=== PATIENT | female | born 1940 | race African-American/Black ===

== ENCOUNTER 2016-05-27 10:02 | Emergency (ER) | payer MEDICARE, MEDICAID ==
--- NOTE | 2016-05-27 10:19 | ER Document Report ---
ED Medical Screen (RME) - General Stated Complaint: NECK PAIN Notes: 76 yo female c/o right sided neck and shoulder pain. woke up with pain, some radiation and numbness into right arm/hand. no fever. + headache. hx/o HTN, DM TRAVEL OUTSIDE OF THE [place] IN LAST 30 DAYS: No - Related Data Allergies/Adverse Reactions: No Known Allergies Allergy (Verified 12/27/15 20:01) Past Medical History - Past Medical History Cardiac Medical History: Reports: Hx Coronary Artery Disease, Hx Hypertension - PULOMONARY HTN Denies: Hx Heart Attack Pulmonary Medical History: Reports: Hx Asthma, Hx Bronchitis, Hx COPD - CHF, Hx Pneumonia Neurological Medical History: Denies: Hx Cerebrovascular Accident, Hx Seizures Endocrine Medical History: Reports: Hx Diabetes Mellitus Type 2 GI Medical History: Denies: Hx Hepatitis, Hx Hiatal Hernia, Hx Ulcer Musculoskeltal Medical History: 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 Denies: Hx Mastectomy, Hx Open Heart Surgery, Hx Pacemaker - Immunizations Hx Diphtheria, Pertussis, Tetanus Vaccination: Yes Physical Exam - Vital signs Vitals: Temp Pulse Resp BP Pulse Ox 97.4 F 56 L 16 161/63 H 97 05/27/16 10:13 05/27/16 10:13 05/27/16 10:13 05/27/16 10:13 05/27/16 10:13 Course - Vital Signs Vital signs: Temp Pulse Resp BP Pulse Ox 97.4 F 56 L 16 161/63 H 97 05/27/16 10:13 05/27/16 10:13 05/27/16 10:13 05/27/16 10:13 05/27/16 10:13
[2016-05-27] MEDS ORDERED: NAPROXEN 250 MG TABLET PO ONE (11:36)
[2016-05-27] MEDS ORDERED: DIAZEPAM 5 MG TABLET PO ONE (11:36)
--- NOTE | 2016-05-27 11:40 | ER Document Report ---
ED General - General Chief Complaint: Neck Problem Stated Complaint: NECK PAIN Mode of Arrival: Ambulatory Information source: Patient Notes: 76-year-old female presents with complaints of neck tightness that started 2 days after she was awoken from sleep. Patient denies any neurological deficits , denies any fevers or chills nausea vomiting or diarrhea. Patient does note that it hurts to move the neck to the right but is able to move her neck to left Patient denies any previous similar episodes. Patient denies any trauma TRAVEL OUTSIDE OF THE [place] IN LAST 30 DAYS: No - HPI Onset: Other - 2 three-day duration Onset/Duration: Persistent Quality of pain: Achy Severity: Mild Pain Level: 1 Associated symptoms: Other Exacerbated by: Movement Relieved by: Denies Similar symptoms previously: No Recently seen / treated by doctor: No - Related Data Allergies/Adverse Reactions: No Known Allergies Allergy (Verified 05/27/16 10:18) Past Medical History - Social History Smoking Status: Never Smoker Cigarette use (# per day): No Chew tobacco use (# tins/day): No Smoking Education Provided: No Family History: Reviewed & Not Pertinent Patient has suicidal ideation: No Patient has homicidal ideation: No - Past Medical History Cardiac Medical History: Reports: Hx Coronary Artery Disease, Hx Hypertension - PULOMONARY HTN Denies: Hx Heart Attack Pulmonary Medical History: Reports: Hx Asthma, Hx Bronchitis, Hx COPD - CHF, Hx Pneumonia Neurological Medical History: Denies: Hx Cerebrovascular Accident, Hx Seizures Endocrine Medical History: Reports: Hx Diabetes Mellitus Type 2 GI Medical History: Denies: Hx Hepatitis, Hx Hiatal Hernia, Hx Ulcer Musculoskeltal Medical History: 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 Denies: Hx Mastectomy, Hx Open Heart Surgery, Hx Pacemaker - Immunizations Hx Diphtheria, Pertussis, Tetanus Vaccination: Yes Review of Systems - Review of Systems Notes: REVIEW OF SYSTEMS: CONSTITUTIONAL : Denies fever, chills, or sweats. Denies recent illness. EENT: Admits to neck stiffness CARDIOVASCULAR: Denies chest pain. Denies palpitations or racing or irregular heart beat. Denies ankle edema. RESPIRATORY: Denies cough, cold, or chest congestion. Denies shortness of breath, difficulty breathing, or wheezing. GASTROINTESTINAL: Denies abdominal pain or distention. Denies nausea, vomiting , or diarrhea. Denies blood in vomitus, stools, or per rectum. Denies black, tarry stools. Denies constipation. GENITOURINARY: Denies difficulty urinating, painful urination, burning, frequency, blood in urine, or discharge. FEMALE GENITOURINARY: Denies vaginal bleeding, heavy or abnormal periods, irregular periods. Denies vaginal discharge or odor. MUSCULOSKELETAL: Denies back or neck pain or stiffness. Denies joint pain or swelling. SKIN: Denies rash, lesions or sores. HEMATOLOGIC : Denies easy bruising or bleeding. LYMPHATIC: Denies swollen, enlarged glands. NEUROLOGICAL: Denies confusion or altered mental status. Denies passing out or loss of consciousness. Denies dizziness or lightheadedness. Denies headache. Denies weakness or paralysis or loss of use of either side. Denies problems with gait or speech. Denies sensory loss, numbness, or tingling. Denies seizures. PSYCHIATRIC: Denies anxiety or stress. Denies depression, suicidal ideation, or homicidal ideation. ALL OTHER SYSTEMS REVIEWED AND NEGATIVE. Dictation was performed using [employer] voice recognition software PHYSICAL EXAMINATION: GENERAL: Well-appearing, well-nourished and in no acute distress. HEAD: Atraumatic, normocephalic. EYES: Pupils equal round and reactive to light, extraocular movements intact, conjunctiva are normal. NECK: Full range of motion to the left with limited range of motion to the right no midline tenderness LUNGS: Breath sounds clear to auscultation bilaterally and equal. No wheezes rales or rhonchi. HEART: Regular rate and rhythm without murmurs ABDOMEN: Soft, nontender, nondistended abdomen. No guarding, no rebound. No masses appreciated. Female : deferred Musculoskeletal: Normal range of motion, no pitting or edema. No cyanosis. NEUROLOGICAL: Cranial nerves grossly intact. Normal speech, normal gait. Normal sensory, motor exams PSYCH: Normal mood, normal affect. SKIN: Warm, Dry, normal turgor, no rashes or lesions noted. Physical Exam - Vital signs Vitals: Temp Pulse Resp BP Pulse Ox 97.4 F 56 L 16 161/63 H 97 05/27/16 10:13 05/27/16 10:13 05/27/16 10:13 05/27/16 10:13 05/27/16 10:13 Course - Re-evaluation Re-evalutation: 05/27/16 16:51 Patient will be given Valium and anti-inflammatories and otherwise stable for discharge. I believe she has torticollis has no neurological deficits no signs of meningitis or any traumatic injury After performing a Medical Screening Examination, I estimate there is LOW risk for CENTRAL CORD SYNDROME, EPIDURAL MASS LESION, SEVERE SPINAL STENOSIS, ARTERIAL DISSECTION, MENINGITIS, or ACUTE CORONARY SYNDROME, thus I consider the discharge disposition reasonable. The patient and I have discussed the diagnosis and risks, and we agree with discharging home to follow-up on an outpatient basis with the understanding that symptoms and presentations can change. We also discussed returning to the Emergency Department immediately if new or worsening symptoms occur. We have discussed the symptoms which are most concerning (e.g., saddle anesthesia, urinary or bowel incontinence or retention , changing or worsening pain) that necessitate immediate return. - Vital Signs Vital signs: Temp Pulse Resp BP Pulse Ox 97.5 F 62 15 148/71 H 98 05/27/16 11:48 05/27/16 11:48 05/27/16 11:48 05/27/16 11:48 05/27/16 11:48 Discharge - Discharge Clinical Impression: Torticollis, Neck pain Condition: Stable Disposition: HOME, SELF-CARE Instructions: Torticollis ([facility]) Prescriptions: Diazepam [Valium 5 mg Tablet] 5 mg PO QIDP PRN #15 tablet PRN Reason: Naproxen 500 mg PO Q8 #30 tablet Referrals: TIKA STORM MD [Primary Care Provider] - Follow up in 3-5 days
[2016-05-27 11:52] VITALS: BP 148/71
== END 2016-05-27 11:50 | disposition home or self-care (01) ==
LOC: ER 10:02
DX: M54.2 Cervicalgia (principal); M43.6 Torticollis; I25.10 Atherosclerotic heart disease of native coronary artery without angina pectoris; E11.9 Type 2 diabetes mellitus without complications; M19.90 Unspecified osteoarthritis, unspecified site; Z90.710 Acquired absence of both cervix and uterus
CPT/HCPCS: 99283; A9270 ×2

== ENCOUNTER → 2017-06-23 | Outpatient (CLI) | payer MEDICARE, MEDICAID ==
[2017-06-23 14:20] LABS: BACTERIA (WET MOUNT) 3+ BACTERIA SEEN; EPITHELIALS (WET MOUNT) 3+ EPITHELIALS SEEN; RBCS (WET MOUNT) RARE RBCS SEEN; T.VAGINALIS (WET MOUNT) NO TRICHOMONAS SEEN; WBCS (WET MOUNT) 3+ WBCS SEEN; YEAST (WET MOUNT) NO YEAST SEEN
== END ==
LOC: LAB 13:54
PROVIDERS: ATTEND Nurse Practitioner Family
DX: L29.8 Other pruritus (principal); N10 Acute pyelonephritis; R30.0 Dysuria
CPT/HCPCS: 87086; 87088; 87186; 87210

== ENCOUNTER 2017-12-29 20:03 | Inpatient (IN) | payer MEDICARE, MEDICAID ==
--- NOTE | 2017-12-29 21:24 | ER Document Report ---
ED General - General Chief Complaint: Abdominal Pain Stated Complaint: SHORTNESS OF BREATH Time Seen by Provider: 12/29/17 21:04 TRAVEL OUTSIDE OF THE [place] IN LAST 30 DAYS: No - HPI Notes: 77-year-old female presented with multiple complaints. She reports a history of multiple hernia repairs in her abdomen several years ago. She states the right lower quadrant pain returned with multiple episodes of diarrhea "a long time ago." She says this worsened about 2 months ago. She also reports worsening shortness of breath for the past 2 months. She states she lost 2 children within the past 3 months and has been flying back and forth to [place]. She denies any blood in her diarrhea. Unable to quantify how many episodes daily. She denies nausea or vomiting. She has occasional dry cough. She has chills but no documented fevers. Denies any pain with urination. She does report generalized weakness and just feeling "very sick." Patient denies any history of coronary artery disease, stents, congestive heart failure, pulmonary disease. She has had bilateral leg swelling for the past week. Denies recent stress test or echo. - Related Data Allergies/Adverse Reactions: No Known Allergies Allergy (Verified 05/27/16 10:18) Past Medical History - Social History Smoking Status: Unknown if Ever Smoked Family History: Reviewed & Not Pertinent - Past Medical History Cardiac Medical History: Reports: Hx Coronary Artery Disease, Hx Hypertension - PULOMONARY HTN Denies: Hx Heart Attack Pulmonary Medical History: Reports: Hx Asthma, Hx Bronchitis, Hx COPD - CHF, Hx Pneumonia Neurological Medical History: Denies: Hx Cerebrovascular Accident, Hx Seizures Endocrine Medical History: Reports: Hx Diabetes Mellitus Type 2 GI Medical History: Denies: Hx Hepatitis, Hx Hiatal Hernia, Hx Ulcer Musculoskeletal Medical History: 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 Denies: Hx Mastectomy, Hx Open Heart Surgery, Hx Pacemaker - Immunizations Hx Diphtheria, Pertussis, Tetanus Vaccination: Yes Review of Systems - Review of Systems Notes: Constitutional: Negative for fever. Positive for fatigue and chills HENT: Negative for sore throat. Eyes: Negative for visual changes. Cardiovascular: Negative for chest pain. Positive for leg swelling. Respiratory: Positive for shortness of breath and dry cough. Gastrointestinal: Positive for abdominal pain and diarrhea. Negative for nausea or vomiting. Genitourinary: Negative for dysuria. Musculoskeletal: Negative for back pain. Skin: Negative for rash. Neurological: Negative for headaches, weakness or numbness. Psychiatric: Positive for anxiety and stress. 10 point ROS negative except as marked above and in HPI. Physical Exam - Vital signs Vitals: Temp Pulse BP Pulse Ox 97.8 F 80 186/87 H 96 12/29/17 20:31 12/29/17 20:31 12/29/17 20:31 12/29/17 20:31 - Notes Notes: PHYSICAL EXAMINATION: GENERAL: Well-appearing, well-nourished and in no acute distress. HEAD: Atraumatic, normocephalic. EYES: Pupils equal round and reactive to light, extraocular movements intact, conjunctiva are normal. ENT: nares patent, oropharynx clear without exudates. Moist mucous membranes. NECK: Normal range of motion, supple without lymphadenopathy LUNGS: Breath sounds clear to auscultation bilaterally and equal. No wheezes rales or rhonchi. HEART: Regular rate and rhythm, no chest wall tenderness ABDOMEN: Soft, mild tenderness right lower quadrant, normoactive bowel sounds. No guarding, no rebound. No masses appreciated. EXTREMITIES: Normal range of motion, 2+ pitting edema bilateral legs. No cyanosis. NEUROLOGICAL: Cranial nerves grossly intact. Normal speech, normal gait. Normal sensory and motor exams. PSYCH: Normal mood, normal affect. SKIN: Warm, Dry, normal turgor, no rashes or lesions noted. Course - Re-evaluation Re-evalutation: 12/29/17 22:22 Reviewed old chart. Patient had a stress test March 2015 showed a reversible inferior wall defect with a normal ejection fraction. I do not see where she ever followed up for cardiac cath. Chest x-ray today is consistent with congestive heart failure. Labs pending. 12/29/17 23:31 Lasix ordered. BNP elevated at 1800. New-onset congestive heart failure. Will discuss with hospitalist for admission. - Vital Signs Vital signs: Temp Pulse Resp BP Pulse Ox 97.8 F 80 186/87 H 96 12/29/17 20:31 12/29/17 20:31 12/29/17 20:31 12/29/17 20:31 - Laboratory Result Diagrams: 12/29/17 22:20 12/29/17 22:20 Laboratory results interpreted by me: 12/29/17 12/29/17 12/29/17 22:20 22:20 22:20 MCHC 31.9 L Plt Count 138 L Sodium 147.5 H Chloride 108 H Glucose 120 H NT-Pro-B Natriuret Pep 1800 H Discharge - Discharge Clinical Impression: New onset of congestive heart failure Abdominal pain Qualifiers: Abdominal location: right lower quadrant Qualified Code(s): R10.31 - Right lower quadrant pain Condition: Fair Disposition: ADMITTED INPATIENT Admitting Provider: Hospitalist Unit Admitted: Telemetry Referrals: CATHERINE SALTER FNP-C [NURSE PRACTITIONER] - Follow up as needed
--- NOTE | 2017-12-29 21:55 | RADIOLOGY REPORT (SQ) ---
EXAM DESCRIPTION: CHEST 2 VIEWS COMPLETED DATE/TIME: 12/29/2017 9:47 pm REASON FOR STUDY: shortness of breath COMPARISON: 05/02/2014 EXAM PARAMETERS: NUMBER OF VIEWS: two views TECHNIQUE: Digital Frontal and Lateral radiographic views of the chest acquired. RADIATION DOSE: NA LIMITATIONS: none FINDINGS: LUNGS AND PLEURA: Fluid in the fissures. Regis B-lines. MEDIASTINUM AND HILAR STRUCTURES: No masses or contour abnormalities. HEART AND VASCULAR STRUCTURES: Heart enlarged. Perihilar haziness. BONES: No acute findings. HARDWARE: None in the chest. OTHER: No other significant finding. IMPRESSION: Congestive heart failure interstitial pulmonary edema. TECHNICAL DOCUMENTATION: JOB ID: [id number] [employer] All Rights Reserved Reading location - IP/workstation name: [email or web address]
[2017-12-29] MEDS ORDERED: FUROSEMIDE INJ/PF 40 MG/4 ML SDV IV ONE (22:23)
[2017-12-29 22:40] LABS: ABSOLUTE BASOPHILS # (AUTO) 0.1 10^3/uL (0.0-0.2); ABSOLUTE EOSINOPHILS # (AUTO) 0.3 10^3/uL (0.0-0.6); ABSOLUTE LYMPHOCYTES (AUTO) 1.5 10^3/uL (0.5-4.7); ABSOLUTE MONOCYTES (AUTO) 0.5 10^3/uL (0.1-1.4); ABSOLUTE NEUT (AUTO) 3.7 10^3/uL (1.7-8.2); BASOPHILS % (AUTO) 1.3 % (0-2); EOSINOPHILS % (AUTO) 4.3 % (0-6); HEMATOCRIT 38.4 % (36.0-47.0); HEMOGLOBIN 12.2 g/dL (12.0-15.5); LYMPHOCYTES % (AUTO) 24.9 % (13-45); MEAN CORPUSCULAR HEMOGLOBIN 27.8 pg (27.0-33.4); MEAN CORPUSCULAR HGB CONC 31.9 g/dL (32.0-36.0); MEAN CORPUSCULAR VOLUME 87 fl (80-97); MONOCYTES % (AUTO) 8.1 % (3-13); PLATELET COUNT 138 10^3/uL (150-450); RED CELL DISTRIBUTION WIDTH 13.5 % (11.5-14.0); SEGMENTED NEUTROPHILS % (AUTO) 61.4 % (42-78); TOTAL CELLS COUNTED % (AUTO) 100 %
[2017-12-29 22:59] LABS: ALANINE AMINOTRANSFERASE 40 U/L (9-52); ALBUMIN 4.2 g/dL (3.5-5.0); ALKALINE PHOSPHATASE 76 U/L (38-126); ANION GAP 10 (5-19); ASPARTATE AMINO TRANSFERASE 24 U/L (14-36); BILIRUBIN,DIRECT 0.3 mg/dL (0.0-0.4); BILIRUBIN,TOTAL 0.8 mg/dL (0.2-1.3); BLOOD UREA NITROGEN 18 mg/dL (7-20); CALCIUM 9.2 mg/dL (8.4-10.2); CARBON DIOXIDE 30 mmol/L (22-30); CHLORIDE 108 mmol/L (98-107); GLUCOSE 120 mg/dL (75-110); POTASSIUM 3.9 mmol/L (3.6-5.0); SODIUM 147.5 mmol/L (137-145); TOTAL PROTEIN 7.6 g/dL (6.3-8.2)
[2017-12-29 23:10] LABS: TROPONIN I 0.017 ng/mL
[2017-12-30] MEDS ORDERED: HYDRALAZINE HCL INJ/PF 20 MG/1 ML SDV IV PRN (00:06)
[2017-12-30] MEDS ORDERED: ACETAMINOPHEN 325 MG TABLET PO PRN (00:06)
[2017-12-30] MEDS ORDERED: CLONIDINE HCL 0.1 MG TABLET PO ONE (00:30)
[2017-12-30 04:43] LABS: ABSOLUTE BASOPHILS # (AUTO) 0.1 10^3/uL (0.0-0.2); ABSOLUTE EOSINOPHILS # (AUTO) 0.3 10^3/uL (0.0-0.6); ABSOLUTE LYMPHOCYTES (AUTO) 1.8 10^3/uL (0.5-4.7); ABSOLUTE MONOCYTES (AUTO) 0.6 10^3/uL (0.1-1.4); ABSOLUTE NEUT (AUTO) 3.8 10^3/uL (1.7-8.2); BASOPHILS % (AUTO) 1.6 % (0-2); EOSINOPHILS % (AUTO) 4.4 % (0-6); HEMATOCRIT 40.5 % (36.0-47.0); HEMOGLOBIN 13.1 g/dL (12.0-15.5); MEAN CORPUSCULAR HEMOGLOBIN 27.9 pg (27.0-33.4); MEAN CORPUSCULAR HGB CONC 32.3 g/dL (32.0-36.0); MEAN CORPUSCULAR VOLUME 86 fl (80-97); MONOCYTES % (AUTO) 8.7 % (3-13); PLATELET COUNT 130 10^3/uL (150-450); RED BLOOD COUNT 4.69 10^6/uL (3.72-5.28); RED CELL DISTRIBUTION WIDTH 13.8 % (11.5-14.0); SEGMENTED NEUTROPHILS % (AUTO) 58.3 % (42-78); TOTAL CELLS COUNTED % (AUTO) 100 %; WHITE BLOOD COUNT 6.5 10^3/uL (4.0-10.5)
[2017-12-30 05:07] LABS: APPEARANCE,URINE TURBID; BILIRUBIN,URINE NEGATIVE (NEGATIVE); COLOR,URINE AMBER; GLUCOSE, URINE NEGATIVE (NEGATIVE); KETONES,URINE NEGATIVE (NEGATIVE); LEUKOCYTE ESTERASE,URINE LARGE (NEGATIVE); NITRITE,URINE NEGATIVE (NEGATIVE); PROTEIN,URINE NEGATIVE (NEGATIVE); URINE SPECIFIC GRAVITY 1.021
[2017-12-30 05:13] LABS: ANION GAP 11 (5-19); BLOOD UREA NITROGEN 17 mg/dL (7-20); CALCIUM 9.3 mg/dL (8.4-10.2); CARBON DIOXIDE 30 mmol/L (22-30); CHLORIDE 105 mmol/L (98-107); CREATINE KINASE 78 U/L (30-135); GLUCOSE 146 mg/dL (75-110); POTASSIUM 3.8 mmol/L (3.6-5.0); SODIUM 146.2 mmol/L (137-145)
[2017-12-30 05:22] LABS: CREATINE KINASE MB 1.57 ng/mL (<4.55); TROPONIN I 0.019 ng/mL
[2017-12-30] MEDS ORDERED: CLONIDINE HCL 0.1 MG TABLET PO SCH (06:00)
--- NOTE | 2017-12-30 06:07 | PDOC H&P ---
History of Present Illness Admission Date/PCP: 12/29/17 23:46 TIKA STORM MD Patient complains of: Shortness of breath History of Present Illness: LORI GROSS is a 77 year old female with a past medical history of congestive heart failure with ejection fraction of 45%, morbid obesity, suspected sleep apnea, diabetes and hypertension. She presents with 2 weeks of worsening shortness of breath with exertion, nonproductive cough, orthopnea and lower extremity edema. In the emergency room she is found to have a systolic blood pressure of 217, tachycardia of 110, a long QT and a BNP of 1800. She started on IV Lasix and referred to the hospitalist for admission. She denies chest pain palpitations nausea vomiting or recent change in medications. Past Medical History Cardiac Medical History: Reports: Coronary Artery Disease, Hypertension - PULOMONARY HTN Denies: Myocardial Infarction Pulmonary Medical History: Reports: Asthma, Bronchitis, Chronic Obstructive Pulmonary Disease (COPD) - CHF, Pneumonia Neurological Medical History: Denies: Seizures Endocrine Medical History: Reports: Diabetes Mellitus Type 2, Obesity GI Medical History: Denies: Hepatitis, Hiatal Hernia Musculoskeltal Medical History: Reports: Arthritis - OSTEO Psychiatric Medical History: Reports: None Hematology: Reports: Anemia Denies: Sickle Cell Disease Past Surgical History Past Surgical History: Reports: Hysterectomy Denies: Amputation, Mastectomy, Pacemaker Social History Information Source: Patient, [facility] Records Lives with: Alone Smoking Status: Never Smoker Frequency of Alcohol Use: Rare Hx Recreational Drug Use: No - Advance Directive Resuscitation Status: Full Code Family History Family History: DM, Hypertension Parental Family History Reviewed: Yes Children Family History Reviewed: Yes Sibling(s) Family History Reviewed.: Yes Medication/Allergy Home Medications: Sitagliptin Phos/Metformin HCl [Janumet 50-1,000 mg Tablet] 500 mg PO BID Metoprolol Succinate [Toprol XL 25 mg Tablet] 25 mg PO DAILY 03/01/12 Tramadol HCl [Ultram 50 mg Tablet] 50 mg PO ASDIR PRN 11/21/13 Olmesartan/Hydrochlorothiazide [Benicar Hct 40-25 Mg Tablet] 25 mg PO DAILY Clonidine HCl [Catapres 0.1 mg Tablet] 0.1 mg PO BID 02/20/15 Sitagliptin Phosphate [Januvia] 1 tab PO DAILY 02/20/15 Sulfamethoxazole/Trimethoprim [Sulfamethoxazole-Tmp Ds Tablet] 1 tab PO BID 11/28 Diazepam [Valium 5 mg Tablet] 5 mg PO QIDP PRN #15 tablet 05/27/16 Naproxen 500 mg PO Q8 #30 tablet 05/27/16 Allergies/Adverse Reactions: No Known Allergies Allergy (Verified 05/27/16 10:18) Review of Systems Constitutional: PRESENT: as per HPI, fatigue, weakness. ABSENT: fever(s), headache(s), night sweats Eyes: ABSENT: visual disturbances Ears: ABSENT: hearing changes Cardiovascular: PRESENT: as per HPI, dyspnea on exertion, edema, orthropnea. ABSENT: chest pain, palpitations Respiratory: PRESENT: as per HPI, cough, dyspnea. ABSENT: hemoptysis, sputum Gastrointestinal: ABSENT: abdominal pain, constipation, diarrhea, hematemesis, hematochezia, nausea, vomiting Genitourinary: ABSENT: dysuria, hematuria Musculoskeletal: ABSENT: joint swelling Integumentary: ABSENT: rash, wounds Neurological: ABSENT: abnormal gait, abnormal speech, confusion, dizziness, focal weakness, syncope Psychiatric: ABSENT: anxiety, depression, homidical ideation, suicidal ideation Endocrine: ABSENT: cold intolerance, heat intolerance, polydipsia, polyuria Hematologic/Lymphatic: ABSENT: easy bleeding, easy bruising Physical Exam Vital Signs: Temp Pulse Resp BP Pulse Ox 97.8 F 80 26 H 181/103 H 94 12/29/17 20:31 12/29/17 20:31 12/30/17 05:00 12/30/17 04:01 12/30/17 05:00 General appearance: PRESENT: cooperative, mild distress, morbidly obese. ABSENT : disheveled, hard of hearing Head exam: PRESENT: atraumatic, normocephalic Eye exam: PRESENT: conjunctiva pink, EOMI, PERRLA. ABSENT: scleral icterus Ear exam: PRESENT: normal external ear exam Mouth exam: PRESENT: moist, tongue midline Neck exam: PRESENT: JVD. ABSENT: carotid bruit, lymphadenopathy, thyromegaly Respiratory exam: PRESENT: accessory muscle use, crackles, symmetrical, tachypnea. ABSENT: prolonged expiratory phas, rales, rhonchi, wheezes Cardiovascular exam: PRESENT: gallop, +S1, +S2, tachycardia Pulses: PRESENT: normal dorsalis pedis pul Vascular exam: PRESENT: normal capillary refill GI/Abdominal exam: PRESENT: normal bowel sounds, soft. ABSENT: distended, guarding, mass, organolmegaly, rebound, tenderness Rectal exam: PRESENT: deferred Extremities exam: PRESENT: full ROM, pedal edema, +2 edema. ABSENT: calf tenderness, clubbing Neurological exam: PRESENT: alert, awake, oriented to person, oriented to place , oriented to time, oriented to situation, CN II-XII grossly intact. ABSENT: motor sensory deficit Psychiatric exam: PRESENT: appropriate affect, normal mood. ABSENT: homicidal ideation, suicidal ideation Skin exam: PRESENT: dry, intact, warm. ABSENT: cyanosis, rash Results Laboratory Results: 12/30/17 04:25 12/30/17 04:25 12/30/17 12/30/17 04:25 04:25 WBC 6.5 RBC 4.69 Hgb 13.1 Hct 40.5 MCV 86 MCH 27.9 MCHC 32.3 RDW 13.8 Plt Count 130 L Seg Neutrophils % 58.3 Lymphocytes % 27.0 Monocytes % 8.7 Eosinophils % 4.4 Basophils % 1.6 Absolute Neutrophils 3.8 Absolute Lymphocytes 1.8 Absolute Monocytes 0.6 Absolute Eosinophils 0.3 Absolute Basophils 0.1 Sodium 146.2 H Potassium 3.8 Chloride 105 Carbon Dioxide 30 Anion Gap 11 BUN 17 Creatinine 0.83 Est GFR ( Amer) > 60 Est GFR (Non-Af Amer) > 60 Glucose 146 H Calcium 9.3 12/30/17 12/30/17 04:25 04:25 Creatine Kinase 78 CK-MB (CK-2) 1.57 Troponin I 0.019 Impressions: Chest X-Ray 12/29/17 21:18 IMPRESSION: Congestive heart failure interstitial pulmonary edema. Assessment & Plan - Diagnosis (1) Hypertensive urgency Is this a current diagnosis for this admission?: Yes Plan: Optimize KVNG inhibitor, loop diuretic and hydralazine as needed (2) Acute exacerbation of congestive heart failure Is this a current diagnosis for this admission?: Yes Plan: Loop diuretic and nitroglycerin patch, follow-up 2D echo (3) Sleep apnea Is this a current diagnosis for this admission?: Yes Plan: Trial BiPAP, consider outpatient sleep study (4) Morbid obesity Is this a current diagnosis for this admission?: Yes Plan: Morbid obesity will evaluate for metabolic cause with evaluation of thyroid function and dietitian consultation - Time Time Spent: 50 to 70 Minutes - Inpatient Certification Medical Necessity: Need Close Monitoring Due to Risk of Patient Decompensation
[2017-12-30] MEDS: HEPARIN SOD (PORCINE) 5,000 UNIT/ML 1 ML SYRINGE SUBCUT SCH ×3 (06:12→21:03)
--- NOTE | 2017-12-30 07:41 | EKG REPORT ---
SEVERITY:- ABNORMAL ECG - SINUS RHYTHM LEFT ATRIAL ABNORMALITY BORDERLINE T WAVE ABNORMALITIES PROLONGED QT INTERVAL : Confirmed by: Leander Green MD 30-Dec-2017 07:41:06
[2017-12-30] MEDS ORDERED: ENALAPRIL MALEATE 10 MG TABLET PO SCH (10:00)
[2017-12-30] MEDS ORDERED: ASPIRIN 81 MG TABLET, ENT COATED PO SCH (10:00)
[2017-12-30] MEDS ORDERED: NITROGLYCERIN 5 MG (0.2 MG/HR) PATCH.TD24 TD SCH (10:00)
[2017-12-30] MEDS: DOCUSATE SODIUM 100 MG CAPSULE PO SCH (10:55)
[2017-12-30] MEDS: POTASSIUM CHLORIDE 10 MEQ CAPSULE.ER PO SCH ×2 (10:56→21:06)
[2017-12-30] MEDS: METOPROLOL SUCCINATE 25 MG TAB.SR.24H PO SCH (10:56)
[2017-12-30] MEDS: FUROSEMIDE INJ/PF 40 MG/4 ML SDV IV SCH (10:57)
[2017-12-30 15:43] LABS: CREATINE KINASE MB 1.65 ng/mL (<4.55); TROPONIN I 0.016 ng/mL
[2017-12-30] MEDS ORDERED: INSULIN LISPRO 100 UNIT/ML 3 ML VIAL SUBCUT PRN (17:10)
[2017-12-30] MEDS ORDERED: GLUCAGON,HUMAN RECOMB 1 MG INJ IM PRN (17:10)
[2017-12-30] MEDS ORDERED: DEXTROSE 40% GEL 15 GM TUBE PO PRN ×2 (17:10)
[2017-12-30] MEDS ORDERED: DEXTROSE 50%-WATER 25 GM/50 ML DISP.SYRIN IV PRN ×2 (17:10)
[2017-12-30] MEDS ORDERED: IPRATROPIUM/ALBUTEROL 0.5-2.5 MG/3 ML AMPUL NEB PRN (17:11)
--- NOTE | 2017-12-30 17:16 | Progress Note ---
Provider Note Provider Note: The patient is a 77-year-old female with a past medical history of CHF with reduced ejection fraction, COPD, asthma CAD, hypertension, DM 2, morbid obesity , and suspected sleep apnea who was admitted overnight 12/30/17 by the Housing Property Manager for hypertensive urgency with an acute on chronic CHF exacerbation. The patient's chart, laboratory results, imaging, vital signs, overnight events , and orders were reviewed. Agree with the plan of care as initiated by the previous provider. 1) Hypertensive urgency; improved: The patient was noted to have blood pressure elevated to 217/119. She was placed on Vasotec 20 mg twice daily and daily nitroglycerin patch with IV hydralazine as needed for blood pressure control. She was placed on IV furosemide for diuresis. Her home medications are now reconciled. Her home dose clonidine and metoprolol are continued. The Vasotec was discontinued and her home dose losartan/hctz is resumed. Blood pressures are improved to 128/89 this afternoon. Serial troponins x3 are normal 2) Acute on chronic CHF exacerbation: ProBNP is elevated to 1800; there are no previous results for comparison. Per the previous providers report, the patient has a known ejection fraction of 45%, again, there is no previous report for comparison. An echocardiogram was obtained today; formal report is pending. We will continue daily aspirin, statin, beta-melissa, and ARB. Currently diuresing with IV furosemide. The patient is on a cardiac diet with daily weights and strict I&O's. 3) Sleep apnea: BiPAP nightly and as needed. 4) Morbid obesity: The patient's TSH is normal. She is placed on a consistent carb diet. The registered dietitian is consulted. Dietary discretion is advised. 5) Diabetes mellitus: Holding metformin while inpatient. Patient is placed on a consistent carb diet. Accu-Cheks before meals and at bedtime with Humalog for sliding scale coverage. Hypoglycemia protocols in place. 6) COPD: The patient's Flovent is continued. Nebulizer treatments are available as needed. Supplemental oxygen as needed to maintain oxygen saturations greater than 88%. BiPAP nightly and as needed.
[2017-12-30] MEDS: CLONIDINE HCL 0.2 MG TABLET PO SCH (18:27)
--- NOTE | 2017-12-30 20:07 | XCELERA REPORT ---
[address] [address] Transthoracic Echocardiogram Report Name: LORI GROSS Age: 77 yrs Gender: Female : 1940 Patient Status: Inpatient Patient Location: [address] [place] [address] Study Date: 12/30/2017 03:07 PM Reason For Study: systolic murmur Ordering Physician: LUZMARIA WILLIAM Performed By: Dee Swan Interpretation Summary Technically poor study, distal half of LV not imaged, apical 4 view substandard, biplane LVEF not calculated, HANH not calculated. R heart poorly visualised. MInimal information derived from this very substandard echo. 1. minimal post pericardial effusion 2 .pleural effusion likely 3. mod. AV sclerosis, doubt significant , mild AR, no LV enlargement 4.Mod enlarged LA at least on PLAX, pulmonary function technician didnot perform needed calculations 5. poor MV opening not due to MS, due to poor LA outflow, MR not well evaluated, may be mild/mod. 6. mod concentric LV hypertrophy, Incomplete LV segmental evaluation, LVEF visually mild/mod impaired, no LV enlargement due to hypertrophy. Mostly hypokinetic segments, 7. Right heart appears enlarged but poorly visualized , and TR not imaged and RVSP not calculable. IVC collapse is normal. 8. pt appears to be in atrial fibrillation. . MMode/2D Measurements & Calculations RVDd: 3.4 cm LVIDd: 4.8 cm FS: 36.4 % Ao root diam: 2.5 cm IVSd: 1.1 cm LVIDs: 3.1 cm EDV(Teich): 107.7 ml Ao root area: 5.0 cm2 LVPWd: 1.2 cm ESV(Teich): 36.5 ml EF(Teich): 66.1 % LVOT diam: 1.6 cm LVOT area: 2.0 cm2 Doppler Measurements & Calculations Ao V2 max: AI max rayne: LV V1 max PG: PA V2 max: 167.6 cm/sec 135.0 cm/sec 3.8 mmHg 111.6 cm/sec Ao max PG: AI max P.3 mmHg LV V1 max: PA max P.0 mmHg 11.2 mmHg AI dec slope: 97.7 cm/sec DENNIS(V,D): 1.2 cm2 136.2 cm/sec2 AI P1/2t: 290.3 msec Left Ventricle There is mild to moderate concentric left ventricular hypertrophy. Left ventricular systolic function is moderately reduced. LV diastolic function not assessed. E/E' not calculated by fiber technician. Not all wall segments were well visualized. The left ventricular apex is not well visualized. Right Ventricle The right ventricle is moderately dilated. The right ventricle is not well visualized secondary to technical limitations. Right ventricular function cannot be assessed due to poor image quality. Atria Right atrium not well visualized secondary to technical limitations. The left atrium is moderately dilated. There is no Doppler evidence for an interatrial shunt. Mitral Valve The mitral valve is normal in structure and function. There is moderate mitral annular calcification. There is no evidence of mitral valve prolapse. There is no mitral valve stenosis. There is a mild to moderate amount of mitral regurgitation. Aortic Valve The aortic valve is sclerotic and shows some degree of functional abnormality. The aortic valve is trileaflet. There is a small vegetation or mass on the aortic valve. There is no aortic valve stenosis. cusps separation 17mm. There is a mild amount of aortic regurgitation. Tricuspid Valve The tricuspid valve is not well visualized secondary to technical limitations. Tricuspid regurgitation jet envelope not well defined to measure RV systolic pressure accurately. Pulmonic Valve There is a mild amount of pulmonic regurgitation. Effusions Minimal pericardial effusion. I WMSI = 1.83 % Normal = 17 Segments Size X - Cannot 1 - Normal 2 - 3 - Akinetic4 - 1-2 small Interpret Hypokinetic Dyskinetic 3-5 moderate 5 - 6-14 large Aneurysmal 15-16 diffuse : LUZMARIA WILLIAM > Leander Green
[2017-12-30] MEDS: FLUTICASONE PROPIONATE HFA 110 MCG/PUFF 12 GM MDI IH SCH (21:05)
[2017-12-30] MEDS: SIMVASTATIN 10 MG TABLET PO SCH (21:06)
[2017-12-30 22:55] LABS: CREATINE KINASE MB 1.61 ng/mL (<4.55); TROPONIN I 0.019 ng/mL
[2017-12-31] MEDS: HEPARIN SOD (PORCINE) 5,000 UNIT/ML 1 ML SYRINGE SUBCUT SCH ×3 (05:11→21:12)
[2017-12-31 07:29] LABS: ANION GAP 8 (5-19); BLOOD UREA NITROGEN 25 mg/dL (7-20); CARBON DIOXIDE 32 mmol/L (22-30); CHLORIDE 101 mmol/L (98-107); GLUCOSE 137 mg/dL (75-110); POTASSIUM 3.9 mmol/L (3.6-5.0); SODIUM 141.1 mmol/L (137-145)
[2017-12-31 08:01] LABS: ABSOLUTE EOSINOPHILS # (AUTO) 0.3 10^3/uL (0.0-0.6); ABSOLUTE LYMPHOCYTES (AUTO) 1.6 10^3/uL (0.5-4.7); ABSOLUTE MONOCYTES (AUTO) 0.7 10^3/uL (0.1-1.4); ABSOLUTE NEUT (AUTO) 3.9 10^3/uL (1.7-8.2); BASOPHILS % (AUTO) 0.7 % (0-2); EOSINOPHILS % (AUTO) 4.7 % (0-6); HEMATOCRIT 40.3 % (36.0-47.0); HEMOGLOBIN 12.7 g/dL (12.0-15.5); LYMPHOCYTES % (AUTO) 24.7 % (13-45); MEAN CORPUSCULAR HEMOGLOBIN 27.3 pg (27.0-33.4); MEAN CORPUSCULAR HGB CONC 31.6 g/dL (32.0-36.0); MEAN CORPUSCULAR VOLUME 86 fl (80-97); MONOCYTES % (AUTO) 10.3 % (3-13); PLATELET COUNT 114 10^3/uL (150-450); RED BLOOD COUNT 4.67 10^6/uL (3.72-5.28); RED CELL DISTRIBUTION WIDTH 13.7 % (11.5-14.0); SEGMENTED NEUTROPHILS % (AUTO) 59.6 % (42-78); TOTAL CELLS COUNTED % (AUTO) 100 %; WHITE BLOOD COUNT 6.6 10^3/uL (4.0-10.5)
[2017-12-31] MEDS ORDERED: LOSARTAN POTASSIUM 50 MG TABLET PO SCH (10:00)
[2017-12-31] MEDS ORDERED: HYDROCHLOROTHIAZIDE PO SCH (10:00)
[2017-12-31] MEDS ORDERED: OLMESARTAN PO SCH (10:00)
[2017-12-31] MEDS ORDERED: HYDROCHLOROTHIAZIDE 25 MG TABLET PO SCH (10:00)
[2017-12-31] MEDS ORDERED: [UNRECOGNIZED DRUG - OTHER] PO SCH (10:00)
[2017-12-31] MEDS: FUROSEMIDE INJ/PF 40 MG/4 ML SDV IV SCH (10:25)
[2017-12-31] MEDS: FLUTICASONE PROPIONATE HFA 110 MCG/PUFF 12 GM MDI IH SCH ×2 (10:26→21:15)
[2017-12-31] MEDS: POTASSIUM CHLORIDE 10 MEQ CAPSULE.ER PO SCH ×2 (10:26→21:15)
[2017-12-31] MEDS: ASPIRIN 81 MG TABLET, ENT COATED PO SCH (10:26)
[2017-12-31] MEDS: DOCUSATE SODIUM 100 MG CAPSULE PO SCH (10:26)
[2017-12-31] MEDS: METOPROLOL SUCCINATE 25 MG TAB.SR.24H PO SCH (10:27)
[2017-12-31] MEDS: CLONIDINE HCL 0.2 MG TABLET PO SCH ×2 (10:28→17:14)
--- NOTE | 2017-12-31 17:09 | PDOC PROGRESS REPORT ---
Subjective Progress Note for:: 12/31/17 Subjective:: The patient is a 77-year-old female with a past medical history of CHF with reduced ejection fraction, COPD, asthma CAD, hypertension, DM 2, morbid obesity , and suspected sleep apnea who was admitted overnight 12/30/17 by the [facility] for hypertensive urgency with an acute on chronic CHF exacerbation. The patient was seen on morning rounds. She was found sitting up in the chair on room air. She reports that she is feeling much better today with resolution of her dyspnea on exertion. She denies chest pain, palpitations, orthopnea, cough. She also reports that her bilateral lower leg edema has improved significantly. She has no new questions or concerns. Per nursing, the patient has been borderline hypotensive; did hold her clonidine and hydrochlorothiazide today. Reason For Visit: HEART FAILURE, HTN, LETI Physical Exam Vital Signs: Temp Pulse Resp BP Pulse Ox 98 F 70 20 113/90 H 94 12/31/17 16:00 12/31/17 16:00 12/31/17 16:00 12/31/17 16:00 12/31/17 16:00 Intake & Output 12/30/17 12/31/17 01/01/18 06:59 06:59 06:59 Intake Total 1368 Balance 1368 Weight 108.5 kg General appearance: PRESENT: no acute distress, cooperative, morbidly obese, well-developed, well-nourished Head exam: PRESENT: atraumatic, normocephalic Eye exam: PRESENT: conjunctiva pink, EOMI, PERRLA. ABSENT: scleral icterus Ear exam: PRESENT: normal external ear exam Mouth exam: PRESENT: moist, tongue midline Neck exam: ABSENT: carotid bruit, JVD, lymphadenopathy, thyromegaly Respiratory exam: PRESENT: clear to auscultation dmitri, decreased breath sounds - Bibasilar; poor inspiratory effort, body habitus, symmetrical, unlabored. ABSENT: rales, rhonchi, wheezes Cardiovascular exam: PRESENT: RRR, +S1, +S2. ABSENT: diastolic murmur, rubs, systolic murmur Pulses: PRESENT: normal dorsalis pedis pul Vascular exam: PRESENT: normal capillary refill GI/Abdominal exam: PRESENT: normal bowel sounds, soft. ABSENT: distended, guarding, mass, organolmegaly, rebound, tenderness Rectal exam: PRESENT: deferred Extremities exam: PRESENT: full ROM, +1 edema. ABSENT: calf tenderness, clubbing, pedal edema Neurological exam: PRESENT: alert, awake, oriented to person, oriented to place , oriented to time, oriented to situation, CN II-XII grossly intact. ABSENT: motor sensory deficit Psychiatric exam: PRESENT: appropriate affect, normal mood. ABSENT: homicidal ideation, suicidal ideation Skin exam: PRESENT: dry, intact, warm. ABSENT: cyanosis, rash Results Laboratory Results: 12/31/17 06:57 12/31/17 06:57 12/31/17 12/31/17 06:57 06:57 WBC 6.6 RBC 4.67 Hgb 12.7 Hct 40.3 MCV 86 MCH 27.3 MCHC 31.6 L RDW 13.7 Plt Count 114 L Seg Neutrophils % 59.6 Lymphocytes % 24.7 Monocytes % 10.3 Eosinophils % 4.7 Basophils % 0.7 Absolute Neutrophils 3.9 Absolute Lymphocytes 1.6 Absolute Monocytes 0.7 Absolute Eosinophils 0.3 Absolute Basophils 0.0 Sodium 141.1 Potassium 3.9 Chloride 101 Carbon Dioxide 32 H Anion Gap 8 BUN 25 H Creatinine 0.92 Est GFR ( Amer) > 60 Est GFR (Non-Af Amer) 59 L Glucose 137 H Calcium 9.0 12/30/17 12/30/17 12/30/17 04:25 04:25 12:10 Creatine Kinase 78 104 CK-MB (CK-2) 1.57 Troponin I 0.019 NT-Pro-B Natriuret Pep 12/30/17 12/30/17 12/30/17 12:10 15:00 22:04 Creatine Kinase 132 CK-MB (CK-2) Cancelled 1.65 Troponin I Cancelled 0.016 NT-Pro-B Natriuret Pep 12/30/17 12/31/17 22:04 06:57 Creatine Kinase CK-MB (CK-2) 1.61 Troponin I 0.019 NT-Pro-B Natriuret Pep 1410 H Impressions: Chest X-Ray 12/29/17 21:18 IMPRESSION: Congestive heart failure interstitial pulmonary edema. Assessment & Plan - Diagnosis (1) Hypertensive urgency Is this a current diagnosis for this admission?: Yes Plan: Resolved. The patient was noted to have blood pressure elevated to 217/119. Serial troponins x3 are normal Chest x-ray is benign Echocardiogram reveals normal sinus rhythm She is currently on her home dose clonidine and metoprolol, losartan 25 mg twice daily, and has been transitioned to p.o. furosemide. Blood pressures are improved; 113/90. (2) Acute exacerbation of congestive heart failure Qualifiers: Heart failure type: unspecified Qualified Code(s): I50.9 - Heart failure, unspecified Is this a current diagnosis for this admission?: Yes Plan: Improved. ProBNP 1800--> 1410 Echocardiogram was completed, although suboptimal testing. LVEF was unable to be determined and diastolic dysfunction was not assessed. Medications as above. The patient is on a cardiac diet with daily weights and strict I&O's. Recommend outpatient follow-up with her established relay tester and likely repeat echocardiogram. (3) Diabetes mellitus Qualifiers: Diabetes mellitus type: type 2 Diabetes mellitus termite treater insulin use: without termite treater use Is this a current diagnosis for this admission?: Yes Plan: Holding metformin while inpatient. Patient is placed on a consistent carb diet. Accu-Cheks before meals and at bedtime with Humalog for sliding scale coverage. Hypoglycemia protocols in place. (4) COPD (chronic obstructive pulmonary disease) Is this a current diagnosis for this admission?: Yes Plan: The patient's Flovent is continued. Nebulizer treatments are available as needed. Supplemental oxygen as needed to maintain oxygen saturations greater than 88%. We will obtain oxygen qualification testing prior to discharge. (5) Morbid obesity Is this a current diagnosis for this admission?: Yes (6) Sleep apnea Is this a current diagnosis for this admission?: Yes Plan: Overnight pulse oximetry. Recommend outpatient overnight sleep study. - Time Time Spent with patient: 25-34 minutes Medications reviewed and adjusted accordingly: Yes Anticipated discharge: Home Within: within 24 hours
--- NOTE | 2017-12-31 18:40 | EKG REPORT ---
SEVERITY:- ABNORMAL ECG - SINUS RHYTHM LEFT ATRIAL ABNORMALITY NONSPECIFIC T ABNORMALITIES, LATERAL LEADS : Confirmed by: Leander Green MD 31-Dec-2017 18:40:17
[2017-12-31] MEDS: LOSARTAN POTASSIUM 25 MG TABLET PO SCH (21:15)
[2017-12-31] MEDS: SIMVASTATIN 10 MG TABLET PO SCH (21:15)
[2018-01-01] MEDS: HEPARIN SOD (PORCINE) 5,000 UNIT/ML 1 ML SYRINGE SUBCUT SCH ×2 (05:05→13:16)
[2018-01-01 06:06] LABS: ANION GAP 9 (5-19); BLOOD UREA NITROGEN 23 mg/dL (7-20); CALCIUM 8.9 mg/dL (8.4-10.2); CARBON DIOXIDE 29 mmol/L (22-30); CHLORIDE 104 mmol/L (98-107); GLUCOSE 134 mg/dL (75-110); POTASSIUM 4.3 mmol/L (3.6-5.0); SODIUM 142.4 mmol/L (137-145)
[2018-01-01] MEDS: FLUTICASONE PROPIONATE HFA 110 MCG/PUFF 12 GM MDI IH SCH (10:25)
[2018-01-01] MEDS: POTASSIUM CHLORIDE 10 MEQ CAPSULE.ER PO SCH (10:26)
[2018-01-01] MEDS: DOCUSATE SODIUM 100 MG CAPSULE PO SCH (10:26)
[2018-01-01] MEDS: CLONIDINE HCL 0.2 MG TABLET PO SCH (10:26)
[2018-01-01] MEDS: METOPROLOL SUCCINATE 25 MG TAB.SR.24H PO SCH (10:27)
[2018-01-01] MEDS: ASPIRIN 81 MG TABLET, ENT COATED PO SCH (10:27)
[2018-01-01] MEDS: LOSARTAN POTASSIUM 25 MG TABLET PO SCH (10:27)
[2018-01-01 12:33] VITALS: BP 121/72
[2018-01-02] MEDS ORDERED: FUROSEMIDE 40 MG TABLET PO SCH (10:00)
--- NOTE | 2018-01-04 15:46 | PDOC DISCHARGE SUMMARY ---
General - Admit/Disc Date/PCP Admission Date/Primary Care Provider: 12/29/17 23:46 TIKA STORM MD Discharge Date: 01/01/18 - Discharge Diagnosis (1) Hypertensive urgency Is this a current diagnosis for this admission?: Yes Summary: Resolved. The patient was noted to have blood pressure elevated to 217/119. Serial troponins x3 are normal Chest x-ray is benign EKG: normal sinus rhythm Echocardiogram was a suboptimal study; LVEF could not be determined. She was continued on her home dose clonidine and metoprolol and losartan 25 mg twice daily. HCTZ was held and she was initially placed on IV furosemide with excellent urinary output and resolution of fluid volume overload. Lung sounds cleared and BLE edema improved from +3 pitting to +1 pitting. She was transitioned to p.o. furosemide and observed overnight. Blood pressures remained normotensive and the patient was asymptomatic. At time of discharge, the patient was in no acute distress, asymptomatic, and maintaining oxygen saturations while ambulatory on room air. (2) Acute exacerbation of congestive heart failure Is this a current diagnosis for this admission?: Yes Summary: ProBNP 1800--> 1410 Echocardiogram was completed, although suboptimal testing. LVEF was unable to be determined and diastolic dysfunction was not assessed. The patient's hypertension was managed as above. She was diuressed with IV furosemide and then transitioned to Lasix at discharge. Recommend she follow up with her established remediation bioanalytics consultant. Patient is established with Home Health nursing for CHF management. We discussed the importance of a cardiac diet and daily weights. (3) Diabetes mellitus Is this a current diagnosis for this admission?: Yes (4) COPD (chronic obstructive pulmonary disease) Is this a current diagnosis for this admission?: Yes Summary: Without exacerbation. The patient's Flovent was continued. She passed the ambulatory oxygen qualification test; does not qualify for home oxygen while at rest or ambulating, she does qualify for while sleeping. (5) Morbid obesity Is this a current diagnosis for this admission?: Yes Summary: Dietary discretion was advised. (6) Sleep apnea Is this a current diagnosis for this admission?: Yes Summary: The patient utilized CPAP while admitted with self report of improved sleep quality and resolution of orthopnea. Overnight pulse oximetry study was obtained; pt does qualify for home O2 while sleeping which was arranged by discharge planning prior to discharge. Recommend patient have an overnight sleep study performed to evaluate for home CPAP device. - Additional Information Resuscitation Status: Full Code Discharge Diet: Cardiac, Diabetic Discharge Activity: Activity As Tolerated, Balance Activity w/Rest, Weigh Daily Home Medications: Albuterol Sulfate [Ventolin Hfa] 2 puff IH Q4HP PRN 12/30/17 Aspirin [Adult Low Dose Aspirin EC] 81 mg PO DAILY 12/30/17 Clonidine HCl [Catapres 0.2 mg Tablet] 0.2 mg PO BID 12/30/17 Fluticasone Propionate [Flovent Hfa 110 Mcg Inhalation Aerosol 12 gm] 2 puff IH BID 12/30/17 Metformin HCl [Glucophage 500 mg Tablet] 1,000 mg PO BIDBS 12/30/17 Olmesartan/Hydrochlorothiazide [Olmesartan-Hctz 40-25 mg Tab] 1 tab PO DAILY Simvastatin [Zocor 20 mg Tablet] 20 mg PO QPM 12/30/17 History of Present Illness History of Present Illness: Perr H&P by Dr. Tyson: LORI GROSS is a 77 year old female with a past medical history of congestive heart failure with ejection fraction of 45%, morbid obesity, suspected sleep apnea, diabetes and hypertension. She presents with 2 weeks of worsening shortness of breath with exertion, nonproductive cough , orthopnea and lower extremity edema. In the emergency room she is found to have a systolic blood pressure of 217, tachycardia of 110, a long QT and a BNP of 1800. She started on IV Lasix and referred to the hospitalist for admission. She denies chest pain palpitations nausea vomiting or recent change in medications. Physical Exam Vital Signs: Temp Pulse Resp BP Pulse Ox 98.1 F 66 18 121/72 100 01/01/18 14:20 01/01/18 14:20 01/01/18 14:20 01/01/18 14:20 01/01/18 14:20 Pulse Oximeter Nocturnal Start: 12/31/17 15: 43 Freq: RTQ4 Status: Complete Document 01/01/18 04:00 LRO (Rec: 01/01/18 05:12 LRO [email or web address]) Nocturnal Pulse Oximetry Equipment Usage Equipment in Use Oxygen Delivery Method (includes room Room Air air) O2 Sat by Pulse Oximetry (92-100) 95 Continuous SpO2 Machine # 13 General appearance: PRESENT: no acute distress, cooperative, morbidly obese, well-developed, well-nourished Head exam: PRESENT: atraumatic, normocephalic Eye exam: PRESENT: conjunctiva pink, EOMI, PERRLA. ABSENT: scleral icterus Ear exam: PRESENT: normal external ear exam Mouth exam: PRESENT: moist, tongue midline Neck exam: ABSENT: carotid bruit, JVD, lymphadenopathy, thyromegaly Respiratory exam: PRESENT: clear to auscultation dmitri, symmetrical, unlabored. ABSENT: rales, rhonchi, wheezes Cardiovascular exam: PRESENT: RRR, +S1, +S2. ABSENT: diastolic murmur, rubs, systolic murmur Pulses: PRESENT: normal dorsalis pedis pul Vascular exam: PRESENT: normal capillary refill GI/Abdominal exam: PRESENT: normal bowel sounds, soft. ABSENT: distended, guarding, mass, organolmegaly, rebound, tenderness Rectal exam: PRESENT: deferred Extremities exam: PRESENT: full ROM, +1 edema. ABSENT: calf tenderness, clubbing, pedal edema Neurological exam: PRESENT: alert, awake, oriented to person, oriented to place , oriented to time, oriented to situation, CN II-XII grossly intact. ABSENT: motor sensory deficit Psychiatric exam: PRESENT: appropriate affect, normal mood. ABSENT: homicidal ideation, suicidal ideation Skin exam: PRESENT: dry, intact, warm. ABSENT: cyanosis, rash Results Laboratory Results: 12/31/17 06:57 01/01/18 04:34 12/30/17 12/30/17 12/30/17 04:25 04:25 12:10 Creatine Kinase 78 104 CK-MB (CK-2) 1.57 Troponin I 0.019 NT-Pro-B Natriuret Pep 12/30/17 12/30/17 12/30/17 12:10 15:00 22:04 Creatine Kinase 132 CK-MB (CK-2) Cancelled 1.65 Troponin I Cancelled 0.016 NT-Pro-B Natriuret Pep 12/30/17 12/31/17 01/01/18 22:04 06:57 04:34 Creatine Kinase CK-MB (CK-2) 1.61 Troponin I 0.019 NT-Pro-B Natriuret Pep 1410 H 559 H Impressions: Chest X-Ray 12/29/17 21:18 IMPRESSION: Congestive heart failure interstitial pulmonary edema. Qualifiers - * PATIENT BEING DISCHARGED WITH ANY OF THE FOLLOWING DIAGNOSIS: Heart Failure HF Pt being discharged on ACEI for LVEF less than 40%?: No Reason(s) for not prescribing ACEI:: Not indicated HF Pt being discharged on ARBS for LVEF less than 40%?: Yes HF Pt with Afib discharged with Warfarin?: No Reason(s) for not prescribing Warfarin:: Not indicated HF Pt discharged on evidence-based Beta Mich:: No Reason(s) for not prescribing evidence-based Beta Mich:: Not indicated Plan Discharge Plan: Follow up with PCP within 1 week. Follow up with established remediation bioanalytics consultant as scheduled. Time Spent: Less than 30 Minutes
== END 2018-01-01 15:12 | disposition home health service (06) | DRG 305 ==
LOC: ER 20:03 → EH 23:46 → 4W 12-30 09:31 → 5 12-30 16:13
PROVIDERS: ADMIT Internal Medicine; ATTEND Internal Medicine
PROC: 5A09457 Assistance with Respiratory Ventilation, 24-96 Consecutive Hours, Continuous Positive Airway Pressure (ICD-10-PCS; principal; 2017-12-30)
PROC: 3E0F73Z Introduction of Anti-inflammatory into Respiratory Tract, Via Natural or Artificial Opening (ICD-10-PCS; 2017-12-31)
DX: I16.0 Hypertensive urgency (principal); Z68.41 Body mass index [BMI] 40.0-44.9, adult; I11.0 Hypertensive heart disease with heart failure; I50.9 Heart failure, unspecified; G47.33 Obstructive sleep apnea (adult) (pediatric); E11.9 Type 2 diabetes mellitus without complications; J44.9 Chronic obstructive pulmonary disease, unspecified; E66.01 Morbid (severe) obesity due to excess calories; I25.10 Atherosclerotic heart disease of native coronary artery without angina pectoris; I27.20 Pulmonary hypertension, unspecified; M19.90 Unspecified osteoarthritis, unspecified site; D64.9 Anemia, unspecified; Z79.899 Other long term (current) drug therapy; Z90.710 Acquired absence of both cervix and uterus; Z60.2 Problems related to living alone; Z83.3 Family history of diabetes mellitus; Z82.49 Family history of ischemic heart disease and other diseases of the circulatory system
CPT/HCPCS: 36415; 71046; 80048; 80053; 81001; 82550; 82553; 82962; 83690; 83880; 84443; 84484; 85025; 93005; 93010; 93306; 94660; 94762; 96374; 99285; J0360; J1644; J1940; J3490

== ENCOUNTER → 2018-04-18 | Outpatient (CLI) | payer MEDICARE, MEDICAID ==
--- NOTE | 2018-04-18 13:16 | RADIOLOGY REPORT (SQ) ---
EXAM DESCRIPTION: CHEST PA/LATERAL COMPLETED DATE/TIME: 04/18/2018 1:04 pm REASON FOR STUDY: COUGH COMPARISON: 12/29/2017 EXAM PARAMETERS: NUMBER OF VIEWS: two views TECHNIQUE: Digital Frontal and Lateral radiographic views of the chest acquired. RADIATION DOSE: NA LIMITATIONS: none FINDINGS: LUNGS AND PLEURA: No opacities, masses or pneumothorax. No pleural effusion. MEDIASTINUM AND HILAR STRUCTURES: No masses or contour abnormalities. HEART AND VASCULAR STRUCTURES: Heart slightly enlarged. Mild vascular congestion. BONES: No acute findings. HARDWARE: None in the chest. OTHER: No other significant finding. IMPRESSION: Mild failure. Improved over previous. TECHNICAL DOCUMENTATION: JOB ID: [id number] [employer]- All Rights Reserved Reading location - IP/workstation name: [email or web address]
== END ==
LOC: OD 12:26
PROVIDERS: ATTEND Nurse Practitioner Acute Care
DX: M79.675 Pain in left toe(s) (principal); R05 Cough
CPT/HCPCS: 36415; 71046; 84550

== ENCOUNTER 2018-05-11 13:40 | Emergency (ER) | payer MEDICARE, MEDICAID ==
[2018-05-11] MEDS ORDERED: ASPIRIN 81 MG TABLET, CHEWABLE PO ONE (15:00)
--- NOTE | 2018-05-11 15:01 | ER Document Report ---
ED Medical Screen (RME) - General Chief Complaint: Cough Stated Complaint: COUGH Time Seen by Provider: 05/11/18 14:53 Notes: 78-year-old female presents emergency department complaining of a month-long productive cough for which she saw her primary care physician about a week and a half ago. States she had a chest x-ray and it was negative but she feels like it is worsened. States she is waking up with sweats and chills. Cough is productive of mucus. States she feels like she is wheezing at night. Patient is also concerned because she has a history of heart failure and is worried that she may have fluid building up on her lungs. Also states that anytime that she coughs it makes her abdomen hurt. TRAVEL OUTSIDE OF THE [place] IN LAST 30 DAYS: No - Related Data Allergies/Adverse Reactions: No Known Allergies Allergy (Verified 05/11/18 13:44) Past Medical History - General Information source: Patient - Social History Chew tobacco use (# tins/day): No Frequency of alcohol use: Occasional Drug Abuse: None - Past Medical History Cardiac Medical History: Reports: Hx Coronary Artery Disease, Hx Hypertension - PULOMONARY HTN Denies: Hx Heart Attack Pulmonary Medical History: Reports: Hx Asthma, Hx Bronchitis, Hx COPD - CHF, Hx Pneumonia Neurological Medical History: Denies: Hx Cerebrovascular Accident, Hx Seizures Endocrine Medical History: Reports: Hx Diabetes Mellitus Type 2 Renal/ Medical History: Denies: Hx Peritoneal Dialysis GI Medical History: Denies: Hx Hepatitis, Hx Hiatal Hernia, Hx Ulcer Musculoskeltal Medical History: 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 Denies: Hx Mastectomy, Hx Open Heart Surgery, Hx Pacemaker - Immunizations Hx Diphtheria, Pertussis, Tetanus Vaccination: Yes History of Influenza Vaccine for 02/2017 - 07/2017 Season: Refused Review of Systems - Review of Systems Constitutional: See HPI, Chills, Fever, Weakness EENT: No symptoms reported Cardiovascular: See HPI, Dizziness - When sitting up Respiratory: See HPI, Cough, Sputum Gastrointestinal: See HPI Physical Exam - Vital signs Vitals: Temp Pulse Resp BP Pulse Ox 98.9 F 56 L 16 155/98 H 96 05/11/18 13:54 05/11/18 13:54 05/11/18 13:54 05/11/18 13:54 05/11/18 13:54 Interpretation: Hypertensive - Notes Notes: Sitting up, awake and alert, no acute distress Lungs have trace crackles in the bases otherwise clear to auscultation and no respiratory distress Heart reveals regular rate and rhythm with no murmurs gallops or rubs Abdomen is soft, nontender, nondistended, normal bowel sounds. Course - Vital Signs Vital signs: Temp Pulse Resp BP Pulse Ox 98.9 F 56 L 16 155/98 H 96 05/11/18 13:54 05/11/18 13:54 05/11/18 13:54 05/11/18 13:54 05/11/18 13:54 Doctor's Discharge - Discharge Referrals: PATRICIA ARIAS NP [Primary Care Provider] - Follow up as needed
--- NOTE | 2018-05-11 15:27 | RADIOLOGY REPORT (SQ) ---
EXAM DESCRIPTION: CHEST 2 VIEWS COMPLETED DATE/TIME: 05/11/2018 3:11 pm REASON FOR STUDY: cough, fever, SOB, orthopnea COMPARISON: 04/18/2018 EXAM PARAMETERS: NUMBER OF VIEWS: two views TECHNIQUE: Digital Frontal and Lateral radiographic views of the chest acquired. RADIATION DOSE: NA LIMITATIONS: none FINDINGS: LUNGS AND PLEURA: Previously seen diffuse interstitial pulmonary opacity is improved aneudy red to prior examination. MEDIASTINUM AND HILAR STRUCTURES: No masses or contour abnormalities. HEART AND VASCULAR STRUCTURES: Unchanged cardiomegaly. BONES: No acute findings. HARDWARE: None in the chest. OTHER: No other significant finding. IMPRESSION: Previously seen diffuse interstitial pulmonary opacity is improved compared to prior exa mination. There is no new airspace opacity. Unchanged cardiomegaly. TECHNICAL DOCUMENTATION: JOB ID: [id number] [employer]- All Rights Reserved Reading location - IP/workstation name: [email or web address]
[2018-05-11 17:37] LABS: ABSOLUTE BASOPHILS # (AUTO) 0.1 10^3/uL (0.0-0.2); ABSOLUTE EOSINOPHILS # (AUTO) 0.5 10^3/uL (0.0-0.6); ABSOLUTE LYMPHOCYTES (AUTO) 2.5 10^3/uL (0.5-4.7); ABSOLUTE MONOCYTES (AUTO) 0.5 10^3/uL (0.1-1.4); ABSOLUTE NEUT (AUTO) 3.2 10^3/uL (1.7-8.2); BASOPHILS % (AUTO) 1.3 % (0-2); EOSINOPHILS % (AUTO) 7.1 % (0-6); HEMATOCRIT 38.1 % (36.0-47.0); HEMOGLOBIN 12.2 g/dL (12.0-15.5); LYMPHOCYTES % (AUTO) 36.8 % (13-45); MEAN CORPUSCULAR HEMOGLOBIN 27.6 pg (27.0-33.4); MEAN CORPUSCULAR VOLUME 86 fl (80-97); MONOCYTES % (AUTO) 7.1 % (3-13); PLATELET COUNT 142 10^3/uL (150-450); RED BLOOD COUNT 4.43 10^6/uL (3.72-5.28); RED CELL DISTRIBUTION WIDTH 14.5 % (11.5-14.0); SEGMENTED NEUTROPHILS % (AUTO) 47.7 % (42-78); TOTAL CELLS COUNTED % (AUTO) 100 %; WHITE BLOOD COUNT 6.7 10^3/uL (4.0-10.5)
[2018-05-11 17:52] LABS: ALANINE AMINOTRANSFERASE 12 U/L (9-52); ALBUMIN 4.2 g/dL (3.5-5.0); ALKALINE PHOSPHATASE 68 U/L (38-126); ANION GAP 8 (5-19); ASPARTATE AMINO TRANSFERASE 24 U/L (14-36); BILIRUBIN,DIRECT 0.4 mg/dL (0.0-0.4); BLOOD UREA NITROGEN 18 mg/dL (7-20); CALCIUM 9.2 mg/dL (8.4-10.2); CARBON DIOXIDE 26 mmol/L (22-30); CHLORIDE 105 mmol/L (98-107); CREATINE KINASE 86 U/L (30-135); GLUCOSE 131 mg/dL (75-110); LIPASE 32.6 U/L (23-300); POTASSIUM 4.2 mmol/L (3.6-5.0); SODIUM 138.8 mmol/L (137-145); TOTAL PROTEIN 7.3 g/dL (6.3-8.2)
[2018-05-11 18:03] LABS: CREATINE KINASE MB 1.87 ng/mL (<4.55); NT PRO BNP 2130 pg/mL (<450)
[2018-05-11 18:05] LABS: TROPONIN I < 0.012 ng/mL
--- NOTE | 2018-05-11 18:40 | ER Document Report ---
ED General - General Chief Complaint: Cough Stated Complaint: COUGH Time Seen by Provider: 05/11/18 14:53 TRAVEL OUTSIDE OF THE [place] IN LAST 30 DAYS: No - HPI Notes: Patient is a 78-year-old female that presents to the emergency department for chief complaint of cough. Patient reports productive cough for the last month. She states a week ago she was seen at an urgent care facility and had a chest x-ray that was normal. She states her cough has increased. She reports being on Augmentin for the last few days. She denies any fevers this week but believes she had a fever last week. She denies any chest pain, nausea, vomiting, abdominal pain, and dysuria. She does sleep with a CPAP for LETI. She has a history of asthma and has been using albuterol at home with some relief. Past Medical History: LETI, asthma Past Surgical History: Reviewed in chart Social History: Denies drugs alcohol and tobacco Family History: Reviewed and noncontributory for presenting illness Allergies: Reviewed, see documented allergy list. REVIEW OF SYSTEMS: CONSTITUTIONAL : fever No chills No diaphoresis No recent illness EENT: No vision changes congestion No sore throat CARDIOVASCULAR: No chest pain No palpitations RESPIRATORY: No shortness of breath cough No difficulty breathing GASTROINTESTINAL: No abdominal pain No nausea No vomiting No diarrhea GENITOURINARY: No dysuria No hematuria No difficulty urinating MUSCULOSKELETAL: No back pain No leg pain No arm pain SKIN: No rashes No lesions LYMPHATIC: No swollen, enlarged glands. NEUROLOGICAL: No lightheadedness No headache No weakness No paresthesias PSYCHIATRIC: No anxiety No depression PHYSICAL EXAMINATION: Vital signs reviewed, nursing noted reviewed. GENERAL: Well-appearing, well-nourished and in no acute distress. HEAD: Atraumatic, normocephalic. EYES: Eyes appear normal, extraocular movements intact, sclera anicteric, conjunctiva are normal. ENT: nares patent, oropharynx clear without exudates. Moist mucous membranes. NECK: Normal range of motion, supple without lymphadenopathy LUNGS: Diminished bilaterally with mild wheezing. HEART: Regular rate and rhythm without murmurs ABDOMEN: Soft, nontender, normoactive bowel sounds. No rebound, guarding, or rigidity. No masses appreciated. EXTREMITIES: Nontender, good range of motion, no pitting or edema. NEUROLOGICAL: No focal neurological deficits. Moves all extremities spontaneously Motor and sensory grossly intact on exam. PSYCH: Normal mood, normal affect. SKIN: Warm, Dry, normal turgor, no rashes or lesions noted on exposed skin - Related Data Allergies/Adverse Reactions: No Known Allergies Allergy (Verified 05/11/18 13:44) Past Medical History - General Information source: Patient - Social History Smoking Status: Never Smoker Chew tobacco use (# tins/day): No Frequency of alcohol use: Occasional Drug Abuse: None Family History: DM, Hypertension Patient has suicidal ideation: No Patient has homicidal ideation: No - Past Medical History Cardiac Medical History: Reports: Hx Coronary Artery Disease, Hx Hypertension - PULOMONARY HTN Denies: Hx Heart Attack Pulmonary Medical History: Reports: Hx Asthma, Hx Bronchitis, Hx COPD - CHF, Hx Pneumonia Neurological Medical History: Denies: Hx Cerebrovascular Accident, Hx Seizures Endocrine Medical History: Reports: Hx Diabetes Mellitus Type 2 Renal/ Medical History: Denies: Hx Peritoneal Dialysis GI Medical History: Denies: Hx Hepatitis, Hx Hiatal Hernia, Hx Ulcer Musculoskeletal Medical History: 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 Denies: Hx Mastectomy, Hx Open Heart Surgery, Hx Pacemaker - Immunizations Hx Diphtheria, Pertussis, Tetanus Vaccination: Yes Physical Exam - Vital signs Vitals: Temp Pulse Resp BP Pulse Ox 98.9 F 56 L 16 155/98 H 96 05/11/18 13:54 05/11/18 13:54 05/11/18 13:54 05/11/18 13:54 05/11/18 13:54 Course - Re-evaluation Re-evalutation: 05/11/18 18:36 Vitals reviewed. Nursing notes reviewed. Patient is afebrile and nontoxic in appearance. She does have some wheezing bilaterally and will be given DuoNeb in the ED. X-ray today shows pulmonary opacities which are improved from her previous visit. Patient and family are not aware of her having any opacifi cation in her lungs in the past. CT scan will be ordered to further delineate the etiology of opacifications. They state her only history of lung issues is asthma. Patient did inform me that she is on Augmentin however that antibiotic was filled on 03/23/18 and still has about 4 days of medication in the bottle. I am unsure how many days she has actually been taking the medication. Laboratory 05/11/18 05/11/18 05/11/18 17:19 17:19 17:19 WBC 6.7 RBC 4.43 Hgb 12.2 Hct 38.1 MCV 86 MCH 27.6 MCHC 32.0 RDW 14.5 H Plt Count 142 L Seg Neutrophils % 47.7 Lymphocytes % 36.8 Monocytes % 7.1 Eosinophils % 7.1 H Basophils % 1.3 Absolute Neutrophils 3.2 Absolute Lymphocytes 2.5 Absolute Monocytes 0.5 Absolute Eosinophils 0.5 Absolute Basophils 0.1 Sodium 138.8 Potassium 4.2 Chloride 105 Carbon Dioxide 26 Anion Gap 8 BUN 18 Creatinine 0.81 Est GFR ( Amer) > 60 Est GFR (Non-Af Amer) > 60 Glucose 131 H Calcium 9.2 Total Bilirubin 1.0 Direct Bilirubin 0.4 Neonat Total Bilirubin Not Reportable Neonat Direct Bilirubin Not Reportable Neonat Indirect Bili Not Reportable AST 24 ALT 12 Alkaline Phosphatase 68 Creatine Kinase 86 CK-MB (CK-2) 1.87 Troponin I < 0.012 NT-Pro-B Natriuret Pep 2130 H Total Protein 7.3 Albumin 4.2 Lipase 32.6 Chest X-Ray 05/11/18 15:00 IMPRESSION: Previously seen diffuse interstitial pulmonary opacity is improved compared to prior examination. There is no new airspace opacity. Unchanged cardiomegaly. 05/11/18 20:22 Patient reevaluated after breathing treatment and states she is feeling better, she feels like her cough has settled down. She was encouraged to use her home albuterol 2 puffs every 4 hours instead of once every few days. CT scan shows no acute mass lesion, PE, or other acute pulmonary finding. Patient is remained stable. She will follow closely with her primary care doctor as an outpatient. In agreement with this plan. - Vital Signs Vital signs: Temp Pulse Resp BP Pulse Ox 98.9 F 56 L 16 155/98 H 96 05/11/18 13:54 05/11/18 13:54 05/11/18 13:54 05/11/18 13:54 05/11/18 13:54 - Laboratory Result Diagrams: 05/11/18 17:19 05/11/18 17:19 Laboratory results interpreted by me: 05/11/18 05/11/18 05/11/18 17:19 17:19 17:19 RDW 14.5 H Plt Count 142 L Eosinophils % 7.1 H Glucose 131 H NT-Pro-B Natriuret Pep 2130 H - EKG Interpretation by Me Additional EKG results interpreted by me: 05/11/18 18:38 Turbid by myself 1613: Sinus tachycardia, rate 120, normal axis, no ST elevation Discharge - Discharge Clinical Impression: Cough Condition: Stable Disposition: HOME, SELF-CARE Instructions: Upper Respiratory Illness ([facility]) Additional Instructions: Please return to the emergency department if you have any worsening, or concern of your symptoms. Please return to the emergency department if you develop chest pain, difficulty breathing, severe abdominal pain, or ongoing vomiting. Please follow-up with your primary care physician in 2-3 days and any other re commended physicians. If prescribed, take all medications as directed. If you have any questions or concerns do not hesitate to return the emergency department for evaluation. Use your albuterol inhaler 2 puffs every 4 hours for your cough Follow-up with your primary care doctor for close reevaluation as an outpatient Referrals: PATRICIA ARIAS, SILVESTRE [NURSE PRACTITIONER] - Follow up in 3-5 days
[2018-05-11] MEDS ORDERED: IPRATROPIUM/ALBUTEROL 0.5-2.5 MG/3 ML AMPUL NEB ONE (18:41)
--- NOTE | 2018-05-11 19:09 | EKG REPORT ---
SEVERITY:- ABNORMAL ECG - SINUS TACHYCARDIA NONSPECIFIC INTRAVENTRICULAR CONDUCTION DELAY ST DEPRESSION, CONSIDER ISCHEMIA, INF LEADS : Confirmed by: Weston Patel 11-May-2018 19:08:32
--- NOTE | 2018-05-11 20:03 | RADIOLOGY REPORT (SQ) ---
EXAM DESCRIPTION: CTA CHEST COMPLETED DATE/TIME: 05/11/2018 7:48 pm REASON FOR STUDY: cough COMPARISON: 09/18/2008 TECHNIQUE: CT scan of the chest performed using helical scanning technique with dynamic intravenous contrast injection. Images reviewed with lung, soft tissue and bone windows. Reconstructed coronal and sagittal MPR images reviewed. Additional 3 dimensional post-processing performed to develop Maximal Intensity Projection images (IL P). All images stored on PACS. All CT scanners at this facility use dose modulation, iterative reconstruction, and/or weight based d osing when appropriate to reduce radiation dose to as low as reasonably achievable (ALARA). [facility]: Dose Right [facility]: CareDose [facility]: Dose Right [facility]: Teradose 4D [facility]: Palm CONTRAST TYPE AND DOSE: contrast/concentration: Isovue 350.00 mg/ml; Total Contrast Delivered: 85.0 ml; Total Saline Delivered: 103.0 ml Contrast bolus optimized for the pulmonary arteries. Not diagnostic for the aorta. RENAL FUNCTION: BUN 18 creatinine 0.8 RADIATION DOSE: CT Rad equipment meets quality standard of care and radiation dose reduction techniq ues were employed. CTDIvol: 33.8 - 46.3 mGy. DLP: 1272 mGy-cm. . LIMITATIONS: None. FINDINGS: LUNGS AND PLEURA: No masses, infiltrates, or pneumothorax. No pleural effusions or pleura l calcifications. AORTA AND GREAT VESSELS: No aneurysm. Contrast bolus not optimized for the aorta. HEART: No pericardial effusion. Moderate to marked coronary artery calcifications. PULMONARY ARTERIES: No emboli visualized in the main pulmonary arteries or the segmental branches. HILAR AND MEDIASTINAL STRUCTURES: No identified masses or abnormal nodes. HARDWARE: None in the chest. UPPER ABDOMEN: No significant findings. Limited exam. THYROID AND OTHER SOFT TISSUES: No masses. No adenopathy. BONES: No acute or significant finding. 3D MIPS: Confirm above findings. OTHER: No other significant finding. IMPRESSION: NORMAL CTA OF THE CHEST. NO PULMONARY EMBOLI. COMMENT: Quality ID # [id number]: Final reports with documentation of one or more dose reduction techniques (e.g., Automated exposure control, adjustment of the mA and/or kV according to patient size, use of iterative reconstruction technique) TECHNICAL DOCUMENTATION: JOB ID: [id number] [employer]- All Rights Reserved Reading location - IP/workstation name: [email or web address]
[2018-05-11 20:35] VITALS: BP 178/103
== END 2018-05-11 20:46 | disposition home or self-care (01) ==
LOC: ER 13:40
DX: R05 Cough (principal); G47.33 Obstructive sleep apnea (adult) (pediatric); I11.0 Hypertensive heart disease with heart failure; I50.9 Heart failure, unspecified; I25.10 Atherosclerotic heart disease of native coronary artery without angina pectoris; E11.9 Type 2 diabetes mellitus without complications; J44.9 Chronic obstructive pulmonary disease, unspecified
CPT/HCPCS: 93005; 94640; 99284; 36415; 82553; 82550; 83690; 85025; 80053; 84484; 83880; 71046; 71275; 93010; A9270 ×2; J7620

== ENCOUNTER 2018-07-08 12:17 | Inpatient (IN) | payer MEDICARE, MEDICAID ==
--- NOTE | 2018-07-08 13:38 | ER Document Report ---
ED Medical Screen (RME) - General Chief Complaint: Swelling of Lower Extremity Stated Complaint: SWELLING IN BOTH LEGS Time Seen by Provider: 07/08/18 13:33 Primary Care Provider: TIKA STORM MD [Primary Care Provider] - Follow up as needed Notes: Patient is a 78-year-old female with CHF that presents to the emergency department for chief complaint of leg swelling, shortness of breath, and noticed a wound on the back of her right calf, that had some pus drainage, was tender and painful. She states the progressive swelling and shortness of breath has been going on for the past 2 weeks, she states she is only taking hydrochlorothiazide, does not take Lasix at home. ROS: Other than noted above, the 12 point review of systems was reviewed with the patient and were negative, all pertinent findings are included in the HPI. PHYSICAL EXAMINATION: Vital signs reviewed. GENERAL: Obese female, no immediate distress HEAD: Atraumatic, normocephalic. EYES: Pupils equal round extraocular movements intact, conjunctiva are normal. ENT: Nares patent NECK: Normal range of motion CV: Heart regular rate and rhythm LUNGS: No respiratory distress Musculoskeletal: Bilateral lower extremity edema, there is a small open wound on the posterior aspect of the right leg, with surrounding erythema and tenderness NEUROLOGICAL: Normal speech PSYCH: Normal mood, normal affect. MDM: Patient seen and examined for rapid initial assessment. Vital signs reviewed. A comprehensive ED assessment and evaluation of the patient, analysis of test results and completion of the medical decision making process will be conducted by additional ED providers. *Note is created using voice recognition software and may contain spelling, syntax or grammatical errors. TRAVEL OUTSIDE OF THE [place] IN LAST 30 DAYS: No - Related Data Allergies/Adverse Reactions: No Known Allergies Allergy (Verified 07/08/18 12:21) Past Medical History - Past Medical History Cardiac Medical History: Reports: Hx Coronary Artery Disease, Hx Hypertension - PULOMONARY HTN Denies: Hx Heart Attack Pulmonary Medical History: Reports: Hx Asthma, Hx Bronchitis, Hx COPD - CHF, Hx Pneumonia Neurological Medical History: Denies: Hx Cerebrovascular Accident, Hx Seizures Endocrine Medical History: Reports: Hx Diabetes Mellitus Type 2 Renal/ Medical History: Denies: Hx Peritoneal Dialysis GI Medical History: Denies: Hx Hepatitis, Hx Hiatal Hernia, Hx Ulcer Musculoskeltal Medical History: 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 Denies: Hx Mastectomy, Hx Open Heart Surgery, Hx Pacemaker - Immunizations Hx Diphtheria, Pertussis, Tetanus Vaccination: Yes History of Influenza Vaccine for 02/2017 - 07/2017 Season: Refused Physical Exam - Vital signs Vitals: Temp Pulse Resp BP Pulse Ox 98.4 F 116 H 20 153/100 H 97 07/08/18 12:32 07/08/18 12:32 07/08/18 12:32 07/08/18 12:32 07/08/18 12:32 Course - Vital Signs Vital signs: Temp Pulse Resp BP Pulse Ox 98.4 F 116 H 20 153/100 H 97 07/08/18 12:32 07/08/18 12:32 07/08/18 12:32 07/08/18 12:32 07/08/18 12:32 Doctor's Discharge - Discharge Referrals: TIKA STORM MD [Primary Care Provider] - Follow up as needed
[2018-07-08] MEDS ORDERED: VANCOMYCIN HCL INJ 1000 MG VIAL IV ONE (13:39)
[2018-07-08] MEDS ORDERED: PIPERACILLIN/TAZOBACTAM 3.375 GM VIAL IV ONE ×2 (13:39→19:30)
[2018-07-08 14:46] LABS: ABSOLUTE EOSINOPHILS # (AUTO) 0.2 10^3/uL (0.0-0.6); ABSOLUTE LYMPHOCYTES (AUTO) 1.3 10^3/uL (0.5-4.7); ABSOLUTE MONOCYTES (AUTO) 0.5 10^3/uL (0.1-1.4); ABSOLUTE NEUT (AUTO) 4.4 10^3/uL (1.7-8.2); BASOPHILS % (AUTO) 0.4 % (0-2); EOSINOPHILS % (AUTO) 2.7 % (0-6); HEMATOCRIT 40.8 % (36.0-47.0); LYMPHOCYTES % (AUTO) 20.1 % (13-45); MEAN CORPUSCULAR HEMOGLOBIN 28.2 pg (27.0-33.4); MEAN CORPUSCULAR HGB CONC 31.9 g/dL (32.0-36.0); MEAN CORPUSCULAR VOLUME 89 fl (80-97); MONOCYTES % (AUTO) 8.2 % (3-13); PLATELET COUNT 106 10^3/uL (150-450); RED BLOOD COUNT 4.61 10^6/uL (3.72-5.28); RED CELL DISTRIBUTION WIDTH 15.9 % (11.5-14.0); SEGMENTED NEUTROPHILS % (AUTO) 68.6 % (42-78); TOTAL CELLS COUNTED % (AUTO) 100 %; WHITE BLOOD COUNT 6.4 10^3/uL (4.0-10.5)
[2018-07-08 14:54] LABS: INTERNATIONAL RATION (INR) 1.05; PROTHROMBIN TIME 14.2 SEC (11.4-15.4)
--- NOTE | 2018-07-08 15:08 | RADIOLOGY REPORT (SQ) ---
EXAM DESCRIPTION: CHEST SINGLE VIEW COMPLETED DATE/TIME: 07/08/2018 2:39 pm REASON FOR STUDY: shortness of breath COMPARISON: Two-view chest 05/11/2018 CT angio chest 05/11/2018 EXAM PARAMETERS: NUMBER OF VIEWS: One view. TECHNIQUE: Single frontal radiographic view of the chest acquired. RADIATION DOSE: NA LIMITATIONS: None. FINDINGS: LUNGS AND PLEURA: Pulmonary vascular congestion is present with mild patchy airspace disea se in the perihilar regions worrisome for pulmonary edema. Trace right pleural effusion. No pneumot horax MEDIASTINUM AND HILAR STRUCTURES: No masses. Contour normal. HEART AND VASCULAR STRUCTURES: Moderate cardiomegaly BONES: No acute findings. HARDWARE: None in the chest. OTHER: No other significant finding. IMPRESSION: Pulmonary vascular congestion with mild perihilar pulmonary edema. Trace right pleural effusion. Cardiomegaly TECHNICAL DOCUMENTATION: JOB ID: [id number] [employer]- All Rights Reserved Reading location - IP/workstation name: [email or web address]
--- NOTE | 2018-07-08 16:12 | RADIOLOGY REPORT (SQ) ---
EXAM DESCRIPTION: VENOUS UNILATERAL LOWER COMPLETED DATE/TIME: 07/08/2018 4:03 pm REASON FOR STUDY: pain left leg, swelling COMPARISON: None. TECHNIQUE: Dynamic and static pierre scale and color images acquired of the right leg venous system. S elected spectral images acquired with additional compression and augmentation maneuvers. The contrala teral common femoral vein and saphenofemoral junction were also imaged. Images stored on PACS. LIMITATIONS: None. FINDINGS: RIGHT COMMON FEMORAL: Normal phasicity, compression and augmentation. No visualized echogenic material on g ray scale. No defects on color images. FEMORAL: Normal compression and augmentation. No visualized echogenic material on pierre scale. No defe cts on color images. POPLITEAL: Normal compression, augmentation. No visualized echogenic material on pierre scale. No defec ts on color images. POSTERIOR TIBIAL VEINS: Normal compression, augmentation. No visualized echogenic material on pierre sc kali. No defects on color images. PERONEAL VEINS: Not visualized GSV and SSV: Normal compression, augmentation. No visualized echogenic material on pierre scale. No def ects on color images. ANY DEEP VENOUS INSUFFICIENCY: No reflux on Valsalva ANY EVIDENCE OF POPLITEAL CYST: No. OTHER: No other significant finding. LEFT COMMON FEMORAL VEIN AND SAPHENOFEMORAL JUNCTION: Normal phasicity, compression and augmentation. No visualized echogenic material on pierre scale. No de fects on color images. IMPRESSION: NO EVIDENCE OF DVT OR SVT IN THE RIGHT LEG. TECHNICAL DOCUMENTATION: JOB ID: [id number] [employer]- All Rights Reserved Reading location - IP/workstation name: [email or web address]
--- NOTE | 2018-07-08 16:17 | ER Document Report ---
ED General - General Chief Complaint: Swelling of Lower Extremity Stated Complaint: SWELLING IN BOTH LEGS Time Seen by Provider: 07/08/18 13:33 Primary Care Provider: TIKA STORM MD [Primary Care Provider] - Follow up as needed Mode of Arrival: Ambulatory Information source: Patient Notes: 78-year-old female with a history of congestive heart failure, COPD, diabetes, hyperlipidemia presents emergency department with complaints of fever, chills, leg swelling, worsening shortness of breath, and a wound to the back of her right calf with purulent drainage. Symptoms started 2 weeks ago and have been progressively worsening. She states that she is on hydrochlorothiazide but does not take Lasix. She does use 2 L nasal cannula at night. She states that she uses it during the day as needed. She does not use any nebulizer treatments. 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 She denies a history of CAD or stent placement. TRAVEL OUTSIDE OF THE [place] IN LAST 30 DAYS: No - HPI Onset: Other - 2 weeks Onset/Duration: Persistent Quality of pain: Achy, Throbbing Associated symptoms: Shortness of breath Exacerbated by: Denies Relieved by: Denies Similar symptoms previously: No Recently seen / treated by doctor: No - Related Data Allergies/Adverse Reactions: No Known Allergies Allergy (Verified 07/08/18 12:21) Past Medical History - General Information source: Patient - Social History Smoking Status: Unknown if Ever Smoked Family History: DM, Hypertension Patient has suicidal ideation: No Patient has homicidal ideation: No - Past Medical History Cardiac Medical History: Reports: Hx Coronary Artery Disease, Hx Hypertension - PULOMONARY HTN Denies: Hx Heart Attack Pulmonary Medical History: Reports: Hx Asthma, Hx Bronchitis, Hx COPD - CHF, Hx Pneumonia Neurological Medical History: Denies: Hx Cerebrovascular Accident, Hx Seizures Endocrine Medical History: Reports: Hx Diabetes Mellitus Type 2 Renal/ Medical History: Denies: Hx Peritoneal Dialysis GI Medical History: Denies: Hx Hepatitis, Hx Hiatal Hernia, Hx Ulcer Musculoskeletal Medical History: 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 Denies: Hx Mastectomy, Hx Open Heart Surgery, Hx Pacemaker - Immunizations Hx Diphtheria, Pertussis, Tetanus Vaccination: Yes Review of Systems - Review of Systems Constitutional: No symptoms reported EENT: No symptoms reported Cardiovascular: No symptoms reported Respiratory: Short of breath Gastrointestinal: No symptoms reported Genitourinary: No symptoms reported Female Genitourinary: No symptoms reported Musculoskeletal: Muscle pain, Leg swelling Skin: Change in color, Lesions Hematologic/Lymphatic: No symptoms reported Neurological/Psychological: No symptoms reported -: Yes All other systems reviewed and negative Physical Exam - Vital signs Vitals: Temp Pulse Resp BP Pulse Ox 98.4 F 116 H 20 153/100 H 97 07/08/18 12:32 07/08/18 12:32 07/08/18 12:32 07/08/18 12:32 07/08/18 12:32 - Notes Notes: PHYSICAL EXAMINATION: GENERAL: Well-appearing, well-nourished and in no acute distress. HEAD: Atraumatic, normocephalic. EYES: Pupils equal round and reactive to light, extraocular movements intact, co njunctiva are normal. ENT: Nares patent, oropharynx clear without exudates. Moist mucous membranes. NECK: Normal range of motion, supple without lymphadenopathy LUNGS: Breath sounds clear to auscultation bilaterally and equal. No wheezes rales or rhonchi. HEART: Regular rate and rhythm without murmurs ABDOMEN: Soft, nontender, nondistended abdomen. No guarding, no rebound. No masses appreciated. Female : deferred Musculoskeletal: Normal range of motion, no pitting edema. Erythema, warmth, tenderness to palpation to the bilateral calves. Small wound to the posterior right calf. NEUROLOGICAL: Cranial nerves grossly intact. Normal speech, normal gait. Normal sensory, motor exams PSYCH: Normal mood, normal affect. SKIN: Warm, Dry, bilateral erythema, warmth to the calves. Wound to the Right calf. Course - Re-evaluation Re-evalutation: 07/08/18 20:02 Labs and imaging obtained. Patient's x-ray shows pulmonary vascular congestion with perihilar edema and a right pleural effusion. Her BNP is elevated from previous. She was given 40 mg of Lasix while in the emergency department. She is currently satting at 100% on 2 L nasal cannula. Patient had a lactic acid drawn that came back normal. Her white blood cell count is normal. She does have a right lower extremity wound that she says has been draining purulent material. The area is erythematous, warm, and tender to touch. Vancomycin and Zosyn given for infection. Venous doppler did not show DVT. I discussed the results with the patient. She continues to feel short of breath and does not feel like she can go home. She is tachycardic on the monitor. I contacted Dr. Ochoa who is agreeable with admitting the patient. - Vital Signs Vital signs: Temp Pulse Resp BP Pulse Ox 98.4 F 116 H 20 153/100 H 97 07/08/18 12:32 07/08/18 12:32 07/08/18 12:32 07/08/18 12:32 07/08/18 12:32 - Laboratory Result Diagrams: 07/08/18 14:23 07/08/18 17:44 Laboratory results interpreted by me: 07/08/18 07/08/18 07/08/18 14:23 17:44 17:44 MCHC 31.9 L RDW 15.9 H Plt Count 106 L VBG pH BUN 22 H Est GFR (Non-Af Amer) 53 L Glucose 159 H NT-Pro-B Natriuret Pep 2600 H 07/08/18 19:10 MCHC RDW Plt Count VBG pH 7.29 L BUN Est GFR (Non-Af Amer) Glucose NT-Pro-B Natriuret Pep Discharge - Discharge Clinical Impression: Cellulitis of right lower extremity, Cellulitis of left leg CHF exacerbation Qualifiers: Heart failure type: unspecified Qualified Code(s): I50.9 - Heart failure, unspecified Condition: Stable Disposition: ADMITTED OBSERVATION Admitting Provider: Hospitalist Unit Admitted: Telemetry Referrals: TIKA STORM MD [Primary Care Provider] - Follow up as needed
[2018-07-08 18:17] LABS: ALANINE AMINOTRANSFERASE 42 U/L (9-52); ALBUMIN 4.1 g/dL (3.5-5.0); ALKALINE PHOSPHATASE 80 U/L (38-126); ANION GAP 9 (5-19); ASPARTATE AMINO TRANSFERASE 32 U/L (14-36); BILIRUBIN,DIRECT 0.4 mg/dL (0.0-0.4); BILIRUBIN,TOTAL 1.1 mg/dL (0.2-1.3); BLOOD UREA NITROGEN 22 mg/dL (7-20); CALCIUM 9.2 mg/dL (8.4-10.2); CARBON DIOXIDE 28 mmol/L (22-30); CHLORIDE 107 mmol/L (98-107); GLUCOSE 159 mg/dL (75-110); POTASSIUM 4.1 mmol/L (3.6-5.0); SODIUM 143.9 mmol/L (137-145); TOTAL PROTEIN 6.7 g/dL (6.3-8.2)
[2018-07-08 18:26] LABS: TROPONIN I 0.012 ng/mL
[2018-07-08] MEDS ORDERED: FUROSEMIDE INJ/PF 40 MG/4 ML SDV IV ONE (18:30)
[2018-07-08 19:21] LABS: VENOUS BLOOD BASE EXCESS 0.7 mmol/L; VENOUS BLOOD HCO3 28.5 mmol/L (20-32); VENOUS BLOOD PCO2 60.7 mmHg (35-63); VENOUS BLOOD PH 7.29 (7.30-7.42)
--- NOTE | 2018-07-08 19:32 | EKG REPORT ---
SEVERITY:- ABNORMAL ECG - ATRIAL FLUTTER REPOL ABNRM SUGGESTS ISCHEMIA, DIFFUSE LEADS : Confirmed by: Leander Green MD 08-Jul-2018 19:32:06
[2018-07-08] MEDS ORDERED: FENTANYL CITRATE INJ/PF 100 MCG/2 ML AMPUL IV ONE (19:51)
[2018-07-08 20:14] LABS: APPEARANCE,URINE SLIGHTLY-CLOUDY; BILIRUBIN,URINE NEGATIVE (NEGATIVE); COLOR,URINE YELLOW; GLUCOSE, URINE NEGATIVE (NEGATIVE); KETONES,URINE NEGATIVE (NEGATIVE); LEUKOCYTE ESTERASE,URINE LARGE (NEGATIVE); NITRITE,URINE NEGATIVE (NEGATIVE); PROTEIN,URINE NEGATIVE (NEGATIVE); URINE SPECIFIC GRAVITY 1.013; UROBILINOGEN,URINE NEGATIVE mg/dL (<2.0)
[2018-07-08] MEDS ORDERED: ONDANSETRON HCL INJ/PF 4 MG/2 ML SDV IV PRN (21:48)
[2018-07-08] MEDS ORDERED: ACETAMINOPHEN 325 MG TABLET PO PRN (21:48)
[2018-07-08] MEDS ORDERED: MAGNESIUM HYDROXIDE SUSP 30 ML UDCUP PO PRN (21:48)
[2018-07-08] MEDS ORDERED: MAG HYDROX/AL HYDROX/SIMETH SUSP 30 ML UDCUP PO PRN (21:48)
[2018-07-08] MEDS ORDERED: ONDANSETRON 4 MG TAB.RAPDIS PO PRN (21:48)
[2018-07-08] MEDS ORDERED: MORPHINE SULFATE 10 MG/ML INJ IV PRN (22:08)
[2018-07-08] MEDS ORDERED: DEXTROSE 40% GEL 15 GM TUBE PO PRN ×2 (22:09)
[2018-07-08] MEDS ORDERED: DEXTROSE 50%-WATER 25 GM/50 ML DISP.SYRIN IV PRN ×2 (22:09)
[2018-07-08] MEDS ORDERED: GLUCAGON,HUMAN RECOMB 1 MG INJ IM PRN (22:09)
[2018-07-08] MEDS ORDERED: FAMOTIDINE 20 MG TABLET PO ONE (22:45)
[2018-07-08] MEDS ORDERED: HEPARIN SOD (PORCINE) 5,000 UNIT/ML 1 ML SYRINGE SUBCUT ONE (22:45)
[2018-07-08] MEDS ORDERED: ATORVASTATIN CALCIUM 20 MG TABLET PO ONE (23:00)
[2018-07-08] MEDS ORDERED: POTASSIUM CHLORIDE 10 MEQ CAPSULE.ER PO ONE (23:00)
[2018-07-08 23:04] LABS: CREATINE KINASE MB 1.87 ng/mL (<4.55); TROPONIN I 0.014 ng/mL
--- NOTE | 2018-07-09 00:05 | PDOC H&P ---
History of Present Illness Admission Date/PCP: TIKA STORM MD Patient complains of: Dyspnea History of Present Illness: LORI GROSS is a 78 year old female who presented to the emergency room with a 2-week history of progressively worsening dyspnea. She admits that her dyspnea has been gradually worsening over the last 2 weeks and she is noted acco mpanying symptoms of gradually increased swelling of her bilateral lower extremities. She states that her dyspnea has gotten to the point where it is now severe, worsens on exertion, is present at rest and prevents her from lying flat in bed. The moderate to severe swelling in her legs has resulted in moderate pain with the right leg being more painful and swollen than the left. She describes the bilateral lower leg pain as a constant mild to moderate aching in her calves, without radiation, made worse by palpation and weightbearing. She has noted a bolus lesion developing on the posterior aspect of her right calf which has drained serous yellow fluid that crusted on her leg. She admits prior similar episodes due to exacerbations of her congestive heart failure. In the emergency room she was found to have an elevated BNP and a chest x-ray consistent with acute on congestive heart failure. Due to her multiple comorbid conditions it was felt the patient should be admitted to the hospital for further evaluation and treatment. Past Medical History Cardiac Medical History: Reports: Congestive Heart Failure, Coronary Artery Disease, Hypertension - PULOMONARY HTN Denies: Myocardial Infarction Pulmonary Medical History: Reports: Asthma, Bronchitis, Chronic Obstructive Pulmonary Disease (COPD) - CHF, Pneumonia EENT Medical History: Reports: None Neurological Medical History: Denies: Hemorrhagic CVA, Ischemic CVA, Seizures Endocrine Medical History: Reports: Diabetes Mellitus Type 2, Obesity Renal/ Medical History: Reports: Chronic Kidney Disease Denies: Nephrolithiasis Malignancy Medical History: Reports: None GI Medical History: Denies: Cirrhosis, Hepatitis, Hiatal Hernia Musculoskeltal Medical History: Reports: Arthritis - OSTEO Denies: Gout Skin Medical History: Denies: Eczema, Psoriasis Psychiatric Medical History: Reports: Depression Denies: Alcohol Dependency, Substance Abuse, Tobacco Dependency Traumatic Medical History: Reports: None Hematology: Reports: Anemia Denies: Sickle Cell Disease, Bleeding Tendencies Infectious Medical History: Reports: None Past Surgical History Past Surgical History: Reports: Hysterectomy, Orthopedic Surgery - Left Knee, Other - Colonoscopy Social History Information Source: Patient Lives with: Family Smoking Status: Never Smoker Frequency of Alcohol Use: Rare Hx Recreational Drug Use: No Drugs: None Hx Prescription Drug Abuse: No - Advance Directive Resuscitation Status: Full Code Surrogate healthcare decision maker:: Her daughter Family History Family History: CAD, DM, Hypertension, Malignancy Parental Family History Reviewed: Yes Children Family History Reviewed: No Sibling(s) Family History Reviewed.: Yes Medication/Allergy Home Medications: Aspirin [Ecotrin 81 mg EC Tablet] 81 mg PO DAILY 07/08/18 Citalopram Hydrobromide [Celexa 10 mg Tablet] 10 mg PO DAILY 07/08/18 Metformin HCl [Glucophage 500 mg Tablet] 1,000 mg PO BID 07/08/18 Olmesartan/Hydrochlorothiazide [Olmesartan-Hctz 40-25 mg Tab] 1 each PO DAILY 07/08/18 Simvastatin [Zocor 20 mg Tablet] 20 mg PO QPM 07/08/18 Allergies/Adverse Reactions: No Known Allergies Allergy (Verified 07/08/18 12:21) Review of Systems Constitutional: ABSENT: chills, fever(s) Eyes: ABSENT: visual disturbances, other - eye pain Ears: ABSENT: hearing changes, other - ear pain Nose, Mouth, and Throat: ABSENT: mouth pain, sore throat Cardiovascular: PRESENT: as per HPI, dyspnea on exertion, edema, orthropnea. ABSENT: chest pain, palpitations Respiratory: PRESENT: as per HPI, dyspnea. ABSENT: cough Gastrointestinal: ABSENT: abdominal pain, constipation, diarrhea, nausea, vomiting Genitourinary: ABSENT: dysuria, hematuria Musculoskeletal: ABSENT: back pain, joint swelling, muscle weakness Integumentary: ABSENT: pruritus, rash Neurological: ABSENT: confusion, convulsions, focal weakness, memory loss, t remor(s) Psychiatric: ABSENT: anxiety, depression Endocrine: ABSENT: cold intolerance, heat intolerance Hematologic/Lymphatic: ABSENT: easy bleeding, easy bruising Physical Exam Vital Signs: Temp Pulse Resp BP Pulse Ox 98.4 F 116 H 20 153/100 H 97 07/08/18 12:32 07/08/18 12:32 07/08/18 12:32 07/08/18 12:32 07/08/18 12:32 Intake & Output 07/06/18 07/07/18 07/08/18 23:59 23:59 23:59 Weight 114 kg General appearance: PRESENT: no acute distress, cooperative, morbidly obese Head exam: PRESENT: atraumatic, normocephalic Eye exam: PRESENT: conjunctiva pink, EOMI. ABSENT: scleral icterus Ear exam: PRESENT: normal external ear exam. ABSENT: bleeding, drainage Mouth exam: PRESENT: dry mucosa, neck supple Neck exam: ABSENT: thyromegaly, tracheal deviation Respiratory exam: PRESENT: clear to auscultation dmitri, symmetrical, unlabored Cardiovascular exam: PRESENT: RRR, systolic murmur - Grade 3/6 holosystolic murmur heard best at the base with radiation to the left axilla. ABSENT: clicks, diastolic murmur, gallop, rubs Pulses: PRESENT: normal radial pulses, normal dorsalis pedis pul Vascular exam: PRESENT: normal capillary refill. ABSENT: pallor GI/Abdominal exam: PRESENT: normal bowel sounds, soft Rectal exam: PRESENT: deferred Extremities exam: PRESENT: tenderness - bilateral calves Right > Left, +2 edema - Bilateral Lower extremities. ABSENT: joint swelling Musculoskeletal exam: ABSENT: deformity, dislocation Neurological exam: PRESENT: alert, awake, oriented to person, oriented to place, oriented to time, oriented to situation, motor sensory deficit. ABSENT: CN II- XII grossly intact Psychiatric exam: PRESENT: appropriate affect, normal mood Skin exam: PRESENT: dry, intact, warm. ABSENT: jaundice, rash, urticaria Results Laboratory Results: 07/08/18 14:23 07/08/18 17:44 07/08/18 07/08/18 07/08/18 14:23 14:23 14:23 WBC 6.4 RBC 4.61 Hgb 13.0 Hct 40.8 MCV 89 MCH 28.2 MCHC 31.9 L RDW 15.9 H Plt Count 106 L Seg Neutrophils % 68.6 Lymphocytes % 20.1 Monocytes % 8.2 Eosinophils % 2.7 Basophils % 0.4 Absolute Neutrophils 4.4 Absolute Lymphocytes 1.3 Absolute Monocytes 0.5 Absolute Eosinophils 0.2 Absolute Basophils 0.0 VBG pH VBG pCO2 VBG HCO3 VBG Base Excess Sodium Cancelled Potassium Cancelled Chloride Cancelled Carbon Dioxide Cancelled Anion Gap Cancelled BUN Cancelled Creatinine Cancelled Est GFR ( Amer) Cancelled Est GFR (Non-Af Amer) Cancelled Glucose Cancelled Lactic Acid Cancelled Calcium Cancelled Total Bilirubin Cancelled AST Cancelled ALT Cancelled Alkaline Phosphatase Cancelled Total Protein Cancelled Albumin Cancelled 07/08/18 07/08/18 07/08/18 17:44 17:44 19:10 WBC RBC Hgb Hct MCV MCH MCHC RDW Plt Count Seg Neutrophils % Lymphocytes % Monocytes % Eosinophils % Basophils % Absolute Neutrophils Absolute Lymphocytes Absolute Monocytes Absolute Eosinophils Absolute Basophils VBG pH 7.29 L VBG pCO2 60.7 VBG HCO3 28.5 VBG Base Excess 0.7 Sodium 143.9 Potassium 4.1 Chloride 107 Carbon Dioxide 28 Anion Gap 9 BUN 22 H Creatinine 1.01 Est GFR ( Amer) > 60 Est GFR (Non-Af Amer) 53 L Glucose 159 H Lactic Acid 1.9 Calcium 9.2 Total Bilirubin 1.1 AST 32 ALT 42 Alkaline Phosphatase 80 Total Protein 6.7 Albumin 4.1 07/08/18 07/08/18 14:23 17:44 Troponin I Cancelled 0.012 NT-Pro-B Natriuret Pep Cancelled 2600 H Impressions: Venous Doppler Study 07/08/18 13:38 IMPRESSION: NO EVIDENCE OF DVT OR SVT IN THE RIGHT LEG. Chest X-Ray 07/08/18 13:39 IMPRESSION: Pulmonary vascular congestion with mild perihilar pulmonary edema. Trace right pleural effusion. Cardiomegaly Assessment & Plan - Diagnosis (1) Acute on chronic diastolic congestive heart failure Is this a current diagnosis for this admission?: Yes Plan: Patient be treated with Lasix 40 mg IV every 12 hours. Additionally for the discomfort in her lower extremities due to the edema caused by her congestive heart failure she will use morphine sulfate 2-4 mg IV every 2 hours as needed for pain. She will be continued on her usual cardiac and antihypertensive medications as appropriate. (2) Diabetes mellitus type 2 in obese Is this a current diagnosis for this admission?: Yes Plan: Patient will be continued on her usual diabetic regimen as well as a diabetic diet. Before meals and at bedtime blood sugars will be obtained and sliding scale coverage will be employed for hyperglycemia. Hemoglobin A1c will be obtained to assess efficacy of prior therapy. (3) Morbid obesity Is this a current diagnosis for this admission?: Yes Plan: Patient will be seen by dietitian and recommendations for lifestyle and dietary changes will be made to enhance the patient's overall medical health. (4) Coronary artery disease Qualifiers: Coronary Disease-Associated Artery/Lesion type: [place] artery [place] vs. transplanted heart: [place] heart Associated angina: angina presence unspecified Qualified Code(s): I25.10 - Atherosclerotic heart disease of [place] coronary artery without angina pectoris Is this a current diagnosis for this admission?: Yes Plan: Patient will be continued on her usual cardiac medications as appropriate. - Time Time Spent: 30 to 50 Minutes Critical Time spent with patient: Less than 15 minutes Medications reviewed and adjusted accordingly: Yes Anticipated discharge: Home with Homehealth - Inpatient Certification Based on my medical assessment, after consideration of the patient's comorbidities, presenting symptoms, or acuity I expect that the services needed warrant INPATIENT care.: Yes I certify that my determination is in accordance with my understanding of Medicare's requirements for reasonable and necessary INPATIENT services [42 CFR 412.3e].: Yes Medical Necessity: Significant Comorbidiites Make Outpatient Treatment Too Risky, Need Close Monitoring Due to Risk of Patient Decompensation, Need For Continuous Telemetry Monitoring, Risk of Complication if Not Cared For in Hospital
[2018-07-09] MEDS ORDERED: METOPROLOL TARTRATE 100 MG TABLET PO ONE (01:30)
[2018-07-09] MEDS ORDERED: METOPROLOL TARTRATE 100 MG TABLET ONE (03:52)
[2018-07-09] MEDS: HEPARIN SOD (PORCINE) 5,000 UNIT/ML 1 ML SYRINGE SUBCUT SCH ×3 (05:00→21:58)
[2018-07-09 05:10] LABS: ABSOLUTE BASOPHILS # (AUTO) 0.1 10^3/uL (0.0-0.2); ABSOLUTE EOSINOPHILS # (AUTO) 0.3 10^3/uL (0.0-0.6); ABSOLUTE LYMPHOCYTES (AUTO) 1.4 10^3/uL (0.5-4.7); ABSOLUTE MONOCYTES (AUTO) 0.6 10^3/uL (0.1-1.4); ABSOLUTE NEUT (AUTO) 4.3 10^3/uL (1.7-8.2); BASOPHILS % (AUTO) 0.9 % (0-2); EOSINOPHILS % (AUTO) 3.8 % (0-6); HEMATOCRIT 37.5 % (36.0-47.0); HEMOGLOBIN 12.2 g/dL (12.0-15.5); LYMPHOCYTES % (AUTO) 21.3 % (13-45); MEAN CORPUSCULAR HEMOGLOBIN 28.3 pg (27.0-33.4); MEAN CORPUSCULAR HGB CONC 32.5 g/dL (32.0-36.0); MEAN CORPUSCULAR VOLUME 87 fl (80-97); MONOCYTES % (AUTO) 9.2 % (3-13); PLATELET COUNT 129 10^3/uL (150-450); SEGMENTED NEUTROPHILS % (AUTO) 64.8 % (42-78); TOTAL CELLS COUNTED % (AUTO) 100 %; WHITE BLOOD COUNT 6.7 10^3/uL (4.0-10.5)
[2018-07-09 05:28] LABS: ANION GAP 11 (5-19); BLOOD UREA NITROGEN 20 mg/dL (7-20); CARBON DIOXIDE 29 mmol/L (22-30); CHLORIDE 105 mmol/L (98-107); CHOLESTEROL 110.06 mg/dL (0-200); CREATINE KINASE 41 U/L (30-135); GLUCOSE 118 mg/dL (75-110); SODIUM 145.2 mmol/L (137-145); TRIGLYCERIDES 85 mg/dL (<150)
[2018-07-09 05:39] LABS: DIRECT LDL 45 mg/dL (<100)
[2018-07-09 05:41] LABS: CREATINE KINASE MB 1.76 ng/mL (<4.55); TROPONIN I 0.019 ng/mL
[2018-07-09 05:45] LABS: FREE T3 3.46 pg/mL (2.77-5.27); FREE T4 (FREE THYROXINE) 1.62 ng/dL (0.78-2.19)
[2018-07-09 05:58] LABS: THYROID STIMULATING HORMONE 2.15 uIU/mL (0.47-4.68)
[2018-07-09] MEDS: FUROSEMIDE INJ/PF 40 MG/4 ML SDV IV SCH ×2 (09:27→22:08)
[2018-07-09] MEDS: ASPIRIN 81 MG TABLET, ENT COATED PO SCH (09:28)
[2018-07-09] MEDS: FAMOTIDINE 20 MG TABLET PO SCH ×2 (09:28→22:09)
[2018-07-09] MEDS: METFORMIN HCL 500 MG TABLET PO SCH ×2 (09:28→17:34)
[2018-07-09] MEDS: ESCITALOPRAM OXALATE 10 MG TABLET PO SCH (09:29)
[2018-07-09] MEDS: DOCUSATE SODIUM 100 MG CAPSULE PO SCH (09:29)
[2018-07-09] MEDS: POTASSIUM CHLORIDE 10 MEQ CAPSULE.ER PO SCH ×2 (09:30→22:09)
[2018-07-09] MEDS: LOSARTAN POTASSIUM 50 MG TABLET PO SCH (09:30)
[2018-07-09] MEDS ORDERED: METOPROLOL SUCCINATE 50 MG TAB.SR.24H PO SCH (10:00)
[2018-07-09 11:41] LABS: CREATINE KINASE MB 1.55 ng/mL (<4.55); TROPONIN I 0.015 ng/mL
[2018-07-09] MEDS ORDERED: FUROSEMIDE INJ/PF 40 MG/4 ML SDV IV ONE (14:47)
--- NOTE | 2018-07-09 14:56 | PDOC PROGRESS REPORT ---
Subjective Progress Note for:: 07/09/18 Subjective:: This is a very pleasant 78 years old black female patient with past medical history of CHF, coronary artery disease, pulmonary hypertension, hypertension, COPD, diabetes mellitus, CKD and morbid obesity presented with 2 weeks history of progressive dyspnea and bilateral leg swelling. Morning I seen patient sitting on chair. She reports this her shortness of breath is relatively better. Still patient has [place] bilateral pitting edema +3. Reason For Visit: HEART FAILURE Physical Exam Vital Signs: Temp Pulse Resp BP Pulse Ox 98.4 F 85 16 102/62 98 07/09/18 11:10 07/09/18 14:00 07/09/18 11:10 07/09/18 11:10 07/09/18 11:10 Intake & Output 07/08/18 07/09/18 07/10/18 06:59 06:59 06:59 Intake Total 300 Output Total 1650 Balance -1350 Weight 114.9 kg General appearance: PRESENT: mild distress Eye exam: PRESENT: conjunctiva pink Mouth exam: PRESENT: moist Neck exam: ABSENT: carotid bruit, JVD, lymphadenopathy, thyromegaly Respiratory exam: PRESENT: clear to auscultation dmitri. ABSENT: rales, rhonchi, wheezes Cardiovascular exam: PRESENT: RRR. ABSENT: diastolic murmur, rubs, systolic murmur GI/Abdominal exam: PRESENT: normal bowel sounds, soft. ABSENT: distended, guarding, mass, organolmegaly, rebound, tenderness Extremities exam: PRESENT: other - +3 pitting edema bilaterally Neurological exam: PRESENT: alert, awake, oriented to time, oriented to situation Psychiatric exam: PRESENT: normal mood Results Laboratory Results: 07/09/18 04:44 07/09/18 04:44 07/08/18 07/08/18 07/08/18 14:23 14:23 14:23 WBC 6.4 RBC 4.61 Hgb 13.0 Hct 40.8 MCV 89 MCH 28.2 MCHC 31.9 L RDW 15.9 H Plt Count 106 L Seg Neutrophils % 68.6 Lymphocytes % 20.1 Monocytes % 8.2 Eosinophils % 2.7 Basophils % 0.4 Absolute Neutrophils 4.4 Absolute Lymphocytes 1.3 Absolute Monocytes 0.5 Absolute Eosinophils 0.2 Absolute Basophils 0.0 VBG pH VBG pCO2 VBG HCO3 VBG Base Excess Sodium Cancelled Potassium Cancelled Chloride Cancelled Carbon Dioxide Cancelled Anion Gap Cancelled BUN Cancelled Creatinine Cancelled Est GFR ( Amer) Cancelled Est GFR (Non-Af Amer) Cancelled Glucose Cancelled Lactic Acid Cancelled Calcium Cancelled Magnesium Total Bilirubin Cancelled AST Cancelled ALT Cancelled Alkaline Phosphatase Cancelled Total Protein Cancelled Albumin Cancelled Triglycerides Cholesterol LDL Cholesterol Direct VLDL Cholesterol HDL Cholesterol TSH Free T4 Free T3 pg/mL Urine Color Urine Appearance Urine pH Ur Specific [place] Urine Protein Urine Glucose (UA) Urine Ketones Urine Blood Urine Nitrite Ur Leukocyte Esterase Urine WBC (Auto) Urine RBC (Auto) 07/08/18 07/08/18 07/08/18 17:44 17:44 19:10 WBC RBC Hgb Hct MCV MCH MCHC RDW Plt Count Seg Neutrophils % Lymphocytes % Monocytes % Eosinophils % Basophils % Absolute Neutrophils Absolute Lymphocytes Absolute Monocytes Absolute Eosinophils Absolute Basophils VBG pH 7.29 L VBG pCO2 60.7 VBG HCO3 28.5 VBG Base Excess 0.7 Sodium 143.9 Potassium 4.1 Chloride 107 Carbon Dioxide 28 Anion Gap 9 BUN 22 H Creatinine 1.01 Est GFR ( Amer) > 60 Est GFR (Non-Af Amer) 53 L Glucose 159 H Lactic Acid 1.9 Calcium 9.2 Magnesium Total Bilirubin 1.1 AST 32 ALT 42 Alkaline Phosphatase 80 Total Protein 6.7 Albumin 4.1 Triglycerides Cholesterol LDL Cholesterol Direct VLDL Cholesterol HDL Cholesterol TSH Free T4 Free T3 pg/mL Urine Color Urine Appearance Urine pH Ur Specific [place] Urine Protein Urine Glucose (UA) Urine Ketones Urine Blood Urine Nitrite Ur Leukocyte Esterase Urine WBC (Auto) Urine RBC (Auto) 07/08/18 07/09/18 07/09/18 19:41 04:44 04:44 WBC 6.7 RBC 4.30 Hgb 12.2 Hct 37.5 MCV 87 MCH 28.3 MCHC 32.5 RDW 15.0 H Plt Count 129 L Seg Neutrophils % 64.8 Lymphocytes % 21.3 Monocytes % 9.2 Eosinophils % 3.8 Basophils % 0.9 Absolute Neutrophils 4.3 Absolute Lymphocytes 1.4 Absolute Monocytes 0.6 Absolute Eosinophils 0.3 Absolute Basophils 0.1 VBG pH VBG pCO2 VBG HCO3 VBG Base Excess Sodium 145.2 H Potassium 4.0 Chloride 105 Carbon Dioxide 29 Anion Gap 11 BUN 20 Creatinine 0.99 Est GFR ( Amer) > 60 Est GFR (Non-Af Amer) 54 L Glucose 118 H Lactic Acid Calcium 9.0 Magnesium 1.7 Total Bilirubin AST ALT Alkaline Phosphatase Total Protein Albumin Triglycerides 85 Cholesterol 110.06 LDL Cholesterol Direct 45 VLDL Cholesterol 17.0 HDL Cholesterol 62 TSH Free T4 Free T3 pg/mL Urine Color YELLOW Urine Appearance SLIGHTLY-CLOUDY Urine pH 5.0 Ur Specific [place] 1.013 Urine Protein NEGATIVE Urine Glucose (UA) NEGATIVE Urine Ketones NEGATIVE Urine Blood SMALL H Urine Nitrite NEGATIVE Ur Leukocyte Esterase LARGE H Urine WBC (Auto) 74 Urine RBC (Auto) 5 07/09/18 04:44 WBC RBC Hgb Hct MCV MCH MCHC RDW Plt Count Seg Neutrophils % Lymphocytes % Monocytes % Eosinophils % Basophils % Absolute Neutrophils Absolute Lymphocytes Absolute Monocytes Absolute Eosinophils Absolute Basophils VBG pH VBG pCO2 VBG HCO3 VBG Base Excess Sodium Potassium Chloride Carbon Dioxide Anion Gap BUN Creatinine Est GFR ( Amer) Est GFR (Non-Af Amer) Glucose Lactic Acid Calcium Magnesium Total Bilirubin AST ALT Alkaline Phosphatase Total Protein Albumin Triglycerides Cholesterol LDL Cholesterol Direct VLDL Cholesterol HDL Cholesterol TSH 2.15 Free T4 1.62 Free T3 pg/mL 3.46 Urine Color Urine Appearance Urine pH Ur Specific [place] Urine Protein Urine Glucose (UA) Urine Ketones Urine Blood Urine Nitrite Ur Leukocyte Esterase Urine WBC (Auto) Urine RBC (Auto) 07/08/18 07/08/18 07/08/18 14:23 17:44 22:20 Creatine Kinase 56 CK-MB (CK-2) Troponin I Cancelled 0.012 NT-Pro-B Natriuret Pep Cancelled 2600 H 07/08/18 07/09/18 07/09/18 22:20 04:44 04:44 Creatine Kinase 41 CK-MB (CK-2) 1.87 1.76 Troponin I 0.014 0.019 NT-Pro-B Natriuret Pep 07/09/18 07/09/18 10:38 10:38 Creatine Kinase 41 CK-MB (CK-2) 1.55 Troponin I 0.015 NT-Pro-B Natriuret Pep Impressions: Venous Doppler Study 07/08/18 13:38 IMPRESSION: NO EVIDENCE OF DVT OR SVT IN THE RIGHT LEG. Chest X-Ray 07/08/18 13:39 IMPRESSION: Pulmonary vascular congestion with mild perihilar pulmonary edema. Trace right pleural effusion. Cardiomegaly Assessment & Plan - Diagnosis (1) A/C Diastolic heart failure exacerbation Is this a current diagnosis for this admission?: Yes Plan: Continue IV Lasix. (2) COPD (chronic obstructive pulmonary disease) Qualifiers: Emphysema type: unspecified Is this a current diagnosis for this admission?: Yes Plan: Continue as needed bronchodilators (3) Type 2 diabetes mellitus Is this a current diagnosis for this admission?: Yes Plan: Continue current regimen (4) Coronary artery disease Is this a current diagnosis for this admission?: Yes Plan: No anginal symptoms. Continue cardioprotective medications (5) Hypertension Qualifiers: Hypertension type: essential hypertension Qualified Code(s): I10 - Essential (primary) hypertension Is this a current diagnosis for this admission?: Yes Plan: Uncontrolled. I will adjust her medication.
[2018-07-09] MEDS: ATORVASTATIN CALCIUM 20 MG TABLET PO SCH (22:09)
[2018-07-10 05:26] LABS: ABSOLUTE BASOPHILS # (AUTO) 0.1 10^3/uL (0.0-0.2); ABSOLUTE EOSINOPHILS # (AUTO) 0.2 10^3/uL (0.0-0.6); ABSOLUTE LYMPHOCYTES (AUTO) 2.1 10^3/uL (0.5-4.7); ABSOLUTE MONOCYTES (AUTO) 0.7 10^3/uL (0.1-1.4); BASOPHILS % (AUTO) 0.9 % (0-2); EOSINOPHILS % (AUTO) 1.7 % (0-6); HEMATOCRIT 38.4 % (36.0-47.0); HEMOGLOBIN 12.6 g/dL (12.0-15.5); LYMPHOCYTES % (AUTO) 23.6 % (13-45); MEAN CORPUSCULAR HEMOGLOBIN 28.2 pg (27.0-33.4); MEAN CORPUSCULAR HGB CONC 32.7 g/dL (32.0-36.0); MEAN CORPUSCULAR VOLUME 86 fl (80-97); MONOCYTES % (AUTO) 7.8 % (3-13); PLATELET COUNT 148 10^3/uL (150-450); RED BLOOD COUNT 4.45 10^6/uL (3.72-5.28); RED CELL DISTRIBUTION WIDTH 15.2 % (11.5-14.0); TOTAL CELLS COUNTED % (AUTO) 100 %
[2018-07-10] MEDS: HEPARIN SOD (PORCINE) 5,000 UNIT/ML 1 ML SYRINGE SUBCUT SCH ×3 (05:55→21:47)
[2018-07-10 06:02] LABS: ANION GAP 10 (5-19); BLOOD UREA NITROGEN 29 mg/dL (7-20); CALCIUM 8.8 mg/dL (8.4-10.2); CARBON DIOXIDE 28 mmol/L (22-30); CHLORIDE 103 mmol/L (98-107); GLUCOSE 164 mg/dL (75-110); POTASSIUM 4.4 mmol/L (3.6-5.0); SODIUM 140.6 mmol/L (137-145)
[2018-07-10] MEDS: DOCUSATE SODIUM 100 MG CAPSULE PO SCH (09:33)
[2018-07-10] MEDS: METFORMIN HCL 500 MG TABLET PO SCH ×2 (09:33→17:49)
[2018-07-10] MEDS: ESCITALOPRAM OXALATE 10 MG TABLET PO SCH (09:34)
[2018-07-10] MEDS: LOSARTAN POTASSIUM 50 MG TABLET PO SCH (09:34)
[2018-07-10] MEDS: METOPROLOL SUCCINATE 50 MG TAB.SR.24H PO SCH (09:34)
[2018-07-10] MEDS: POTASSIUM CHLORIDE 10 MEQ CAPSULE.ER PO SCH ×2 (09:34→22:27)
[2018-07-10] MEDS: FUROSEMIDE INJ/PF 40 MG/4 ML SDV IV SCH (09:35)
[2018-07-10] MEDS: ASPIRIN 81 MG TABLET, ENT COATED PO SCH (09:35)
[2018-07-10] MEDS: INSULIN REG, HUMAN 100 UNIT/ML 3 ML VIAL (PYX) SUBCUT PRN ×2 (09:35→17:49)
[2018-07-10] MEDS: FAMOTIDINE 20 MG TABLET PO SCH ×2 (09:35→22:28)
--- NOTE | 2018-07-10 13:16 | PDOC PROGRESS REPORT ---
Subjective Progress Note for:: 07/10/18 Subjective:: Patient is seen and examined at bedside. She is awake alert oriented. She reports this some improvement in her shortness of breath. I reviewed her lab and she has mildly elevated creatinine may be due to volume contraction from diuresis. I will cut down her Lasix by half. Reason For Visit: HEART FAILURE Physical Exam Vital Signs: Temp Pulse Resp BP Pulse Ox 98.1 F 75 17 124/70 100 07/10/18 11:32 07/10/18 11:32 07/10/18 11:32 07/10/18 11:32 07/10/18 11:32 Intake & Output 07/09/18 07/10/18 07/11/18 06:59 06:59 06:59 Intake Total 625 766 Output Total 2825 725 Balance -2200 41 Weight 114.9 kg 109.4 kg Results Laboratory Results: 07/10/18 04:44 07/10/18 04:44 07/10/18 07/10/18 04:44 04:44 WBC 9.0 RBC 4.45 Hgb 12.6 Hct 38.4 MCV 86 MCH 28.2 MCHC 32.7 RDW 15.2 H Plt Count 148 L Seg Neutrophils % 66.0 Lymphocytes % 23.6 Monocytes % 7.8 Eosinophils % 1.7 Basophils % 0.9 Absolute Neutrophils 6.0 Absolute Lymphocytes 2.1 Absolute Monocytes 0.7 Absolute Eosinophils 0.2 Absolute Basophils 0.1 Sodium 140.6 Potassium 4.4 Chloride 103 Carbon Dioxide 28 Anion Gap 10 BUN 29 H Creatinine 1.18 Est GFR ( Amer) 53 L Est GFR (Non-Af Amer) 44 L Glucose 164 H Calcium 8.8 07/08/18 07/08/18 07/08/18 14:23 17:44 22:20 Creatine Kinase 56 CK-MB (CK-2) Troponin I Cancelled 0.012 NT-Pro-B Natriuret Pep Cancelled 2600 H 07/08/18 07/09/18 07/09/18 22:20 04:44 04:44 Creatine Kinase 41 CK-MB (CK-2) 1.87 1.76 Troponin I 0.014 0.019 NT-Pro-B Natriuret Pep 07/09/18 07/09/18 10:38 10:38 Creatine Kinase 41 CK-MB (CK-2) 1.55 Troponin I 0.015 NT-Pro-B Natriuret Pep Impressions: Venous Doppler Study 07/08/18 13:38 IMPRESSION: NO EVIDENCE OF DVT OR SVT IN THE RIGHT LEG. Chest X-Ray 07/08/18 13:39 IMPRESSION: Pulmonary vascular congestion with mild perihilar pulmonary edema. Trace right pleural effusion. Cardiomegaly Assessment & Plan - Diagnosis (1) Acute kidney injury Is this a current diagnosis for this admission?: Yes Plan: Due to volume contraction secondary to diuresis. Decrease the dose of her Lasix by half. (2) A/C Diastolic heart failure exacerbation Is this a current diagnosis for this admission?: Yes Plan: Continue IV Lasix. (3) COPD (chronic obstructive pulmonary disease) Qualifiers: Emphysema type: unspecified Is this a current diagnosis for this admission?: Yes Plan: Continue as needed bronchodilators (4) Type 2 diabetes mellitus Is this a current diagnosis for this admission?: Yes Plan: Continue current regimen (5) Coronary artery disease Is this a current diagnosis for this admission?: Yes Plan: No anginal symptoms. Continue cardioprotective medications (6) Hypertension Qualifiers: Hypertension type: essential hypertension Qualified Code(s): I10 - Essential (primary) hypertension Is this a current diagnosis for this admission?: Yes Plan: Uncontrolled. I will adjust her medication.
[2018-07-10] MEDS: ATORVASTATIN CALCIUM 20 MG TABLET PO SCH (22:27)
[2018-07-11] MEDS: HEPARIN SOD (PORCINE) 5,000 UNIT/ML 1 ML SYRINGE SUBCUT SCH ×3 (05:10→22:04)
[2018-07-11 07:05] LABS: ANION GAP 7 (5-19); BLOOD UREA NITROGEN 33 mg/dL (7-20); CALCIUM 8.5 mg/dL (8.4-10.2); CARBON DIOXIDE 30 mmol/L (22-30); CHLORIDE 102 mmol/L (98-107); GLUCOSE 126 mg/dL (75-110); POTASSIUM 4.3 mmol/L (3.6-5.0); SODIUM 138.9 mmol/L (137-145)
[2018-07-11] MEDS: METOPROLOL SUCCINATE 50 MG TAB.SR.24H PO SCH (10:31)
[2018-07-11] MEDS: METFORMIN HCL 500 MG TABLET PO SCH ×2 (10:37→18:17)
[2018-07-11] MEDS: POTASSIUM CHLORIDE 10 MEQ CAPSULE.ER PO SCH ×2 (10:37→22:13)
[2018-07-11] MEDS: FUROSEMIDE INJ/PF 40 MG/4 ML SDV IV SCH (10:37)
[2018-07-11] MEDS: DOCUSATE SODIUM 100 MG CAPSULE PO SCH (10:38)
[2018-07-11] MEDS: ESCITALOPRAM OXALATE 10 MG TABLET PO SCH (10:38)
[2018-07-11] MEDS: FAMOTIDINE 20 MG TABLET PO SCH ×2 (10:40→22:13)
[2018-07-11] MEDS: ASPIRIN 81 MG TABLET, ENT COATED PO SCH (10:40)
[2018-07-11] MEDS: LOSARTAN POTASSIUM 50 MG TABLET PO SCH (10:40)
--- NOTE | 2018-07-11 18:54 | PDOC PROGRESS REPORT ---
Subjective Progress Note for:: 07/11/18 Subjective:: I seen this morning patient resting in bed. She complains of nausea and vomiting. Her creatinine also slightly increased to 1.35. Reason For Visit: HEART FAILURE Physical Exam Vital Signs: Temp Pulse Resp BP Pulse Ox 98.3 F 89 17 89/68 L 91 L 07/11/18 16:04 07/11/18 16:04 07/11/18 16:04 07/11/18 16:04 07/11/18 16:04 Intake & Output 07/10/18 07/11/18 07/12/18 06:59 06:59 06:59 Intake Total 766 1040 1301 Output Total 725 Balance 41 1040 1301 Weight 109.4 kg 109.4 kg General appearance: PRESENT: mild distress Eye exam: PRESENT: conjunctiva pink Cardiovascular exam: PRESENT: RRR. ABSENT: diastolic murmur, rubs, systolic murmur GI/Abdominal exam: PRESENT: normal bowel sounds, soft. ABSENT: distended, guarding, mass, organolmegaly, rebound, tenderness Extremities exam: PRESENT: +2 edema Results Laboratory Results: 07/10/18 04:44 07/11/18 05:50 07/11/18 05:50 Sodium 138.9 Potassium 4.3 Chloride 102 Carbon Dioxide 30 Anion Gap 7 BUN 33 H Creatinine 1.35 H Est GFR ( Amer) 46 L Est GFR (Non-Af Amer) 38 L Glucose 126 H Calcium 8.5 07/08/18 19:41 Clean Catch Midstream Urine Culture - Final Escherichia Coli 07/08/18 07/08/18 07/08/18 14:23 17:44 22:20 Creatine Kinase 56 CK-MB (CK-2) Troponin I Cancelled 0.012 NT-Pro-B Natriuret Pep Cancelled 2600 H 07/08/18 07/09/18 07/09/18 22:20 04:44 04:44 Creatine Kinase 41 CK-MB (CK-2) 1.87 1.76 Troponin I 0.014 0.019 NT-Pro-B Natriuret Pep 07/09/18 07/09/18 10:38 10:38 Creatine Kinase 41 CK-MB (CK-2) 1.55 Troponin I 0.015 NT-Pro-B Natriuret Pep Impressions: Venous Doppler Study 07/08/18 13:38 IMPRESSION: NO EVIDENCE OF DVT OR SVT IN THE RIGHT LEG. Chest X-Ray 07/08/18 13:39 IMPRESSION: Pulmonary vascular congestion with mild perihilar pulmonary edema. Trace right pleural effusion. Cardiomegaly Assessment & Plan - Diagnosis (1) Nausea and vomiting Is this a current diagnosis for this admission?: Yes Plan: We will manage her with antiemetic (2) Acute kidney injury Is this a current diagnosis for this admission?: Yes Plan: Bit worsening (3) A/C Diastolic heart failure exacerbation Is this a current diagnosis for this admission?: Yes Plan: Continue IV Lasix. (4) COPD (chronic obstructive pulmonary disease) Qualifiers: Emphysema type: unspecified Is this a current diagnosis for this admission?: Yes Plan: Continue as needed bronchodilators (5) Type 2 diabetes mellitus Is this a current diagnosis for this admission?: Yes Plan: Continue current regimen (6) Coronary artery disease Is this a current diagnosis for this admission?: Yes Plan: No anginal symptoms. Continue cardioprotective medications (7) Hypertension Qualifiers: Hypertension type: essential hypertension Qualified Code(s): I10 - Essential (primary) hypertension Is this a current diagnosis for this admission?: Yes Plan: Uncontrolled. I will adjust her medication.
[2018-07-11] MEDS: ATORVASTATIN CALCIUM 20 MG TABLET PO SCH (22:13)
[2018-07-12] MEDS: HEPARIN SOD (PORCINE) 5,000 UNIT/ML 1 ML SYRINGE SUBCUT SCH (05:51)
[2018-07-12] MEDS: METFORMIN HCL 500 MG TABLET PO SCH (09:54)
[2018-07-12] MEDS: DOCUSATE SODIUM 100 MG CAPSULE PO SCH (09:54)
[2018-07-12] MEDS: ESCITALOPRAM OXALATE 10 MG TABLET PO SCH (09:54)
[2018-07-12] MEDS: ASPIRIN 81 MG TABLET, ENT COATED PO SCH (09:55)
[2018-07-12] MEDS: FAMOTIDINE 20 MG TABLET PO SCH (09:55)
[2018-07-12] MEDS: LOSARTAN POTASSIUM 50 MG TABLET PO SCH (10:18)
[2018-07-12] MEDS: METOPROLOL SUCCINATE 50 MG TAB.SR.24H PO SCH (10:18)
[2018-07-12] MEDS: FUROSEMIDE INJ/PF 40 MG/4 ML SDV IV SCH (10:18)
[2018-07-12] MEDS: POTASSIUM CHLORIDE 10 MEQ CAPSULE.ER PO SCH (10:18)
--- NOTE | 2018-07-12 11:55 | PDOC DISCHARGE SUMMARY ---
General - Admit/Disc Date/PCP Admission Date/Primary Care Provider: 07/08/18 20:15 TIKA STORM MD Discharge Date: 07/12/18 - Discharge Diagnosis (1) Nausea and vomiting Is this a current diagnosis for this admission?: Yes (2) Acute kidney injury Is this a current diagnosis for this admission?: Yes (3) A/C Diastolic heart failure exacerbation Is this a current diagnosis for this admission?: Yes (4) COPD (chronic obstructive pulmonary disease) Is this a current diagnosis for this admission?: Yes (5) Type 2 diabetes mellitus Is this a current diagnosis for this admission?: Yes (6) Coronary artery disease Is this a current diagnosis for this admission?: Yes (7) Hypertension Is this a current diagnosis for this admission?: Yes - Additional Information Resuscitation Status: Full Code Discharge Diet: Cardiac, Diabetic Discharge Activity: Activity As Tolerated, Balance Activity w/Rest, Weigh Daily Home Medications: Aspirin [Ecotrin 81 mg EC Tablet] 81 mg PO DAILY 07/08/18 Citalopram Hydrobromide [Celexa 10 mg Tablet] 10 mg PO DAILY 07/08/18 Metformin HCl [Glucophage 500 mg Tablet] 1,000 mg PO BID 07/08/18 Olmesartan/Hydrochlorothiazide [Olmesartan-Hctz 40-25 mg Tab] 1 each PO DAILY 07/08/18 Simvastatin [Zocor 20 mg Tablet] 20 mg PO QPM 07/08/18 History of Present Illness History of Present Illness: LORI GROSS is a 78 year old female who presented to the emergency room with a 2-week history of progressively worsening dyspnea. She admits that her dyspnea has been gradually worsening over the last 2 weeks and she is noted accompanying symptoms of gradually increased swelling of her bilateral lower extremities. She states that her dyspnea has gotten to the point where it is now severe, worsens on exertion, is present at rest and prevents her from lying flat in bed. The moderate to severe swelling in her legs has resulted in moderate pain with the right leg being more painful and swollen than the left. She describes the bilateral lower leg pain as a constant mild to moderate aching in her calves, without radiation, made worse by palpation and weightbearing. She has noted a bolus lesion developing on the posterior aspect of her right calf which has drained serous yellow fluid that crusted on her leg. She admits prior similar episodes due to exacerbations of her congestive heart failure. In the emergency room she was found to have an elevated BNP and a chest x-ray consistent with acute on congestive heart failure. Due to her multiple comorbid conditions it was felt the patient should be admitted to the hospital for further evaluation and treatment. Hospital Course Hospital Course: This is a very pleasant 78 years old black female patient with past medical history of CHF, coronary artery disease, pulmonary hypertension, hypertension, COPD, diabetes mellitus, CKD and morbid obesity presented with 2 weeks history of progressive dyspnea and bilateral leg swelling. This morning I seen patient sitting by the bedside and chatting with her kids. She reports this her shortness of breath has markedly improved. Her vital signs are within normal limits. 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 Green. I will continue all her home medications. Physical Exam Vital Signs: Temp Pulse Resp BP Pulse Ox 98.6 F 105 H 18 101/64 95 07/12/18 08:02 07/12/18 08:02 07/12/18 08:02 07/12/18 08:02 07/12/18 08:02 Intake & Output 07/11/18 07/12/18 07/13/18 06:59 06:59 06:59 Intake Total 1040 1781 Balance 1040 1781 Weight 109.4 kg 109.4 kg Results Laboratory Results: 07/10/18 04:44 07/11/18 05:50 07/08/18 19:41 Clean Catch Midstream Urine Culture - Final Escherichia Coli 07/08/18 07/08/18 07/08/18 14:23 17:44 22:20 Creatine Kinase 56 CK-MB (CK-2) Troponin I Cancelled 0.012 NT-Pro-B Natriuret Pep Cancelled 2600 H 07/08/18 07/09/18 07/09/18 22:20 04:44 04:44 Creatine Kinase 41 CK-MB (CK-2) 1.87 1.76 Troponin I 0.014 0.019 NT-Pro-B Natriuret Pep 07/09/18 07/09/18 10:38 10:38 Creatine Kinase 41 CK-MB (CK-2) 1.55 Troponin I 0.015 NT-Pro-B Natriuret Pep Impressions: Venous Doppler Study 07/08/18 13:38 IMPRESSION: NO EVIDENCE OF DVT OR SVT IN THE RIGHT LEG. Chest X-Ray 07/08/18 13:39 IMPRESSION: Pulmonary vascular congestion with mild perihilar pulmonary edema. Trace right pleural effusion. Cardiomegaly Qualifiers - * PATIENT BEING DISCHARGED WITH ANY OF THE FOLLOWING DIAGNOSIS: Heart Failure VTE patient discharged on overlapping Therapy?: No Reason(s) for not prescribing Overlap Therapy:: Contraindicated Stroke Pt being discharged on Anti-thrombolytic therapy?: No Reason(s) for not prescribing Anti-thrombolytic therapy:: Contraindicated Stroke Pt being discharged on Anti-coagulation therapy?: No Reason(s) for not prescribing Anti-coagulation therapy:: Not indicated Stroke Pt being discharged on Statins?: No Reason(s) for not prescribing Statins therapy:: Not indicated TX Pt being discharged on Aspirin therapy?: No Reason(s) for not prescribing Aspirin therapy:: Not indicated TX Pt being discharged on Statins?: No Reason(s) for not prescribing Statin therapy:: Not indicated TX Pt discharged ACEI/ARBS?: No Reason(s) for not prescribing ACEI/ARBS:: Not indicated HF Pt being discharged on ACEI for LVEF less than 40%?: No Reason(s) for not prescribing ACEI:: Not indicated HF Pt being discharged on ARBS for LVEF less than 40%?: No Reason(s) for not prescribing ARBS:: Not indicated HF Pt with Afib discharged with Warfarin?: No Reason(s) for not prescribing Warfarin:: Not indicated HF Pt discharged on evidence-based Beta Mich:: No Reason(s) for not prescribing evidence-based Beta Mich:: Not indicated
[2018-07-12 12:34] VITALS: BP 118/64
== END 2018-07-12 13:00 | disposition home health service (06) | DRG 291 ==
LOC: ER 12:17 → OBSVTOIN 20:15 → EH 20:15 → 4N 23:23
PROVIDERS: ADMIT Emergency Medicine; ATTEND Emergency Medicine
DX: I13.0 Hypertensive heart and chronic kidney disease with heart failure and stage 1 through stage 4 chronic kidney disease, or unspecified chronic kidney disease (principal); I50.33 Acute on chronic diastolic (congestive) heart failure; L03.116 Cellulitis of left lower limb; L03.115 Cellulitis of right lower limb; N17.9 Acute kidney failure, unspecified; Z68.41 Body mass index [BMI] 40.0-44.9, adult; M79.89 Other specified soft tissue disorders; J44.9 Chronic obstructive pulmonary disease, unspecified; E78.5 Hyperlipidemia, unspecified; E11.22 Type 2 diabetes mellitus with diabetic chronic kidney disease; N18.9 Chronic kidney disease, unspecified; I25.10 Atherosclerotic heart disease of native coronary artery without angina pectoris; E66.01 Morbid (severe) obesity due to excess calories; Z79.84 Long term (current) use of oral hypoglycemic drugs; Z79.82 Long term (current) use of aspirin; Z79.899 Other long term (current) drug therapy
CPT/HCPCS: 36415; 71045; 80048; 80053; 80061; 81001; 82550; 82553; 82803; 82962; 83036; 83605; 83735; 83880; 84439; 84443; 84481; 84484; 85025; 85610; 87040; 87086; 87088; 87186; 93005; 93010; 93971; J1644; J1815; J1940; J2543; J3370; J3490; S0119

== ENCOUNTER 2018-10-27 15:38 | Emergency (ER) | payer MEDICARE, MEDICAID ==
--- NOTE | 2018-10-27 16:52 | RADIOLOGY REPORT (SQ) ---
EXAM DESCRIPTION: FOOT RIGHT COMPLETE COMPLETED DATE/TIME: 10/27/2018 4:17 pm REASON FOR STUDY: stepped wrong getting out of car COMPARISON: 09/26/2015, 11/11/2010 NUMBER OF VIEWS: Three views. TECHNIQUE: AP, lateral and oblique radiographic images acquired of the right foot. LIMITATIONS: None. FINDINGS: MINERALIZATION: Normal. BONES: No acute fracture or dislocation. No worrisome bone lesions. JOINTS: Advanced osteoarthritis at the 1st metatarsophalangeal joint with mild hallux valgus deformit y. SOFT TISSUES: Mild forefoot soft tissue swelling. No foreign body. OTHER: Small plantar and dorsal calcaneal spurs IMPRESSION: NEGATIVE STUDY OF THE RIGHT FOOT. NO RADIOGRAPHIC EVIDENCE OF ACUTE INJURY. TECHNICAL DOCUMENTATION: JOB ID: [id number] [employer]- All Rights Reserved Reading location - IP/workstation name: [email or web address]
[2018-10-27] MEDS ORDERED: CEPHALEXIN 500 MG CAPSULE PO ONE (17:45)
[2018-10-27] MEDS ORDERED: COLCHICINE 0.6 MG TABLET PO ONE (17:46)
--- NOTE | 2018-10-27 17:55 | ER Document Report ---
HPI - HPI Time Seen by Provider: 10/27/18 16:37 Pain Level: 2 Notes: Patient is a 78-year-old female presents the emergency department with chief complaint of right foot pain. Patient reports pain started last week after her legs gave out while she was trying to get into the car. Since then she has had pain and increased swelling to the area. She states she has tried taking ibuprofen as well as Tylenol with minimal relief. She reports she is able to ambulate. - REPRODUCTIVE Reproductive: DENIES: : - MUSCULOSKELETAL Musculoskeletal: REPORTS: Extremity pain - right foot Past Medical History - General Information source: Patient - Social History Smoking Status: Former Smoker Frequency of alcohol use: Occasional Drug Abuse: None Family History: CAD, DM, Hypertension, Malignancy Patient has suicidal ideation: No Patient has homicidal ideation: No - Past Medical History Cardiac Medical History: Reports: Hx Congestive Heart Failure, Hx Coronary Artery Disease, Hx Hypercholesterolemia, Hx Hypertension - PULOMONARY HTN Denies: Hx Heart Attack Pulmonary Medical History: Reports: Hx Asthma, Hx Bronchitis, Hx COPD - CHF, Hx Pneumonia Neurological Medical History: Denies: Hx Cerebrovascular Accident, Hx Seizures Endocrine Medical History: Reports: Hx Diabetes Mellitus Type 2 Renal/ Medical History: Denies: Hx Peritoneal Dialysis GI Medical History: Denies: Hx Cirrhosis, Hx Hepatitis, Hx Hiatal Hernia, Hx Ulcer Musculoskeletal Medical History: Reports Hx Arthritis - OSTEO, Denies Hx Gout Skin Medical History: Denies Hx Eczema, Denies Hx Psoriasis Psychiatric Medical History: Reports: Hx Depression Infectious Medical History: Denies: Hx Hepatitis Past Surgical History: Reports: Hx Abdominal Surgery, Hx Hysterectomy, Hx Orthopedic Surgery - Left Knee, Other - Colonoscopy. Denies: Hx Mastectomy, Hx Open Heart Surgery, Hx Pacemaker - Immunizations Hx Diphtheria, Pertussis, Tetanus Vaccination: Yes Vertical Provider Document - CONSTITUTIONAL Notes: PHYSICAL EXAMINATION: GENERAL: Well-appearing, well-nourished and in no acute distress. HEAD: Atraumatic, normocephalic. EYES: Pupils equal round extraocular movements intact, conjunctiva are normal. ENT: Nares patent NECK: Normal range of motion LUNGS: No respiratory distress Musculoskeletal: Swelling and erythema noted to right foot at the great toe with extension up into the first metatarsal. Strong dorsalis pedis pulse. No ecchymosis noted. Normal motor and sensation, cap refill less than 3 seconds. NEUROLOGICAL: Normal speech, normal gait. PSYCH: Normal mood, normal affect. SKIN: Warm, Dry, normal turgor, no rashes or lesions noted. - INFECTION CONTROL TRAVEL OUTSIDE OF THE [place] IN LAST 30 DAYS: No Course - Re-evaluation Re-evalutation: Right foot x-ray is negative. Exam appears to be most consistent with acute gout attack. Patient reports she does have a history of cellulitis in this extremity. There is some redness but no warmth and only mild edema. Patient is requesting to be started on antibiotics as well. I think considering her history I do not think this is unreasonable. She will be started on a short course of Keflex. She will follow-up closely with her primary care provider. - Vital Signs Vital signs: Temp Pulse Resp BP Pulse Ox 98.8 F 92 14 149/94 H 96 10/27/18 15:45 10/27/18 15:45 10/27/18 15:45 10/27/18 15:45 10/27/18 15:45 Discharge - Discharge Clinical Impression: Gout Qualifiers: Gout site: foot Gout etiology: unspecified cause Chronicity: acute Laterality: right Qualified Code(s): M10.9 - Gout, unspecified Condition: Stable Disposition: HOME, SELF-CARE Instructions: Family Physicians / Practices Additional Instructions: You were seen today for gout. Please take the second dose of colchicine that you were sent home with 1 hour after receiving your first dose. Take ibuprofen 600 mg with Tylenol 1000 mg every 6 hours as needed for pain. Follow-up with your primary care doctor in the next several days. Return if you have fever greater than 100.4F, worsening pain, become unable to move the knee, or have any other symptoms that are worrisome to you. Prescriptions: Cephalexin [Cephalexin 500 MG Tablet] 1 tab PO QID #20 tablet Colchicine [Colchicine 0.6 mg Tablet] 0.6 mg PO NOW #1 tablet
[2018-10-27 18:11] VITALS: BP 127/94
== END 2018-10-27 18:11 | disposition home or self-care (01) ==
LOC: ER 15:38
DX: M10.9 Gout, unspecified (principal); M79.671 Pain in right foot; Z87.891 Personal history of nicotine dependence; I50.9 Heart failure, unspecified; I25.10 Atherosclerotic heart disease of native coronary artery without angina pectoris; I11.0 Hypertensive heart disease with heart failure; J44.9 Chronic obstructive pulmonary disease, unspecified; E11.9 Type 2 diabetes mellitus without complications
CPT/HCPCS: 99283; 73630; A9270 ×2

== ENCOUNTER 2018-12-05 14:14 | Emergency (ER) | payer MEDICARE, MEDICAID ==
--- NOTE | 2018-12-05 16:54 | ER Document Report ---
ED Medical Screen (RME) - General Chief Complaint: Leg Swelling Stated Complaint: LEG,FEET SWELLING Time Seen by Provider: 12/05/18 16:45 Mode of Arrival: Wheelchair Information source: Patient, Relative Notes: Patient is a 78-year-old male presenting to the emergency department with complaints of bilateral ankle and leg swelling with shortness of breath. She reports symptoms started approximately 1 week ago, states that the shortness of breath is getting significantly worse. She reports history of CHF. Exam: 3+ pitting edema to bilateral lower extremities. I have greeted and performed a rapid initial assessment of this patient. A comprehensive ED assessment and evaluation of the patient, analysis of test results and completion of the medical decision making process will be conducted by additional ED providers. I have specifically instructed the patient or family members with the patient to immediately return to any nursing staff should anything change in the patient's condition or with their chief complaint. This medical record was dictated with voice recognizing software. There may be grammatical, syntax errors that are unintended. TRAVEL OUTSIDE OF THE [place] IN LAST 30 DAYS: No - Related Data Allergies/Adverse Reactions: No Known Allergies Allergy (Verified 10/27/18 15:40) Past Medical History - Social History Frequency of alcohol use: None Drug Abuse: None - Past Medical History Cardiac Medical History: Reports: Hx Congestive Heart Failure, Hx Coronary Artery Disease, Hx Hypercholesterolemia, Hx Hypertension - PULOMONARY HTN Denies: Hx Heart Attack Pulmonary Medical History: Reports: Hx Asthma, Hx Bronchitis, Hx COPD - CHF, Hx Pneumonia Neurological Medical History: Denies: Hx Cerebrovascular Accident, Hx Seizures Endocrine Medical History: Reports: Hx Diabetes Mellitus Type 2 Renal/ Medical History: Denies: Hx Peritoneal Dialysis GI Medical History: Denies: Hx Cirrhosis, Hx Hepatitis, Hx Hiatal Hernia, Hx Ulcer Musculoskeltal Medical History: Reports Hx Arthritis - OSTEO, Denies Hx Gout Skin Medical History: Denies Hx Eczema, Denies Hx Psoriasis Psychiatric Medical History: Reports: Hx Depression Infectious Medical History: Denies: Hx Hepatitis Past Surgical History: Reports: Hx Abdominal Surgery, Hx Hysterectomy, Hx Orthopedic Surgery - Left Knee, Other - Colonoscopy. Denies: Hx Mastectomy, Hx Open Heart Surgery, Hx Pacemaker - Immunizations Hx Diphtheria, Pertussis, Tetanus Vaccination: Yes History of Influenza Vaccine for 02/2017 - 07/2017 Season: Refused Physical Exam - Vital signs Vitals: Temp Pulse Resp BP Pulse Ox 98.3 F 116 H 18 176/112 H 93 12/05/18 14:47 12/05/18 14:47 12/05/18 14:47 12/05/18 14:47 12/05/18 14:47 Course - Vital Signs Vital signs: Temp Pulse Resp BP Pulse Ox 98.3 F 116 H 18 176/112 H 93 12/05/18 14:47 12/05/18 14:47 12/05/18 14:47 12/05/18 14:47 12/05/18 14:47
--- NOTE | 2018-12-05 18:07 | RADIOLOGY REPORT (SQ) ---
EXAM DESCRIPTION: CHEST SINGLE VIEW COMPLETED DATE/TIME: 12/05/2018 5:53 pm REASON FOR STUDY: chest pain COMPARISON: 07/08/2018 EXAM PARAMETERS: NUMBER OF VIEWS: One view. TECHNIQUE: Single frontal radiographic view of the chest acquired. RADIATION DOSE: NA LIMITATIONS: None. FINDINGS: LUNGS AND PLEURA: No opacities, masses or pneumothorax. No pleural effusion. MEDIASTINUM AND HILAR STRUCTURES: No masses. Contour normal. HEART AND VASCULAR STRUCTURES: Cardiomegaly. Pulmonary vascular congestion. No ashley pulmonary kishan a. BONES: No acute findings. HARDWARE: None in the chest. OTHER: No other significant finding. IMPRESSION: Cardiomegaly without pulmonary edema. TECHNICAL DOCUMENTATION: JOB ID: [id number] [employer]- All Rights Reserved Reading location - IP/workstation name: [email or web address]
[2018-12-05 18:14] LABS: ABSOLUTE BASOPHILS # (AUTO) 0.1 10^3/uL (0.0-0.2); ABSOLUTE EOSINOPHILS # (AUTO) 0.3 10^3/uL (0.0-0.6); ABSOLUTE LYMPHOCYTES (AUTO) 1.7 10^3/uL (0.5-4.7); ABSOLUTE MONOCYTES (AUTO) 0.7 10^3/uL (0.1-1.4); ABSOLUTE NEUT (AUTO) 4.9 10^3/uL (1.7-8.2); EOSINOPHILS % (AUTO) 3.5 % (0-6); HEMATOCRIT 37.1 % (36.0-47.0); HEMOGLOBIN 11.9 g/dL (12.0-15.5); MEAN CORPUSCULAR HEMOGLOBIN 28.4 pg (27.0-33.4); MEAN CORPUSCULAR HGB CONC 31.9 g/dL (32.0-36.0); MEAN CORPUSCULAR VOLUME 89 fl (80-97); MONOCYTES % (AUTO) 9.3 % (3-13); PLATELET COUNT 164 10^3/uL (150-450); RED BLOOD COUNT 4.18 10^6/uL (3.72-5.28); RED CELL DISTRIBUTION WIDTH 14.4 % (11.5-14.0); SEGMENTED NEUTROPHILS % (AUTO) 64.2 % (42-78); TOTAL CELLS COUNTED % (AUTO) 100 %; WHITE BLOOD COUNT 7.6 10^3/uL (4.0-10.5)
[2018-12-05 18:25] LABS: ALANINE AMINOTRANSFERASE 45 U/L (9-52); ALBUMIN 3.9 g/dL (3.5-5.0); ALKALINE PHOSPHATASE 82 U/L (38-126); ANION GAP 9 (5-19); ASPARTATE AMINO TRANSFERASE 37 U/L (14-36); BILIRUBIN,DIRECT 0.3 mg/dL (0.0-0.4); BLOOD UREA NITROGEN 23 mg/dL (7-20); CALCIUM 8.9 mg/dL (8.4-10.2); CARBON DIOXIDE 28 mmol/L (22-30); CHLORIDE 103 mmol/L (98-107); GLUCOSE 105 mg/dL (75-110); POTASSIUM 3.7 mmol/L (3.6-5.0); TOTAL PROTEIN 6.9 g/dL (6.3-8.2)
[2018-12-05 18:38] LABS: NT PRO BNP 7390 pg/mL (<450); TROPONIN I < 0.012 ng/mL
[2018-12-05] MEDS ORDERED: FUROSEMIDE INJ/PF 40 MG/4 ML SDV IV ONE (22:56)
[2018-12-05] MEDS ORDERED: METOPROLOL TARTRATE PF/INJ 5 MG/5 ML SDV IV ONE (22:57)
--- NOTE | 2018-12-05 23:00 | ER Document Report ---
ED General - General Chief Complaint: Leg Swelling Stated Complaint: LEG,FEET SWELLING Time Seen by Provider: 12/05/18 16:45 Primary Care Provider: PHU VALENCIA MD [EMERITUS] - Follow up in 3-5 days Mode of Arrival: Wheelchair Notes: Patient is a 78-year-old female with CHF, hypertension, diabetes mellitus that presents to the emergency department for chief complaint of leg swelling and feet swelling. Patient states that the past 2 weeks her legs become more swollen, she does not have a primary care physician, they retired and she has not followed up with her instrumental musician. She is currently taking blood pressure medication including hydrochlorothiazide, but is not helping with the leg swelling. She recently had a constitution party with some friends and family, and ate differently than she usually does and that may have had more salt content in her usual diet. She denies any any recent fevers, chills, night sweats, chest pain, shortness of breath or difficulty breathing. She does wear oxygen at home which she states she is been able to wean down to 1 L at night. She also reports wound on the back of her right ankle that she is noticed for the past week as well, does cause her some discomfort and pain. She denies any other complaints at this time Past Medical History: CHF, hypertension, diabetes mellitus Past Surgical History: Hernia repair Social History: Denies tobacco, drug use, admits to rare alcohol use. Family History: Reviewed and noncontributory for presenting illness Allergies: Reviewed, see documented allergy list. REVIEW OF SYSTEMS: Other than noted above, the 12 point review of systems was reviewed with the patient and were negative, all pertinent findings are included in the HPI. PHYSICAL EXAMINATION: Vital signs reviewed, nursing noted reviewed. GENERAL: Elderly, obese female, no acute distress. HEAD: Atraumatic, normocephalic. EYES: Eyes appear normal, extraocular movements intact, sclera anicteric, conjunctiva are normal. ENT: nares patent, oropharynx clear without exudates. Moist mucous membranes. NECK: Normal range of motion, supple without lymphadenopathy LUNGS: Breath sounds clear to auscultation bilaterally and equal. No wheezes r ales or rhonchi. HEART: Heart rate tachycardic, regular rhythm, no audible murmur. ABDOMEN: Soft, nontender, normoactive bowel sounds. No rebound, guarding, or rigidity. No masses appreciated. EXTREMITIES: 4+ pitting edema bilaterally to the lower extremities, there is noted to be a superficial wound to the posterior aspect of the right distal leg, does not appear to be acutely infected, no erythema or drainage noted. Pulses intact distally, good range of motion otherwise, the rest of the extremity exam is grossly unremarkable. NEUROLOGICAL: No focal neurological deficits. Moves all extremities spontaneously Motor and sensory grossly intact on exam. PSYCH: Normal mood, normal affect. SKIN: Warm, Dry, normal turgor, no rashes or lesions noted on exposed skin TRAVEL OUTSIDE OF THE [place] IN LAST 30 DAYS: No - Related Data Allergies/Adverse Reactions: No Known Allergies Allergy (Verified 10/27/18 15:40) Past Medical History - General Information source: Patient, Relative - Social History Smoking Status: Never Smoker Frequency of alcohol use: None Drug Abuse: None Family History: CAD, DM, Hypertension, Malignancy Patient has suicidal ideation: No Patient has homicidal ideation: No - Past Medical History Cardiac Medical History: Reports: Hx Congestive Heart Failure, Hx Coronary Artery Disease, Hx Hypercholesterolemia, Hx Hypertension - PULOMONARY HTN Denies: Hx Heart Attack Pulmonary Medical History: Reports: Hx Asthma, Hx Bronchitis, Hx COPD - CHF, Hx Pneumonia Neurological Medical History: Denies: Hx Cerebrovascular Accident, Hx Seizures Endocrine Medical History: Reports: Hx Diabetes Mellitus Type 2 Renal/ Medical History: Denies: Hx Peritoneal Dialysis GI Medical History: Denies: Hx Cirrhosis, Hx Hepatitis, Hx Hiatal Hernia, Hx Ulcer Musculoskeletal Medical History: Reports Hx Arthritis - OSTEO, Denies Hx Gout Skin Medical History: Denies Hx Eczema, Denies Hx Psoriasis Psychiatric Medical History: Reports: Hx Depression Infectious Medical History: Denies: Hx Hepatitis Past Surgical History: Reports: Hx Abdominal Surgery, Hx Hysterectomy, Hx Orthopedic Surgery - Left Knee, Other - Colonoscopy. Denies: Hx Mastectomy, Hx Open Heart Surgery, Hx Pacemaker - Immunizations Hx Diphtheria, Pertussis, Tetanus Vaccination: Yes Physical Exam - Vital signs Vitals: Temp Pulse Resp BP Pulse Ox 98.3 F 116 H 18 176/112 H 93 12/05/18 14:47 12/05/18 14:47 12/05/18 14:47 12/05/18 14:47 12/05/18 14:47 Course - Re-evaluation Re-evalutation: Patient seen and examined vital signs reviewed. Laboratory data and/or imaging were ordered as appropriate for the patient's presenting symptoms and complaint, with consideration of any critical or life threatening conditions that may be associated with their obtained history and exam as noted above. Patient was treated with IV Lasix, and metoprolol Results were reviewed when available and demonstrated stable blood work, normal creatinine. Chest x-ray negative for pulmonary edema, demonstrate cardiomegaly that was unchanged. The patient was re-evaluated and was stable, blood pressure improved to a degree. Her rate was coming down as well. She had missed her evening blood pressure medications, therefore she was given the metoprolol she usually takes carvedilol in the evening. Evaluation was most consistent with peripheral edema, exacerbation of the CHF as a result, causing the edema, however she did not have pulmonary findings on exam, or chest x-ray, will start her on Lasix, once daily for 2 week and have her follow-up with her instrumental musician. Results were discussed with the patient at this point, after careful consideration I feel that that patient can be discharged from the emergency department, the patient was educated treatments and reasons to return to the emergency department based on their presumed diagnosis as noted above, they were advised to followup with a primary care physician in 2-3 days. Patient was agreeable to plan of care. *Note is created using voice recognition software and may contain spelling, syntax or grammatical errors. Laboratory 12/05/18 12/05/18 12/05/18 17:43 17:43 17:43 WBC 7.6 RBC 4.18 Hgb 11.9 L Hct 37.1 MCV 89 MCH 28.4 MCHC 31.9 L RDW 14.4 H Plt Count 164 Seg Neutrophils % 64.2 Lymphocytes % 22.0 Monocytes % 9.3 Eosinophils % 3.5 Basophils % 1.0 Absolute Neutrophils 4.9 Absolute Lymphocytes 1.7 Absolute Monocytes 0.7 Absolute Eosinophils 0.3 Absolute Basophils 0.1 Sodium 140.0 Potassium 3.7 Chloride 103 Carbon Dioxide 28 Anion Gap 9 BUN 23 H Creatinine 0.91 Est GFR ( Amer) > 60 Est GFR (Non-Af Amer) > 60 Glucose 105 Calcium 8.9 Total Bilirubin 1.0 Direct Bilirubin 0.3 Neonat Total Bilirubin Not Reportable Neonat Direct Bilirubin Not Reportable Neonat Indirect Bili Not Reportable AST 37 H ALT 45 Alkaline Phosphatase 82 Troponin I < 0.012 NT-Pro-B Natriuret Pep 7390 H Total Protein 6.9 Albumin 3.9 Chest X-Ray 12/05/18 17:25 IMPRESSION: Cardiomegaly without pulmonary edema. - Vital Signs Vital signs: Temp Pulse Resp BP Pulse Ox 98.3 F 116 H 19 194/115 H 99 12/05/18 14:47 12/05/18 14:47 12/05/18 22:26 12/05/18 22:26 12/05/18 22:26 - Laboratory Result Diagrams: 12/05/18 17:43 12/05/18 17:43 Laboratory results interpreted by me: 12/05/18 12/05/18 12/05/18 17:43 17:43 17:43 Hgb 11.9 L MCHC 31.9 L RDW 14.4 H BUN 23 H AST 37 H NT-Pro-B Natriuret Pep 7390 H Discharge - Discharge Clinical Impression: Peripheral edema Condition: Stable Disposition: HOME, SELF-CARE Instructions: Edema, Peripheral ([facility]) Additional Instructions: Please take the prescribed Lasix once daily in addition to your other home medications, and please follow-up with your instrumental musician Dr. Valencia, call for an appointment to see him within the next week. If you develop any worsening symptoms such as difficulty breathing, or significant chest pain, please return to the emergency department sooner. Prescriptions: Furosemide [Lasix 40 mg Tablet] 40 mg PO QAM #15 tablet Referrals: PHU VALENCIA MD [EMERITUS] - Follow up in 3-5 days
[2018-12-05 23:59] VITALS: BP 182/128
== END 2018-12-06 | disposition home or self-care (01) ==
LOC: ER 14:14
DX: R60.0 Localized edema (principal); I11.0 Hypertensive heart disease with heart failure; I50.9 Heart failure, unspecified; S91.001A Unspecified open wound, right ankle, initial encounter; X58.XXXA Exposure to other specified factors, initial encounter; E11.9 Type 2 diabetes mellitus without complications; I25.10 Atherosclerotic heart disease of native coronary artery without angina pectoris; J44.9 Chronic obstructive pulmonary disease, unspecified; Z99.81 Dependence on supplemental oxygen; Z79.899 Other long term (current) drug therapy
CPT/HCPCS: 99284; 96374; 96375; 36415; 85025; 80053; 84484; 83880; 71045; J1940; J3490

== ENCOUNTER → 2019-01-13 | Outpatient (CLI) | payer MEDICARE, MEDICAID ==
[2019-01-13 17:43] LABS: ABSOLUTE BASOPHILS # (AUTO) 0.1 10^3/uL (0.0-0.2); ABSOLUTE EOSINOPHILS # (AUTO) 0.2 10^3/uL (0.0-0.6); ABSOLUTE LYMPHOCYTES (AUTO) 1.5 10^3/uL (0.5-4.7); ABSOLUTE MONOCYTES (AUTO) 0.6 10^3/uL (0.1-1.4); ABSOLUTE NEUT (AUTO) 3.3 10^3/uL (1.7-8.2); BASOPHILS % (AUTO) 1.1 % (0-2); EOSINOPHILS % (AUTO) 3.7 % (0-6); HEMATOCRIT 33.9 % (36.0-47.0); HEMOGLOBIN 10.9 g/dL (12.0-15.5); LYMPHOCYTES % (AUTO) 26.1 % (13-45); MEAN CORPUSCULAR HEMOGLOBIN 27.7 pg (27.0-33.4); MEAN CORPUSCULAR HGB CONC 32.2 g/dL (32.0-36.0); MEAN CORPUSCULAR VOLUME 86 fl (80-97); MONOCYTES % (AUTO) 10.7 % (3-13); PLATELET COUNT 151 10^3/uL (150-450); RED BLOOD COUNT 3.95 10^6/uL (3.72-5.28); SEGMENTED NEUTROPHILS % (AUTO) 58.4 % (42-78); TOTAL CELLS COUNTED % (AUTO) 100 %; WHITE BLOOD COUNT 5.6 10^3/uL (4.0-10.5)
[2019-01-13 18:06] LABS: ALBUMIN 3.8 g/dL (3.5-5.0); ALKALINE PHOSPHATASE 61 U/L (38-126); ANION GAP 8 (5-19); ASPARTATE AMINO TRANSFERASE 21 U/L (14-36); BILIRUBIN,DIRECT 0.4 mg/dL (0.0-0.4); BILIRUBIN,TOTAL 0.7 mg/dL (0.2-1.3); BLOOD UREA NITROGEN 35 mg/dL (7-20); CALCIUM 9.3 mg/dL (8.4-10.2); CARBON DIOXIDE 26 mmol/L (22-30); CHLORIDE 105 mmol/L (98-107); GLUCOSE 96 mg/dL (75-110); POTASSIUM 4.3 mmol/L (3.6-5.0); TOTAL PROTEIN 6.9 g/dL (6.3-8.2)
[2019-01-16 10:10] LABS: ABSOLUTE BASOPHILS # (AUTO) 0.1 10^3/uL (0.0-0.2); ABSOLUTE EOSINOPHILS # (AUTO) 0.2 10^3/uL (0.0-0.6); ABSOLUTE LYMPHOCYTES (AUTO) 1.1 10^3/uL (0.5-4.7); ABSOLUTE MONOCYTES (AUTO) 0.4 10^3/uL (0.1-1.4); ABSOLUTE NEUT (AUTO) 3.2 10^3/uL (1.7-8.2); BASOPHILS % (AUTO) 1.1 % (0-2); EOSINOPHILS % (AUTO) 4.5 % (0-6); HEMATOCRIT 34.5 % (36.0-47.0); LYMPHOCYTES % (AUTO) 21.8 % (13-45); MEAN CORPUSCULAR HEMOGLOBIN 27.2 pg (27.0-33.4); MEAN CORPUSCULAR HGB CONC 31.9 g/dL (32.0-36.0); MEAN CORPUSCULAR VOLUME 85 fl (80-97); MONOCYTES % (AUTO) 8.8 % (3-13); PLATELET COUNT 135 10^3/uL (150-450); RED BLOOD COUNT 4.05 10^6/uL (3.72-5.28); RED CELL DISTRIBUTION WIDTH 13.9 % (11.5-14.0); SEGMENTED NEUTROPHILS % (AUTO) 63.8 % (42-78); TOTAL CELLS COUNTED % (AUTO) 100 %
[2019-01-16 11:11] LABS: ANION GAP 11 (5-19); BLOOD UREA NITROGEN 37 mg/dL (7-20); C-REACTIVE PROTEIN 20.1 mg/L (<10.0); CALCIUM 9.4 mg/dL (8.4-10.2); CARBON DIOXIDE 21 mmol/L (22-30); CHLORIDE 107 mmol/L (98-107); GLUCOSE 116 mg/dL (75-110); POTASSIUM 4.3 mmol/L (3.6-5.0)
== END ==
LOC: LAB 17:17
PROVIDERS: ATTEND Nurse Practitioner Family
DX: N12 Tubulo-interstitial nephritis, not specified as acute or chronic (principal); R30.0 Dysuria
CPT/HCPCS: 36415; 80048; 80053; 85025; 86140; 87086; 87088; 87186

== ENCOUNTER 2019-06-07 14:36 | Inpatient (IN) | payer MEDICARE, MEDICAID ==
--- NOTE | 2019-06-07 16:32 | RADIOLOGY REPORT (SQ) ---
EXAM DESCRIPTION: CHEST SINGLE VIEW COMPLETED DATE/TIME: 06/07/2019 4:21 pm REASON FOR STUDY: resp failure COMPARISON: None. NUMBER OF VIEWS: One view. TECHNIQUE: Single frontal radiographic image of the chest acquired. LIMITATIONS: None. FINDINGS: LUNGS AND PLEURA: Stable appearance. MEDIASTINUM AND HILAR STRUCTURES: Stable heart size and mediastinal structures. HEART AND VASCULAR STRUCTURES: Stable appearance. BONES: No acute findings. HARDWARE: None in the chest. OTHER: No other significant finding. IMPRESSION: The heart remains enlarged with central vascular congestion and probable interstitial ed brett. TECHNICAL DOCUMENTATION: JOB ID: [id number] [employer]- All Rights Reserved Reading location - IP/workstation name: [email or web address]
[2019-06-07 16:56] LABS: HEMATOCRIT 41.6 % (36.0-47.0); HEMOGLOBIN 13.3 g/dL (12.0-15.5); MEAN CORPUSCULAR HEMOGLOBIN 27.5 pg (27.0-33.4); MEAN CORPUSCULAR VOLUME 86 fl (80-97); RED BLOOD COUNT 4.83 10^6/uL (3.72-5.28); RED CELL DISTRIBUTION WIDTH 14.9 % (11.5-14.0); WHITE BLOOD COUNT 6.1 10^3/uL (4.0-10.5)
[2019-06-07 17:13] LABS: PLATELET COUNT 82 10^3/uL (150-450)
[2019-06-07 17:22] LABS: ARTERIAL BLOOD BASE EXCESS -3.5 mmol/L; ARTERIAL BLOOD H2CO3 1.26 mmol/L (1.05-1.35); ARTERIAL BLOOD O2 SATURATION 96.4 % (94-98); ARTERIAL BLOOD PCO2 41.7 mmHg (35-45); ARTERIAL BLOOD PH 7.34 (7.35-7.45); ARTERIAL BLOOD PO2 89.6 mmHg (80-100); ARTERIAL BLOOD TOTAL CO2 23.3 mmol/L (21-25)
[2019-06-07 17:24] LABS: ANION GAP 12 (5-19); BLOOD UREA NITROGEN 22 mg/dL (7-20); CALCIUM 9.3 mg/dL (8.4-10.2); CARBON DIOXIDE 25 mmol/L (22-30); CHLORIDE 103 mmol/L (98-107); GLUCOSE 116 mg/dL (75-110); POTASSIUM 4.1 mmol/L (3.6-5.0)
[2019-06-07 17:37] LABS: FREE T4 (FREE THYROXINE) 1.72 ng/dL (0.78-2.19)
[2019-06-07 17:51] LABS: THYROID STIMULATING HORMONE 1.39 uIU/mL (0.47-4.68)
[2019-06-07 17:58] LABS: ALBUMIN 4.3 g/dL (3.5-5.0); ALKALINE PHOSPHATASE 87 U/L (38-126); ASPARTATE AMINO TRANSFERASE 36 U/L (14-36); BILIRUBIN,DIRECT 0.9 mg/dL (0.0-0.4); BILIRUBIN,TOTAL 2.4 mg/dL (0.2-1.3); TOTAL PROTEIN 7.4 g/dL (6.3-8.2)
[2019-06-07] MEDS ORDERED: GLUCAGON,HUMAN RECOMB 1 MG INJ IM PRN (17:58)
[2019-06-07] MEDS ORDERED: DEXTROSE 40% GEL 15 GM TUBE PO PRN ×2 (17:58)
[2019-06-07] MEDS ORDERED: DEXTROSE 50%-WATER 25 GM/50 ML DISP.SYRIN IV PRN ×2 (17:58)
[2019-06-07] MEDS ORDERED: NORMAL SALINE 250 ML with FUROSEMIDE 250 MG IV PRN ×2 (17:59)
[2019-06-07] MEDS ORDERED: (PENDING PHARMACY ID) (Linagliptin [Tradjenta] 5 MG) PO SCH (18:00)
[2019-06-07] MEDS ORDERED: CITALOPRAM HYDROBROMIDE 15 MG PO SCH (18:00)
[2019-06-07] MEDS: INSULIN LISPRO 100 UNIT/ML 3 ML VIAL SUBCUT SCH ×2 (18:16→22:01)
[2019-06-07] MEDS: APIXABAN 5 MG TABLET PO SCH (18:25)
[2019-06-07] MEDS: DILTIAZEM HCL/D5W 125 MG/125 ML RTUINJ IV PRN (18:26)
--- NOTE | 2019-06-07 18:43 | PDOC H&P ---
History of Present Illness Admission Date/PCP: 06/07/19 14:36 ARTHUR HAYES MD History of Present Illness: LORI GROSS is a 79 year old female,She came to the office today for e valuation of palpitation, shortness of breath, in the office she was evaluated at presentation was consistent with CHF, she has a history of pulmonary embolism associated with secondary pulmonary hypertension, she is on anticoagulant chronically, she also at increased heart rate because of all these concerns she was admitted directly from the office to the hospital. In the hospital the chest x-ray, the BNP was consistent with CHF. Past Medical History Cardiac Medical History: Reports: Coronary Artery Disease, Hyperlipidema, Hypertension - PULOMONARY HTN , Other - chronic diastolic heart failure Pulmonary Medical History: Reports: Asthma, Bronchitis, Chronic Obstructive Pulmonary Disease (COPD) - CHF, Pneumonia Endocrine Medical History: Reports: Diabetes Mellitus Type 2 Musculoskeltal Medical History: Reports: Arthritis - OSTEO Denies: Gout Hematology: Reports: Anemia Past Surgical History Past Surgical History: Reports: Hysterectomy, Orthopedic Surgery - Left Knee, Other - Colonoscopy Social History Smoking Status: Unknown if Ever Smoked Frequency of Alcohol Use: Occasional Hx Recreational Drug Use: No Drugs: None Hx Prescription Drug Abuse: No Family History Family History: CAD, DM, Hypertension, Malignancy Parental Family History Reviewed: Yes Children Family History Reviewed: Yes Sibling(s) Family History Reviewed.: Yes Medication/Allergy Home Medications: Citalopram Hydrobromide [Celexa 10 mg Tablet] 15 mg PO DAILY 12/13/18 Apixaban [Eliquis 5 mg Tablet] 5 mg PO BID #60 tablet 12/16/18 Linagliptin [Tradjenta] 5 mg PO DAILY #90 tablet 12/16/18 Allergies/Adverse Reactions: No Known Allergies Allergy (Verified 10/27/18 15:40) Review of Systems Constitutional: ABSENT: chills, fever(s), headache(s), weight gain, weight loss Eyes: ABSENT: visual disturbances Ears: ABSENT: hearing changes Cardiovascular: PRESENT: dyspnea on exertion, edema, palpitations Respiratory: PRESENT: dyspnea Gastrointestinal: ABSENT: abdominal pain, constipation, diarrhea, hematemesis, hematochezia, nausea, vomiting Genitourinary: ABSENT: dysuria, hematuria Musculoskeletal: ABSENT: joint swelling Integumentary: ABSENT: rash, wounds Neurological: ABSENT: abnormal gait, abnormal speech, confusion, dizziness, focal weakness, syncope Psychiatric: ABSENT: anxiety, depression, homidical ideation, suicidal ideation Endocrine: ABSENT: cold intolerance, heat intolerance, menstrual abnormalities, polydipsia, polyuria Hematologic/Lymphatic: ABSENT: easy bleeding, easy bruising, lymphadenopathy Physical Exam Vital Signs: Temp Pulse Resp BP Pulse Ox 97.5 F 114 H 16 156/105 H 96 06/07/19 16:14 06/07/19 16:14 06/07/19 16:14 06/07/19 16:14 06/07/19 16:14 Intake & Output 06/06/19 06/07/19 06/08/19 06:59 06:59 06:59 Weight 104 kg General appearance: PRESENT: no acute distress, well-developed, well-nourished Head exam: PRESENT: atraumatic, normocephalic Eye exam: PRESENT: conjunctiva pink, EOMI, PERRLA. ABSENT: scleral icterus Ear exam: PRESENT: normal external ear exam Mouth exam: PRESENT: moist, tongue midline Neck exam: PRESENT: full ROM Cardiovascular exam: PRESENT: RRR Pulses: PRESENT: normal dorsalis pedis pul, +2 pedal pulses bilateral Vascular exam: PRESENT: normal capillary refill GI/Abdominal exam: PRESENT: normal bowel sounds, soft Rectal exam: PRESENT: deferred Neurological exam: PRESENT: alert, awake, oriented to person, oriented to place, oriented to time, oriented to situation, CN II-XII grossly intact Psychiatric exam: PRESENT: appropriate affect, normal mood Skin exam: PRESENT: dry, intact, warm Results Laboratory Results: 06/07/19 16:43 06/07/19 16:43 06/07/19 06/07/19 06/07/19 16:43 16:43 16:43 WBC 6.1 RBC 4.83 Hgb 13.3 Hct 41.6 MCV 86 MCH 27.5 MCHC 32.0 RDW 14.9 H Plt Count 82 L Carbonic Acid HCO3/H2CO3 Ratio ABG pH ABG pCO2 ABG pO2 ABG HCO3 ABG O2 Saturation ABG Base Excess FiO2 Sodium 140.4 Potassium 4.1 Chloride 103 Carbon Dioxide 25 Anion Gap 12 BUN 22 H Creatinine 1.03 Est GFR ( Amer) > 60 Glucose 116 H Calcium 9.3 Total Bilirubin AST Alkaline Phosphatase Total Protein Albumin TSH 1.39 Free T4 1.72 06/07/19 06/07/19 16:43 16:55 WBC RBC Hgb Hct MCV MCH MCHC RDW Plt Count Carbonic Acid 1.26 HCO3/H2CO3 Ratio 17:1 ABG pH 7.34 L ABG pCO2 41.7 ABG pO2 89.6 ABG HCO3 22.0 ABG O2 Saturation 96.4 ABG Base Excess -3.5 FiO2 2.00 Sodium Potassium Chloride Carbon Dioxide Anion Gap BUN Creatinine Est GFR ( Amer) Glucose Calcium Total Bilirubin 2.4 H AST 36 Alkaline Phosphatase 87 Total Protein 7.4 Albumin 4.3 TSH Free T4 06/07/19 16:43 NT-Pro-B Natriuret Pep 6200 H Impressions: Chest X-Ray 06/07/19 00:00 IMPRESSION: The heart remains enlarged with central vascular congestion and probable interstitial edema. Assessment & Plan - Diagnosis (1) Acute systolic heart failure Is this a current diagnosis for this admission?: Yes Plan: Start low dose lasix infusion (2) Atrial fibrillation with rapid ventricular response Is this a current diagnosis for this admission?: Yes Plan: Start Cardizem infusion (3) Personal history of pulmonary embolism Is this a current diagnosis for this admission?: Yes
[2019-06-07] MEDS: SITAGLIPTIN PHOSPHATE 50 MG TABLET PO SCH (20:18)
[2019-06-08] MEDS: DILTIAZEM HCL/D5W 125 MG/125 ML RTUINJ IV PRN (03:17)
--- NOTE | 2019-06-08 07:55 | EKG REPORT ---
SEVERITY:- ABNORMAL ECG - ATRIAL FLUTTER WITH 2:1 AVB REPOL ABNRM SUGGESTS ISCHEMIA, INFERIOR LEADS BORDERLINE PROLONGED QT INTERVAL : Confirmed by: Leander Green MD 08-Jun-2019 07:54:44
[2019-06-08] MEDS: INSULIN LISPRO 100 UNIT/ML 3 ML VIAL SUBCUT SCH ×4 (09:01→22:40)
[2019-06-08] MEDS: APIXABAN 5 MG TABLET PO SCH ×2 (09:07→17:46)
[2019-06-08] MEDS: SITAGLIPTIN PHOSPHATE 50 MG TABLET PO SCH (09:08)
[2019-06-08] MEDS ORDERED: SACUBITRIL/VALSARTAN 49 MG/51 MG TABLET PO SCH (10:00)
[2019-06-08] MEDS ORDERED: CARVEDILOL 12.5 MG TABLET PO SCH (10:00)
[2019-06-08 10:05] LABS: ABSOLUTE EOSINOPHILS # (AUTO) 0.1 10^3/uL (0.0-0.6); ABSOLUTE LYMPHOCYTES (AUTO) 0.8 10^3/uL (0.5-4.7); ABSOLUTE MONOCYTES (AUTO) 0.9 10^3/uL (0.1-1.4); ABSOLUTE NEUT (AUTO) 5.4 10^3/uL (1.7-8.2); BASOPHILS % (AUTO) 0.5 % (0-2); EOSINOPHILS % (AUTO) 1.1 % (0-6); HEMATOCRIT 40.5 % (36.0-47.0); LYMPHOCYTES % (AUTO) 10.6 % (13-45); MEAN CORPUSCULAR HEMOGLOBIN 27.4 pg (27.0-33.4); MEAN CORPUSCULAR HGB CONC 32.1 g/dL (32.0-36.0); MEAN CORPUSCULAR VOLUME 86 fl (80-97); MONOCYTES % (AUTO) 12.2 % (3-13); RED BLOOD COUNT 4.74 10^6/uL (3.72-5.28); RED CELL DISTRIBUTION WIDTH 14.8 % (11.5-14.0); SEGMENTED NEUTROPHILS % (AUTO) 75.6 % (42-78); TOTAL CELLS COUNTED % (AUTO) 100 %; WHITE BLOOD COUNT 7.1 10^3/uL (4.0-10.5)
[2019-06-08 10:28] LABS: ANION GAP 11 (5-19)
[2019-06-08] MEDS ORDERED: ONDANSETRON HCL INJ/PF 4 MG/2 ML SDV ONE (10:38)
[2019-06-08 10:46] LABS: PLATELET COUNT 83 10^3/uL (150-450)
[2019-06-08 11:17] LABS: ALBUMIN 4.2 g/dL (3.5-5.0); ALKALINE PHOSPHATASE 90 U/L (38-126); ASPARTATE AMINO TRANSFERASE 62 U/L (14-36); BILIRUBIN,DIRECT 0.8 mg/dL (0.0-0.4); BILIRUBIN,TOTAL 2.2 mg/dL (0.2-1.3); BLOOD UREA NITROGEN 18 mg/dL (7-20); CALCIUM 9.1 mg/dL (8.4-10.2); CARBON DIOXIDE 28 mmol/L (22-30); CHLORIDE 101 mmol/L (98-107); GLUCOSE 169 mg/dL (75-110); TOTAL PROTEIN 7.5 g/dL (6.3-8.2)
[2019-06-08] MEDS ORDERED: CALCIUM GLUCONATE 1000 MG/10 ML INJ IV ONE (11:29)
[2019-06-08] MEDS ORDERED: ATROPINE SULFATE INJ 1 MG/10 ML DISP.SYRIN IV ONE (11:35)
[2019-06-08] MEDS ORDERED: GLUCAGON,HUMAN RECOMB 1 MG INJ ONE (11:47)
--- NOTE | 2019-06-08 11:58 | RADIOLOGY REPORT (SQ) ---
EXAM DESCRIPTION: CHEST SINGLE VIEW COMPLETED DATE/TIME: 06/08/2019 11:50 am REASON FOR STUDY: chest pain COMPARISON: 06/07/2019. NUMBER OF VIEWS: One view. TECHNIQUE: Single frontal radiographic view of the chest acquired. LIMITATIONS: Artifact due to overlying chest pad. FINDINGS: LUNGS AND PLEURA: No opacities, masses or pneumothorax. No pleural effusion. MEDIASTINUM AND HILAR STRUCTURES: No masses or contour abnormality. HEART AND VASCULATURE: Cardiac enlargement. Vascular congestion. BONES: No acute findings. HARDWARE: None in the chest. OTHER: No other significant finding. IMPRESSION: CARDIAC ENLARGEMENT. VASCULAR CONGESTION. NO SIGNIFICANT CHANGE. TECHNICAL DOCUMENTATION: JOB ID: [id number] [employer]- All Rights Reserved Reading location - IP/workstation name: [email or web address]
--- NOTE | 2019-06-08 12:51 | EKG REPORT ---
SEVERITY:- ABNORMAL ECG - A FLUTTER WITH 4: 1 CONDUCTION BORDERLINE R WAVE PROGRESSION, ANTERIOR LEADS ,CONSIDER OLD ANTERIOR PA : Confirmed by: Leander Green MD 08-Jun-2019 12:50:55
[2019-06-08 13:28] LABS: ABSOLUTE LYMPHOCYTES (AUTO) 0.6 10^3/uL (0.5-4.7); ABSOLUTE MONOCYTES (AUTO) 1.1 10^3/uL (0.1-1.4); ABSOLUTE NEUT (AUTO) 5.4 10^3/uL (1.7-8.2); BASOPHILS % (AUTO) 0.3 % (0-2); EOSINOPHILS % (AUTO) 0.4 % (0-6); HEMATOCRIT 37.6 % (36.0-47.0); HEMOGLOBIN 12.2 g/dL (12.0-15.5); LYMPHOCYTES % (AUTO) 7.9 % (13-45); MEAN CORPUSCULAR HEMOGLOBIN 27.9 pg (27.0-33.4); MEAN CORPUSCULAR HGB CONC 32.4 g/dL (32.0-36.0); MEAN CORPUSCULAR VOLUME 86 fl (80-97); RED BLOOD COUNT 4.37 10^6/uL (3.72-5.28); RED CELL DISTRIBUTION WIDTH 14.7 % (11.5-14.0); SEGMENTED NEUTROPHILS % (AUTO) 76.4 % (42-78); TOTAL CELLS COUNTED % (AUTO) 100 %; WHITE BLOOD COUNT 7.1 10^3/uL (4.0-10.5)
[2019-06-08 13:55] LABS: ALBUMIN 3.6 g/dL (3.5-5.0); ALKALINE PHOSPHATASE 74 U/L (38-126); ANION GAP 11 (5-19); ASPARTATE AMINO TRANSFERASE 66 U/L (14-36); BILIRUBIN,DIRECT 0.8 mg/dL (0.0-0.4); BILIRUBIN,TOTAL 1.7 mg/dL (0.2-1.3); BLOOD UREA NITROGEN 21 mg/dL (7-20); CALCIUM 8.8 mg/dL (8.4-10.2); CARBON DIOXIDE 28 mmol/L (22-30); CHLORIDE 100 mmol/L (98-107); GLUCOSE 173 mg/dL (75-110); POTASSIUM 4.1 mmol/L (3.6-5.0); TOTAL PROTEIN 6.9 g/dL (6.3-8.2)
[2019-06-08 14:08] LABS: PLATELET COUNT 67 10^3/uL (150-450)
--- NOTE | 2019-06-08 16:55 | XCELERA REPORT ---
[address] [address] Transthoracic Echocardiogram Report Name: LORI GROSS Age: 79 yrs Gender: Female : 1940 Patient Status: Inpatient Patient Location: [address] [place], [place] [address] Study Date: 06/07/2019 06:57 PM Height: 64 in Weight: 220 lb BSA: 2.0 m2 Procedure: A two-dimensional transthoracic echocardiogram with color flow and Doppler was performed. The study was technically difficult with many images being suboptimal in quality. Reason For Study: heart failure History: heart failure. Ordering Physician: ARTHUR HAYES Performed By: Lety Chávez Interpretation Summary The left ventricle is normal in size. Difficult to assess reional wall motion and LVEF.Most likely no regiona wall motion abnormality and Normal LVEF of 55% at least. There is mild concentric left ventricular hypertrophy. There is no thrombus. Probably no ASD,VSD,or PFO seen. Paradoxical septal motion is consistent with right ventricular volume overload The right ventricle is mildly dilated. The right ventricular systolic function is normal. The right atrium is mild to moderately dilated. The left atrium is moderately dilated. There is no evidence of mitral valve prolapse. There is no vegetation seen on the mitral valve. There is no mitral valve stenosis. There is a mild amount of mitral regurgitation There is no aortic valvular vegetation. There is aortic sclerosis without aortic stenosis. There is no aortic valve stenosis There is no LVOT obstruction. There is a mild amount of aortic regurgitation There is no tricuspid stenosis. There is a moderate to severe amount of tricuspid regurgitation There is servere pulmonary hypertension by echo RVSP is 60 to 65 mm of Hg , with RA mean of 15 to 20. There is no pulmonic valvular stenosis. There is a mild to moderate amount of pulmonic regurgitation The aortic root is normal size. The inferior vena cava appeared dilated and decreased < 50% with respiration (RAP 15-20 mmHg) There is no pericardial effusion. MMode/2D Measurements & Calculations RVDd: 2.9 cm LVIDd: 4.1 cm FS: 21.6 % Ao root diam: 3.0 cm IVSd: 1.3 cm LVIDs: 3.2 cm EDV(Teich): Ao root area: LVPWd: 1.1 cm 74.7 ml 6.9 cm2 ESV(Teich): LA dimension: 3.9 cm 41.7 ml EF(Teich): 44.2 % LVLd ap4: 5.7 cm SV(MOD-sp4): EDV(MOD-sp4): 24.0 ml 53.0 ml LVLs ap4: 4.7 cm ESV(MOD-sp4): 29.0 ml EF(MOD-sp4): 45.3 % Doppler Measurements & Calculations MV E max rayne: MV P1/2t max rayne: Ao V2 max: LV V1 max P.4 cm/sec 166.8 cm/sec 148.3 cm/sec 2.7 mmHg MV P1/2t: 56.0 msec Ao max P.8 mmHgLV V1 max: MVA(P1/2t): 3.9 cm2 81.9 cm/sec MV dec slope: 872.0 cm/sec2 MV dec time: 0.18 sec MR max rayne: PA V2 max: PI end-d rayne: TR max rayne: 614.6 cm/sec 99.9 cm/sec 195.5 cm/sec 335.3 cm/sec MR max PG: PA max P.0 mmHg TR max P.1 mmHg 45.0 mmHg MV P1/2t-pr_phl: 56.0 msec Left Ventricle The left ventricle is normal in size. There is mild concentric left ventricular hypertrophy. Difficult to assess reional wall motion and LVEF.Most likely no regiona wall motion abnormality and Normal LVEF of 55% at least. LV diastolic function could not be adequately assessed due to atrial fibrilation. Paradoxical septal motion is consistent with right ventricular volume overload. There is no thrombus. Probably no ASD,VSD,or PFO seen. Right Ventricle The right ventricle is mildly dilated. The right ventricular systolic function is normal. Atria The right atrium is mild to moderately dilated. The left atrium is moderately dilated. The atrial septum is aneurysmal. Mitral Valve There is no evidence of mitral valve prolapse. There is no vegetation seen on the mitral valve. There is no mitral valve stenosis. There is a mild amount of mitral regurgitation. Aortic Valve There is no aortic valvular vegetation. There is aortic sclerosis without aortic stenosis. There is no aortic valve stenosis. There is no LVOT obstruction. There is a mild amount of aortic regurgitation. Tricuspid Valve There is no tricuspid stenosis. There is a moderate to severe amount of tricuspid regurgitation. There is servere pulmonary hypertension by echo. RVSP is 60 to 65 mm of Hg , with RA mean of 15 to 20. Pulmonic Valve There is no pulmonic valvular stenosis. There is a mild to moderate amount of pulmonic regurgitation. Great Vessels The aortic root is normal size. The inferior vena cava appeared dilated and decreased < 50% with respiration (RAP 15-20 mmHg). Effusions There is no pericardial effusion. : ARTHUR HAYES Lakshmi
[2019-06-08] MEDS ORDERED: PHARMACY COMMUNICATION ORDER MC SCH (18:00)
--- NOTE | 2019-06-08 18:21 | Progress Note ---
Provider Note Provider Note: I was called to the bedside for rapid response Patient was admitted for rapid A. fib and CHF She was on Cardizem drip She developed bradycardia and hypotension and was obtunded and lethargic and pretty much minimally responsive Lungs with scattered wheezing and there is +1 mild lower extremity edema Abdomen was not tender EKG shows type II Mobitz block Chest x-ray shows cardiomegaly and CHF Diagnosis: Bradycardia, shock, diltiazem poisoning Treatment course: Patient received IV calcium, IV glucagon and responded well to 1 dose of IV atropine. Cardizem drip was stopped. 500 cc bolus was already ordered by attending physician Discussed with ICU team and patient was accepted to the ICU for IV pressors if she did not improve. Likely, heart rate and blood pressure improved and did not transfer to the ICU. Patient is critically ill. Regular care time spent was 45 minutes.
--- NOTE | 2019-06-08 19:09 | PDOC PROGRESS REPORT ---
Subjective Progress Note for:: 06/08/19 Subjective:: Patient developed low blood pressure with bradycardia, she was seen by the hospitalist treated with atropine glucagon with adventist of blood pressure. Patient was admitted yesterday with CHF diagnosis and atrial fibrillation with rapid regular response, she was treated with Cardizem infusion and low-dose Lasix infusion. 2D echo that was done demonstrated four-chamber dilatation, severe pulmonary pretension, EF was 65%, diastolic function could not be assessed because of A. fib. Patient with history of PE on chronic anticoagulant with Eliquis. Reason For Visit: CHF TACHYCARDIA Physical Exam Vital Signs: Temp Pulse Resp BP Pulse Ox 98.2 F 86 16 95/68 L 92 06/08/19 17:19 06/08/19 17:19 06/08/19 17:19 06/08/19 17:19 06/08/19 17:19 Intake & Output 06/07/19 06/08/19 06/09/19 06:59 06:59 06:59 Intake Total 515 559 Output Total 600 700 Balance -85 -141 Weight 104.1 kg General appearance: PRESENT: no acute distress Eye exam: PRESENT: PERRLA Respiratory exam: PRESENT: crackles Cardiovascular exam: PRESENT: irregular rhythm, +S1, +S2 GI/Abdominal exam: PRESENT: soft Neurological exam: PRESENT: alert Results Laboratory Results: 06/08/19 13:12 06/08/19 13:12 06/08/19 06/08/19 06/08/19 09:33 09:33 13:12 WBC 7.1 RBC 4.74 Hgb 13.0 Hct 40.5 MCV 86 MCH 27.4 MCHC 32.1 RDW 14.8 H Plt Count 83 L Seg Neutrophils % 75.6 Sodium 140.2 139.2 Potassium 4.0 4.1 Chloride 101 100 Carbon Dioxide 28 28 Anion Gap 11 11 BUN 18 21 H Creatinine 0.93 1.10 Est GFR ( Amer) > 60 58 L Glucose 169 H 173 H Calcium 9.1 8.8 Total Bilirubin 2.2 H 1.7 H AST 62 H 66 H Alkaline Phosphatase 90 74 Total Protein 7.5 6.9 Albumin 4.2 3.6 06/08/19 13:12 WBC 7.1 RBC 4.37 Hgb 12.2 Hct 37.6 MCV 86 MCH 27.9 MCHC 32.4 RDW 14.7 H Plt Count 67 L Seg Neutrophils % 76.4 Sodium Potassium Chloride Carbon Dioxide Anion Gap BUN Creatinine Est GFR ( Amer) Glucose Calcium Total Bilirubin AST Alkaline Phosphatase Total Protein Albumin 06/07/19 16:43 NT-Pro-B Natriuret Pep 6200 H Impressions: Chest X-Ray 06/08/19 11:30 IMPRESSION: CARDIAC ENLARGEMENT. VASCULAR CONGESTION. NO SIGNIFICANT CHANGE. Assessment & Plan - Diagnosis (1) Acute diastolic heart failure Is this a current diagnosis for this admission?: Yes (2) Atrial fibrillation with rapid ventricular response Is this a current diagnosis for this admission?: Yes (3) Personal history of pulmonary embolism Is this a current diagnosis for this admission?: Yes (4) Severe pulmonary arterial systolic hypertension Is this a current diagnosis for this admission?: Yes Plan: She has severe pulmonary hypertension the blood pressure dropped most likely because of loss of volume due to furosemide infusion, 2D echo demonstrated preserved ejection fraction of left ventricle - Time Time Spent with patient: 35 or more minutes Level of Care: IMCU - Plan Summary Plan Summary: She apparently have diastolic dysfunction of the left ventricle though could not be assessed by Doppler because of atrial fibrillation but based on the dilatation of the chambers is more likely than not that this is diastolic dysfunction of the left ventricle.Consult Dr. Phillip
[2019-06-08 21:48] LABS: CREATINE KINASE MB 1.49 ng/mL (<4.55); TROPONIN I 0.015 ng/mL
[2019-06-09 05:50] LABS: ABSOLUTE EOSINOPHILS # (AUTO) 0.1 10^3/uL (0.0-0.6); ABSOLUTE LYMPHOCYTES (AUTO) 0.9 10^3/uL (0.5-4.7); ABSOLUTE MONOCYTES (AUTO) 0.8 10^3/uL (0.1-1.4); ABSOLUTE NEUT (AUTO) 3.3 10^3/uL (1.7-8.2); BASOPHILS % (AUTO) 0.5 % (0-2); EOSINOPHILS % (AUTO) 1.3 % (0-6); HEMOGLOBIN 12.2 g/dL (12.0-15.5); LYMPHOCYTES % (AUTO) 17.5 % (13-45); MEAN CORPUSCULAR HEMOGLOBIN 27.6 pg (27.0-33.4); MEAN CORPUSCULAR HGB CONC 32.1 g/dL (32.0-36.0); MEAN CORPUSCULAR VOLUME 86 fl (80-97); MONOCYTES % (AUTO) 15.2 % (3-13); RED BLOOD COUNT 4.42 10^6/uL (3.72-5.28); RED CELL DISTRIBUTION WIDTH 14.8 % (11.5-14.0); SEGMENTED NEUTROPHILS % (AUTO) 65.5 % (42-78); TOTAL CELLS COUNTED % (AUTO) 100 %
[2019-06-09 06:04] LABS: PLATELET COUNT 88 10^3/uL (150-450)
[2019-06-09 06:12] LABS: ALBUMIN 3.2 g/dL (3.5-5.0); ALKALINE PHOSPHATASE 75 U/L (38-126); ANION GAP 8 (5-19); ASPARTATE AMINO TRANSFERASE 55 U/L (14-36); BILIRUBIN,DIRECT 0.6 mg/dL (0.0-0.4); BILIRUBIN,TOTAL 1.6 mg/dL (0.2-1.3); BLOOD UREA NITROGEN 29 mg/dL (7-20); CALCIUM 8.5 mg/dL (8.4-10.2); CARBON DIOXIDE 27 mmol/L (22-30); CHLORIDE 100 mmol/L (98-107); GLUCOSE 101 mg/dL (75-110); POTASSIUM 4.1 mmol/L (3.6-5.0)
[2019-06-09 06:20] LABS: CREATINE KINASE MB 1.17 ng/mL (<4.55); TROPONIN I 0.012 ng/mL
[2019-06-09] MEDS: INSULIN LISPRO 100 UNIT/ML 3 ML VIAL SUBCUT SCH ×4 (09:57→22:29)
[2019-06-09] MEDS: APIXABAN 5 MG TABLET PO SCH ×2 (10:14→18:22)
[2019-06-09] MEDS: SITAGLIPTIN PHOSPHATE 50 MG TABLET PO SCH (10:14)
--- NOTE | 2019-06-09 14:12 | CDI QUERY ---
CDI Query CDI Review: Dear Provider, (name): To better reflect your patients severity of illness, morbidity, and resource utilization Please specify and document in the Progress Notes and Discharge Summary if you are monitoring / treating / evaluating any of the following conditions: The terms probable, suspected, likely, possible or still to be ruled out may be used if you are unable to determine the exact nature of a condition. Query Clinical indicators PLEASE CLARIFY if this is: Acute systolic CHF? Acute diastolic CHF? Acute systolic and diastolic CHF? Unable to determine Other *Acute systolic heart failure - 06/07 *EF 65% *Acute diastolic heart failure - 06/08 *diastolic dysfunction of the left ventricle Thank you, Clinical Documentation Physician Advisor Kaylynn Office [phone]
--- NOTE | 2019-06-09 14:18 | CDI QUERY ---
CDI Query CDI Review: Dear Provider, To better reflect your patients severity of illness, morbidity, and resource utilization Please specify and document in the Progress Notes and Discharge Summary if you are monitoring / treating / evaluating any of the following conditions: The terms probable, suspected, likely, possible or still to be ruled out may be used if you are unable to determine the exact nature of a condition. Query Clinical indicators A fib : Chronic? Persistent? New onset? Paroxysmal? A fib rvr Cardizem infusion Thank you, Clinical Documentation Physician Advisors CONSUELO Dominique Office [phone]
--- NOTE | 2019-06-09 14:29 | RADIOLOGY REPORT (SQ) ---
EXAM DESCRIPTION: CHEST SINGLE VIEW COMPLETED DATE/TIME: 06/09/2019 2:20 pm REASON FOR STUDY: heart failure COMPARISON: AP view of the chest from 06/08/2019. EXAM PARAMETERS: NUMBER OF VIEWS: One view. TECHNIQUE: An AP view of the chest was obtained. RADIATION DOSE: NA LIMITATIONS: None. FINDINGS: LUNGS AND PLEURA: The horizontal fissure is thickened. There is no consolidation, pleural effusion or pneumothorax. MEDIASTINUM AND HILAR STRUCTURES: No mediastinal or hilar contour abnormality. HEART AND VASCULAR STRUCTURES: Unchanged cardiomegaly. BONES: No acute findings. HARDWARE: None in the chest. OTHER: No other finding. IMPRESSION: Cardiomegaly without a superimposed acute cardiopulmonary process. TECHNICAL DOCUMENTATION: JOB ID: [id number] [employer]- All Rights Reserved Reading location - IP/workstation name: [email or web address]
[2019-06-09 14:50] LABS: CREATINE KINASE MB 1.05 ng/mL (<4.55); TROPONIN I 0.012 ng/mL
[2019-06-09] MEDS ORDERED: LEVOFLOXACIN 500 MG/D5W RTU 500 MG/100 ML RTUPB IV SCH (18:00)
[2019-06-09] MEDS ORDERED: ACETAMINOPHEN 325 MG TABLET ONE (18:17)
[2019-06-09] MEDS: METHYLPREDNISOLONE INJ 125 MG/2 ML SDV IV SCH (18:22)
[2019-06-09] MEDS ORDERED: NORMAL SALINE INJ/PF 0.9% 10 ML SDV IV PRN (18:28)
--- NOTE | 2019-06-09 18:37 | Operative Report ---
Operative Report DATE OF SURGERY: 06/09/19 PREOPERATIVE DIAGNOSIS: Congestive heart failure POSTOPERATIVE DIAGNOSIS: Same OPERATION: 1. Ultrasound directed insertion of right internal jugular vein central venous access catheter SURGEON: CLEMENTE EDMONDS ANESTHESIA: Local TISSUE REMOVED OR ALTERED: None COMPLICATIONS: None ESTIMATED BLOOD LOSS: scant INTRAOPERATIVE FINDINGS: See below PROCEDURE: Patient was placed in the semirecumbent position, right neck exposed, prepped and draped sterile fashion Surgical plan surgical timeout conducted. Using ultrasound as a real-time guide, the skin adjacent to the ultrasound transducer was anesthetized with 1% plain lidocaine. Using Seldinger technique, a triple-lumen central venous access catheter was noted to the right internal jugular vein without difficulty. There is excellent blood flow through all 3 lm. The catheter was flushed with heparinized saline and secured to the skin with a Biopatch and 2-0 silk suture at 2 sites. All dressing was applied. Patient tolerated procedure well. Portable x-ray pending at time dictation.
--- NOTE | 2019-06-09 19:03 | PDOC CONSULTATION ---
Consultation-Blank Consultation: CARDIOLOGY CONSULTATION by Dr. Paulina García on 06/09/2019. Patient seen at 3 PM. 60 minutes spent as patient more than 50% of time spent in direct patient care. REASON FOR CONSULTATION: Hypotension with Cardizem IV for atrial flutter, severe pulmonary hypertension, and right heart failure. CONSULT REQUESTING PHYSICIAN: Dr. Amaya. HISTORY OF PRESENT ILLNESS: Note patient is a very poor historian. Patient is a 79-year-old female with history of hypertension, history of pulmonary embolism, history of coronary artery disease, with no recent anginal symptoms, and history of asthma and COPD and sleep apnea who was seen in Dr. Amaya's office for complaints of palpitations and shortness of breath. She also complained of orthopnea, but no chest pains. She had PND. There was palpitations but no syncope. The patient also states since the past few days her leg edema has been increasing. The patient was found to be in atrial flutter and a heart failure as per Dr. Amaya's notes and the patient was admitted. In view of her atrial flutter with rapid ventricle response the patient was started on Cardizem drip and she was on 10 mg/h. The patient subsequently became bradycardic and hypotensive and responded to treatment with the calcium gluconate and cessation of the Cardizem drip. Subsequently her blood pressure did come up. Her heart rate is in the 90s to the 100s showing atrial flutter. At present the patient complains of shortness of breath. And she is noted to be audibly wheezing. She states since the past few days prior to her being admitted she has been having orthopnea, wheezing and cough productive of initially white sputum which later became greenish. No fever. No clear-cut anginal symptoms. She states she has a history of hypertension, but I do not see any antihypertensives on home medication. She has a history of severe anxiety. She has a history of sleep apnea and states she is on nasal O2 at home but not on CPAP. Her echocardiogram this admission shows that the left ventricular ejection fraction is at least 55% with no definite wall motion abnormality. She has moderate to severe tricuspid regurgitation with severe pulmonary hypertension. Past Medical History Cardiac Medical History: Reports: Coronary Artery Disease, but denies any history of MN or stents. No angina in a long time. Hyperlipidema, Hypertension - PULOMONARY HTN , Other - chronic diastolic heart failure she also has a history of atrial flutter and is on Eliquis. Pulmonary Medical History: Reports: Asthma, Bronchitis, Chronic Obstructive Pulmonary Disease (COPD) - CHF, Pneumonia. She has a history of pulmonary embolism. Records reveal that after pulmonary embolism she developed pulmonary hypertension. Endocrine Medical History: Reports: Diabetes Mellitus Type 2 Musculoskeltal Medical History: Reports: Arthritis - OSTEO Denies: Gout Hematology: Reports: Anemia. RENAL: Patient seems to have a history of chronic kidney disease stage III. RESUSCITATION STATUS: The patient is a full code. The patient's son and the patient's daughter are her surrogate healthcare decision makers. Past Surgical History Past Surgical History: Reports: Hysterectomy, Orthopedic Surgery - Left Knee, Other - Colonoscopy Social History Smoking Status: Unknown if Ever Smoked Frequency of Alcohol Use: Occasional Hx Recreational Drug Use: No Drugs: None Hx Prescription Drug Abuse: No Family History Family History: CAD, DM, Hypertension, Malignancy Parental Family History Reviewed: Yes Children Family History Reviewed: Yes Sibling(s) Family History Reviewed.: Yes Current Medications Generic Name Dose Route Start Last Admin Trade Name Freq PRN Reason Stop Dose Admin Apixaban 5 mg 06/07/19 18:00 06/09/19 18:22 Eliquis 5 Mg Tablet PO 07/07/19 17:59 5 mg BID TRISH Administration Dextrose 12.5 gm 06/07/19 17:58 Dextrose Inj 50% Syringe (25 Gm/50 Ml) IV 07/07/19 17:57 PRN PRN FOR BG 50-69 IN ALERT PATIENT Protocol Dextrose 25 gm 06/07/19 17:58 Dextrose Inj 50% Syringe (25 Gm/50 Ml) IV 07/07/19 17:57 PRN PRN PER PROTOCOL Protocol Glucagon 1 mg 06/07/19 17:58 Glucagen Inj 1 Mg Vial IM 07/07/19 17:57 PRN PRN Evaluate for BG < 70 Protocol Glucose 15 gm 06/07/19 17:58 Glutose 40% Gel 15 Gm Tube PO 07/07/19 17:57 PRN PRN FOR BG 50-69 IN ALERT PATIENT Protocol Glucose 30 gm 06/07/19 17:58 Glutose 40% Gel 15 Gm Tube PO 07/07/19 17:57 PRN PRN FOR BG < 50 IN ALERT PATIENT Protocol Heparin Sodium (Porcine) 30 unit 06/09/19 22:00 Heparin Flush 10 Unit/Ml 5 Ml Disp.Syrg IV 07/09/19 21:59 Q8 TRISH Heparin Sodium (Porcine) 30 unit 06/09/19 18:28 Heparin Flush 10 Unit/Ml 5 Ml Disp.Syrg IV 07/09/19 18:27 .AFTER EACH USE PRN AFTER EACH INTERMITTENT USE Dobutamine HCl/Dextrose 500 mg in 250 mls @ 0 mls/hr 06/09/19 14:35 06/09/19 20:23 Dobutrex Rtu 500 Mg-D5w 250 Ml Premixed Bag IV 07/09/19 14:34 7.8 mls/hr CONTINUOUS PRN 7.8 mls/hr THIS MED IS NOT "PRN" Administration Per Protocol Levofloxacin/Dextrose 500 mg in 100 mls @ 100 mls/hr 06/09/19 18:00 06/09/19 19:22 Levaquin Rtu 500mg/D5w 100 Ml Premix IV 06/16/19 17:59 Infused QPM [facility] Infusion Insulin Human Lispro 0 - 12 unit 06/07/19 18:00 06/09/19 18:15 Humalog Insulin 100 Unit/1 Ml 3 Ml Vial SUBCUT 07/07/19 17:59 Not Given ACHS [facility] Protocol Methylprednisolone Sodium Succinate 60 mg 06/09/19 18:00 06/09/19 18:22 Solu-Medrol Inj/Pf 125 Mg/2 Ml Sdv IV 07/09/19 17:59 60 mg Q8A TRISH Administration Ondansetron HCl 4 mg 06/08/19 12:35 Zofran Inj/Pf 4 Mg/2 Ml Sdv IV 07/08/19 12:34 Q4HP PRN NAUSEA Patient Own Medication 15 mg 06/07/19 18:00 Citalopram Hydrobromide [Celexa 10 Mg Tablet] PO 07/07/19 17:59 .DAILY TRISH Sitagliptin Phosphate 100 mg 06/07/19 19:30 06/09/19 10:14 Januvia 50 Mg Tablet PO 07/07/19 19:29 100 mg DAILY TRISH Administration Sodium Chloride 10 ml 06/09/19 18:28 Nacl 0.9% Inj/Pf 10 Ml Sdv IV 07/09/19 18:27 .AFTER EACH USE PRN AFTER EACH INTERMITTENT USE Discontinued Medications Generic Name Dose Route Start Last Admin Trade Name Jonny PRN Reason Stop Dose Admin Acetaminophen Confirm 06/09/19 18:17 06/09/19 18:38 Tylenol 325 Mg Tablet Administered 06/09/19 18:18 325 mg Dose Administration 325 mg .ROUTE .STK-MED ONE Atropine Sulfate Confirm 06/08/19 11:35 06/08/19 11:38 Atropine Sulfate Inj 1 Mg/10 Ml Disp.Syrin Administered 06/08/19 11:36 0.5 mg Dose Administration 1 mg IV .STK-MED ONE Calcium Gluconate Confirm 06/08/19 11:29 06/08/19 11:35 Calcium Gluconate Inj 1000 Mg/10 Ml Administered 06/08/19 11:30 1,000 mg Dose Administration 1,000 mg IV .STK-MED ONE Carvedilol 25 mg 06/08/19 10:00 06/08/19 09:07 Coreg 12.5 Mg Tablet PO 07/08/19 09:59 25 mg Q12 TRISH Administration Glucagon Confirm 06/08/19 11:47 06/08/19 11:47 Glucagen Inj 1 Mg Vial Administered 06/08/19 11:48 1 mg Dose Administration 1 mg .ROUTE .STK-MED ONE Furosemide 250 mg/ Sodium 250 mls @ 2 mls/hr 06/07/19 17:59 06/07/19 20:54 Chloride IV 07/07/19 17:58 2 mg/hr CONTINUOUS PRN 2 mls/hr THIS MED IS NOT "PRN" Administration 2 MG/HR Diltiazem HCl 125 mg in 125 mls @ 0 mls/hr 06/07/19 18:14 06/08/19 10:22 Cardizem Rtu Inj 125 Mg-D5w 125 Ml Premix IV 07/07/19 18:13 0 mls/hr CONTINUOUS PRN 0 mls/hr THIS MED IS NOT "PRN" Titration Protocol Titrate Ondansetron HCl Confirm 06/08/19 10:38 06/08/19 10:30 Zofran Inj/Pf 4 Mg/2 Ml Sdv Administered 06/08/19 10:39 4 mg Dose Administration 4 mg .ROUTE .STK-MED ONE Pharmacy Profile Note 1 each 06/08/19 18:00 06/08/19 17:52 Medication Communication Order 07/08/19 17:59 Not Given QPM [facility] Sacubitril/Valsartan 1 tab 06/08/19 10:00 06/08/19 09:07 Entresto 49 Mg/51 Mg Tablet PO 07/08/19 09:59 1 tab Q12 [facility] Administration Medication/Allergy Home Medications: Citalopram Hydrobromide [Celexa 10 mg Tablet] 15 mg PO DAILY 12/13/18 Apixaban [Eliquis 5 mg Tablet] 5 mg PO BID #60 tablet 12/16/18 Linagliptin [Tradjenta] 5 mg PO DAILY #90 tablet 12/16/18 Allergies/Adverse Reactions: No Known Allergies Allergy (Verified 10/27/18 15:40) Review of Systems Constitutional: ABSENT: chills, fever(s), headache(s), weight gain, weight loss Eyes: ABSENT: visual disturbances Ears: ABSENT: hearing changes Cardiovascular: PRESENT: dyspnea on exertion, edema, palpitations Respiratory: PRESENT: dyspnea Gastrointestinal: ABSENT: abdominal pain, constipation, diarrhea, hematemesis, hematochezia, nausea, vomiting Genitourinary: ABSENT: dysuria, hematuria Musculoskeletal: ABSENT: joint swelling Integumentary: ABSENT: rash, wounds Neurological: ABSENT: abnormal gait, abnormal speech, confusion, dizziness, focal weakness, syncope Psychiatric: ABSENT: anxiety, depression, homidical ideation, suicidal ideation Endocrine: ABSENT: cold intolerance, heat intolerance, menstrual abnormalities, polydipsia, polyuria Hematologic/Lymphatic: ABSENT: easy bleeding, easy bruising, lymphadenopathy Physical EXAMINATION: The patient is moderate to morbidly obese. Appears to be anxious. She does seem to be in mild respiratory difficulty. Selected Entries 06/09/19 06/09/19 11:43 17:14 Temperature 97.9 F 98.8 F Temperature Oral Oral Source Pulse Rate 91 101 H Respiratory 20 16 Rate Blood Pressure 103/66 Blood Pressure 78 90 Mean BP Location Left Arm Left Arm BP Position Sitting O2 Sat by Pulse 97 93 Oximetry Oxygen Flow 3.50 4.00 Rate Oxygen Delivery Nasal Cannula Nasal Cannula Method HEAD: Is atraumatic normocephalic. EYES: Pupils are equal round regular reactive to light accommodation. Extraocular movements are normal. There is no conjunctival pallor. There is no scleral icterus. Ears: Tympanic membranes are intact external auditory canals are clear. NOSE: There is no deviated nasal septum. There is no inflammation of the nasal mucous membrane. MOUTH: Mucous membranes of mouth are moist. Tongue is moist. There is no ulcers there is no bleeding from the gums. THROAT: There is no redness of the oropharynx. There i s no exudates. SKIN: There is no skin rashes. There is no skin lesions. There is no petechia or ecchymosis. NECK: Is supple there is mild to moderate JVD present. Carotids are equal there is no bruit. There is no lymphadenopathy. There is no goiter. There is no accessory muscles of respiration use. Trachea central. LUNGS: There is bilateral wheezing and rhonchi present. There is no wet rales of pulmonary edema. On palpation there is hyperresonance. On palpation there is no chest wall tenderness. HEART: S1-S2 is heard. S1 is of variable intensity. There is no S3 gallop. There is no S4 gallop. There is systolic murmur left sternal border and the apex there is no rub. ABDOMEN: Is soft. Nontender. There is no hepatosplenomegaly. Abdomen is obese. Bowel sounds are well heard. EXTREMITIES: Femorals are deep. Femorals are diminished. There is no femoral bruits. Leg pulses diminished. There is mild pedal edema bilaterally. There is no DVT or cellulitis. There is no cyanosis or clubbing there is no calf tenderness. [place]: The patient is conscious anxious awake alert oriented x3 with no focal deficits. PSYCHIATRIC: The patient appears to be slightly anxious. But his judgment and insight seem to be intact. Labs- Entire Visit 06/07/19 06/07/19 06/07/19 16:43 16:43 16:43 WBC 6.1 RBC 4.83 Hgb 13.3 Hct 41.6 MCV 86 MCH 27.5 MCHC 32.0 RDW 14.9 H Plt Count 82 L Lymph % (Auto) [place] % (Auto) Eos % (Auto) Baso % (Auto) Absolute Neuts (auto) Absolute Lymphs (auto) Absolute Monos (auto) Absolute Eos (auto) Absolute Basos (auto) Seg Neutrophils % Carbonic Acid HCO3/H2CO3 Ratio ABG pH ABG pCO2 ABG pO2 ABG HCO3 ABG Total CO2 ABG O2 Saturation ABG Base Excess FiO2 Sodium 140.4 Potassium 4.1 Chloride 103 Carbon Dioxide 25 Anion Gap 12 BUN 22 H Creatinine 1.03 Est GFR ( Amer) > 60 Est GFR (MDRD) Non-Af 52 L Glucose 116 H POC Glucose Hemoglobin A1c % Calcium 9.3 Total Bilirubin Direct Bilirubin Neonat Total Bilirubin Neonat Direct Bilirubin Neonat Indirect Bili AST ALT Alkaline Phosphatase Creatine Kinase CK-MB (CK-2) Troponin I NT-Pro-B Natriuret Pep Total Protein Albumin TSH 1.39 Free T4 1.72 06/07/19 06/07/19 06/07/19 16:43 16:43 16:55 WBC RBC Hgb Hct MCV MCH MCHC RDW Plt Count Lymph % (Auto) [place] % (Auto) Eos % (Auto) Baso % (Auto) Absolute Neuts (auto) Absolute Lymphs (auto) Absolute Monos (auto) Absolute Eos (auto) Absolute Basos (auto) Seg Neutrophils % Carbonic Acid 1.26 HCO3/H2CO3 Ratio 17:1 ABG pH 7.34 L ABG pCO2 41.7 ABG pO2 89.6 ABG HCO3 22.0 ABG Total CO2 23.3 ABG O2 Saturation 96.4 ABG Base Excess -3.5 FiO2 2.00 Sodium Potassium Chloride Carbon Dioxide Anion Gap BUN Creatinine Est GFR ( Amer) Est GFR (MDRD) Non-Af Glucose POC Glucose Hemoglobin A1c % Calcium Total Bilirubin 2.4 H Direct Bilirubin 0.9 H Neonat Total Bilirubin Not Reportable Neonat Direct Bilirubin Not Reportable Neonat Indirect Bili Not Reportable AST 36 ALT 25 Alkaline Phosphatase 87 Creatine Kinase CK-MB (CK-2) Troponin I NT-Pro-B Natriuret Pep 6200 H Total Protein 7.4 Albumin 4.3 TSH Free T4 06/07/19 06/07/19 06/08/19 18:13 21:57 07:14 WBC RBC Hgb Hct MCV MCH MCHC RDW Plt Count Lymph % (Auto) [place] % (Auto) Eos % (Auto) Baso % (Auto) Absolute Neuts (auto) Absolute Lymphs (auto) Absolute Monos (auto) Absolute Eos (auto) Absolute Basos (auto) Seg Neutrophils % Carbonic Acid HCO3/H2CO3 Ratio ABG pH ABG pCO2 ABG pO2 ABG HCO3 ABG Total CO2 ABG O2 Saturation ABG Base Excess FiO2 Sodium Potassium Chloride Carbon Dioxide Anion Gap BUN Creatinine Est GFR ( Amer) Est GFR (MDRD) Non-Af Glucose POC Glucose 134 H 170 H 113 H Hemoglobin A1c % Calcium Total Bilirubin Direct Bilirubin Neonat Total Bilirubin Neonat Direct Bilirubin Neonat Indirect Bili AST ALT Alkaline Phosphatase Creatine Kinase CK-MB (CK-2) Troponin I NT-Pro-B Natriuret Pep Total Protein Albumin TSH Free T4 06/08/19 06/08/19 06/08/19 09:33 09:33 09:33 WBC 7.1 RBC 4.74 Hgb 13.0 Hct 40.5 MCV 86 MCH 27.4 MCHC 32.1 RDW 14.8 H Plt Count 83 L Lymph % (Auto) 10.6 L [place] % (Auto) 12.2 Eos % (Auto) 1.1 Baso % (Auto) 0.5 Absolute Neuts (auto) 5.4 Absolute Lymphs (auto) 0.8 Absolute Monos (auto) 0.9 Absolute Eos (auto) 0.1 Absolute Basos (auto) 0.0 Seg Neutrophils % 75.6 Carbonic Acid HCO3/H2CO3 Ratio ABG pH ABG pCO2 ABG pO2 ABG HCO3 ABG Total CO2 ABG O2 Saturation ABG Base Excess FiO2 Sodium 140.2 Potassium 4.0 Chloride 101 Carbon Dioxide 28 Anion Gap 11 BUN 18 Creatinine 0.93 Est GFR ( Amer) > 60 Est GFR (MDRD) Non-Af 58 L Glucose 169 H POC Glucose Hemoglobin A1c % 6.7 H Calcium 9.1 Total Bilirubin 2.2 H Direct Bilirubin 0.8 H Neonat Total Bilirubin Not Reportable Neonat Direct Bilirubin Not Reportable Neonat Indirect Bili Not Reportable AST 62 H ALT 45 Alkaline Phosphatase 90 Creatine Kinase CK-MB (CK-2) Troponin I NT-Pro-B Natriuret Pep Total Protein 7.5 Albumin 4.2 TSH Free T4 06/08/19 06/08/19 06/08/19 10:42 13:12 13:12 WBC 7.1 RBC 4.37 Hgb 12.2 Hct 37.6 MCV 86 MCH 27.9 MCHC 32.4 RDW 14.7 H Plt Count 67 L Lymph % (Auto) 7.9 L [place] % (Auto) 15.0 H Eos % (Auto) 0.4 Baso % (Auto) 0.3 Absolute Neuts (auto) 5.4 Absolute Lymphs (auto) 0.6 Absolute Monos (auto) 1.1 Absolute Eos (auto) 0.0 Absolute Basos (auto) 0.0 Seg Neutrophils % 76.4 Carbonic Acid HCO3/H2CO3 Ratio ABG pH ABG pCO2 ABG pO2 ABG HCO3 ABG Total CO2 ABG O2 Saturation ABG Base Excess FiO2 Sodium 139.2 Potassium 4.1 Chloride 100 Carbon Dioxide 28 Anion Gap 11 BUN 21 H Creatinine 1.10 Est GFR ( Amer) 58 L Est GFR (MDRD) Non-Af 48 L Glucose 173 H POC Glucose 162 H Hemoglobin A1c % Calcium 8.8 Total Bilirubin 1.7 H Direct Bilirubin 0.8 H Neonat Total Bilirubin Not Reportable Neonat Direct Bilirubin Not Reportable Neonat Indirect Bili Not Reportable AST 66 H ALT 47 Alkaline Phosphatase 74 Creatine Kinase CK-MB (CK-2) Troponin I NT-Pro-B Natriuret Pep Total Protein 6.9 Albumin 3.6 TSH Free T4 06/08/19 06/08/19 06/08/19 17:14 20:59 20:59 WBC RBC Hgb Hct MCV MCH MCHC RDW Plt Count Lymph % (Auto) [place] % (Auto) Eos % (Auto) Baso % (Auto) Absolute Neuts (auto) Absolute Lymphs (auto) Absolute Monos (auto) Absolute Eos (auto) Absolute Basos (auto) Seg Neutrophils % Carbonic Acid HCO3/H2CO3 Ratio ABG pH ABG pCO2 ABG pO2 ABG HCO3 ABG Total CO2 ABG O2 Saturation ABG Base Excess FiO2 Sodium Potassium Chloride Carbon Dioxide Anion Gap BUN Creatinine Est GFR ( Amer) Est GFR (MDRD) Non-Af Glucose POC Glucose 167 H Hemoglobin A1c % Calcium Total Bilirubin Direct Bilirubin Neonat Total Bilirubin Neonat Direct Bilirubin Neonat Indirect Bili AST ALT Alkaline Phosphatase Creatine Kinase 51 CK-MB (CK-2) 1.49 Troponin I 0.015 NT-Pro-B Natriuret Pep Total Protein Albumin TSH Free T4 06/08/19 06/09/19 06/09/19 21:19 00:19 05:21 WBC 5.0 RBC 4.42 Hgb 12.2 Hct 38.0 MCV 86 MCH 27.6 MCHC 32.1 RDW 14.8 H Plt Count 88 L Lymph % (Auto) 17.5 [place] % (Auto) 15.2 H Eos % (Auto) 1.3 Baso % (Auto) 0.5 Absolute Neuts (auto) 3.3 Absolute Lymphs (auto) 0.9 Absolute Monos (auto) 0.8 Absolute Eos (auto) 0.1 Absolute Basos (auto) 0.0 Seg Neutrophils % 65.5 Carbonic Acid HCO3/H2CO3 Ratio ABG pH ABG pCO2 ABG pO2 ABG HCO3 ABG Total CO2 ABG O2 Saturation ABG Base Excess FiO2 Sodium Potassium Chloride Carbon Dioxide Anion Gap BUN Creatinine Est GFR ( Amer) Est GFR (MDRD) Non-Af Glucose POC Glucose 84 86 Hemoglobin A1c % Calcium Total Bilirubin Direct Bilirubin Neonat Total Bilirubin Neonat Direct Bilirubin Neonat Indirect Bili AST ALT Alkaline Phosphatase Creatine Kinase CK-MB (CK-2) Troponin I NT-Pro-B Natriuret Pep Total Protein Albumin TSH Free T4 06/09/19 06/09/19 06/09/19 05:21 05:21 05:21 WBC RBC Hgb Hct MCV MCH MCHC RDW Plt Count Lymph % (Auto) [place] % (Auto) Eos % (Auto) Baso % (Auto) Absolute Neuts (auto) Absolute Lymphs (auto) Absolute Monos (auto) Absolute Eos (auto) Absolute Basos (auto) Seg Neutrophils % Carbonic Acid HCO3/H2CO3 Ratio ABG pH ABG pCO2 ABG pO2 ABG HCO3 ABG Total CO2 ABG O2 Saturation ABG Base Excess FiO2 Sodium 135.0 L Potassium 4.1 Chloride 100 Carbon Dioxide 27 Anion Gap 8 BUN 29 H Creatinine 1.38 H Est GFR ( Amer) 45 L Est GFR (MDRD) Non-Af 37 L Glucose 101 POC Glucose Hemoglobin A1c % Calcium 8.5 Total Bilirubin 1.6 H Direct Bilirubin 0.6 H Neonat Total Bilirubin Not Reportable Neonat Direct Bilirubin Not Reportable Neonat Indirect Bili Not Reportable AST 55 H ALT 51 Alkaline Phosphatase 75 Creatine Kinase 37 CK-MB (CK-2) 1.17 Troponin I 0.012 NT-Pro-B Natriuret Pep Total Protein 6.0 L Albumin 3.2 L TSH Free T4 06/09/19 06/09/19 06/09/19 06:36 07:36 11:44 WBC RBC Hgb Hct MCV MCH MCHC RDW Plt Count Lymph % (Auto) [place] % (Auto) Eos % (Auto) Baso % (Auto) Absolute Neuts (auto) Absolute Lymphs (auto) Absolute Monos (auto) Absolute Eos (auto) Absolute Basos (auto) Seg Neutrophils % Carbonic Acid HCO3/H2CO3 Ratio ABG pH ABG pCO2 ABG pO2 ABG HCO3 ABG Total CO2 ABG O2 Saturation ABG Base Excess FiO2 Sodium Potassium Chloride Carbon Dioxide Anion Gap BUN Creatinine Est GFR ( Amer) Est GFR (MDRD) Non-Af Glucose POC Glucose 99 98 142 H Hemoglobin A1c % Calcium Total Bilirubin Direct Bilirubin Neonat Total Bilirubin Neonat Direct Bilirubin Neonat Indirect Bili AST ALT Alkaline Phosphatase Creatine Kinase CK-MB (CK-2) Troponin I NT-Pro-B Natriuret Pep Total Protein Albumin TSH Free T4 06/09/19 06/09/19 06/09/19 13:45 13:45 17:15 WBC RBC Hgb Hct MCV MCH MCHC RDW Plt Count Lymph % (Auto) [place] % (Auto) Eos % (Auto) Baso % (Auto) Absolute Neuts (auto) Absolute Lymphs (auto) Absolute Monos (auto) Absolute Eos (auto) Absolute Basos (auto) Seg Neutrophils % Carbonic Acid HCO3/H2CO3 Ratio ABG pH ABG pCO2 ABG pO2 ABG HCO3 ABG Total CO2 ABG O2 Saturation ABG Base Excess FiO2 Sodium Potassium Chloride Carbon Dioxide Anion Gap BUN Creatinine Est GFR ( Amer) Est GFR (MDRD) Non-Af Glucose POC Glucose 149 H Hemoglobin A1c % Calcium Total Bilirubin Direct Bilirubin Neonat Total Bilirubin Neonat Direct Bilirubin Neonat Indirect Bili AST ALT Alkaline Phosphatase Creatine Kinase 35 CK-MB (CK-2) 1.05 Troponin I 0.012 NT-Pro-B Natriuret Pep Total Protein Albumin TSH Free T4 Chest X-Ray 06/07/19 00:00 IMPRESSION: The heart remains enlarged with central vascular congestion and probable interstitial edema. Chest X-Ray 06/08/19 11:30 IMPRESSION: CARDIAC ENLARGEMENT. VASCULAR CONGESTION. NO SIGNIFICANT CHANGE. Chest X-Ray 06/09/19 00:00 IMPRESSION: Cardiomegaly without a superimposed acute cardiopulmonary process. EKG #1:ATRIAL FLUTTER WITH 2:1 AVB [REPII] . REPOL ABNRM SUGGESTS ISCHEMIA, INFERIOR LEADS [LQTB] . BORDERLINE PROLONGED QT INTERVAL STMT - * A FLUTTER WITH 4: 1 CONDUCTION - STMT - * BORDERLINE R WAVE PROGRESSION, ANTERIOR LEADS ,CONSIDER OLD ANTERIOR MN IMPRESSION/RECOMMENDATION: 1. Acute on chronic systolic right ventricular failure. Also there is some evidence of left ventricular failure most likely LV diastolic failure. 2. Severe pulmonary hypertension: Most likely secondary to the patient's asthma, COPD, sleep apnea not treated with CPAP, and history of pulmonary embolism. The patient's blood pressure is marginal. Hence would recommend starting the patient on a dobutamine drip to see if this will help the pulmonary hypertension. Also this will be done after the patient has a central line placed. I have discussed with the patient's son regarding their need for central line and the risks and complications. He is agreeable. Discussed with the Dr. Fofana will place it later on. Once the dobutamine is started we will also start the patient on a small dose of Cardizem as a 2.5 mg/h infusion. 3. Acute exacerbation of COPD.: Start the patient on steroids and antibiotics later would recommend starting the patient on bronchodilators. 4. Acute asthmatic attack. With infective bronchitis. Patient started on antibiotics. 5. Atrial flutter with early fast ventricular response and subsequently secondary to hypotension on Cardizem. We will start the patient on dobutamine and cautiously use a low dose of Cardizem infusion to keep the patient's heart rate under control. Continue Eliquis 6. Diabetes mellitus: [id number] type II. Continue her oral antidiabetic medication and Accu-Cheks as per protocol. 7. Coronary artery disease by history: No anginal symptoms and no evidence of acute coronary event. The patient's troponin I is negative. 8. History of hypertension: Patient not on antihypertensives at home. 9. History of pulmonary embolism: Continue the patient on Eliquis. 10. CKD stage III: Avoid nephrotoxic drugs. 11. History of sleep apnea: Patient encouraged to better CPAP at night 12. Anxiety: Continue her anti-anxiolytic medication. Discussed at length the need for a central line placement in view of the patient being started on inotropes for treatment of right heart failure. He is agreeable. We will start the inotropes once the central line is placed. Medications reviewed. Medications added and adjusted. Medical regimen and management plan discussed with Dr. Amaya. Medical decision making is of high complexity. Will follow
[2019-06-09] MEDS: DOBUTAMINE HCL/D5W 500 MG/250 ML RTUINJ IV PRN (20:23)
--- NOTE | 2019-06-09 20:50 | PDOC PROGRESS REPORT ---
Subjective Progress Note for:: 06/09/19 Subjective:: Patient seen at bedside,On chest auscultation there is crackles, rhonchi, there is no overt wheeze, CT chest without IV contrast was obtained, there is marked cardiac enlargement.Calcification in aorta and coronary vessels, no pericardial or pleural effusion. Prominent pulmonary arteries suggesting pulmonary hypertension. Small mediastinal lymph nodes which are nonspecific. Area of atelectasis are present in the posterior right upper and lower lobe.Areas of tran ear atelectasis is also present in the left upper and lower lobe. Patchy areas of groundglass density are present in the chest bilaterally which are nonspecific radiotherapy infiltrate is not excluded Reason For Visit: CHF TACHYCARDIA Physical Exam Vital Signs: Temp Pulse Resp BP Pulse Ox 98.8 F 101 H 16 108/70 93 06/09/19 17:14 06/09/19 17:14 06/09/19 17:14 06/09/19 20:30 06/09/19 17:14 Intake & Output 06/08/19 06/09/19 06/10/19 06:59 06:59 06:59 Intake Total 515 1039 700 Output Total 600 705 350 Balance -85 334 350 Weight 104.1 kg 105.9 kg General appearance: PRESENT: obese Eye exam: PRESENT: PERRLA Respiratory exam: PRESENT: rales, rhonchi Cardiovascular exam: PRESENT: irregular rhythm, +S1, +S2 GI/Abdominal exam: PRESENT: soft Extremities exam: PRESENT: pedal edema Neurological exam: PRESENT: alert, CN II-XII grossly intact Results Laboratory Results: 06/09/19 05:21 06/09/19 05:21 06/09/19 06/09/19 05:21 05:21 WBC 5.0 RBC 4.42 Hgb 12.2 Hct 38.0 MCV 86 MCH 27.6 MCHC 32.1 RDW 14.8 H Plt Count 88 L Seg Neutrophils % 65.5 Sodium 135.0 L Potassium 4.1 Chloride 100 Carbon Dioxide 27 Anion Gap 8 BUN 29 H Creatinine 1.38 H Est GFR ( Amer) 45 L Glucose 101 Calcium 8.5 Total Bilirubin 1.6 H AST 55 H Alkaline Phosphatase 75 Total Protein 6.0 L Albumin 3.2 L 06/07/19 06/08/19 06/08/19 16:43 20:59 20:59 Creatine Kinase 51 CK-MB (CK-2) 1.49 Troponin I 0.015 NT-Pro-B Natriuret Pep 6200 H 06/09/19 06/09/19 06/09/19 05:21 05:21 13:45 Creatine Kinase 37 35 CK-MB (CK-2) 1.17 Troponin I 0.012 NT-Pro-B Natriuret Pep 06/09/19 13:45 Creatine Kinase CK-MB (CK-2) 1.05 Troponin I 0.012 NT-Pro-B Natriuret Pep Impressions: Chest X-Ray 06/09/19 00:00 IMPRESSION: Cardiomegaly without a superimposed acute cardiopulmonary process. Assessment & Plan - Diagnosis (1) Acute diastolic heart failure Is this a current diagnosis for this admission?: Yes Plan: Patient was seen today by Dr. Phillip, cardiology, consultation appreciated (2) Pneumonia Qualifiers: Pneumonia type: due to unspecified organism Laterality: bilateral Lung location: unspecified part of lung Qualified Code(s): J18.9 - Pneumonia, unspecified organism Is this a current diagnosis for this admission?: Yes Plan: She has history of pulmonary embolism with secondary pulmonary hypertension on chronic anticoagulation with Eliquis, the CT chest that was done demonstrated patchy areas of groundglass density bilaterally which are nonspecific but could represent pneumonia, she has physical signs on chest auscultation of crackles no overt wheezing that would suggest bronchospasm, she will empirically be treated with antibiotic Levaquin and Rocephin to cover community-acquired pathogens (3) Personal history of pulmonary embolism Is this a current diagnosis for this admission?: Yes (4) Severe pulmonary arterial systolic hypertension Is this a current diagnosis for this admission?: Yes (5) Paroxysmal atrial fibrillation with rapid ventricular response Is this a current diagnosis for this admission?: Yes - Time Time Spent with patient: 35 or more minutes Level of Care: IMCU
--- NOTE | 2019-06-09 20:52 | RADIOLOGY REPORT (SQ) ---
EXAM DESCRIPTION: CT CHEST WITHOUT IV CONTRAST COMPLETED DATE/TME: 06/09/2019 00:00 CLINICAL HISTORY: 79 years Female copd COMPARISON: 12/14/2018. TECHNIQUE: Contiguous axial images obtained through the chest without IV contrast. Reformatted images obtained. This exam was performed according to our department optimization program which includes automated exposure control, adjustment of the mA and/or kv according to patient size and/or use of iterative reconstruction technique. FINDINGS: Marked cardiac enlargement. Calcification in aorta and in the coronary vessels. No pericardial or pleural effusion. Prominent pulmonary arteries suggesting hypertension. Small mediastinal lymph nodes which are nonspecific. Relatively poor depth of inspiration. Areas of atelectasis are present in the posterior right upper and lower lobe. Areas of linear atelectasis also present in the left upper and lower lobe. Patchy areas of groundglass density are present in the chest bilaterally which are nonspecific. Areas of developing infiltrate is not excluded. Study is significantly limited without contrast and by patient's body habitus. IMPRESSION: Marked cardiac enlargement Patchy areas of atelectasis bilaterally with some subtle areas of groundglass density which could reflect developing infiltrate in a predominantly central distribution. Prominent pulmonary arteries suggesting pulmonary hypertension
[2019-06-09 21:53] LABS: APPEARANCE,URINE SLIGHTLY-CLOUDY; BILIRUBIN,URINE NEGATIVE (NEGATIVE); COLOR,URINE YELLOW; GLUCOSE, URINE NEGATIVE (NEGATIVE); KETONES,URINE NEGATIVE (NEGATIVE); LEUKOCYTE ESTERASE,URINE SMALL (NEGATIVE); NITRITE,URINE NEGATIVE (NEGATIVE); PROTEIN,URINE 30 mg/dL (NEGATIVE); URINE SPECIFIC GRAVITY 1.012
[2019-06-09] MEDS: CEFTRIAXONE 1 GM/D5W RTU 1 GM/50 ML RTUPB IV SCH (22:27)
[2019-06-09] MEDS: LEVOFLOXACIN 750 MG/D5W RTU 750 MG/150 ML RTUPB IV SCH (23:38)
[2019-06-10] MEDS: METHYLPREDNISOLONE INJ 125 MG/2 ML SDV IV SCH ×3 (02:19→17:05)
[2019-06-10 05:37] LABS: ABSOLUTE LYMPHOCYTES (AUTO) 0.4 10^3/uL (0.5-4.7); ABSOLUTE MONOCYTES (AUTO) 0.1 10^3/uL (0.1-1.4); BASOPHILS % (AUTO) 0.1 % (0-2); EOSINOPHILS % (AUTO) 0.1 % (0-6); HEMATOCRIT 39.3 % (36.0-47.0); HEMOGLOBIN 12.7 g/dL (12.0-15.5); LYMPHOCYTES % (AUTO) 11.5 % (13-45); MEAN CORPUSCULAR HEMOGLOBIN 27.6 pg (27.0-33.4); MEAN CORPUSCULAR HGB CONC 32.2 g/dL (32.0-36.0); MEAN CORPUSCULAR VOLUME 86 fl (80-97); MONOCYTES % (AUTO) 2.9 % (3-13); PLATELET COUNT 118 10^3/uL (150-450); RED BLOOD COUNT 4.58 10^6/uL (3.72-5.28); RED CELL DISTRIBUTION WIDTH 14.7 % (11.5-14.0); SEGMENTED NEUTROPHILS % (AUTO) 85.4 % (42-78); TOTAL CELLS COUNTED % (AUTO) 100 %; WHITE BLOOD COUNT 3.6 10^3/uL (4.0-10.5)
[2019-06-10 05:59] LABS: ALBUMIN 3.2 g/dL (3.5-5.0); ALKALINE PHOSPHATASE 75 U/L (38-126); ANION GAP 9 (5-19); ASPARTATE AMINO TRANSFERASE 32 U/L (14-36); BILIRUBIN,DIRECT 0.5 mg/dL (0.0-0.4); BILIRUBIN,TOTAL 0.7 mg/dL (0.2-1.3); BLOOD UREA NITROGEN 26 mg/dL (7-20); CALCIUM 8.4 mg/dL (8.4-10.2); CARBON DIOXIDE 30 mmol/L (22-30); CHLORIDE 99 mmol/L (98-107); GLUCOSE 205 mg/dL (75-110); POTASSIUM 4.6 mmol/L (3.6-5.0); TOTAL PROTEIN 6.5 g/dL (6.3-8.2)
[2019-06-10] MEDS: INSULIN LISPRO 100 UNIT/ML 3 ML VIAL SUBCUT SCH ×4 (08:03→21:48)
[2019-06-10] MEDS: APIXABAN 5 MG TABLET PO SCH ×2 (09:09→17:05)
[2019-06-10] MEDS: SITAGLIPTIN PHOSPHATE 50 MG TABLET PO SCH (09:09)
--- NOTE | 2019-06-10 11:18 | Progress Note ---
Provider Note Provider Note: CARDIOLOGY PROGRESS NOTE by Dr. Paulina García on 06/10/2019. SUBJECTIVE: The patient states she is less short of breath. She has no PND or orthopnea and is able to lie down flat. She has no chest pain. She states she still has a cough and is producing very scanty yellowish sputum. There is no hemoptysis. The patient's atrial flutter/fibrillation is fairly well controlled on current doses of IV Cardizem and on IV dobutamine. The patient's urine output has been reasonably good. There is no TIA CVA symptoms. There is no bleeding on Eliquis. PHYSICAL EXAMINATION: The patient is moderately to moderate morbidly obese. In no acute distress. Selected Entries 06/10/19 06/10/19 11:51 12:00 Temperature 97.4 F Temperature Oral Source Pulse Rate 90 Blood Pressure 149/81 H O2 Sat by Pulse 91 L Oximetry Oxygen Flow 3.00 Rate Oxygen Delivery Nasal Cannula Method HEAD: Is atraumatic normocephalic. EYES: Pupils are equal round regular reactive to light accommodation. Extraocular movements are normal. There is no conjunctival pallor. There is no scleral icterus. Ears: Tympanic membranes are intact external auditory canals are clear. NOSE: There is no deviated nasal septum. There is no inflammation of the nasal mucous membrane. MOUTH: Mucous membranes of mouth are moist. Tongue is moist. There is no ulcers there is no bleeding from the gums. THROAT: There is no redness of the oropharynx. There is no exudates. SKIN: There is no skin rashes. There is no skin lesions. There is no petechia or ecchymosis. NECK: Is supple there is mild to moderate JVD present. Carotids are equal there is no bruit. There is no lymphadenopathy. There is no goiter. There is no accessory muscles of respiration use. Trachea central. LUNGS: There is bilateral wheezing and rhonchi present. There is no wet rales of pulmonary edema. On palpation there is hyperresonance. On palpation there is no chest wall tenderness. HEART: S1- S2 is heard. S1 is of variable intensity. There is no S3 gallop. There is no S4 gallop. There is systolic murmur left sternal border and the apex there is no rub. ABDOMEN: Is soft. Nontender. There is no hepatosplenomegaly. Abdomen is obese. Bowel sounds are well heard. EXTREMITIES: Femorals are deep. Femorals are diminished. There is no femoral bruits. Leg pulses diminished. There is mild pedal edema bilaterally. There is no DVT or cellulitis. There is no cyanosis or clubbing there is no calf tenderness. [employer] TECHNICIAN: The patient is conscious anxious awake alert oriented x3 with no focal deficits. PSYCHIATRIC: The patient appears to be slightly anxious. But his judgment and insight seem to be intact. The patient's 24-hour intake is 1500 mL. The patient 24-hour total output is 1750 mL. Labs- All tests 24 hr 06/09/19 06/09/19 06/10/19 21:35 21:48 05:11 WBC 3.6 L RBC 4.58 Hgb 12.7 Hct 39.3 MCV 86 MCH 27.6 MCHC 32.2 RDW 14.7 H Plt Count 118 L Lymph % (Auto) 11.5 L [place] % (Auto) 2.9 L Eos % (Auto) 0.1 Baso % (Auto) 0.1 Absolute Neuts (auto) 3.0 Absolute Lymphs (auto) 0.4 L Absolute Monos (auto) 0.1 Absolute Eos (auto) 0.0 Absolute Basos (auto) 0.0 Seg Neutrophils % 85.4 H Sodium Potassium Chloride Carbon Dioxide Anion Gap BUN Creatinine Est GFR ( Amer) Est GFR (MDRD) Non-Af Glucose POC Glucose 191 H Calcium Total Bilirubin Direct Bilirubin Neonat Total Bilirubin Neonat Direct Bilirubin Neonat Indirect Bili AST ALT Alkaline Phosphatase Total Protein Albumin Urine Color YELLOW Urine Appearance SLIGHTLY-CLOUDY Urine pH 6.0 Ur Specific Stone 1.012 Urine Protein 30 H Urine Glucose (UA) NEGATIVE Urine Ketones NEGATIVE Urine Blood SMALL H Urine Nitrite NEGATIVE Urine Bilirubin NEGATIVE Urine Urobilinogen 2.0 H Ur Leukocyte Esterase SMALL H Urine WBC (Auto) 15 Urine RBC (Auto) 4 U Hyaline Cast (Auto) 4 Urine Bacteria (Auto) TRACE Squamous Epi Cells Auto 2 Urine Mucus (Auto) RARE Urine Ascorbic Acid NEGATIVE 06/10/19 06/10/19 06/10/19 05:11 07:53 11:51 WBC RBC Hgb Hct MCV MCH MCHC RDW Plt Count Lymph % (Auto) [place] % (Auto) Eos % (Auto) Baso % (Auto) Absolute Neuts (auto) Absolute Lymphs (auto) Absolute Monos (auto) Absolute Eos (auto) Absolute Basos (auto) Seg Neutrophils % Sodium 138.2 Potassium 4.6 Chloride 99 Carbon Dioxide 30 Anion Gap 9 BUN 26 H Creatinine 1.18 Est GFR ( Amer) 53 L Est GFR (MDRD) Non-Af 44 L Glucose 205 H POC Glucose 168 H 188 H Calcium 8.4 Total Bilirubin 0.7 Direct Bilirubin 0.5 H Neonat Total Bilirubin Not Reportable Neonat Direct Bilirubin Not Reportable Neonat Indirect Bili Not Reportable AST 32 ALT 39 Alkaline Phosphatase 75 Total Protein 6.5 Albumin 3.2 L Urine Color Urine Appearance Urine pH Ur Specific Stone Urine Protein Urine Glucose (UA) Urine Ketones Urine Blood Urine Nitrite Urine Bilirubin Urine Urobilinogen Ur Leukocyte Esterase Urine WBC (Auto) Urine RBC (Auto) U Hyaline Cast (Auto) Urine Bacteria (Auto) Squamous Epi Cells Auto Urine Mucus (Auto) Urine Ascorbic Acid 06/10/19 15:46 WBC RBC Hgb Hct MCV MCH MCHC RDW Plt Count Lymph % (Auto) [place] % (Auto) Eos % (Auto) Baso % (Auto) Absolute Neuts (auto) Absolute Lymphs (auto) Absolute Monos (auto) Absolute Eos (auto) Absolute Basos (auto) Seg Neutrophils % Sodium Potassium Chloride Carbon Dioxide Anion Gap BUN Creatinine Est GFR ( Amer) Est GFR (MDRD) Non-Af Glucose POC Glucose 310 H Calcium Total Bilirubin Direct Bilirubin Neonat Total Bilirubin Neonat Direct Bilirubin Neonat Indirect Bili AST ALT Alkaline Phosphatase Total Protein Albumin Urine Color Urine Appearance Urine pH Ur Specific Stone Urine Protein Urine Glucose (UA) Urine Ketones Urine Blood Urine Nitrite Urine Bilirubin Urine Urobilinogen Ur Leukocyte Esterase Urine WBC (Auto) Urine RBC (Auto) U Hyaline Cast (Auto) Urine Bacteria (Auto) Squamous Epi Cells Auto Urine Mucus (Auto) Urine Ascorbic Acid Chest X-Ray 06/07/19 00:00 IMPRESSION: The heart remains enlarged with central vascular congestion and probable interstitial edema. Chest X-Ray 06/08/19 11:30 IMPRESSION: CARDIAC ENLARGEMENT. VASCULAR CONGESTION. NO SIGNIFICANT CHANGE. Chest CT 06/09/19 00:00 IMPRESSION: Marked cardiac enlargement Patchy areas of atelectasis bilaterally with some subtle areas of groundglass density which could reflect developing infiltrate in a predominantly central distribution. Prominent pulmonary arteries suggesting pulmonary hypertension Chest X-Ray 06/09/19 00:00 IMPRESSION: Cardiomegaly without a superimposed acute cardiopulmonary process. IMPRESSION/RECOMMENDATION: 1. Acute on chronic systolic right ventricular failure. Also there is some evidence of left ventricular failure most likely LV diastolic failure. This is improving on current therapy. Continue the patient on IV dobutamine and also on the patient's Cardizem infusion. 2. Severe pulmonary hypertension: Most likely secondary to the patient's asthma, COPD, sleep apnea not treated with CPAP, and history of pulmonary emboli sm. For some reason the patient was not started on a Cardizem drip. Hence we will start the patient on Cardizem 2.5 mg/h and increase the patient's dobutamine to 5 mcg/kg/min. Hence patient's blood pressure still high will add cozaar. 3. Acute exacerbation of COPD.: Continue the patient on steroids and antibiotics later would recommend starting the patient on bronchodilators. 4. Acute asthmatic attack. With infective bronchitis. Patient started on antibiotics. 5. Atrial flutter : Will start the Cardizem drip/infusion at 2. 5 mg/h. Continue Eliquis 6. Diabetes mellitus: [id number] type II. Continue her oral antidiabetic medication and Accu-Cheks as per protocol. 7. Coronary artery disease by history: No anginal symptoms and no evidence of acute coronary event. The patient's troponin I is negative. 8. History of hypertension: Patient not on antihypertensives at home. 9. History of pulmonary embolism: Continue the patient on Eliquis. 10. CKD stage III: Avoid nephrotoxic drugs. GFR slightly improved. 11. History of sleep apnea: Patient encouraged to better CPAP at night 12. Anxiety: Continue her anti-anxiolytic medication. Medications reviewed. Medical regimen and management plan discussed with the attending provider Dr. Amaya. Medical decision making is of high complexity due to changes made in the patient's medications in addition of new medication.. 40 minutes spent on this patient with more than 50% time spent in direct patient care will follow.
--- NOTE | 2019-06-10 17:08 | PDOC PROGRESS REPORT ---
Subjective Progress Note for:: 06/10/19 Subjective:: Patient seen by the bedside she feels better today, yesterday she was started on IV antibiotic because the CAT scan of the chest that was done demonstrated ground glass opacities, possible pneumonia, she was started on antibiotic for community-acquired pneumonia she looks much improved on 12 4 hours after administration of the antibiotic. Reason For Visit: CHF TACHYCARDIA Physical Exam Vital Signs: Temp Pulse Resp BP Pulse Ox 98.0 F 98 16 157/81 H 95 06/10/19 15:45 06/10/19 16:00 06/10/19 15:45 06/10/19 16:00 06/10/19 15:45 Intake & Output 06/09/19 06/10/19 06/11/19 06:59 06:59 06:59 Intake Total 1039 1500 Output Total 705 1750 Balance 334 -250 Weight 105.9 kg 104.8 kg General appearance: PRESENT: no acute distress Eye exam: PRESENT: PERRLA Respiratory exam: PRESENT: rhonchi Cardiovascular exam: PRESENT: +S1, +S2 GI/Abdominal exam: PRESENT: soft Neurological exam: PRESENT: alert Results Laboratory Results: 06/10/19 05:11 06/10/19 05:11 06/09/19 06/10/19 06/10/19 21:35 05:11 05:11 WBC 3.6 L RBC 4.58 Hgb 12.7 Hct 39.3 MCV 86 MCH 27.6 MCHC 32.2 RDW 14.7 H Plt Count 118 L Seg Neutrophils % 85.4 H Sodium 138.2 Potassium 4.6 Chloride 99 Carbon Dioxide 30 Anion Gap 9 BUN 26 H Creatinine 1.18 Est GFR ( Amer) 53 L Glucose 205 H Calcium 8.4 Total Bilirubin 0.7 AST 32 Alkaline Phosphatase 75 Total Protein 6.5 Albumin 3.2 L Urine Color YELLOW Urine Appearance SLIGHTLY-CLOUDY Urine pH 6.0 Ur Specific Bureau 1.012 Urine Protein 30 H Urine Glucose (UA) NEGATIVE Urine Ketones NEGATIVE Urine Blood SMALL H Urine Nitrite NEGATIVE Ur Leukocyte Esterase SMALL H Urine WBC (Auto) 15 Urine RBC (Auto) 4 06/07/19 06/08/19 06/08/19 16:43 20:59 20:59 Creatine Kinase 51 CK-MB (CK-2) 1.49 Troponin I 0.015 NT-Pro-B Natriuret Pep 6200 H 06/09/19 06/09/19 06/09/19 05:21 05:21 13:45 Creatine Kinase 37 35 CK-MB (CK-2) 1.17 Troponin I 0.012 NT-Pro-B Natriuret Pep 06/09/19 13:45 Creatine Kinase CK-MB (CK-2) 1.05 Troponin I 0.012 NT-Pro-B Natriuret Pep Impressions: Chest CT 06/09/19 00:00 IMPRESSION: Marked cardiac enlargement Patchy areas of atelectasis bilaterally with some subtle areas of groundglass density which could reflect developing infiltrate in a predominantly central distribution. Prominent pulmonary arteries suggesting pulmonary hypertension Chest X-Ray 06/09/19 00:00 IMPRESSION: Cardiomegaly without a superimposed acute cardiopulmonary process. Assessment & Plan - Diagnosis (1) Acute diastolic heart failure Is this a current diagnosis for this admission?: Yes (2) Pneumonia Qualifiers: Pneumonia type: due to unspecified organism Laterality: bilateral Lung location: unspecified part of lung Qualified Code(s): J18.9 - Pneumonia, unspe cified organism Is this a current diagnosis for this admission?: Yes Plan: Continue IV antibiotic (3) Personal history of pulmonary embolism Is this a current diagnosis for this admission?: Yes Plan: Continue Eliquis (4) Severe pulmonary arterial systolic hypertension Is this a current diagnosis for this admission?: Yes (5) Paroxysmal atrial fibrillation with rapid ventricular response Is this a current diagnosis for this admission?: Yes - Time Time Spent with patient: 25-34 minutes
[2019-06-10] MEDS ORDERED: DILTIAZEM HCL/D5W 125 MG/125 ML RTUINJ IV ONE (20:04)
[2019-06-10] MEDS: DILTIAZEM HCL/D5W 125 MG/125 ML RTUINJ IV PRN (20:15)
[2019-06-10] MEDS: LOSARTAN POTASSIUM 25 MG TABLET PO SCH (21:47)
[2019-06-10] MEDS: CEFTRIAXONE 1 GM/D5W RTU 1 GM/50 ML RTUPB IV SCH (21:48)
[2019-06-10] MEDS: DOBUTAMINE HCL/D5W 500 MG/250 ML RTUINJ IV PRN (23:45)
[2019-06-11] MEDS: METHYLPREDNISOLONE INJ 125 MG/2 ML SDV IV SCH ×3 (02:24→17:23)
[2019-06-11 07:00] LABS: ABSOLUTE LYMPHOCYTES (AUTO) 0.6 10^3/uL (0.5-4.7); ABSOLUTE MONOCYTES (AUTO) 0.3 10^3/uL (0.1-1.4); ABSOLUTE NEUT (AUTO) 7.1 10^3/uL (1.7-8.2); BASOPHILS % (AUTO) 0.2 % (0-2); HEMATOCRIT 39.6 % (36.0-47.0); HEMOGLOBIN 12.6 g/dL (12.0-15.5); LYMPHOCYTES % (AUTO) 6.9 % (13-45); MEAN CORPUSCULAR HEMOGLOBIN 27.3 pg (27.0-33.4); MEAN CORPUSCULAR HGB CONC 31.8 g/dL (32.0-36.0); MEAN CORPUSCULAR VOLUME 86 fl (80-97); MONOCYTES % (AUTO) 4.3 % (3-13); PLATELET COUNT 133 10^3/uL (150-450); RED CELL DISTRIBUTION WIDTH 14.5 % (11.5-14.0); SEGMENTED NEUTROPHILS % (AUTO) 88.6 % (42-78); TOTAL CELLS COUNTED % (AUTO) 100 %
[2019-06-11 07:13] LABS: ALBUMIN 3.2 g/dL (3.5-5.0); ALKALINE PHOSPHATASE 73 U/L (38-126); ANION GAP 5 (5-19); ASPARTATE AMINO TRANSFERASE 21 U/L (14-36); BILIRUBIN,DIRECT 0.2 mg/dL (0.0-0.4); BILIRUBIN,TOTAL 0.6 mg/dL (0.2-1.3); BLOOD UREA NITROGEN 19 mg/dL (7-20); CALCIUM 8.6 mg/dL (8.4-10.2); CARBON DIOXIDE 31 mmol/L (22-30); CHLORIDE 102 mmol/L (98-107); GLUCOSE 195 mg/dL (75-110); POTASSIUM 4.7 mmol/L (3.6-5.0); TOTAL PROTEIN 6.3 g/dL (6.3-8.2)
[2019-06-11] MEDS: INSULIN LISPRO 100 UNIT/ML 3 ML VIAL SUBCUT SCH ×4 (08:05→21:39)
[2019-06-11] MEDS: LOSARTAN POTASSIUM 25 MG TABLET PO SCH (10:05)
--- NOTE | 2019-06-11 10:05 | Progress Note ---
Provider Note Provider Note: CARDIOLOGY progress NOTE by Dr. Paulina García on 06/11/2019. SUBJECTIVE: The patient states she feels much better. She feels less short of breath. She is improving gradually. She still has some minimal wheezing which is less than yesterday. She states she is coughing up sputum which is yellowish in color. There is no chest pain or discomfort. The patient continues to be in atrial fibrillation with a ventricular response controlled. Blood pressure is not very well controlled. We will increase the patient's close is no ventricular arrhythmia seen on the monitor. There is no bleeding on Eliquis. There is no TIA CVA symptoms. The patient was empirically tried on CPAP last night. The patient did not tolerate it. PHYSICAL EXAMINATION: The patient moderately obese. In no acute distress. She is lying flat in bed without problems. Selected Entries 06/11/19 11:37 Temperature 98.3 F Temperature Oral Source Pulse Rate 77 Respiratory 16 Rate Blood Pressure 170/91 H Blood Pressure 117 Mean BP Location Right Arm BP Position Supine O2 Sat by Pulse 100 Oximetry Oxygen Flow 2.00 Rate Oxygen Delivery Nasal Cannula Method . HEAD: Is atraumatic normocephalic. EYES: Pupils are equal round regular reactive to light accommodation. Extraocular movements are normal. There is no conjunctival pallor. There is no scleral icterus. Ears: Tympanic membranes are intact external auditory canals are clear. NOSE: There is no deviated nasal sep erika. There is no inflammation of the nasal mucous membrane. MOUTH: Mucous membranes of mouth are moist. Tongue is moist. There is no ulcers there is no bleeding from the gums. THROAT: There is no redness of the oropharynx. There is no exudates. SKIN: There is no skin rashes. There is no skin lesions. There is no petechia or ecchymosis. NECK: Is supple there is mild to moderate JVD present. Carotids are equal there is no bruit. There is no lymphadenopathy. There is no goiter. There is no accessory muscles of respiration use. Trachea central. LUNGS: There is bilateral wheezing and rhonchi present. This is much less than yesterday's exam. There is no wet rales of pulmonary edema. On palpation there is hyperresonance. On palpation there is no chest wall tenderness. HEART: S1-S2 is heard. S1 is of variable intensity. There is no S3 gallop. There is no S4 gallop. There is systolic murmur left sternal border and the apex there is no rub. ABDOMEN: Is soft. Nontender. There is no hepatosplenomegaly. Abdomen is obese. Bowel sounds are well heard. EXTREMITIES: Femorals are deep. Femorals are diminished. There is no femoral bruits. Leg pulses diminished. There is trace pedal edema bilaterally. There is no DVT or cellulitis. There is no cyanosis or clubbing there is no calf tenderness. TOOTH INSPECTOR: The patient is conscious anxious awake alert oriented x3 with no focal deficits. PSYCHIATRIC: The patient appears to be slightly anxious. But his judgment and insight seem to be intact. The patient's 24-hour intake is 1261 mL. The patient 24-hour total output is 875 mL. 06/07/19 06/07/19 06/07/19 16:43 16:43 16:43 WBC MCHC RDW 14.9 H Plt Count 82 L Lymph % (Auto) Bleckley % (Auto) Absolute Lymphs (auto) Seg Neutrophils % ABG pH Sodium Carbon Dioxide BUN 22 H Creatinine Est GFR ( Amer) Est GFR (MDRD) Non-Af 52 L Glucose 116 H POC Glucose Hemoglobin A1c % Total Bilirubin 2.4 H Direct Bilirubin 0.9 H AST NT-Pro-B Natriuret Pep Total Protein Albumin Urine Protein Urine Blood Urine Urobilinogen Ur Leukocyte Esterase 06/07/19 06/07/19 06/07/19 16:43 16:55 18:13 WBC MCHC RDW Plt Count Lymph % (Auto) Bleckley % (Auto) Absolute Lymphs (auto) Seg Neutrophils % ABG pH 7.34 L Sodium Carbon Dioxide BUN Creatinine Est GFR ( Amer) Est GFR (MDRD) Non-Af Glucose POC Glucose 134 H Hemoglobin A1c % Total Bilirubin Direct Bilirubin AST NT-Pro-B Natriuret Pep 6200 H Total Protein Albumin Urine Protein Urine Blood Urine Urobilinogen Ur Leukocyte Esterase 06/07/19 06/08/19 06/08/19 21:57 07:14 09:33 WBC MCHC RDW Plt Count Lymph % (Auto) Bleck[place] % (Auto) Absolute Lymphs (auto) Seg Neutrophils % ABG pH Sodium Carbon Dioxide BUN Creatinine Est GFR ( Amer) Est GFR (MDRD) Non-Af 58 L Glucose 169 H POC Glucose 170 H 113 H Hemoglobin A1c % Total Bilirubin 2.2 H Direct Bilirubin 0.8 H AST 62 H NT-Pro-B Natriuret Pep Total Protein Albumin Urine Protein Urine Blood Urine Urobilinogen Ur Leukocyte Esterase 06/08/19 06/08/19 06/08/19 09:33 09:33 10:42 WBC MCHC RDW 14.8 H Plt Count 83 L Lymph % (Auto) 10.6 L [place]ck[place] % (Auto) Absolute Lymphs (auto) Seg Neutrophils % ABG pH Sodium Carbon Dioxide BUN Creatinine Est GFR ( Amer) Est GFR (MDRD) Non-Af Glucose POC Glucose 162 H Hemoglobin A1c % 6.7 H Total Bilirubin Direct Bilirubin AST NT-Pro-B Natriuret Pep Total Protein Albumin Urine Protein Urine Blood Urine Urobilinogen Ur Leukocyte Esterase 06/08/19 06/08/19 06/08/19 13:12 13:12 17:14 WBC MCHC RDW 14.7 H Plt Count 67 L Lymph % (Auto) 7.9 L [place]ck[place] % (Auto) 15.0 H Absolute Lymphs (auto) Seg Neutrophils % ABG pH Sodium Carbon Dioxide BUN 21 H Creatinine Est GFR ( Amer) 58 L Est GFR (MDRD) Non-Af 48 L Glucose 173 H POC Glucose 167 H Hemoglobin A1c % Total Bilirubin 1.7 H Direct Bilirubin 0.8 H AST 66 H NT-Pro-B Natriuret Pep Total Protein Albumin Urine Protein Urine Blood Urine Urobilinogen Ur Leukocyte Esterase 06/09/19 06/09/19 06/09/19 05:21 05:21 11:44 WBC MCHC RDW 14.8 H Plt Count 88 L Lymph % (Auto) Bleck[place] % (Auto) 15.2 H Absolute Lymphs (auto) Seg Neutrophils % ABG pH Sodium 135.0 L Carbon Dioxide BUN 29 H Creatinine 1.38 H Est GFR ( Amer) 45 L Est GFR (MDRD) Non-Af 37 L Glucose POC Glucose 142 H Hemoglobin A1c % Total Bilirubin 1.6 H Direct Bilirubin 0.6 H AST 55 H NT-Pro-B Natriuret Pep Total Protein 6.0 L Albumin 3.2 L Urine Protein Urine Blood Urine Urobilinogen Ur Leukocyte Esterase 06/09/19 06/09/19 06/09/19 17:15 21:35 21:48 WBC MCHC RDW Plt Count Lymph % (Auto) Bleck[place] % (Auto) Absolute Lymphs (auto) Seg Neutrophils % ABG pH Sodium Carbon Dioxide BUN Creatinine Est GFR ( Amer) Est GFR (MDRD) Non-Af Glucose POC Glucose 149 H 191 H Hemoglobin A1c % Total Bilirubin Direct Bilirubin AST NT-Pro-B Natriuret Pep Total Protein Albumin Urine Protein 30 H Urine Blood SMALL H Urine Urobilinogen 2.0 H Ur Leukocyte Esterase SMALL H 06/10/19 06/10/19 06/10/19 05:11 05:11 07:53 WBC 3.6 L MCHC RDW 14.7 H Plt Count 118 L Lymph % (Auto) 11.5 L Bleck[place] % (Auto) 2.9 L Absolute Lymphs (auto) 0.4 L Seg Neutrophils % 85.4 H ABG pH Sodium Carbon Dioxide BUN 26 H Creatinine Est GFR ( Amer) 53 L Est GFR (MDRD) Non-Af 44 L Glucose 205 H POC Glucose 168 H Hemoglobin A1c % Total Bilirubin Direct Bilirubin 0.5 H AST NT-Pro-B Natriuret Pep Total Protein Albumin 3.2 L Urine Protein Urine Blood Urine Urobilinogen Ur Leukocyte Esterase 06/10/19 06/10/19 06/10/19 11:51 15:46 21:16 WBC MCHC RDW Plt Count Lymph % (Auto) [place]ck[place] % (Auto) Absolute Lymphs (auto) Seg Neutrophils % ABG pH Sodium Carbon Dioxide BUN Creatinine Est GFR ( Amer) Est GFR (MDRD) Non-Af Glucose POC Glucose 188 H 310 H 181 H Hemoglobin A1c % Total Bilirubin Direct Bilirubin AST NT-Pro-B Natriuret Pep Total Protein Albumin Urine Protein Urine Blood Urine Urobilinogen Ur Leukocyte Esterase 06/11/19 06/11/19 06/11/19 06:45 06:45 07:51 WBC MCHC 31.8 L RDW 14.5 H Plt Count 133 L Lymph % (Auto) 6.9 L [place]ck[place] % (Auto) Absolute Lymphs (auto) Seg Neutrophils % 88.6 H ABG pH Sodium Carbon Dioxide 31 H BUN Creatinine Est GFR ( Amer) Est GFR (MDRD) Non-Af 55 L Glucose 195 H POC Glucose 185 H Hemoglobin A1c % Total Bilirubin Direct Bilirubin AST NT-Pro-B Natriuret Pep Total Protein Albumin 3.2 L Urine Protein Urine Blood Urine Urobilinogen Ur Leukocyte Esterase 06/11/19 11:38 WBC MCHC RDW Plt Count Lymph % (Auto) [place]ck[place] % (Auto) Absolute Lymphs (auto) Seg Neutrophils % ABG pH Sodium Carbon Dioxide BUN Creatinine Est GFR ( Amer) Est GFR (MDRD) Non-Af Glucose POC Glucose 230 H Hemoglobin A1c % Total Bilirubin Direct Bilirubin AST NT-Pro-B Natriuret Pep Total Protein Albumin Urine Protein Urine Blood Urine Urobilinogen Ur Leukocyte Esterase Chest X-Ray 06/07/19 00:00 IMPRESSION: The heart remains enlarged with central vascular congestion and probable interstitial edema. Chest X-Ray 06/08/19 11:30 IMPRESSION: CARDIAC ENLARGEMENT. VASCULAR CONGESTION. NO SIGNIFICANT CHANGE. Chest CT 06/09/19 00:00 IMPRESSION: Marked cardiac enlargement Patchy areas of atelectasis bilaterally with some subtle areas of groundglass density which could reflect developing infiltrate in a predominantly central distribution. Prominent pulmonary arteries suggesting pulmonary hypertension Chest X-Ray 06/09/19 00:00 IMPRESSION: Cardiomegaly without a superimposed acute cardiopulmonary process. IMPRESSION/RECOMMENDATION: 1. Acute on chronic systolic right ventricular failure. Also there is some evidence of left ventricular failure most likely LV diastolic failure. This is improving on current therapy. Continue the patient on IV dobutamine and also on the patient's Cardizem infusion. The patient Cardizem drip was increased to 5 mg/h. The patient's dobutamine is at 5 mcg/kg/min. 2. Severe pulmonary hypertension: Most likely secondary to the patient's asthma, COPD, sleep apnea not treated with CPAP, and history of pulmonary embolism. For some reason the patient was not started on a Cardizem drip. Hence we will start the patient on Cardizem 2.5 mg/h and increase the patient's dobutamine to 5 mcg/kg/min. Since patient's blood pressure still high will increase dose of Cozaar. 3. Acute exacerbation of COPD.: Continue the patient on steroids and antibiotics later would recommend starting the patient on bronchodilators. 4. Acute asthmatic attack. With infective bronchitis. Patient started on antibiotics. 5. Atrial flutter : Will HEAD: Is atraumatic normocephalic. EYES: Pupils are equal round regular reactive to light accommodation. Extraocular movements are normal. There is no conjunctival pallor. There is no scleral icterus. Ears: Tympanic membranes are intact external auditory canals are clear. NOSE: There is no deviated nasal septum. There is no inflammation of the nasal mucous membrane. MOUTH: Mucous membranes of mouth are moist. Tongue is moist. There is no ulcers there is no bleeding from the gums. THROAT: There is no redness of the oropharynx. There is no exudates. SKIN: There is no skin rashes. There is no skin lesions. There is no petechia or ecchymosis. NECK: Is supple there is mild to moderate JVD present. Carotids are equal there is no bruit. There is no lymphadenopathy. There is no goiter. There is no accessory muscles of respiration use. Trachea central. LUNGS: There is bilateral wheezing and rhonchi present. This is much less than yesterday's exam. There is no wet rales of pulmonary edema. On palpation there is hyperresonance. On palpation there is no chest wall tenderness. HEART: S1-S2 is heard. S1 is of variable intensity. There is no S3 gallop. There is no S4 gallop. There is systolic murmur left sternal border and the apex there is no rub. ABDOMEN: Is soft. Nontender. There is no hepatosplenomegaly. Abdomen is obese. Bowel sounds are well heard. EXTREMITIES: Femorals are deep. Femorals are diminished. There is no femoral bruits. Leg pulses diminished. There is trace pedal edema bilaterally. There is no DVT or cellulitis. There is no cyanosis or clubbing there is no calf tenderness. TOOTH INSPECTOR: The patient is conscious anxious awake alert oriented x3 with no focal deficits. PSYCHIATRIC: The patient appears to be slightly anxious. But his judgment and insight seem to be intact. The patient's 24-hour intake is 1261 mL. The patient 24-hour total output is 875 mL. IMPRESSION/RECOMMENDATION: 1. Acute on chronic systolic right ventricular failure. Also there is some evidence of left ventricular failure most likely LV diastolic failure. This is improving on current therapy. Continue the patient on IV dobutamine and also on the patient's Cardizem infusion. 2. Severe pulmonary hypertension: Most likely secondary to the patient's asthma, COPD, sleep apnea not treated with CPAP, and history of pulmonary embolism. For some reason the patient was not started on a Cardizem drip. Hence we will start the patient on Cardizem 2.5 mg/h and increase the patient's dobutamine to 5 mcg/kg/min. Hence patient's blood pressure still high will add cozaar. 3. Acute exacerbation of COPD.: Continue the patient on steroids and antibiotics later would recommend starting the patient on bronchodilators. 4. Acute asthmatic attack. With infective bronchitis. Patient started on antibiotics. 5. Atrial flutter : Will increase the Cardizem drip/infusion to 5 mg/h. Continue Eliquis 6. Diabetes mellitus: [id number] type II. Continue her oral antidiabetic medication and Accu-Cheks as per protocol. 7. Coronary artery disease by history: No anginal symptoms and no evidence of acute coronary event. The patient's troponin I is negative. 8. History of hypertension: Patient not on antihypertensives at home. 9. History of pulmonary embolism: Continue the patient on Eliquis. 10. CKD stage III: Avoid nephrotoxic drugs. GFR slightly improved. 11. History of sleep apnea: Patient encouraged to better CPAP at night 12. Anxiety: Continue her anti-anxiolytic medication. 6. Diabetes mellitus: [id number] type II. Continue her oral antidiabetic medication and Accu-Cheks as per protocol. 7. Coronary artery disease by history: No anginal symptoms and no evidence of acute coronary event. The patient's troponin I is negative. 8. History of hypertension: Patient not on antihypertensives at home. 9. History of pulmonary embolism: Continue the patient on Eliquis. 10. CKD stage III: Avoid nephrotoxic drugs. GFR slightly improved. 11. History of sleep apnea: Patient did not tolerate the CPAP. She may benefit from nasal CPAP 12. Anxiety: Continue her anti-anxiolytic medication. Medications reviewed. Medication adjusted. Medical decision making is high complexity Changes made in the medication. Patient making gradual and slow improvement. Discussed medical regimen and management plan Dr. Amaya. 40 minutes spent as patient more than 50% of time spent in direct patient care. Will follow.
[2019-06-11] MEDS: SITAGLIPTIN PHOSPHATE 50 MG TABLET PO SCH (10:06)
[2019-06-11] MEDS: APIXABAN 5 MG TABLET PO SCH ×2 (10:06→17:23)
--- NOTE | 2019-06-11 14:01 | PDOC PROGRESS REPORT ---
Subjective Progress Note for:: 06/11/19 Subjective:: Patient seen by the bedside, presently on intravenous Solu-Medrol, Cardizem, IV antibiotic Reason For Visit: CHF TACHYCARDIA Physical Exam Vital Signs: Temp Pulse Resp BP Pulse Ox 98.3 F 87 16 153/106 H 100 06/11/19 11:37 06/11/19 12:22 06/11/19 11:37 06/11/19 12:23 06/11/19 11:37 Intake & Output 06/10/19 06/11/19 06/12/19 06:59 06:59 06:59 Intake Total 1500 1261 30 Output Total 1750 875 Balance -250 386 30 Weight 104.8 kg 104.4 kg General appearance: PRESENT: no acute distress Eye exam: PRESENT: PERRLA Respiratory exam: PRESENT: rhonchi, wheezes Cardiovascular exam: PRESENT: +S1, +S2 GI/Abdominal exam: PRESENT: soft Neurological exam: PRESENT: alert Results Laboratory Results: 06/11/19 06:45 06/11/19 06:45 06/11/19 06/11/19 06:45 06:45 WBC 8.0 D RBC 4.60 Hgb 12.6 Hct 39.6 MCV 86 MCH 27.3 MCHC 31.8 L RDW 14.5 H Plt Count 133 L Seg Neutrophils % 88.6 H Sodium 138.2 Potassium 4.7 Chloride 102 Carbon Dioxide 31 H Anion Gap 5 BUN 19 Creatinine 0.97 Est GFR ( Amer) > 60 Glucose 195 H Calcium 8.6 Total Bilirubin 0.6 AST 21 Alkaline Phosphatase 73 Total Protein 6.3 Albumin 3.2 L 06/09/19 21:35 Clean Catch Midstream Urine Culture - Final Lactobacillus (Vaginal Evelyn) 06/07/19 06/08/19 06/08/19 16:43 20:59 20:59 Creatine Kinase 51 CK-MB (CK-2) 1.49 Troponin I 0.015 NT-Pro-B Natriuret Pep 6200 H 06/09/19 06/09/19 06/09/19 05:21 05:21 13:45 Creatine Kinase 37 35 CK-MB (CK-2) 1.17 Troponin I 0.012 NT-Pro-B Natriuret Pep 06/09/19 13:45 Creatine Kinase CK-MB (CK-2) 1.05 Troponin I 0.012 NT-Pro-B Natriuret Pep Impressions: Chest CT 06/09/19 00:00 IMPRESSION: Marked cardiac enlargement Patchy areas of atelectasis bilaterally with some subtle areas of groundglass density which could reflect developing infiltrate in a predominantly central distribution. Prominent pulmonary arteries suggesting pulmonary hypertension Chest X-Ray 06/09/19 00:00 IMPRESSION: Cardiomegaly without a superimposed acute cardiopulmonary process. Assessment & Plan - Diagnosis (1) Acute diastolic heart failure Is this a current diagnosis for this admission?: Yes (2) Pneumonia Qualifiers: Pneumonia type: due to unspecified organism Laterality: bilateral Lung location: unspecified part of lung Qualified Code(s): J18.9 - Pneumonia, unspecified organism Is this a current diagnosis for this admission?: Yes (3) Personal history of pulmonary embolism Is this a current diagnosis for this admission?: Yes (4) Severe pulmonary arterial systolic hypertension Is this a current diagnosis for this admission?: Yes (5) Paroxysmal atrial fibrillation with rapid ventricular response Is this a current diagnosis for this admission?: Yes Plan: Continue IV Cardizem (6) Acute exacerbation of chronic obstructive pulmonary disease Is this a current diagnosis for this admission?: Yes Plan: Patient presently on Solu-Medrol start bronchodilators, obtain PFT - Time Time Spent with patient: 35 or more minutes
[2019-06-11] MEDS ORDERED: IPRATROPIUM BROMIDE 0.02% NEB 0.5 MG/2.5 ML AMPUL NEB PRN (14:02)
[2019-06-11] MEDS ORDERED: LEVALBUTEROL HCL NEB 1.25 MG/3 ML AMPUL NEB PRN (14:06)
[2019-06-11] MEDS: DOBUTAMINE HCL/D5W 500 MG/250 ML RTUINJ IV PRN (15:34)
[2019-06-11] MEDS: LEVOFLOXACIN 750 MG/D5W RTU 750 MG/150 ML RTUPB IV SCH (17:23)
[2019-06-11] MEDS: CEFTRIAXONE 1 GM/D5W RTU 1 GM/50 ML RTUPB IV SCH (21:39)
[2019-06-11] MEDS ORDERED: LOSARTAN POTASSIUM 25 MG TABLET PO SCH (22:00)
[2019-06-12] MEDS: DILTIAZEM HCL/D5W 125 MG/125 ML RTUINJ IV PRN
[2019-06-12] MEDS: METHYLPREDNISOLONE INJ 125 MG/2 ML SDV IV SCH ×3 (01:52→17:18)
[2019-06-12] MEDS: DOBUTAMINE HCL/D5W 500 MG/250 ML RTUINJ IV PRN (06:19)
[2019-06-12 06:55] LABS: ABSOLUTE LYMPHOCYTES (AUTO) 0.5 10^3/uL (0.5-4.7); ABSOLUTE MONOCYTES (AUTO) 0.2 10^3/uL (0.1-1.4); ABSOLUTE NEUT (AUTO) 6.9 10^3/uL (1.7-8.2); BASOPHILS % (AUTO) 0.2 % (0-2); HEMATOCRIT 40.9 % (36.0-47.0); HEMOGLOBIN 13.1 g/dL (12.0-15.5); LYMPHOCYTES % (AUTO) 6.6 % (13-45); MEAN CORPUSCULAR HEMOGLOBIN 27.3 pg (27.0-33.4); MEAN CORPUSCULAR VOLUME 85 fl (80-97); MONOCYTES % (AUTO) 3.1 % (3-13); PLATELET COUNT 136 10^3/uL (150-450); RED CELL DISTRIBUTION WIDTH 14.5 % (11.5-14.0); SEGMENTED NEUTROPHILS % (AUTO) 90.1 % (42-78); TOTAL CELLS COUNTED % (AUTO) 100 %; WHITE BLOOD COUNT 7.6 10^3/uL (4.0-10.5)
[2019-06-12 07:20] LABS: ALBUMIN 3.5 g/dL (3.5-5.0); ALKALINE PHOSPHATASE 75 U/L (38-126); ANION GAP 7 (5-19); ASPARTATE AMINO TRANSFERASE 20 U/L (14-36); BILIRUBIN,DIRECT 0.2 mg/dL (0.0-0.4); BILIRUBIN,TOTAL 0.7 mg/dL (0.2-1.3); BLOOD UREA NITROGEN 19 mg/dL (7-20); CALCIUM 10.3 mg/dL (8.4-10.2); CARBON DIOXIDE 31 mmol/L (22-30); CHLORIDE 100 mmol/L (98-107); GLUCOSE 202 mg/dL (75-110); POTASSIUM 4.8 mmol/L (3.6-5.0); TOTAL PROTEIN 6.7 g/dL (6.3-8.2)
[2019-06-12] MEDS: INSULIN LISPRO 100 UNIT/ML 3 ML VIAL SUBCUT SCH ×4 (07:56→21:16)
[2019-06-12] MEDS: SITAGLIPTIN PHOSPHATE 50 MG TABLET PO SCH (09:59)
[2019-06-12] MEDS: LOSARTAN POTASSIUM 25 MG TABLET PO SCH ×2 (10:00→21:16)
[2019-06-12] MEDS: APIXABAN 5 MG TABLET PO SCH ×2 (10:00→17:19)
--- NOTE | 2019-06-12 20:05 | PDOC PROGRESS REPORT ---
Subjective Progress Note for:: 06/12/19 Subjective:: Patient seen by the bedside, she had full PFT done today, she continues to improve slowly, blood pressure is high Reason For Visit: CHF TACHYCARDIA Physical Exam Vital Signs: Temp Pulse Resp BP Pulse Ox 98.6 F 82 20 175/90 H 100 06/12/19 16:16 06/12/19 18:49 06/12/19 13:20 06/12/19 18:49 06/12/19 16:16 Intake & Output 06/11/19 06/12/19 06/13/19 06:59 06:59 06:59 Intake Total 1261 2497 1459 Output Total 875 1550 Balance 744 236 6331 Weight 104.4 kg 106.5 kg General appearance: PRESENT: no acute distress Eye exam: PRESENT: PERRLA Respiratory exam: PRESENT: crackles, rhonchi Cardiovascular exam: PRESENT: +S1, +S2 GI/Abdominal exam: PRESENT: soft Neurological exam: PRESENT: alert Results Laboratory Results: 06/12/19 06:27 06/12/19 06:27 06/12/19 06/12/19 06:27 06:27 WBC 7.6 RBC 4.80 Hgb 13.1 Hct 40.9 MCV 85 MCH 27.3 MCHC 32.0 RDW 14.5 H Plt Count 136 L Seg Neutrophils % 90.1 H Sodium 138.4 Potassium 4.8 Chloride 100 Carbon Dioxide 31 H Anion Gap 7 BUN 19 Creatinine 0.99 Est GFR ( Amer) > 60 Glucose 202 H Calcium 10.3 H Total Bilirubin 0.7 AST 20 Alkaline Phosphatase 75 Total Protein 6.7 Albumin 3.5 06/07/19 06/08/19 06/08/19 16:43 20:59 20:59 Creatine Kinase 51 CK-MB (CK-2) 1.49 Troponin I 0.015 NT-Pro-B Natriuret Pep 6200 H 06/09/19 06/09/19 06/09/19 05:21 05:21 13:45 Creatine Kinase 37 35 CK-MB (CK-2) 1.17 Troponin I 0.012 NT-Pro-B Natriuret Pep 06/09/19 13:45 Creatine Kinase CK-MB (CK-2) 1.05 Troponin I 0.012 NT-Pro-B Natriuret Pep Impressions: Chest CT 06/09/19 00:00 IMPRESSION: Marked cardiac enlargement Patchy areas of atelectasis bilaterally with some subtle areas of groundglass density which could reflect developing infiltrate in a predominantly central distribution. Prominent pulmonary arteries suggesting pulmonary hypertension Chest X-Ray 06/09/19 00:00 IMPRESSION: Cardiomegaly without a superimposed acute cardiopulmonary process. Assessment & Plan - Diagnosis (1) Acute diastolic heart failure Is this a current diagnosis for this admission?: Yes (2) Pneumonia Qualifiers: Pneumonia type: due to unspecified organism Laterality: bilateral Lung location: unspecified part of lung Qualified Code(s): J18.9 - Pneumonia, unspecified organism Is this a current diagnosis for this admission?: Yes (3) Personal history of pulmonary embolism Is this a current diagnosis for this admission?: Yes (4) Severe pulmonary arterial systolic hypertension Is this a current diagnosis for this admission?: Yes (5) Paroxysmal atrial fibrillation with rapid ventricular response Is this a current diagnosis for this admission?: Yes (6) Acute exacerbation of chronic obstructive pulmonary disease Is this a current diagnosis for this admission?: Yes - Time Time Spent with patient: 25-34 minutes - Plan Summary Plan Summary: Patient will continue present line of management
[2019-06-12] MEDS: CEFTRIAXONE 1 GM/D5W RTU 1 GM/50 ML RTUPB IV SCH (21:17)
--- NOTE | 2019-06-12 21:29 | Progress Note ---
Provider Note Provider Note: CARDIOLOGY PROGRESS NOTE by Dr. poe S1 on 06/12/2019. OBJECTIVE: The patient shortness of breath is much improved. She still has some degree of shortness of breath. She still coughing up some sputum. She still has a little bit of wheezing but very much less. She denies any chest pain discomfort. Earlier blood pressure had gone down to 95 systolic and hence her Cardizem was decreased to 2.5 mg/h. Also the patient's Cozaar was decreased to 25 mg. Every 12 hours. Also the dobutamine drip was decreased to 2.5 mcg/kg/h. With this the blood pressure went again back up to 190 systolic. Hence dobutamine has been discontinued. The patient's Cardizem was increased to 5 mg/h will observe and see if Cozaar needs to be increased. There is no bleeding on Eliquis. There is no TIA CVA symptoms. She remains in atrial fibrillation with fairly well-controlled ventricular response. There is no mental arrhythmia seen. PHYSICAL EXAMINATION: The patient is moderately obese. At present in no acute distress. Selected Entries 06/12/19 06/12/19 06/12/19 07:22 08:00 09:15 Temperature 98.5 F Temperature Oral Source Pulse Rate 79 97 79 Respiratory 16 Rate Blood Pressure 188/78 H 107/97 H 144/89 H Blood Pressure 114 107 Mean BP Location Left Arm BP Position Supine O2 Sat by Pulse 97 96 Oximetry Oxygen Delivery Nasal Cannula Method ( includes room air) Fraction of 28 Inspired Oxygen (FIO2) Oxygen Flow 2.00 2 Rate Oxygen Delivery Nasal Cannula Method HEAD: Is atraumatic normocephalic. EYES: Pupils are equal round regular reactive to light accommodation. Extraocular movements are normal. There is no conjunctival pallor. There is no scleral icterus. Ears: Tympanic membranes are intact external auditory canals are clear. NOSE: There is no deviated nasal septum. There is no inflammation of the nasal mucous membrane. MOUTH: Mucous membranes of mouth are moist. Tongue is moist. There is no ulcers there is no bleeding from the gums. THROAT: There is no redness of the oropharynx. There is no exudates. SKIN: There is no skin rashes. There is no skin lesions. There is no petechia or ecchymosis. NECK: Is supple there is mild JVD present. Carotids are equal there is no bruit. There is no lymphadenopathy. There is no goiter. There is no accessory muscles of respiration use. Trachea central. LUNGS: There is bilateral wheezing and rhonchi present the wheezing and the rhonchi are much much less.. This is much less than in yesterday's exam. There is no wet rales of pulmonary edema. On palpation there is hyperresonance. On palpation there is no chest wall tenderness. HEART: S1-S2 is heard. S1 is of variable intensity. There is no S3 gallop. There is no S4 gallop. There is systolic murmur left sternal border and the apex there is no rub. ABDOMEN: Is s oft. Nontender. There is no hepatosplenomegaly. Abdomen is obese. Bowel sounds are well heard. EXTREMITIES: Femorals are deep. Femorals are diminished. There is no femoral bruits. Leg pulses diminished. There is trace pedal edema bilaterally. There is no DVT or cellulitis. There is no cyanosis or clubbing there is no calf tenderness. 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 PSYCHIATRIC: The patient appears to be slightly anxious. But his judgment and insight seem to be intact. 24-hour total intake is 2497 mL. Output is 1550 mL. Labs- All tests 24 hr 06/12/19 06/12/19 06/12/19 06:27 06:27 07:22 WBC 7.6 RBC 4.80 Hgb 13.1 Hct 40.9 MCV 85 MCH 27.3 MCHC 32.0 RDW 14.5 H Plt Count 136 L Lymph % (Auto) 6.6 L [place] % (Auto) 3.1 Eos % (Auto) 0.0 Baso % (Auto) 0.2 Absolute Neuts (auto) 6.9 Absolute Lymphs (auto) 0.5 Absolute Monos (auto) 0.2 Absolute Eos (auto) 0.0 Absolute Basos (auto) 0.0 Seg Neutrophils % 90.1 H Sodium 138.4 Potassium 4.8 Chloride 100 Carbon Dioxide 31 H Anion Gap 7 BUN 19 Creatinine 0.99 Est GFR ( Amer) > 60 Est GFR (MDRD) Non-Af 54 L Glucose 202 H POC Glucose 174 H Calcium 10.3 H Total Bilirubin 0.7 Direct Bilirubin 0.2 Neonat Total Bilirubin Not Reportable Neonat Direct Bilirubin Not Reportable Neonat Indirect Bili Not Reportable AST 20 ALT 26 Alkaline Phosphatase 75 Total Protein 6.7 Albumin 3.5 06/12/19 06/12/19 06/12/19 11:08 16:17 21:09 WBC RBC Hgb Hct MCV MCH MCHC RDW Plt Count Lymph % (Auto) [place] % (Auto) Eos % (Auto) Baso % (Auto) Absolute Neuts (auto) Absolute Lymphs (auto) Absolute Monos (auto) Absolute Eos (auto) Absolute Basos (auto) Seg Neutrophils % Sodium Potassium Chloride Carbon Dioxide Anion Gap BUN Creatinine Est GFR ( Amer) Est GFR (MDRD) Non-Af Glucose POC Glucose 241 H 198 H 307 H Calcium Total Bilirubin Direct Bilirubin Neonat Total Bilirubin Neonat Direct Bilirubin Neonat Indirect Bili AST ALT Alkaline Phosphatase Total Protein Albumin Chest X-Ray 06/07/19 00:00 IMPRESSION: The heart remains enlarged with central vascular congestion and probable interstitial edema. Chest X-Ray 06/08/19 11:30 IMPRESSION: CARDIAC ENLARGEMENT. VASCULAR CONGESTION. NO SIGNIFICANT CHANGE. Chest CT 06/09/19 00:00 IMPRESSION: Marked cardiac enlargement Patchy areas of atelectasis bilaterally with some subtle areas of groundglass density which could reflect developing infiltrate in a predominantly central distribution. Prominent pulmonary arteries suggesting pulmonary hypertension Chest X-Ray 06/09/19 00:00 IMPRESSION: Cardiomegaly without a superimposed acute cardiopulmonary process. IMPRESSION/RECOMMENDATION: 1. Acute on chronic systolic right ventricular failure. Also there is some evidence of left ventricular failure most likely LV diastolic failure. This is improving on current therapy. Continue the patient on IV dobutamine and also on the patient's Cardizem infusion. 2. Severe pulmonary hypertension: Most likely secondary to the patient's asthma, COPD, sleep apnea not treated with C CPAP. The patient is intolerant to CPAP at night. Hence would recommend a nasal CPAP. The patient's dobutamine has been discontinued. The patient's Cardizem is at 5 mg/h. We will transition this to oral Cardizem. We will continue Eliquis. Continue Cozaar now at her lower dose of 25 mg p.o. every 12 hours and we will see if this needs to be increased. 3. Acute exacerbation of COPD.: Continue the patient on steroids and antibiotics later would recommend starting the patient on bronchodilators. 4. Acute asthmatic attack. With infective bronchitis. Patient started on antibiotics. 5. Atrial flutter : Will increase the Cardizem drip/infusion to 5 mg/h. Continue Eliquis 6. Diabetes mellitus: Usg-oxchveq-bfigghrsk type II. Continue her oral antidiabetic medication and Accu-Cheks as per protocol. 7. Coronary artery disease by history: No anginal symptoms and no evidence of acute coronary event. The patient's troponin I is negative. 8. History of hypertension: Patient not on antihypertensives at home. 9. History of pulmonary embolism: Continue the patient on Eliquis. 10. CKD stage III: Avoid nephrotoxic drugs. GFR slightly improved. 11. History of sleep apnea: Patient encouraged to better CPAP at night 12. Anxiety: Continue her anti-anxiolytic medication. 6. Diabetes mellitus: Zey-rejofai-eoylvzxcl type II. Continue her oral anti diabetic medication and Accu-Cheks as per protocol. 7. Coronary artery disease by history: No anginal symptoms and no evidence of acute coronary event. The patient's troponin I is negative. 8. History of hypertension: Patient not on antihypertensives at home. 9. History of pulmonary embolism: Continue the patient on Eliquis. 10. CKD stage III: Avoid nephrotoxic drugs. The GFR is improved. 11. History of sleep apnea: Patient did not tolerate the CPAP. She may benefit from nasal CPAP 12. Anxiety: Continue her anti-anxiolytic medication. Medications reviewed. Medication adjusted. Medical decision making is high complexity Changes made in the medication. Patient making gradual and slow improvement. Discussed medical regimen and management plan Dr. Amaya. 40 minutes spent as patient more than 50% of time spent in direct patient care. Will follow.
[2019-06-13] MEDS: METHYLPREDNISOLONE INJ 125 MG/2 ML SDV IV SCH ×5 (02:33→22:46)
[2019-06-13] MEDS: DILTIAZEM HCL/D5W 125 MG/125 ML RTUINJ IV PRN (04:54)
[2019-06-13 06:47] LABS: BASOPHILS % (AUTO) 0.2 % (0-2); RED CELL DISTRIBUTION WIDTH 14.5 % (11.5-14.0); TOTAL CELLS COUNTED % (AUTO) 100 %
[2019-06-13 06:51] LABS: ABSOLUTE LYMPHOCYTES (AUTO) 0.4 10^3/uL (0.5-4.7); ABSOLUTE MONOCYTES (AUTO) 0.2 10^3/uL (0.1-1.4); ABSOLUTE NEUT (AUTO) 6.1 10^3/uL (1.7-8.2); HEMATOCRIT 41.7 % (36.0-47.0); HEMOGLOBIN 13.6 g/dL (12.0-15.5); LYMPHOCYTES % (AUTO) 6.5 % (13-45); MEAN CORPUSCULAR HEMOGLOBIN 27.4 pg (27.0-33.4); MEAN CORPUSCULAR HGB CONC 32.5 g/dL (32.0-36.0); MEAN CORPUSCULAR VOLUME 84 fl (80-97); MONOCYTES % (AUTO) 3.5 % (3-13); PLATELET COUNT 135 10^3/uL (150-450); RED BLOOD COUNT 4.95 10^6/uL (3.72-5.28); SEGMENTED NEUTROPHILS % (AUTO) 89.8 % (42-78); WHITE BLOOD COUNT 6.7 10^3/uL (4.0-10.5)
[2019-06-13 07:12] LABS: ALBUMIN 3.5 g/dL (3.5-5.0); ALKALINE PHOSPHATASE 67 U/L (38-126); ANION GAP 7 (5-19); ASPARTATE AMINO TRANSFERASE 18 U/L (14-36); BILIRUBIN,DIRECT 0.2 mg/dL (0.0-0.4); BILIRUBIN,TOTAL 0.7 mg/dL (0.2-1.3); BLOOD UREA NITROGEN 25 mg/dL (7-20); CALCIUM 8.8 mg/dL (8.4-10.2); CARBON DIOXIDE 33 mmol/L (22-30); CHLORIDE 98 mmol/L (98-107); GLUCOSE 202 mg/dL (75-110); POTASSIUM 4.7 mmol/L (3.6-5.0); TOTAL PROTEIN 6.4 g/dL (6.3-8.2)
[2019-06-13] MEDS: INSULIN LISPRO 100 UNIT/ML 3 ML VIAL SUBCUT SCH ×4 (08:02→22:28)
[2019-06-13] MEDS: LOSARTAN POTASSIUM 25 MG TABLET PO SCH ×2 (09:31→21:27)
[2019-06-13] MEDS: SITAGLIPTIN PHOSPHATE 50 MG TABLET PO SCH (09:31)
[2019-06-13] MEDS: APIXABAN 5 MG TABLET PO SCH ×2 (09:31→17:38)
--- NOTE | 2019-06-13 15:58 | Progress Note ---
Provider Note Provider Note: CARDIOLOGY PROGRESS NOTE by Dr. Paulina Dexter on 06/13/2019. SUBJECTIVE: The patient states she is feels much better and is made some more improvement. She still has some mild shortness of breath especially with the ask activity. She has no PND orthopnea. She remains in atrial fibrillation with controlled ventricular response. There is no bleeding on Eliquis. There is no TIA CVA symptoms. Her blood pressure is slightly high. We will stop the patient's Cardizem infusion and start the patient on oral Cardizem. We will continue the patient is Cozaar for now at the current dose. Later depending on the patient's blood pressure will increase as tolerated. PHYSICAL EXAMINATION: The patient is moderately obese. In no acute distress. Selected Entries 06/13/19 06/13/19 06/13/19 07:29 07:31 08:00 Temperature 98.3 F Pulse Rate 75 Blood Pressure 169/99 H Blood Pressure 122 Mean O2 Sat by Pulse 99 Oximetry Oxygen Delivery Nasal Cannula Method ( includes room air) Oxygen Flow 3 Rate HEAD: Is atraumatic normocephalic. EYES: Pupils are equal round regular reactive to light accommodation. Extraocular movements are normal. There is no conjunctival pallor. There is no scleral icterus. Ears: Tympanic membranes are intact external auditory canals are clear. NOSE: There is no deviated nasal septum. There is no inflammation of the nasal mucous membrane. MOUTH: Mucous membranes of mouth are moist. Tongue is moist. There is no ulcers there is no bleeding from the gums. THROAT: There is no redness of the oropharynx. There is no exudates. SKIN: There is no skin rashes. There is no skin lesions. There is no petechia or ecchymosis. NECK: Is supple there is mild JVD present. Carotids are equal there is no bruit. There is no lymphadenopathy. There is no goiter. There is no accessory muscles of respiration use. Trachea central. LUNGS: There very few faint end expiratory wheezing. There is no rhonchi. There is no crackles. There is no wet rales of pulmonary edema. On palpation there is hyperresonance. On palpation there is no chest wall tenderness. HEART: S1-S2 is heard. S1 is of variable intensity. There is no S3 gallop. There is no S4 gallop. There is systolic murmur left sternal border and the apex there is no rub. ABDOMEN: Is soft. Nontender. There is no hepatosplenomegaly. Abdomen is obese. Bowel sounds are well heard. EXTREMITIES: Femorals are deep. Femorals are diminished. There is no femoral bruits. Leg pulses diminished. There is trace pedal edema bilaterally. There is no DVT or cellulitis. There is no cyanosis or clubbing there is no calf tenderness. 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 PSYCHIATRIC: The patient appears to be slightly anxious. But his judgment and insight seem to be intact. 24-hour total intake is 1831mL. Output is 1150 mL. Labs- All tests 24 hr 06/12/19 06/12/19 06/13/19 16:17 21:09 06:02 WBC 6.7 RBC 4.95 Hgb 13.6 Hct 41.7 MCV 84 MCH 27.4 MCHC 32.5 RDW 14.5 H Plt Count 135 L Lymph % (Auto) 6.5 L [place] % (Auto) 3.5 Eos % (Auto) 0.0 Baso % (Auto) 0.2 Absolute Neuts (auto) 6.1 Absolute Lymphs (auto) 0.4 L Absolute Monos (auto) 0.2 Absolute Eos (auto) 0.0 Absolute Basos (auto) 0.0 Seg Neutrophils % 89.8 H Sodium Potassium Chloride Carbon Dioxide Anion Gap BUN Creatinine Est GFR ( Amer) Est GFR (MDRD) Non-Af Glucose POC Glucose 198 H 307 H Calcium Total Bilirubin Direct Bilirubin Neonat Total Bilirubin Neonat Direct Bilirubin Neonat Indirect Bili AST ALT Alkaline Phosphatase Total Protein Albumin 06/13/19 06/13/19 06/13/19 06:02 07:32 11:10 WBC RBC Hgb Hct MCV MCH MCHC RDW Plt Count Lymph % (Auto) [place] % (Auto) Eos % (Auto) Baso % (Auto) Absolute Neuts (auto) Absolute Lymphs (auto) Absolute Monos (auto) Absolute Eos (auto) Absolute Basos (auto) Seg Neutrophils % Sodium 137.9 Potassium 4.7 Chloride 98 Carbon Dioxide 33 H Anion Gap 7 BUN 25 H Creatinine 0.96 Est GFR ( Amer) > 60 Est GFR (MDRD) Non-Af 56 L Glucose 202 H POC Glucose 166 H 235 H Calcium 8.8 Total Bilirubin 0.7 Direct Bilirubin 0.2 Neonat Total Bilirubin Not Reportable Neonat Direct Bilirubin Not Reportable Neonat Indirect Bili Not Reportable AST 18 ALT 23 Alkaline Phosphatase 67 Total Protein 6.4 Albumin 3.5 Chest X-Ray 06/07/19 00:00 IMPRESSION: The heart remains enlarged with central vascular congestion and probable interstitial edema. Chest X-Ray 06/08/19 11:30 IMPRESSION: CARDIAC ENLARGEMENT. VASCULAR CONGESTION. NO SIGNIFICANT CHANGE. Chest CT 06/09/19 00:00 IMPRESSION: Marked cardiac enlargement Patchy areas of atelectasis bilaterally with some subtle areas of groundglass density which could reflect developing infiltrate in a predominantly central distribution. Prominent pulmonary arteries suggesting pulmonary hypertension Chest X-Ray 06/09/19 00:00 IMPRESSION: Cardiomegaly without a superimposed acute cardiopulmonary process. IMPRESSION/RECOMMENDATION: 1. Acute on chronic systolic right ventricular failure. Also there is some evidence of left ventricular failure most likely LV diastolic failure. This is improving on current therapy. Continue the patient on IV dobutamine and also on the patient's Cardizem infusion. 2. Severe pulmonary hypertension: Most likely secondary to the patient's asthma, COPD, sleep apnea not treated with C CPAP. The patient is intolerant to CPAP at night. Hence would recommend a nasal CPAP. The patient's dobutamine has been discontinued. The patient's Cardizem infusion has been discontinued. We will start the patient on Cardizem CD 120 mg p.o. daily. Will continue Eliquis. Continue Cozaar now at her lower dose of 25 mg p.o. every 12 hours and we will see if this needs to be increased. 3. Acute exacerbation of COPD.: Continue the patient on steroids and antibiotics later would recommend starting the patient on bronchodilators. We will repeat a chest x-ray today. 4. Acute asthmatic attack. With infective bronchitis. Patient started on antibiotics. 5. Atrial flutter : Will increase the Cardizem drip/infusion to 5 mg/h. Continue Eliquis 6. Diabetes mellitus: Dud-fcofkat-orqfceoxq type II. Continue her oral antidiabetic medication and Accu-Cheks as per protocol. 7. Coronary artery disease by history: No anginal symptoms and no evidence of acute coronary event. The patient's troponin I is negative. 8. History of hypertension: Patient not on antihypertensives at home. 9. History of pulmonary embolism: Continue the patient on Eliquis. 10. CKD stage III: Avoid nephrotoxic drugs. GFR slightly improved. 11. History of sleep apnea: Patient encouraged to use CPAP at night 12. Anxiety: Continue her anti-anxiolytic medication. 6. Diabetes mellitus: Ahd-ynpjdaz-xjpntgsdj type II. Continue her oral antidiabetic medication and Accu-Cheks as per protocol. 7. History of hypertension: Patient not on antihypertensives at home. 9. History of pulmonary embolism: Continue the patient on Eliquis. 9. CKD stage III: Avoid nephrotoxic drugs. The GFR is improved. 10. History of sleep apnea: Patient did not tolerate the CPAP. She may benefit from nasal CPAP 12. Anxiety: Continue her anti-anxiolytic medication. Medications reviewed. Medication adjusted. Medical decision making is high complexity due to changes made in the medication. Patient making gradual and slow improvement. Discussed medical regimen and management plan Dr. Amaya. 40 minutes spent as patient more than 50% of time spent in direct patient care. Will follow.
[2019-06-13] MEDS: LEVOFLOXACIN 750 MG/D5W RTU 750 MG/150 ML RTUPB IV SCH (17:38)
[2019-06-13] MEDS ORDERED: DEXTROSE 50%-WATER 25 GM/50 ML DISP.SYRIN IV PRN ×2 (20:35)
[2019-06-13] MEDS ORDERED: DEXTROSE 40% GEL 15 GM TUBE PO PRN ×2 (20:35)
[2019-06-13] MEDS ORDERED: GLUCAGON,HUMAN RECOMB 1 MG INJ IM PRN (20:35)
--- NOTE | 2019-06-13 20:42 | PDOC PROGRESS REPORT ---
Subjective Progress Note for:: 06/13/19 Subjective:: Patient seen by the bedside, she is improving some, the PFT suggest obstructive lung disease Reason For Visit: CHF TACHYCARDIA Physical Exam Vital Signs: Temp Pulse Resp BP Pulse Ox 97.6 F 89 17 163/92 H 96 06/13/19 16:40 06/13/19 16:40 06/13/19 16:40 06/13/19 16:40 06/13/19 16:40 Intake & Output 06/12/19 06/13/19 06/14/19 06:59 06:59 06:59 Intake Total 2497 1831 1775 Output Total 1550 1150 200 Balance 192 444 2424 Weight 106.5 kg 105.8 kg General appearance: PRESENT: no acute distress Eye exam: PRESENT: PERRLA Respiratory exam: PRESENT: wheezes Cardiovascular exam: PRESENT: +S1, +S2 GI/Abdominal exam: PRESENT: soft Neurological exam: PRESENT: alert Results Laboratory Results: 06/13/19 06:02 06/13/19 06:02 06/13/19 06/13/19 06:02 06:02 WBC 6.7 RBC 4.95 Hgb 13.6 Hct 41.7 MCV 84 MCH 27.4 MCHC 32.5 RDW 14.5 H Plt Count 135 L Seg Neutrophils % 89.8 H Sodium 137.9 Potassium 4.7 Chloride 98 Carbon Dioxide 33 H Anion Gap 7 BUN 25 H Creatinine 0.96 Est GFR ( Amer) > 60 Glucose 202 H Calcium 8.8 Total Bilirubin 0.7 AST 18 Alkaline Phosphatase 67 Total Protein 6.4 Albumin 3.5 06/07/19 06/08/19 06/08/19 16:43 20:59 20:59 Creatine Kinase 51 CK-MB (CK-2) 1.49 Troponin I 0.015 NT-Pro-B Natriuret Pep 6200 H 06/09/19 06/09/19 06/09/19 05:21 05:21 13:45 Creatine Kinase 37 35 CK-MB (CK-2) 1.17 Troponin I 0.012 NT-Pro-B Natriuret Pep 06/09/19 13:45 Creatine Kinase CK-MB (CK-2) 1.05 Troponin I 0.012 NT-Pro-B Natriuret Pep Impressions: Chest CT 06/09/19 00:00 IMPRESSION: Marked cardiac enlargement Patchy areas of atelectasis bilaterally with some subtle areas of groundglass density which could reflect developing infiltrate in a predominantly central distribution. Prominent pulmonary arteries suggesting pulmonary hypertension Chest X-Ray 06/09/19 00:00 IMPRESSION: Cardiomegaly without a superimposed acute cardiopulmonary process. Assessment & Plan - Diagnosis (1) Acute diastolic heart failure Is this a current diagnosis for this admission?: Yes (2) Pneumonia Qualifiers: Pneumonia type: due to unspecified organism Laterality: bilateral Lung location: unspecified part of lung Qualified Code(s): J18.9 - Pneumonia, unspecified organism Is this a current diagnosis for this admission?: Yes (3) Personal history of pulmonary embolism Is this a current diagnosis for this admission?: Yes (4) Severe pulmonary arterial systolic hypertension Is this a current diagnosis for this admission?: Yes (5) Paroxysmal atrial fibrillation with rapid ventricular response Is this a current diagnosis for this admission?: Yes (6) Acute exacerbation of chronic obstructive pulmonary disease Is this a current diagnosis for this admission?: Yes Plan: Reduce Solu-Medrol dose continue other treatment - Time Time Spent with patient: 25-34 minutes Level of Care: IMCU
[2019-06-13] MEDS: CEFTRIAXONE 1 GM/D5W RTU 1 GM/50 ML RTUPB IV SCH (21:24)
[2019-06-13] MEDS ORDERED: LOSARTAN POTASSIUM 25 MG TABLET PO ONE (22:00)
[2019-06-14] MEDS: METHYLPREDNISOLONE INJ 125 MG/2 ML SDV IV SCH ×3 (01:49→17:12)
[2019-06-14 06:40] LABS: ABSOLUTE LYMPHOCYTES (AUTO) 0.5 10^3/uL (0.5-4.7); ABSOLUTE MONOCYTES (AUTO) 0.3 10^3/uL (0.1-1.4); ABSOLUTE NEUT (AUTO) 7.4 10^3/uL (1.7-8.2); BASOPHILS % (AUTO) 0.2 % (0-2); HEMATOCRIT 41.3 % (36.0-47.0); HEMOGLOBIN 13.4 g/dL (12.0-15.5); LYMPHOCYTES % (AUTO) 5.5 % (13-45); MEAN CORPUSCULAR HEMOGLOBIN 27.4 pg (27.0-33.4); MEAN CORPUSCULAR HGB CONC 32.5 g/dL (32.0-36.0); MEAN CORPUSCULAR VOLUME 84 fl (80-97); MONOCYTES % (AUTO) 3.9 % (3-13); PLATELET COUNT 132 10^3/uL (150-450); RED BLOOD COUNT 4.89 10^6/uL (3.72-5.28); RED CELL DISTRIBUTION WIDTH 14.8 % (11.5-14.0); SEGMENTED NEUTROPHILS % (AUTO) 90.4 % (42-78); TOTAL CELLS COUNTED % (AUTO) 100 %; WHITE BLOOD COUNT 8.2 10^3/uL (4.0-10.5)
[2019-06-14 06:45] LABS: ALBUMIN 3.2 g/dL (3.5-5.0); ALKALINE PHOSPHATASE 57 U/L (38-126); ANION GAP 8 (5-19); ASPARTATE AMINO TRANSFERASE 23 U/L (14-36); BILIRUBIN,DIRECT 0.4 mg/dL (0.0-0.4); BILIRUBIN,TOTAL 0.6 mg/dL (0.2-1.3); BLOOD UREA NITROGEN 35 mg/dL (7-20); CALCIUM 8.3 mg/dL (8.4-10.2); CARBON DIOXIDE 31 mmol/L (22-30); CHLORIDE 97 mmol/L (98-107); GLUCOSE 215 mg/dL (75-110); POTASSIUM 4.8 mmol/L (3.6-5.0); TOTAL PROTEIN 6.2 g/dL (6.3-8.2)
[2019-06-14] MEDS: INSULIN LISPRO 100 UNIT/ML 3 ML VIAL SUBCUT SCH ×4 (07:40→21:10)
[2019-06-14] MEDS ORDERED: CLONIDINE HCL 0.2 MG TABLET ONE (07:48)
--- NOTE | 2019-06-14 08:27 | RADIOLOGY REPORT (SQ) ---
EXAM DESCRIPTION: CHEST SINGLE VIEW COMPLETED DATE/TIME: 06/14/2019 8:13 am REASON FOR STUDY: SOB COMPARISON: 06/09/2019 EXAM PARAMETERS: NUMBER OF VIEWS: One view. TECHNIQUE: Single frontal radiographic view of the chest acquired. RADIATION DOSE: NA LIMITATIONS: None. FINDINGS: LUNGS AND PLEURA: No focal consolidation, pleural effusion or pneumothorax. Mild pleural thickening along the right minor fissure. MEDIASTINUM AND HILAR STRUCTURES: No masses. Contour normal. HEART AND VASCULAR STRUCTURES: Enlarged cardiac silhouette, stable. Aortic ectatic thoracic aorta. BONES: No acute findings. HARDWARE: Right internal jugular central venous catheter tip over SVC. OTHER: No other significant finding. IMPRESSION: Stable enlarged cardiac silhouette without other evidence of superimposed cardiopulmonar y process. Right internal jugular central venous catheter tip overlies SVC. No pneumothorax. TECHNICAL DOCUMENTATION: JOB ID: [id number] [employer]- All Rights Reserved Reading location - IP/workstation name: [email or web address]
[2019-06-14] MEDS ORDERED: CLONIDINE HCL 0.1 MG TABLET PO ONE (09:15)
[2019-06-14] MEDS: SITAGLIPTIN PHOSPHATE 50 MG TABLET PO SCH (09:44)
[2019-06-14] MEDS: APIXABAN 5 MG TABLET PO SCH ×2 (09:44→17:12)
[2019-06-14] MEDS: LOSARTAN POTASSIUM 25 MG TABLET PO SCH ×2 (09:44→21:09)
[2019-06-14] MEDS ORDERED: DILTIAZEM HCL 120 MG CAP.SR.24H PO SCH (10:00)
--- NOTE | 2019-06-14 11:17 | Progress Note ---
Provider Note Provider Note: CARDIOLOGY PROGRESS NOTE by Dr. Paulina García on 06/14/2019. SUBJECTIVE: The patient's shortness of breath is markedly improved. She still says she has a cough productive of yellowish sputum. The patient is on Levaquin. She denies any chest pain. Palpitations, near-syncope or syncope. There is no PND orthopnea. The leg edema is resolved. She continues to be in atrial flutter with controlled ventricular response. The patient's had a blood pressure spike this morning with a blood pressure being about 200. The patient was given clonidine. The patient's blood pressure is now coming down. There is no bleeding on Eliquis. There is no TIA CVA symptoms. PHYSICAL EXAMINATION: The patient is moderately obese in no acute distress. Selected Entries 06/14/19 06/14/19 07:16 07:29 Temperature 97.6 F Temperature Oral Source Pulse Rate 82 Respiratory 16 Rate Blood Pressure 185/102 H Blood Pressure 129 Mean BP Location Left Arm O2 Sat by Pulse 95 Oximetry Oxygen Flow 1.50 2 Rate Oxygen Delivery Nasal Cannula Method HEAD: Is atraumatic normocephalic. EYES: Pupils are equal round regular reactive to light accommodation. Extraocular movements are normal. There is no conjunctival pallor. There is no scleral icterus. Ears: Tympanic membranes are intact external auditory canals are clear. NOSE: There is no deviated nasal septum. There is no inflammation of the nasal mucous membrane. MOUTH: Mucous membranes of mouth are moist. Tongue is moist. There is no ulcers there is no bleeding from the gums. THROAT: There is no redness of the oropharynx. There is no exudates. SKIN: There is no skin rashes. There is no skin lesions. There is no petechia or ecchymosis. NECK: Is supple there is mild JVD present. Carotids are equal there is no bruit. There is no lymphadenopathy. There is no goiter. There is no accessory muscles of respiration use. Trachea central. LUNGS: There very few faint end expiratory wheezing. There is no rhonchi. There is no crackles. There is no wet rales of pulmonary edema. On palpation there is hyperresonance. On palpation there is no chest wall tenderness. HEART: S1-S2 is heard. S1 is of variable intensity. There is no S3 gallop. There is no S4 gallop. There is systolic murmur left sternal border and the apex there is no rub. ABDOMEN: Is soft. Nontender. There is no hepatosplenomegaly. Abdomen is obese. Bowel sounds are well heard. EXTREMITIES: Femorals are deep. Femorals are diminished. There is no femoral bruits. Leg pulses diminished. There is trace pedal edema bilaterally. There is no DVT or cellulitis. There is no cyanosis or clubbing there is no calf tenderness. PARTS PROFESSIONAL: The patient is conscious anxious awake alert oriented x3 with no focal deficits. PSYCHIATRIC: The patient appears to be slightly anxious. But his judgment and insight seem to be intact. 24-hour total intake is 2200mL. Output is 780 mL. Labs- All tests 24 hr 06/13/19 06/13/19 06/13/19 11:10 16:42 21:48 WBC RBC Hgb Hct MCV MCH MCHC RDW Plt Count Lymph % (Auto) [place] % (Auto) Eos % (Auto) Baso % (Auto) Absolute Neuts (auto) Absolute Lymphs (auto) Absolute Monos (auto) Absolute Eos (auto) Absolute Basos (auto) Seg Neutrophils % Sodium Potassium Chloride Carbon Dioxide Anion Gap BUN Creatinine Est GFR ( Amer) Est GFR (MDRD) Non-Af Glucose POC Glucose 235 H 321 H 268 H Calcium Total Bilirubin Direct Bilirubin Neonat Total Bilirubin Neonat Direct Bilirubin Neonat Indirect Bili AST ALT Alkaline Phosphatase Total Protein Albumin 06/14/19 06/14/19 06/14/19 05:00 05:00 07:16 WBC 8.2 RBC 4.89 Hgb 13.4 Hct 41.3 MCV 84 MCH 27.4 MCHC 32.5 RDW 14.8 H Plt Count 132 L Lymph % (Auto) 5.5 L [place] % (Auto) 3.9 Eos % (Auto) 0.0 Baso % (Auto) 0.2 Absolute Neuts (auto) 7.4 Absolute Lymphs (auto) 0.5 Absolute Monos (auto) 0.3 Absolute Eos (auto) 0.0 Absolute Basos (auto) 0.0 Seg Neutrophils % 90.4 H Sodium 136.2 L Potassium 4.8 Chloride 97 L Carbon Dioxide 31 H Anion Gap 8 BUN 35 H Creatinine 1.10 Est GFR ( Amer) 58 L Est GFR (MDRD) Non-Af 48 L Glucose 215 H POC Glucose 175 H Calcium 8.3 L Total Bilirubin 0.6 Direct Bilirubin 0.4 Neonat Total Bilirubin Not Reportable Neonat Direct Bilirubin Not Reportable Neonat Indirect Bili Not Reportable AST 23 ALT 24 Alkaline Phosphatase 57 Total Protein 6.2 L Albumin 3.2 L Chest X-Ray 06/07/19 00:00 IMPRESSION: The heart remains enlarged with central vascular congestion and probable interstitial edema. Chest X-Ray 06/08/19 11:30 IMPRESSION: CARDIAC ENLARGEMENT. VASCULAR CONGESTION. NO SIGNIFICANT CHANGE. Chest CT 06/09/19 00:00 IMPRESSION: Marked cardiac enlargement Patchy areas of atelectasis bilaterally with some subtle areas of groundglass density which could reflect developing infiltrate in a predominantly central distribution. Prominent pulmonary arteries suggesting pulmonary hypertension Chest X-Ray 06/09/19 00:00 IMPRESSION: Cardiomegaly without a superimposed acute cardiopulmonary process. Chest X-Ray 06/14/19 06:00 IMPRESSION: Stable enlarged cardiac silhouette without other evidence of superimposed cardiopulmonary process. Right internal jugular central venous catheter tip overlies SVC. No pneumothorax. MPRESSION/RECOMMENDATION: PHYSICAL EXAMINATION: The patient is moderately obese. In no acute distress. IMPRESSION/RECOMMENDATION: 1. Acute on chronic systolic right ventricular failure. Also there is some evidence of left ventricular failure most likely LV diastolic failure. This is improving on current therapy. Continue Cardizem CD. This is been increased to 130 mg p.o. twice daily every 12 hours. Continue Cozaar and Eliquis.. 2. Severe pulmonary hypertension: Most likely secondary to the patient's asthma, COPD, sleep apnea not treated with C CPAP. The patient is intolerant to CPAP at night. Hence would recommend a nasal CPAP. The patient's dobutamine has been discontinued. The patient's Cardizem infusion has been discontinued. We will start the patient on Cardizem CD 120 mg p.o. daily. Will continue Eliquis. Continue Cozaar now at her lower dose of 25 mg p.o. every 12 hours and we will see if this needs to be increased. 3. Acute exacerbation of COPD.: Continue the patient on steroids and antibiotics later would recommend starting the patient on bronchodilators. We will repeat a chest x-ray today. 4. Acute asthmatic attack. With infective bronchitis. Patient started on antibiotics. 5. Atrial flutter : Will increase the Cardizem CD to 120 mg p.o. every 12 hours.. Continue Eliquis 6. Diabetes mellitus: [id number]-fyionlrlq type II. Continue her oral antidiabetic medication and Accu-Cheks as per protocol. 7. Coronary artery disease by history: No anginal symptoms and no evidence of acute coronary event. The patient's troponin I is negative. 8. History of hypertension: Patient with blood pressure spikes with a systolic blood pressures sometimes above 200s. The patient was given 1 dose of clonidine 0.1 mg p.o. Will increase the patient's Cardizem to 120 mg p.o. twice daily. The patient's losartan dose is already been increased. 9. History of pulmonary embolism: Continue the patient on Eliquis. 10. CKD stage III: Avoid nephrotoxic drugs. GFR slightly improved. 11. History of sleep apnea: Patient encouraged to use CPAP at night 12. Anxiety: Continue her anti-anxiolytic medication. 6. Diabetes mellitus: [id number] type II. Continue her oral antidiabetic medication and Accu-Cheks as per protocol. 7. History of hypertension: Patient not on antihypertensives at home. 9. History of pulmonary embolism: Continue the patient on Eliquis. 9. CKD stage III: Avoid nephrotoxic drugs. The GFR is improved. 10. History of sleep apnea: Patient did not tolerate the CPAP. She may benefit from nasal CPAP 12. Anxiety: Continue her anti-anxiolytic medication. Medications reviewed. Medication doses adjusted. New medications added. Medical decision making is still of high complexity. Medical management and management plan were discussed with the attending provider on the case. 40 minutes spent on the patient with more than 50% of time spent in direct patient care. Will follow.
--- NOTE | 2019-06-14 16:57 | PDOC PROGRESS REPORT ---
Subjective Progress Note for:: 06/14/19 Subjective:: Patient seen by the bedside, slowly improving Reason For Visit: CHF TACHYCARDIA Physical Exam Vital Signs: Temp Pulse Resp BP Pulse Ox 98.1 F 74 16 161/92 H 100 06/14/19 16:43 06/14/19 16:43 06/14/19 16:43 06/14/19 16:43 06/14/19 16:43 Intake & Output 06/13/19 06/14/19 06/15/19 06:59 06:59 06:59 Intake Total 1831 2200 120 Output Total 1150 780 Balance 681 1420 120 Weight 105.8 kg 109.1 kg General appearance: PRESENT: no acute distress Eye exam: PRESENT: PERRLA Respiratory exam: PRESENT: rhonchi, wheezes Cardiovascular exam: PRESENT: +S1, +S2 GI/Abdominal exam: PRESENT: soft Neurological exam: PRESENT: alert Results Laboratory Results: 06/14/19 05:00 06/14/19 05:00 06/14/19 06/14/19 05:00 05:00 WBC 8.2 RBC 4.89 Hgb 13.4 Hct 41.3 MCV 84 MCH 27.4 MCHC 32.5 RDW 14.8 H Plt Count 132 L Seg Neutrophils % 90.4 H Sodium 136.2 L Potassium 4.8 Chloride 97 L Carbon Dioxide 31 H Anion Gap 8 BUN 35 H Creatinine 1.10 Est GFR ( Amer) 58 L Glucose 215 H Calcium 8.3 L Total Bilirubin 0.6 AST 23 Alkaline Phosphatase 57 Total Protein 6.2 L Albumin 3.2 L 06/07/19 06/08/19 06/08/19 16:43 20:59 20:59 Creatine Kinase 51 CK-MB (CK-2) 1.49 Troponin I 0.015 NT-Pro-B Natriuret Pep 6200 H 06/09/19 06/09/19 06/09/19 05:21 05:21 13:45 Creatine Kinase 37 35 CK-MB (CK-2) 1.17 Troponin I 0.012 NT-Pro-B Natriuret Pep 06/09/19 13:45 Creatine Kinase CK-MB (CK-2) 1.05 Troponin I 0.012 NT-Pro-B Natriuret Pep Impressions: Chest CT 06/09/19 00:00 IMPRESSION: Marked cardiac enlargement Patchy areas of atelectasis bilaterally with some subtle areas of groundglass density which could reflect developing infiltrate in a predominantly central distribution. Prominent pulmonary arteries suggesting pulmonary hypertension Chest X-Ray 06/14/19 06:00 IMPRESSION: Stable enlarged cardiac silhouette without other evidence of superimposed cardiopulmonary process. Right internal jugular central venous catheter tip overlies SVC. No pneumothorax. Assessment & Plan - Diagnosis (1) Acute diastolic heart failure Is this a current diagnosis for this admission?: Yes (2) Pneumonia Qualifiers: Pneumonia type: due to unspecified organism Laterality: bilateral Lung location: unspecified part of lung Qualified Code(s): J18.9 - Pneumonia, unspecified organism Is this a current diagnosis for this admission?: Yes (3) Personal history of pulmonary embolism Is this a current diagnosis for this admission?: Yes (4) Severe pulmonary arterial systolic hypertension Is this a current diagnosis for this admission?: Yes (5) Paroxysmal atrial fibrillation with rapid ventricular response Is this a current diagnosis for this admission?: Yes (6) Acute exacerbation of chronic obstructive pulmonary disease Is this a current diagnosis for this admission?: Yes (7) Diabetes mellitus type 2 in obese Is this a current diagnosis for this admission?: Yes Plan: The blood sugar is elevated most likely from intravenous Solu-Medrol (8) Hypertension Qualifiers: Hypertension type: essential hypertension Qualified Code(s): I10 - Essential (primary) hypertension Is this a current diagnosis for this admission?: Yes Plan: Blood pressure is elevated most likely related to steroid - Time Time Spent with patient: 25-34 minutes Level of Care: CU
[2019-06-14] MEDS: CEFTRIAXONE 1 GM/D5W RTU 1 GM/50 ML RTUPB IV SCH (21:08)
[2019-06-14] MEDS: DILTIAZEM HCL 120 MG CAP.SR.24H PO SCH (21:09)
[2019-06-15] MEDS: METHYLPREDNISOLONE INJ 125 MG/2 ML SDV IV SCH ×3 (02:41→18:26)
[2019-06-15] MEDS: INSULIN LISPRO 100 UNIT/ML 3 ML VIAL SUBCUT SCH ×4 (08:00→22:07)
[2019-06-15 10:04] LABS: HEMATOCRIT 43.4 % (36.0-47.0); HEMOGLOBIN 14.1 g/dL (12.0-15.5); MEAN CORPUSCULAR HEMOGLOBIN 27.7 pg (27.0-33.4); MEAN CORPUSCULAR HGB CONC 32.4 g/dL (32.0-36.0); MEAN CORPUSCULAR VOLUME 86 fl (80-97); PLATELET COUNT 137 10^3/uL (150-450); RED BLOOD COUNT 5.08 10^6/uL (3.72-5.28); RED CELL DISTRIBUTION WIDTH 14.5 % (11.5-14.0); WHITE BLOOD COUNT 9.2 10^3/uL (4.0-10.5)
[2019-06-15 10:25] LABS: ALBUMIN 3.4 g/dL (3.5-5.0); ALKALINE PHOSPHATASE 62 U/L (38-126); ANION GAP 9 (5-19); ASPARTATE AMINO TRANSFERASE 23 U/L (14-36); BILIRUBIN,DIRECT 0.2 mg/dL (0.0-0.4); BILIRUBIN,TOTAL 0.7 mg/dL (0.2-1.3); BLOOD UREA NITROGEN 37 mg/dL (7-20); CALCIUM 8.3 mg/dL (8.4-10.2); CARBON DIOXIDE 30 mmol/L (22-30); CHLORIDE 97 mmol/L (98-107); GLUCOSE 307 mg/dL (75-110); POTASSIUM 5.1 mmol/L (3.6-5.0); TOTAL PROTEIN 6.1 g/dL (6.3-8.2)
[2019-06-15 11:01] LABS: ABSOLUTE LYMPHOCYTES# (MANUAL) 0.7 10^3/uL (0.5-4.7); ABSOLUTE MONOCYTES # (MANUAL) 0.1 10^3/uL (0.1-1.4); BAND NEUTROPHILS % (MANUAL) 1 % (3-5); BASOPHILS % (MANUAL) 0 % (0-2); EOSINOPHILS % (MANUAL) 0 % (0-6); LYMPHOCYTES % (MANUAL) 6 % (13-45); MONOCYTES % (MANUAL) 1 % (3-13); SEGMENTED NEUTROPHILS % (MAN) 90 % (42-78); TOTAL CELLS COUNTED 100
[2019-06-15 11:02] LABS: ANISOCYTOSIS SLIGHT; PLATELET COMMENT DECREASED
[2019-06-15] MEDS: APIXABAN 5 MG TABLET PO SCH ×2 (11:19→18:26)
[2019-06-15] MEDS: LOSARTAN POTASSIUM 25 MG TABLET PO SCH ×2 (11:19→22:08)
[2019-06-15] MEDS: DILTIAZEM HCL 120 MG CAP.SR.24H PO SCH ×2 (11:20→22:08)
[2019-06-15] MEDS: SITAGLIPTIN PHOSPHATE 50 MG TABLET PO SCH (11:20)
[2019-06-15] MEDS: LEVALBUTEROL HCL NEB 0.63 MG/3 ML AMPUL NEB PRN (13:19)
[2019-06-15] MEDS: LEVOFLOXACIN 750 MG/D5W RTU 750 MG/150 ML RTUPB IV SCH (18:30)
--- NOTE | 2019-06-15 19:22 | Progress Note ---
Provider Note Provider Note: CARDIOLOGY PROGRESS NOTE by Dr. Paulina Dexter on 06/15/2019. OBJECTIVE: The patient states that shortness of breath is much improved but still she is still mildly short of breath especially with moving around in the bed. She remains in atrial flutter with a controlled ventricular response. There is no PND orthopnea. The patient does have very minimal wheezing. The patient still states she is coughing up but very scanty yellowish sputum. There is no hemoptysis. There is no anginal symptoms. Her leg edema is resolved. There is no bleeding on Eliquis. There is no TIA CVA symptoms. PHYSICAL EXAMINATION: The patient is moderately obese. In no acute distress. Selected Entries 06/15/19 15:44 Temperature 97.8 F Temperature Oral Source Pulse Rate 74 Respiratory 17 Rate Blood Pressure 139/79 H Blood Pressure 99 Mean BP Location Right Arm BP Position Supine O2 Sat by Pulse 97 Oximetry Oxygen Flow 2.00 Rate Oxygen Delivery Nasal Cannula Method HEAD: Is atraumatic normocephalic. EYES: Pupils are equal round regular re active to light accommodation. Extraocular movements are normal. There is no conjunctival pallor. There is no scleral icterus. Ears: Tympanic membranes are intact external auditory canals are clear. NOSE: There is no deviated nasal septum. There is no inflammation of the nasal mucous membrane. MOUTH: Mucous membranes of mouth are moist. Tongue is moist. There is no ulcers there is no bleeding from the gums. THROAT: There is no redness of the oropharynx. There is no exudates. SKIN: There is no skin rashes. There is no skin lesions. There is no petechia or ecchymosis. NECK: Is supple there is mild JVD present. Carotids are equal there is no bruit. There is no lymphadenopathy. There is no goiter. There is no accessory muscles of respiration use. Trachea central. LUNGS: There very few faint end expiratory wheezing. There is no rhonchi. There is no crackles. There is no wet rales of pulmonary edema. On palpation there is hyperresonance. On palpation there is no chest wall tenderness. HEART: S1-S2 is heard. S1 is of variable intensity. There is no S3 gallop. There is no S4 gallop. There is systolic murmur left sternal border and the apex there is no rub. ABDOMEN: Is soft. Nontender. There is no hepatosplenomegaly. Abdomen is obese. Bowel sounds are well heard. EXTREMITIES: Femorals are deep. Femorals are diminished. There is no femoral bruits. Leg pulses diminished. There is trace pedal edema bilaterally. There is no DVT or cellulitis. There is no cyanosis or clubbing there is no calf tenderness. PAIRER SUBSTANDARD: The patient is conscious anxious awake alert oriented x3 with no focal deficits. PSYCHIATRIC: The patient appears to be slightly anxious. But his judgment and insight seem to be intact. 24-hour total intake is 112- mL. Output is 500 mL. Labs- All tests 24 hr 06/14/19 06/15/19 06/15/19 21:04 07:39 09:30 WBC 9.2 RBC 5.08 Hgb 14.1 Hct 43.4 MCV 86 MCH 27.7 MCHC 32.4 RDW 14.5 H Plt Count 137 L Lymph % (Auto) Not Reportable [place] % (Auto) Not Reportable Eos % (Auto) Not Reportable Baso % (Auto) Not Reportable Absolute Neuts (auto) Not Reportable Absolute Lymphs (auto) Not Reportable Absolute Monos (auto) Not Reportable Absolute Eos (auto) Not Reportable Absolute Basos (auto) Not Reportable Total Counted 100 Seg Neutrophils % Not Reportable Seg Neuts % (Manual) 90 H Band Neutrophils % 1 L Lymphocytes % (Manual) 6 L Atypical Lymphs % 2 Monocytes % (Manual) 1 L Eosinophils % (Manual) 0 Basophils % (Manual) 0 Abs Neuts (Manual) 8.4 H Abs Lymphs (Manual) 0.7 Abs Monocytes (Manual) 0.1 Absolute Eos (Manual) 0.0 Abs Basophils (Manual) 0.0 Platelet Comment DECREASED Anisocytosis SLIGHT Sodium Potassium Chloride Carbon Dioxide Anion Gap BUN Creatinine Est GFR ( Amer) Est GFR (MDRD) Non-Af Glucose POC Glucose 217 H 200 H Calcium Total Bilirubin Direct Bilirubin Neonat Total Bilirubin Neonat Direct Bilirubin Neonat Indirect Bili AST ALT Alkaline Phosphatase Total Protein Albumin 06/15/19 06/15/19 06/15/19 09:30 11:34 15:46 WBC RBC Hgb Hct MCV MCH MCHC RDW Plt Count Lymph % (Auto) [place] % (Auto) Eos % (Auto) Baso % (Auto) Absolute Neuts (auto) Absolute Lymphs (auto) Absolute Monos (auto) Absolute Eos (auto) Absolute Basos (auto) Total Counted Seg Neutrophils % Seg Neuts % (Manual) Band Neutrophils % Lymphocytes % (Manual) Atypical Lymphs % Monocytes % (Manual) Eosinophils % (Manual) Basophils % (Manual) Abs Neuts (Manual) Abs Lymphs (Manual) Abs Monocytes (Manual) Absolute Eos (Manual) Abs Basophils (Manual) Platelet Comment Anisocytosis Sodium 136.2 L Potassium 5.1 H Chloride 97 L Carbon Dioxide 30 Anion Gap 9 BUN 37 H Creatinine 1.03 Est GFR ( Amer) > 60 Est GFR (MDRD) Non-Af 52 L Glucose 307 H POC Glucose 313 H 241 H Calcium 8.3 L Total Bilirubin 0.7 Direct Bilirubin 0.2 Neonat Total Bilirubin Not Reportable Neonat Direct Bilirubin Not Reportable Neonat Indirect Bili Not Reportable AST 23 ALT 24 Alkaline Phosphatase 62 Total Protein 6.1 L Albumin 3.4 L Chest X-Ray 06/07/19 00:00 IMPRESSION: The heart remains enlarged with central vascular congestion and probable interstitial edema. Chest X-Ray 06/08/19 11:30 IMPRESSION: CARDIAC ENLARGEMENT. VASCULAR CONGESTION. NO SIGNIFICANT CHANGE. Chest CT 06/09/19 00:00 IMPRESSION: Marked cardiac enlargement Patchy areas of atelectasis bilaterally with some subtle areas of groundglass density which could reflect developing infiltrate in a predominantly central distribution. Prominent pulmonary arteries suggesting pulmonary hypertension Chest X-Ray 06/09/19 00:00 IMPRESSION: Cardiomegaly without a superimposed acute cardiopulmonary process. Chest X-Ray 06/14/19 06:00 IMPRESSION: Stable enlarged cardiac silhouette without other evidence of superimposed cardiopulmonary process. Right internal jugular central venous catheter tip overlies SVC. No pneumothorax. MPRESSION/RECOMMENDATION: 1. Acute on chronic systolic right ventricular failure. Also there is some evidence of left ventricular failure most likely LV diastolic failure. This is improving on current therapy. Continue Cardizem CD. This is been increased to 120 mg p.o. twice daily every 12 hours. Continue Cozaar and Eliquis.. 2. Severe pulmonary hypertension: Most likely secondary to the patient's asthma, COPD, sleep apnea not treated with C CPAP. The patient is intolerant to CPAP at night. Hence would recommend a nasal CPAP. The patient's dobutamine has been discontinued. The patient's Cardizem infusion has been discontinued. We will start the patient on Cardizem CD 120 mg p.o. daily. Will continue Eliquis. Continue Cozaar now at her lower dose of 25 mg p.o. every 12 hours and we will see if this needs to be increased. 3. Acute exacerbation of COPD.: Continue the patient on steroids and antibiotics later would recommend starting the patient on bronchodilators. We will repeat a chest x-ray today. 4. Acute asthmatic attack. With infective bronchitis. Patient started on antibiotics. 5. Atrial flutter : Will increase the Cardizem CD to 120 mg p.o. every 12 hours .. Continue Eliquis 6. Diabetes mellitus: Qtk-zbpbkax-zmuhyzhir type II. Continue her oral antidiabetic medication and Accu-Cheks as per protocol. 7. Coronary artery disease by history: No anginal symptoms and no evidence of acute coronary event. The patient's troponin I is negative. 8. History of hypertension: Patient with blood pressure spikes with a systolic blood pressures sometimes above 200s. The patient was given 1 dose of clonidine 0.1 mg p.o. Will increase the patient's Cardizem to 120 mg p.o. twice daily. The patient's losartan dose is already been increased. 9. History of pulmonary embolism: Continue the patient on Eliquis. 10. CKD stage III: Avoid nephrotoxic drugs. GFR slightly improved. 11. History of sleep apnea: Patient encouraged to use CPAP at night 12. Anxiety: Continue her anti-anxiolytic medication. 6. Diabetes mellitus: Aws-vwheimq-jypubyqak type II. Continue her oral antidiabetic medication and Accu-Cheks as per protocol. 7. History of hypertension: Patient not on antihypertensives at home. 9. History of pulmonary embolism: Continue the patient on Eliquis. 9. CKD stage III: Avoid nephrotoxic drugs. The GFR is improved. 10. History of sleep apnea: Patient did not tolerate the CPAP. She may benefit from nasal CPAP 12. Anxiety: Continue her anti-anxiolytic medication. Medications reviewed. Medication doses adjusted. New medications added. Medical decision making is still of high complexity. Medical management and management plan were discussed with the attending provider on the case. 40 minutes spent on the patient with more than 50% of time spent in direct patient care. Will follow.
[2019-06-15] MEDS: ONDANSETRON HCL INJ/PF 4 MG/2 ML SDV IV PRN (20:22)
--- NOTE | 2019-06-15 22:01 | PDOC PROGRESS REPORT ---
Subjective Progress Note for:: 06/15/19 Subjective:: Patient seen by the bedside, she continues to improve Reason For Visit: CHF TACHYCARDIA Physical Exam Vital Signs: Temp Pulse Resp BP Pulse Ox 98.2 F 77 18 153/113 H 99 06/15/19 19:44 06/15/19 19:44 06/15/19 19:44 06/15/19 19:44 06/15/19 19:44 Intake & Output 06/14/19 06/15/19 06/16/19 06:59 06:59 06:59 Intake Total 2200 1120 1080 Output Total 780 500 300 Balance 1420 620 780 Weight 109.1 kg 108.9 kg General appearance: PRESENT: no acute distress Respiratory exam: PRESENT: rhonchi Cardiovascular exam: PRESENT: +S1, +S2 GI/Abdominal exam: PRESENT: soft Results Laboratory Results: 06/15/19 09:30 06/15/19 09:30 06/15/19 06/15/19 09:30 09:30 WBC 9.2 RBC 5.08 Hgb 14.1 Hct 43.4 MCV 86 MCH 27.7 MCHC 32.4 RDW 14.5 H Plt Count 137 L Seg Neutrophils % Not Reportable Sodium 136.2 L Potassium 5.1 H Chloride 97 L Carbon Dioxide 30 Anion Gap 9 BUN 37 H Creatinine 1.03 Est GFR ( Amer) > 60 Glucose 307 H Calcium 8.3 L Total Bilirubin 0.7 AST 23 Alkaline Phosphatase 62 Total Protein 6.1 L Albumin 3.4 L 06/09/19 22:12 Blood Blood Culture - Final NO GROWTH IN 5 DAYS 06/09/19 22:15 Blood Blood Culture - Final NO GROWTH IN 5 DAYS 06/07/19 06/08/19 06/08/19 16:43 20:59 20:59 Creatine Kinase 51 CK-MB (CK-2) 1.49 Troponin I 0.015 NT-Pro-B Natriuret Pep 6200 H 06/09/19 06/09/19 06/09/19 05:21 05:21 13:45 Creatine Kinase 37 35 CK-MB (CK-2) 1.17 Troponin I 0.012 NT-Pro-B Natriuret Pep 06/09/19 13:45 Creatine Kinase CK-MB (CK-2) 1.05 Troponin I 0.012 NT-Pro-B Natriuret Pep Impressions: Chest CT 06/09/19 00:00 IMPRESSION: Marked cardiac enlargement Patchy areas of atelectasis bilaterally with some subtle areas of groundglass density which could reflect developing infiltrate in a predominantly central distribution. Prominent pulmonary arteries suggesting pulmonary hypertension Chest X-Ray 06/14/19 06:00 IMPRESSION: Stable enlarged cardiac silhouette without other evidence of superimposed cardiopulmonary process. Right internal jugular central venous catheter tip overlies SVC. No pneumothorax. Assessment & Plan - Diagnosis (1) Acute diastolic heart failure Is this a current diagnosis for this admission?: Yes (2) Pneumonia Qualifiers: Pneumonia type: due to unspecified organism Laterality: bilateral Lung location: unspecified part of lung Qualified Code(s): J18.9 - Pneumonia, unspecified organism Is this a current diagnosis for this admission?: Yes (3) Personal history of pulmonary embolism Is this a current diagnosis for this admission?: Yes (4) Severe pulmonary arterial systolic hypertension Is this a current diagnosis for this admission?: Yes (5) Paroxysmal atrial fibrillation with rapid ventricular response Is this a current diagnosis for this admission?: Yes (6) Acute exacerbation of chronic obstructive pulmonary disease Is this a current diagnosis for this admission?: Yes (7) Diabetes mellitus type 2 in obese Is this a current diagnosis for this admission?: Yes (8) Hypertension Qualifiers: Hypertension type: essential hypertension Qualified Code(s): I10 - Essential (primary) hypertension Is this a current diagnosis for this admission?: Yes - Time Time Spent with patient: 35 or more minutes - Plan Summary Plan Summary: Continue IV antibiotic, IV Solu-Medrol
[2019-06-15] MEDS: CEFTRIAXONE 1 GM/D5W RTU 1 GM/50 ML RTUPB IV SCH (22:08)
[2019-06-16] MEDS: METHYLPREDNISOLONE INJ 40 MG/1 ML SDV IV SCH ×3 (02:28→17:22)
[2019-06-16] MEDS: INSULIN LISPRO 100 UNIT/ML 3 ML VIAL SUBCUT SCH ×4 (08:38→21:18)
[2019-06-16] MEDS: LOSARTAN POTASSIUM 25 MG TABLET PO SCH ×2 (10:10→21:16)
[2019-06-16] MEDS: SITAGLIPTIN PHOSPHATE 50 MG TABLET PO SCH (10:11)
[2019-06-16] MEDS: DILTIAZEM HCL 120 MG CAP.SR.24H PO SCH ×2 (10:11→21:17)
[2019-06-16] MEDS: APIXABAN 5 MG TABLET PO SCH ×2 (10:11→17:22)
[2019-06-16] MEDS: LEVALBUTEROL HCL NEB 0.63 MG/3 ML AMPUL NEB PRN (10:30)
[2019-06-16 15:31] LABS: HEMATOCRIT 40.2 % (36.0-47.0); HEMOGLOBIN 12.8 g/dL (12.0-15.5); MEAN CORPUSCULAR HEMOGLOBIN 27.2 pg (27.0-33.4); MEAN CORPUSCULAR HGB CONC 31.9 g/dL (32.0-36.0); MEAN CORPUSCULAR VOLUME 85 fl (80-97); PLATELET COUNT 140 10^3/uL (150-450); RED BLOOD COUNT 4.73 10^6/uL (3.72-5.28); RED CELL DISTRIBUTION WIDTH 14.5 % (11.5-14.0); WHITE BLOOD COUNT 11.9 10^3/uL (4.0-10.5)
[2019-06-16 15:56] LABS: ABSOLUTE LYMPHOCYTES# (MANUAL) 0.2 10^3/uL (0.5-4.7); ABSOLUTE MONOCYTES # (MANUAL) 0.2 10^3/uL (0.1-1.4); ALKALINE PHOSPHATASE 51 U/L (38-126); ANION GAP 9 (5-19); ANISOCYTOSIS SLIGHT; ASPARTATE AMINO TRANSFERASE 23 U/L (14-36); BASOPHILS % (MANUAL) 0 % (0-2); BILIRUBIN,DIRECT 0.4 mg/dL (0.0-0.4); BILIRUBIN,TOTAL 0.6 mg/dL (0.2-1.3); BLOOD UREA NITROGEN 40 mg/dL (7-20); CARBON DIOXIDE 29 mmol/L (22-30); CHLORIDE 95 mmol/L (98-107); EOSINOPHILS % (MANUAL) 0 % (0-6); GLUCOSE 338 mg/dL (75-110); LYMPHOCYTES % (MANUAL) 2 % (13-45); MONOCYTES % (MANUAL) 2 % (3-13); PLATELET COMMENT DECREASED; POTASSIUM 5.3 mmol/L (3.6-5.0); SEGMENTED NEUTROPHILS % (MAN) 96 % (42-78); TOTAL CELLS COUNTED 100; TOTAL PROTEIN 5.8 g/dL (6.3-8.2)
[2019-06-16 15:58] LABS: BURR CELLS 4+
[2019-06-16 16:00] LABS: PLATELET LARGE PRESENT; POIKILOCYTOSIS 4+; SCHISTOCYTES 1+
--- NOTE | 2019-06-16 16:08 | Progress Note ---
Provider Note Provider Note: CARDIOLOGY PROGRESS NOTE by Dr. Paulina García on 06/16/2019. SUBJECTIVE: The patient states that she has no further shortness of breath. The patient continues to be in atrial flutter with controlled ventricular response. Her blood pressure is better but still not optimally controlled. She denies any chest pain or discomfort. There is no PND orthopnea. There is no bleeding on Eliquis. There is no TIA CVA symptoms. She still states she has minimal cough with minimal sputum production. The sputum now is whitish. There is no hemoptysis. PHYSICAL EXAMINATION: The patient is moderately obese. In no acute distress. Selected Entries 06/16/19 11:22 Temperature 98.3 F Temperature Oral Source Pulse Rate 75 Respiratory 16 Rate Blood Pressure 157/78 H Blood Pressure 104 Mean BP Position Sitting O2 Sat by Pulse 95 Oximetry Oxygen Flow 2.00 Rate Oxygen Delivery Nasal Cannula Method HEAD: Is atraumatic normocephalic. EYES: Pupils are equal round regular reactive to light accommodation. Extraocular movements are normal. There is no conjunctival pallor. There is no scleral icterus. Ears: Tympanic membranes are intact external auditory canals are clear. NOSE: There is no deviated nasal septum. There is no inflammation of the nasal mucous membrane. MOUTH: Mucous membranes of mouth are moist. Tongue is moist. There is no ulcers there is no bleeding from the gums. THROAT: There is no redness of the oropharynx. There is no exudates. SKIN: There is no skin rashes. There is no skin lesions. There is no petechia or ecchymosis. NECK: Is supple there is mild JVD present. Carotids are equal there is no bruit. There is no lymphadenopathy. There is no goiter. There is no accessory muscles of respiration use. Trachea central. LUNGS: Today's exam shows that the lungs are clear without any rhonchi rales or wheezing. On palpation there is no chest wall tenderness. On percussion there is hyperresonance. On palpation there is no chest wall tenderness. There is diminished air entry and prolonged expiration. HEART: S1-S2 is heard. S1 is of variable intensity. There is no S3 gallop. There is no S4 gallop. There is systolic murmur left sternal border and the apex there is no rub. ABDOMEN: Is soft. Nontender. There is no hepatosplenomegaly. Abdomen is obese. Bowel sounds are well heard. EXTREMITIES: Femorals are deep. Femorals are diminished. There is no femoral bruits. Leg pulses diminished. There is trace pedal edema bilaterally. There is no DVT or cellulitis. There is no cyanosis or clubbing there is no calf tenderness. PROFESSOR OF RADIOLOGY: The patient is conscious anxious awake alert oriented x3 with no focal deficits. PSYCHIATRIC: The patient appears to be slightly anxious. But his judgment and insight seem to be intact. 24-hour total intake is 1280- mL. Output is 1100 mL. Labs- All tests 24 hr 06/15/19 06/16/19 06/16/19 21:37 07:28 11:21 WBC RBC Hgb Hct MCV MCH MCHC RDW Plt Count Lymph % (Auto) [place] % (Auto) Eos % (Auto) Baso % (Auto) Absolute Neuts (auto) Absolute Lymphs (auto) Absolute Monos (auto) Absolute Eos (auto) Absolute Basos (auto) Total Counted Seg Neutrophils % Seg Neuts % (Manual) Lymphocytes % (Manual) Monocytes % (Manual) Eosinophils % (Manual) Basophils % (Manual) Abs Neuts (Manual) Abs Lymphs (Manual) Abs Monocytes (Manual) Absolute Eos (Manual) Abs Basophils (Manual) Large Platelets Platelet Comment Poikilocytosis Anisocytosis [place] Cells Schistocytes Sodium Potassium Chloride Carbon Dioxide Anion Gap BUN Creatinine Est GFR ( Amer) Est GFR (MDRD) Non-Af Glucose POC Glucose 365 H 179 H 203 H Calcium Total Bilirubin Direct Bilirubin Neonat Total Bilirubin Neonat Direct Bilirubin Neonat Indirect Bili AST ALT Alkaline Phosphatase Total Protein Albumin 06/16/19 06/16/19 06/16/19 15:15 15:15 16:32 WBC 11.9 H RBC 4.73 Hgb 12.8 Hct 40.2 MCV 85 MCH 27.2 MCHC 31.9 L RDW 14.5 H Plt Count 140 L Lymph % (Auto) Not Reportable [place] % (Auto) Not Reportable Eos % (Auto) Not Reportable Baso % (Auto) Not Reportable Absolute Neuts (auto) Not Reportable Absolute Lymphs (auto) Not Reportable Absolute Monos (auto) Not Reportable Absolute Eos (auto) Not Reportable Absolute Basos (auto) Not Reportable Total Counted 100 Seg Neutrophils % Not Reportable Seg Neuts % (Manual) 96 H Lymphocytes % (Manual) 2 L Monocytes % (Manual) 2 L Eosinophils % (Manual) 0 Basophils % (Manual) 0 Abs Neuts (Manual) 11.4 H Abs Lymphs (Manual) 0.2 L Abs Monocytes (Manual) 0.2 Absolute Eos (Manual) 0.0 Abs Basophils (Manual) 0.0 Large Platelets PRESENT Platelet Comment DECREASED Poikilocytosis 4+ Anisocytosis SLIGHT [place] Cells 4+ Schistocytes 1+ Sodium 132.8 L Potassium 5.3 H Chloride 95 L Carbon Dioxide 29 Anion Gap 9 BUN 40 H Creatinine 0.98 Est GFR ( Amer) > 60 Est GFR (MDRD) Non-Af 55 L Glucose 338 H POC Glucose 278 H Calcium 8.0 L Total Bilirubin 0.6 Direct Bilirubin 0.4 Neonat Total Bilirubin Not Reportable Neonat Direct Bilirubin Not Reportable Neonat Indirect Bili Not Reportable AST 23 ALT 25 Alkaline Phosphatase 51 Total Protein 5.8 L Albumin 3.0 L Chest X-Ray 06/07/19 00:00 IMPRESSION: The heart remains enlarged with central vascular congestion and probable interstitial edema. Chest X-Ray 06/08/19 11:30 IMPRESSION: CARDIAC ENLARGEMENT. VASCULAR CONGESTION. NO SIGNIFICANT CHANGE. Chest CT 06/09/19 00:00 IMPRESSION: Marked cardiac enlargement Patchy areas of atelectasis bilaterally with some subtle areas of groundglass density which could reflect developing infiltrate in a predominantly central distribution. Prominent pulmonary arteries suggesting pulmonary hypertension Chest X-Ray 06/09/19 00:00 IMPRESSION: Cardiomegaly without a superimposed acute cardiopulmonary process. Chest X-Ray 06/14/19 06:00 IMPRESSION: Stable enlarged cardiac silhouette without other evidence of superimposed cardiopulmonary process. Right internal jugular central venous catheter tip overlies SVC. No pneumothorax. IMPRESSION/RECOMMENDATION: 1. Acute on chronic systolic right ventricular failure. Also there is some evidence of left ventricular failure most likely LV diastolic failure. This is improving on current therapy. Continue Cardizem CD. This is been increased to 120 mg p.o. twice daily every 12 hours. Continue Cozaar and Eliquis.. 2. Severe pulmonary hypertension: Most likely secondary to the patient's asthma, COPD, sleep apnea not treated with C CPAP. The patient is intolerant to CPAP at night. Hence would recommend a nasal CPAP. The patient's dobutamine has been discontinued. The patient's Cardizem infusion has been discontinued. We will start the patient on Cardizem CD 120 mg p.o. daily. Will continue Eliquis. Continue Cozaar now at her lower dose of 25 mg p.o. every 12 hours and we will see if this needs to be increased. 3. Acute exacerbation of COPD.: Continue the patient on steroids and antibiotics later would recommend starting the patient on bronchodilators. We will repeat a chest x-ray today. 4. Acute asthmatic attack. With infective bronchitis. Patient started on antibiotics. 5. Atrial flutter : Will increase the Cardizem CD to 120 mg p.o. every 12 hours.. Continue Eliquis 6. Diabetes mellitus: [id number] type II. Continue her oral antidiabetic medication and Accu-Cheks as per protocol. 7. Coronary artery disease by history: No anginal symptoms and no evidence of acute coronary event. The patient's troponin I is negative. 8. History of hypertension: Patient with blood pressure spikes with a systolic blood pressures sometimes above 200s. The patient was given 1 dose of clonidine 0.1 mg p.o. Will increase the patient's Cardizem to 120 mg p.o. twice daily. The patient's losartan dose is already been increased. 9. History of pulmonary embolism: Continue the patient on Eliquis. 10. CKD stage III: Avoid nephrotoxic drugs. GFR slightly improved. 11. History of sleep apnea: Patient encouraged to use CPAP at night 12. Anxiety: Continue her anti-anxiolytic medication. 6. Diabetes mellitus: [id number] type II. Continue her oral antidiabetic medication and Accu-Cheks as per protocol. 7. History of hypertension: Patient not on antihypertensives at home. 9. History of pulmonary embolism: Continue the patient on Eliquis. 9. CKD stage III: Avoid nephrotoxic drugs. The GFR is improved. 10. History of sleep apnea: Patient did not tolerate the CPAP. She may benefit from nasal CPAP 12. Anxiety: Continue her anti-anxiolytic medication. Medications reviewed. Medication doses adjusted. Medical decision making is of moderate complexity. Medical regimen and management plan discussed with Dr. Amaya. Cardiac status is stable. Will sign off. Will follow the patient in the office. Contact numbers given for for the patient for follow-up in the office. 35 minutes spent with patient with more than 50% of time spent in direct patient care. Will follow the patient in the office. Will sign off.
[2019-06-16] MEDS: ONDANSETRON HCL INJ/PF 4 MG/2 ML SDV IV PRN (19:40)
[2019-06-16] MEDS ORDERED: PROMETHAZINE HCL 25 MG TABLET PO PRN (21:09)
[2019-06-16] MEDS ORDERED: PROMETHAZINE HCL 25 MG TABLET ONE (21:15)
--- NOTE | 2019-06-16 21:35 | PDOC DISCHARGE SUMMARY ---
Impression - Admit/DC Date/PCP Admission Date/Primary Care Provider: 06/07/19 14:36 ARTHUR HAYES MD Discharge Date: 06/16/19 - Discharge Diagnosis (1) Acute diastolic heart failure Is this a current diagnosis for this admission?: Yes (2) Pneumonia Is this a current diagnosis for this admission?: Yes (3) Personal history of pulmonary embolism Is this a current diagnosis for this admission?: Yes (4) Severe pulmonary arterial systolic hypertension Is this a current diagnosis for this admission?: Yes (5) Paroxysmal atrial fibrillation with rapid ventricular response Is this a current diagnosis for this admission?: Yes (6) Acute exacerbation of chronic obstructive pulmonary disease Is this a current diagnosis for this admission?: Yes (7) Diabetes mellitus type 2 in obese Is this a current diagnosis for this admission?: Yes (8) Hypertension Is this a current diagnosis for this admission?: Yes (9) Atrial flutter Is this a current diagnosis for this admission?: Yes - Additional Information Discharge Diet: Cardiac, Diabetic Discharge Activity: Activity As Tolerated, Balance Activity w/Rest, Weigh Daily Referrals: ARTHUR HAYES MD [Primary Care Provider] - 06/22/19 10:00 am Prescriptions: Diltiazem HCl [Cardizem Cd 120 mg Capsule] 120 mg PO Q12 #60 cap.sr.24h Losartan Potassium 100 mg PO DAILY #90 tablet Albuterol Sulfate [Proair Hfa Inhalation Aerosol 8.5 gm Mdi] 1 puff IH Q4 PRN #1 mdi PRN Reason: Fluticasone/Umeclidin/Vilanter [Trelegy 100-62.5-25 Mcg Ellipta 14 Dose/Dpi] 1 each IH DAILY #2 inhaler Home Medications: Citalopram Hydrobromide [Celexa 10 mg Tablet] 15 mg PO DAILY 12/13/18 Apixaban [Eliquis 5 mg Tablet] 5 mg PO BID #60 tablet 12/16/18 Linagliptin [Tradjenta] 5 mg PO DAILY #90 tablet 12/16/18 Albuterol Sulfate [Proair Hfa Inhalation Aerosol 8.5 gm Mdi] 1 puff IH Q4 PRN #1 mdi 06/16/19 Diltiazem HCl [Cardizem Cd 120 mg Capsule] 120 mg PO Q12 #60 cap.sr.24h 06/16/19 Fluticasone/Umeclidin/Vilanter [Trelegy 100-62.5-25 Mcg Ellipta 14 Dose/Dpi] 1 each IH DAILY #2 inhaler 06/16/19 Losartan Potassium 100 mg PO DAILY #90 tablet 06/16/19 History of Present Illiness History of Present Illness: LORI GROSS is a 79 year old female,She came to the office today for evaluation of palpitation, shortness of breath, in the office she was evaluated at presentation was consistent with CHF, she has a history of pulmonary embolism associated with secondary pulmonary hypertension, she is on anticoagulant chronically, she also at increased heart rate because of all these concerns she was admitted directly from the office to the hospital. In the hospital the chest x-ray, the BNP was consistent with CHF. Hospital Course Hospital Course: She was admitted for the management of atrial fibrillation with RVR acute diastolic heart failure, COPD with acute exacerbation, pneumonia Hospital course was complicated with acute decompensation, she developed low blood pressure, low heart rate felt to be due initially to Cardizem infusion and Lasix drip, she was treated medically with glucagon atropine with anabaptism of hemodynamics and blood pressure.She was treated with IV Solu-Medrol, bronchodilators, IV antibiotic rate control was achieved with Cardizem infusion ultimately transitioned to p.o. Cardizem., 2D echocardiogram was done, it demonstrated severe pulmonary hypertension felt to be secondary to lung disease.Patient is chronically on anticoagulants, Eliquis, this was continued Physical Exam Vital Signs: Temp Pulse Resp BP Pulse Ox 98.3 F 84 16 157/78 H 95 06/16/19 11:22 06/16/19 19:00 06/16/19 11:22 06/16/19 11:22 06/16/19 11:22 Intake & Output 06/15/19 06/16/19 06/17/19 06:59 06:59 06:59 Intake Total 1120 1280 1140 Output Total 500 1100 1000 Balance 620 180 140 Weight 108.9 kg 110.9 kg General appearance: PRESENT: no acute distress Eye exam: PRESENT: PERRLA Respiratory exam: PRESENT: clear to auscultation dmitri Cardiovascular exam: PRESENT: +S1, +S2 GI/Abdominal exam: PRESENT: soft Neurological exam: PRESENT: alert, CN II-XII grossly intact Results Laboratory Results: WBC 11.9 10^3/uL (4.0-10.5) H 06/16/19 15:15 RBC 4.73 10^6/uL (3.72-5.28) 06/16/19 15:15 Hgb 12.8 g/dL (12.0-15.5) 06/16/19 15:15 Hct 40.2 % (36.0-47.0) 06/16/19 15:15 MCV 85 fl (80-97) 06/16/19 15:15 MCH 27.2 pg (27.0-33.4) 06/16/19 15:15 MCHC 31.9 g/dL (32.0-36.0) L 06/16/19 15:15 RDW 14.5 % (11.5-14.0) H 06/16/19 15:15 Plt Count 140 10^3/uL (150-450) L 06/16/19 15:15 Lymph % (Auto) Not Reportable 06/16/19 15:15 [place] % (Auto) Not Reportable 06/16/19 15:15 Eos % (Auto) Not Reportable 06/16/19 15:15 Baso % (Auto) Not Reportable 06/16/19 15:15 Absolute Neuts (auto) Not Reportable 06/16/19 15:15 Absolute Lymphs (auto) Not Reportable 06/16/19 15:15 Absolute Monos (auto) Not Reportable 06/16/19 15:15 Absolute Eos (auto) Not Reportable 06/16/19 15:15 Absolute Basos (auto) Not Reportable 06/16/19 15:15 Total Counted 100 06/16/19 15:15 Seg Neutrophils % Not Reportable 06/16/19 15:15 Seg Neuts % (Manual) 96 % (42-78) H 06/16/19 15:15 Band Neutrophils % 1 % (3-5) L 06/15/19 09:30 Lymphocytes % (Manual) 2 % (13-45) L 06/16/19 15:15 Atypical Lymphs % 2 % (0) 06/15/19 09:30 Monocytes % (Manual) 2 % (3-13) L 06/16/19 15:15 Eosinophils % (Manual) 0 % (0-6) 06/16/19 15:15 Basophils % (Manual) 0 % (0-2) 06/16/19 15:15 Abs Neuts (Manual) 11.4 10^3/uL (1.7-8.2) H 06/16/19 15:15 Abs Lymphs (Manual) 0.2 10^3/uL (0.5-4.7) L 06/16/19 15:15 Abs Monocytes (Manual) 0.2 10^3/uL (0.1-1.4) 06/16/19 15:15 Absolute Eos (Manual) 0.0 10^3/uL (0.0-0.6) 06/16/19 15:15 Abs Basophils (Manual) 0.0 10^3/uL (0.0-0.2) 06/16/19 15:15 Large Platelets PRESENT 06/16/19 15:15 Platelet Comment DECREASED 06/16/19 15:15 Poikilocytosis 4+ 06/16/19 15:15 Anisocytosis SLIGHT 06/16/19 15:15 [place] Cells 4+ 06/16/19 15:15 Schistocytes 1+ 06/16/19 15:15 Carbonic Acid 1.26 mmol/L (1.05-1.35) 06/07/19 16:55 HCO3/H2CO3 Ratio 17:1 06/07/19 16:55 ABG pH 7.34 (7.35-7.45) L 06/07/19 16:55 ABG pCO2 41.7 mmHg (35-45) 06/07/19 16:55 ABG pO2 89.6 mmHg (80-100) 06/07/19 16:55 ABG HCO3 22.0 mmol/L (20-24) 06/07/19 16:55 ABG Total CO2 23.3 mmol/L (21-25) 06/07/19 16:55 ABG O2 Saturation 96.4 % (94-98) 06/07/19 16:55 ABG Base Excess -3.5 mmol/L 06/07/19 16:55 FiO2 2.00 06/07/19 16:55 Sodium 132.8 mmol/L (137-145) L 06/16/19 15:15 Potassium 5.3 mmol/L (3.6-5.0) H 06/16/19 15:15 Chloride 95 mmol/L (98-107) L 06/16/19 15:15 Carbon Dioxide 29 mmol/L (22-30) 06/16/19 15:15 Anion Gap 9 (5-19) 06/16/19 15:15 BUN 40 mg/dL (7-20) H 06/16/19 15:15 Creatinine 0.98 mg/dL (0.52-1.25) 06/16/19 15:15 Est GFR ( Amer) > 60 (>60) 06/16/19 15:15 Est GFR (MDRD) Non-Af 55 (>60) L 06/16/19 15:15 Glucose 338 mg/dL (75-110) H 06/16/19 15:15 POC Glucose 321 mg/dL (70-110) H 06/16/19 20:52 Hemoglobin A1c % 6.7 % (4.7-6.0) H 06/08/19 09:33 Calcium 8.0 mg/dL (8.4-10.2) L 06/16/19 15:15 Total Bilirubin 0.6 mg/dL (0.2-1.3) 06/16/19 15:15 Direct Bilirubin 0.4 mg/dL (0.0-0.4) 06/16/19 15:15 Neonat Total Bilirubin Not Reportable 06/16/19 15:15 Neonat Direct Bilirubin Not Reportable 06/16/19 15:15 Neonat Indirect Bili Not Reportable 06/16/19 15:15 AST 23 U/L (14-36) 06/16/19 15:15 ALT 25 U/L (<35) 06/16/19 15:15 Alkaline Phosphatase 51 U/L (38-126) 06/16/19 15:15 Creatine Kinase 35 U/L (30-135) 06/09/19 13:45 CK-MB (CK-2) 1.05 ng/mL (<4.55) 06/09/19 13:45 Troponin I 0.012 ng/mL 06/09/19 13:45 NT-Pro-B Natriuret Pep 6200 pg/mL (<450) H 06/07/19 16:43 Total Protein 5.8 g/dL (6.3-8.2) L 06/16/19 15:15 Albumin 3.0 g/dL (3.5-5.0) L 06/16/19 15:15 TSH 1.39 uIU/mL (0.47-4.68) 06/07/19 16:43 Free T4 1.72 ng/dL (0.78-2.19) 06/07/19 16:43 Urine Color YELLOW 06/09/19 21:35 Urine Appearance SLIGHTLY-CLOUDY 06/09/19 21:35 Urine pH 6.0 (5.0-9.0) 06/09/19 21:35 Ur Specific [place] 1.012 06/09/19 21:35 Urine Protein 30 mg/dL (NEGATIVE) H 06/09/19 21:35 Urine Glucose (UA) NEGATIVE mg/dL (NEGATIVE) 06/09/19 21:35 Urine Ketones NEGATIVE mg/dL (NEGATIVE) 06/09/19 21:35 Urine Blood SMALL (NEGATIVE) H 06/09/19 21:35 Urine Nitrite NEGATIVE (NEGATIVE) 06/09/19 21:35 Urine Bilirubin NEGATIVE (NEGATIVE) 06/09/19 21:35 Urine Urobilinogen 2.0 mg/dL (<2.0) H 06/09/19 21:35 Ur Leukocyte Esterase SMALL (NEGATIVE) H 06/09/19 21:35 Urine WBC (Auto) 15 /HPF 06/09/19 21:35 Urine RBC (Auto) 4 /HPF 06/09/19 21:35 U Hyaline Cast (Auto) 4 /LPF 06/09/19 21:35 Urine Bacteria (Auto) TRACE /HPF 06/09/19 21:35 Squamous Epi Cells Auto 2 /HPF 06/09/19 21:35 Urine Mucus (Auto) RARE /LPF 06/09/19 21:35 Urine Ascorbic Acid NEGATIVE (NEGATIVE) 06/09/19 21:35 06/07/19 06/08/19 06/09/19 16:43 20:59 05:21 CK-MB (CK-2) 1.49 1.17 Troponin I 0.015 0.012 NT-Pro-B Natriuret Pep 6200 H 06/09/19 13:45 CK-MB (CK-2) 1.05 Troponin I 0.012 NT-Pro-B Natriuret Pep Impressions: Chest X-Ray 06/07/19 00:00 IMPRESSION: The heart remains enlarged with central vascular congestion and probable interstitial edema. Chest X-Ray 06/08/19 11:30 IMPRESSION: CARDIAC ENLARGEMENT. VASCULAR CONGESTION. NO SIGNIFICANT CHANGE. Chest CT 06/09/19 00:00 IMPRESSION: Marked cardiac enlargement Patchy areas of atelectasis bilaterally with some subtle areas of groundglass density which could reflect developing infiltrate in a predominantly central distribution. Prominent pulmonary arteries suggesting pulmonary hypertension Chest X-Ray 06/09/19 00:00 IMPRESSION: Cardiomegaly without a superimposed acute cardiopulmonary process. Chest X-Ray 06/14/19 06:00 IMPRESSION: Stable enlarged cardiac silhouette without other evidence of superimposed cardiopulmonary process. Right internal jugular central venous catheter tip overlies SVC. No pneumothorax. Plan Time Spent: Greater than 30 Minutes Stroke Is this a Stroke Patient?: No Acute Heart Failure - Is this a Heart Failure Patient?: No
[2019-06-17] MEDS: METHYLPREDNISOLONE INJ 40 MG/1 ML SDV IV SCH ×2 (02:48→10:17)
[2019-06-17 08:50] VITALS: BP 147/78
[2019-06-17] MEDS: INSULIN LISPRO 100 UNIT/ML 3 ML VIAL SUBCUT SCH ×2 (10:05→12:15)
[2019-06-17] MEDS: LOSARTAN POTASSIUM 25 MG TABLET PO SCH (10:16)
[2019-06-17] MEDS: DILTIAZEM HCL 120 MG CAP.SR.24H PO SCH (10:17)
[2019-06-17] MEDS: APIXABAN 5 MG TABLET PO SCH (10:17)
[2019-06-17] MEDS: SITAGLIPTIN PHOSPHATE 50 MG TABLET PO SCH (10:17)
--- NOTE | 2019-06-19 16:12 | Pulmonary Function Test ---
Pulmonary Function Test Date of Procedure:: 06/12/19 INDICATION:: Dyspnea Referring Provider: Dr. Manuel Amaya Bran Mixer: Marta Smith REFRIGERATION SERVICE INSPECTOR, INDUSTRIAL AUTOMATION ENGINEER - Report Spirometry: Spirometry: pre-FVC: 1.15 L 46% post-FVC: 1.33 L 51% pre-FEV:1 0.91 L 50% post-FEV1: 0.90 L 49% pre-FEV1/FVC %: 79 post-FEV1/FVC%: 67 predicted: 80 [id number]%: 0.66 L 46% [id number]%: 0.46 L 32% Lung Volume: Total lung capacity: 2.70 L 56% Vital capacity: 1.15 L 45% Inspiratory capacity: 0.73 L FRC N2: 1.96 L 89% ERV: 0.16 L RV: 1.55 L 75% RV/TLC %:: 57 predicted 43 Diffusion Capactity: DLCO: 12.8 55% DLCO/VA: 4.87 144% Impression: Obstructive ventilatory defect. Insignificant response to bronchodilator therapy. This does not preclude a clinical trial of bronchodilator therapy. Moderate restrictive ventilatory defect. (Restrictive defect may mass the degree of obstruction.) No hyperinflation. No air trapping. Moderate decrease in diffusion capacity.
== END 2019-06-17 12:45 | disposition home or self-care (01) | DRG 291 ==
LOC: 3N 14:36
PROVIDERS: ADMIT Internal Medicine; ATTEND Internal Medicine
PROC: 5A09457 Assistance with Respiratory Ventilation, 24-96 Consecutive Hours, Continuous Positive Airway Pressure (ICD-10-PCS; principal; 2019-06-09)
PROC: 02HV33Z Insertion of Infusion Device into Superior Vena Cava, Percutaneous Approach (ICD-10-PCS; 2019-06-09)
PROC: B548ZZA Ultrasonography of Superior Vena Cava, Guidance (ICD-10-PCS; 2019-06-09)
DX: I13.0 Hypertensive heart and chronic kidney disease with heart failure and stage 1 through stage 4 chronic kidney disease, or unspecified chronic kidney disease (principal); J18.9 Pneumonia, unspecified organism; I50.43 Acute on chronic combined systolic (congestive) and diastolic (congestive) heart failure; J44.1 Chronic obstructive pulmonary disease with (acute) exacerbation; J44.0 Chronic obstructive pulmonary disease with (acute) lower respiratory infection; I27.21 Secondary pulmonary arterial hypertension; I48.0 Paroxysmal atrial fibrillation; I25.10 Atherosclerotic heart disease of native coronary artery without angina pectoris; E78.5 Hyperlipidemia, unspecified; D63.1 Anemia in chronic kidney disease; N18.3 Chronic kidney disease, stage 3 (moderate); E11.22 Type 2 diabetes mellitus with diabetic chronic kidney disease; F41.9 Anxiety disorder, unspecified; Z86.711 Personal history of pulmonary embolism; Z79.01 Long term (current) use of anticoagulants; Z99.81 Dependence on supplemental oxygen; Z79.899 Other long term (current) drug therapy
CPT/HCPCS: 36415; 36600; 71045; 71250; 80048; 80053; 80076; 81001; 82550; 82553; 82803; 82962; 83036; 83880; 84439; 84443; 84484; 85025; 85027; 87040; 87070; 87086; 93005; 93010; 93306; 94060; 94660; 94727; 94729; J0461; J0610; J0696; J1250; J1610; J1642; J1815; J1940; J1956; J2405; J2920; J2930; J3490; J7050; J7614

== ENCOUNTER 2020-04-21 16:37 | Inpatient (IN) | payer MEDICARE, MEDICAID ==
--- NOTE | 2020-04-21 17:26 | ER Document Report ---
ED Respiratory Problem - General Chief Complaint: Breathing Difficulty Stated Complaint: DIFFICULTY BREATHING Time Seen by Provider: 04/21/20 17:19 Mode of Arrival: Medic Information source: Patient Notes: This 80-year-old woman presents to the emergency department with a complaint of shortness of breath for approximately 1 week and a progressively worsening of symptoms. Today her symptoms were severe enough that she called EMS. Patient was found to be in respiratory distress with a room air O2 sat of 84%. And placed on BiPAP transported to the emergency department and placed on CPAP. She is noted to have atrial fibrillation with a rate of 1 30-1 40 and O2 sats between BiPAP. Apparently there were some difficulties with IV access and obtaining blood for further evaluation. EMS performed a rapid coronavirus test the patient admits to a 1 week history of worsening symptoms shortness of breath, fatigue body aches and pains. TRAVEL OUTSIDE OF THE [place] IN LAST 30 DAYS: No - Related Data Allergies/Adverse Reactions: No Known Allergies Allergy (Verified 10/27/18 15:40) Past Medical History - Social History Smoking Status: Unknown if Ever Smoked Family History: CAD, DM, Hypertension, Malignancy - Past Medical History Cardiac Medical History: Reports: Hx Congestive Heart Failure, Hx Coronary Artery Disease, Hx Hypercholesterolemia, Hx Hypertension - PULOMONARY HTN Denies: Hx Heart Attack Pulmonary Medical History: Reports: Hx Asthma, Hx Bronchitis, Hx COPD - CHF, Hx Pneumonia Neurological Medical History: Denies: Hx Cerebrovascular Accident, Hx Seizures Endocrine Medical History: Reports: Hx Diabetes Mellitus Type 2 Renal/ Medical History: Denies: Hx Peritoneal Dialysis GI Medical History: Denies: Hx Cirrhosis, Hx Hepatitis, Hx Hiatal Hernia, Hx Ulcer Musculoskeletal Medical History: Reports Hx Arthritis - OSTEO, Denies Hx Gout Skin Medical History: Denies Hx Eczema, Denies Hx Psoriasis Psychiatric Medical History: Denies: Hx Depression Infectious Medical History: Denies: Hx Hepatitis Past Surgical History: Reports: Hx Abdominal Surgery, Hx Hysterectomy, Hx Orthopedic Surgery - Left Knee, Other - Colonoscopy. Denies: Hx Mastectomy, Hx Open Heart Surgery, Hx Pacemaker - Immunizations Hx Diphtheria, Pertussis, Tetanus Vaccination: Yes Review of Systems - Review of Systems Notes: Constitutional: Negative for fever. HENT: Negative for sore throat. Eyes: Negative for visual changes. Cardiovascular: Negative for chest pain. Respiratory: See HPI Gastrointestinal: Negative for abdominal pain, vomiting or diarrhea. Genitourinary: Negative for dysuria. Musculoskeletal: + Myalgia Skin: Negative for rash. Neurological: Negative for headaches, weakness or numbness. 10 point ROS negative except as marked above and in HPI. Physical Exam - Vital signs Vitals: Temp 98.1 F 04/21/20 16:37 - Notes Notes: PHYSICAL EXAMINATION: Physical Exam: General: Overweight 80-year-old woman in respiratory distress HEENT: NC/AT, pupils equal round and reactive to light, MM moist,nares clear, oropharynx clear, airway patent Neck: supple, no adenopathy, no masses. Good range of motion Lungs: clear, no wheezing, no rales no rhonchi CVS: Regular rate and rhythm no murmur gallop or rub Abdomen: Soft, active, nontender, no masses, no hepatosplenomegaly Ext: No edema, clubbing or cyanosis. Neuro: Alert and responsive, moving all 4 extremities on command, cranial nerves intact, no focal findings Skin: Intact no open lesions, no rash PSYCH: Normal mood, normal affect. Course - Re-evaluation Re-evalutation: 04/21/20 21:44 Patient to with findings suggestive of CHF, positive coronavirus test by EMS. I discussed the patient with the on-call for Dr. Amaya, Dr. Oliveros, he suggested admitting the patient to IMCU status, performing a rapid coronavirus test at the hospital. He states that the test is more accurate than the antigen test which is being used by EMS. Will give a dose of steroids, Lasix, and Cardizem to control A. fib. Consult to cardiology Dr. Wise. - Vital Signs Vital signs: Temp Pulse Resp BP Pulse Ox 98.7 F 110 H 19 133/92 H 94 04/21/20 21:46 04/22/20 02:01 04/22/20 01:11 04/22/20 02:01 04/22/20 02:01 - Laboratory Result Diagrams: 04/21/20 19:23 04/21/20 19:23 Laboratory results interpreted by me: 04/21/20 04/21/20 04/21/20 18:04 19:23 19:23 Hgb 11.9 L RDW 14.9 H Plt Count 117 L Seg Neuts % (Manual) 82 H Lymphocytes % (Manual) 7 L Carbonic Acid 1.46 H ABG pH 7.32 L ABG pCO2 48.5 H ABG pO2 159.2 H ABG HCO3 24.6 H ABG Total CO2 26.1 H ABG O2 Saturation 98.9 H Glucose 123 H Total Bilirubin 1.7 H Direct Bilirubin 0.7 H AST 43 H Creatine Kinase 169 H NT-Pro-B Natriuret Pep Urine Protein Urine Urobilinogen 04/21/20 04/21/20 19:23 21:30 Hgb RDW Plt Count Seg Neuts % (Manual) Lymphocytes % (Manual) Carbonic Acid ABG pH ABG pCO2 ABG pO2 ABG HCO3 ABG Total CO2 ABG O2 Saturation Glucose Total Bilirubin Direct Bilirubin AST Creatine Kinase NT-Pro-B Natriuret Pep 4490 H Urine Protein 100 H Urine Urobilinogen 4.0 H - Diagnostic Test Radiology reviewed: Image reviewed, Reports reviewed Radiology results interpreted by me: 04/21/20 21:45 Chest X-Ray 04/21/20 17:14 IMPRESSION: Multilobar pneumonia. Cardiomegaly. - EKG Interpretation by Me Rhythm: A.Fib - EKG interpreted by Dr. Morrell: Atrial fibrillation, rate 135, multiform PVCs, poor R wave progression and borderline QT prolongation, QT interval 324 ms, normal axis, no acute ST or T wave abnormalities, compared to EKG dated 06/08/2019 atrial flutter is no longer present.Interpretation abnormal EKG Critical Care Note - Critical Care Note Total time excluding time spent on procedures (mins): 60 - Critical care time spent obtaining history from patient or surrogate, discussions with consultants, development of treatment plan with patient or surrogate, evaluation of patient's response to treatment, examination of patient, ordering and performing treatments and interventions, ordering and review of laboratory studies, re- evaluation of patient's condition, ordering and review of radiographic studies and review of old charts Discharge - Discharge Clinical Impression: Morbid obesity, COVID-19 virus detected Acute exacerbation of congestive heart failure Qualifiers: Heart failure type: unspecified Qualified Code(s): I50.9 - Heart failure, unspecified Atrial fibrillation Qualifiers: Atrial fibrillation type: unspecified Qualified Code(s): I48.91 - Unspecified atrial fibrillation COPD (chronic obstructive pulmonary disease) Qualifiers: COPD type: unspecified COPD Qualified Code(s): J44.9 - Chronic obstructive pulmonary disease, unspecified Pneumonia Qualifiers: Pneumonia type: due to unspecified organism Laterality: bilateral Lung location: unspecified part of lung Qualified Code(s): J18.9 - Pneumonia, unspecified organism Respiratory failure Qualifiers: Chronicity: acute Respiratory failure complication: hypoxia Qualified Code(s): J96.01 - Acute respiratory failure with hypoxia Condition: Good Disposition: ADMITTED INPATIENT Admitting Provider: [facility] Admitted: [facility]
--- NOTE | 2020-04-21 17:57 | RADIOLOGY REPORT (SQ) ---
EXAM DESCRIPTION: CHEST SINGLE VIEW IMAGES COMPLETED DATE/TIME: 04/21/2020 5:41 pm REASON FOR STUDY: SOB COMPARISON: None. NUMBER OF VIEWS: One view. TECHNIQUE: Single frontal radiographic view of the chest acquired. LIMITATIONS: None. FINDINGS: LUNGS AND PLEURA: Diffuse patchy pulmonary opacities. No large pleural effusion. No pneu mothorax. MEDIASTINUM AND HILAR STRUCTURES: No masses. Contour normal. HEART AND VASCULAR STRUCTURES: Cardiomegaly. BONES: No acute findings. HARDWARE: None in the chest. OTHER: No other significant finding. IMPRESSION: Multilobar pneumonia. Cardiomegaly. TECHNICAL DOCUMENTATION: JOB ID: [id number] 2010 [employer]- All Rights Reserved Reading location - IP/workstation name: [email or web address]
[2020-04-21 18:19] LABS: ARTERIAL BLOOD BASE EXCESS -1.8 mmol/L; ARTERIAL BLOOD H2CO3 1.46 mmol/L (1.05-1.35); ARTERIAL BLOOD HCO3 24.6 mmol/L (20-24); ARTERIAL BLOOD O2 SATURATION 98.9 % (94-98); ARTERIAL BLOOD PCO2 48.5 mmHg (35-45); ARTERIAL BLOOD PH 7.32 (7.35-7.45); ARTERIAL BLOOD PO2 159.2 mmHg (80-100); ARTERIAL BLOOD TOTAL CO2 26.1 mmol/L (21-25)
[2020-04-21 18:20] LABS: ARTERIAL BLOOD FIO2 60%
[2020-04-21 19:37] LABS: HEMATOCRIT 37.1 % (36.0-47.0); HEMOGLOBIN 11.9 g/dL (12.0-15.5); MEAN CORPUSCULAR HEMOGLOBIN 28.7 pg (27.0-33.4); MEAN CORPUSCULAR VOLUME 90 fl (80-97); PLATELET COUNT 117 10^3/uL (150-450); RED BLOOD COUNT 4.14 10^6/uL (3.72-5.28); RED CELL DISTRIBUTION WIDTH 14.9 % (11.5-14.0); WHITE BLOOD COUNT 8.8 10^3/uL (4.0-10.5)
[2020-04-21 20:13] LABS: ALBUMIN 4.2 g/dL (3.5-5.0); ALKALINE PHOSPHATASE 110 U/L (38-126); ANION GAP 10 (5-19); ASPARTATE AMINO TRANSFERASE 43 U/L (14-36); BILIRUBIN,DIRECT 0.7 mg/dL (0.0-0.4); BILIRUBIN,TOTAL 1.7 mg/dL (0.2-1.3); BLOOD UREA NITROGEN 16 mg/dL (7-20); CALCIUM 8.9 mg/dL (8.4-10.2); CARBON DIOXIDE 24 mmol/L (22-30); CHLORIDE 103 mmol/L (98-107); CREATINE KINASE 169 U/L (30-135); GLUCOSE 123 mg/dL (75-110); POTASSIUM 4.4 mmol/L (3.6-5.0); TOTAL PROTEIN 7.1 g/dL (6.3-8.2)
[2020-04-21 20:19] LABS: ABSOLUTE LYMPHOCYTES# (MANUAL) 0.6 10^3/uL (0.5-4.7); ABSOLUTE MONOCYTES # (MANUAL) 0.8 10^3/uL (0.1-1.4); BASOPHILS % (MANUAL) 1 % (0-2); EOSINOPHILS % (MANUAL) 1 % (0-6); LYMPHOCYTES % (MANUAL) 7 % (13-45); MONOCYTES % (MANUAL) 9 % (3-13); SEGMENTED NEUTROPHILS % (MAN) 82 % (42-78); TOTAL CELLS COUNTED 100
[2020-04-21 20:20] LABS: HYPERSEGMENTED NEUTROPHILS PRESENT; TOXIC VACUOLATION PRESENT
[2020-04-21 20:23] LABS: PLATELET COMMENT DECREASED
[2020-04-21 20:24] LABS: OVALOCYTES SLIGHT; POIKILOCYTOSIS SLIGHT; POLYCHROMASIA SLIGHT; RBC MORPHOLOGY COMMENT NORMO-CYTIC/CHROMIC
[2020-04-21 20:25] LABS: ANISOCYTOSIS SLIGHT; CREATINE KINASE MB 3.41 ng/mL (<4.55)
[2020-04-21 20:29] LABS: TROPONIN I 0.034 ng/mL
[2020-04-21] MEDS ORDERED: CEFTRIAXONE INJ 1000 MG VIAL IV ONE (21:26)
[2020-04-21] MEDS ORDERED: AZITHROMYCIN INJ 500 MG VIAL IV ONE (21:26)
[2020-04-21] MEDS ORDERED: FUROSEMIDE INJ/PF 20 MG/2 ML SDV IV ONE ×2 (21:27→22:00)
[2020-04-21] MEDS ORDERED: DILTIAZEM HCL INJ 25 MG/5 ML VIAL IV ONE (21:28)
[2020-04-21] MEDS ORDERED: DEXAMETHASONE SOD PHOS INJ 10 MG/1 ML VIAL IV ONE (21:41)
[2020-04-21] MEDS ORDERED: IPRATROPIUM/ALBUTEROL 0.5-2.5 MG/3 ML AMPUL NEB PRN (21:42)
[2020-04-21] MEDS ORDERED: ACETAMINOPHEN 325 MG TABLET PO PRN (21:42)
[2020-04-21] MEDS ORDERED: DEXTROSE 50%-WATER 25 GM/50 ML DISP.SYRIN IV PRN ×3 (21:53→21:54)
[2020-04-21] MEDS ORDERED: DEXTROSE 40% GEL 15 GM TUBE PO PRN ×4 (21:53→21:54)
[2020-04-21] MEDS ORDERED: GLUCAGON,HUMAN RECOMB 1 MG INJ IM PRN ×2 (21:53→21:54)
[2020-04-21] MEDS ORDERED: DEXAMETHASONE SOD PHOSPHATE 3 MG in DEXTROSE 5%-WATER 50 ML IV SCH (22:00)
[2020-04-21] MEDS ORDERED: DILTIAZEM HCL/D5W 125 MG/125 ML RTUINJ IV PRN (22:04)
[2020-04-21] MEDS ORDERED: IPRATROPIUM/ALBUTEROL 0.5-2.5 MG/3 ML AMPUL NEB ONE (22:06)
[2020-04-21 22:18] LABS: APPEARANCE,URINE CLEAR; BILIRUBIN,URINE NEGATIVE (NEGATIVE); COLOR,URINE YELLOW; GLUCOSE, URINE NEGATIVE (NEGATIVE); KETONES,URINE NEGATIVE (NEGATIVE); LEUKOCYTE ESTERASE,URINE NEGATIVE (NEGATIVE); NITRITE,URINE NEGATIVE (NEGATIVE); PROTEIN,URINE 100 mg/dL (NEGATIVE); URINE SPECIFIC GRAVITY 1.016
[2020-04-22] MEDS ORDERED: IPRATROPIUM/ALBUTEROL 0.5-2.5 MG/3 ML AMPUL NEB ONE (00:22)
[2020-04-22] MEDS: INSULIN LISPRO 100 UNIT/ML 3 ML VIAL SUBCUT SCH ×5 (00:26→22:00)
[2020-04-22] MEDS: FAMOTIDINE INJ/PF 20 MG/2 ML SDV IV SCH ×3 (00:26→21:02)
--- NOTE | 2020-04-22 02:25 | RADIOLOGY REPORT (SQ) ---
CT angiogram chest with contrast on 04/22/2020 1:28 AM CLINICAL INDICATION: Shortness of breath, history of pulmonary embolus TECHNIQUE: Multiple axial images are obtained throughout the chest following the administration of IV contrast. Computer generated 3D reconstructions/MIPS were performed. This exam was performed according to our departmental dose-optimization program, which includes automated exposure control, adjustment of the mA and/or kV according to patient size and/or use of iterative reconstruction technique. Total DLP is 1004.83 mGy*cm. COMPARISON: CT chest without contrast on 06/09/[address] chest with contrast from 12/14/2018 FINDINGS: Cardiomegaly is noted. There is elevation of the right hemidiaphragm. Coronary artery calcifications and other vascular calcifications are noted. There are very small right greater than left pleural effusions. There is reflux of contrast into the IVC and hepatic veins indicating elevated right heart pressure. Limited visualized upper abdomen is otherwise unremarkable. There is no pericardial effusion. There is no thoracic adenopathy. There are right greater left lower lobe areas of likely atelectasis adjacent to the pleural effusions, cannot exclude component of pneumonia. There are patchy bilateral groundglass opacities with some septal thickening. While this could be related to edema, some of the groundglass opacities appear relatively peripheral and rounded and have a worrisome appearance for possible COVID 19 pneumonia and recommend appropriate testing. Degenerative changes are noted in the spine. No filling defects are noted in the pulmonary arteries to suggest pulmonary embolus. IMPRESSION: 1. No evidence of pulmonary embolus. 2. Small bilateral pleural effusions with adjacent bilateral lower lung atelectasis although cannot exclude component of a pneumonia. 3. Bilateral groundglass opacities with septal thickening that could be related to edema but infectious etiology is also possible. Imaging features can be seen with viral or COVID 19 pneumonia, though are nonspecific and can occur with a variety of infectious and noninfectious processes. [PneInd]
[2020-04-22 05:59] LABS: HEMATOCRIT 36.8 % (36.0-47.0); HEMOGLOBIN 11.7 g/dL (12.0-15.5); MEAN CORPUSCULAR HEMOGLOBIN 28.5 pg (27.0-33.4); MEAN CORPUSCULAR HGB CONC 31.7 g/dL (32.0-36.0); MEAN CORPUSCULAR VOLUME 90 fl (80-97); PLATELET COUNT 111 10^3/uL (150-450); RED BLOOD COUNT 4.09 10^6/uL (3.72-5.28); RED CELL DISTRIBUTION WIDTH 15.1 % (11.5-14.0); WHITE BLOOD COUNT 5.8 10^3/uL (4.0-10.5)
[2020-04-22 06:25] LABS: ABSOLUTE LYMPHOCYTES# (MANUAL) 0.3 10^3/uL (0.5-4.7); ABSOLUTE MONOCYTES # (MANUAL) 0.3 10^3/uL (0.1-1.4); ANISOCYTOSIS SLIGHT; BASOPHILS % (MANUAL) 1 % (0-2); EOSINOPHILS % (MANUAL) 0 % (0-6); LYMPHOCYTES % (MANUAL) 5 % (13-45); MONOCYTES % (MANUAL) 5 % (3-13); PLATELET COMMENT DECREASED; SEGMENTED NEUTROPHILS % (MAN) 89 % (42-78); TOTAL CELLS COUNTED 100; TOXIC VACUOLATION PRESENT
--- NOTE | 2020-04-22 08:14 | EKG REPORT ---
SEVERITY:- ABNORMAL ECG - ATRIAL FIBRILLATION MULTIFORM VENTRICULAR PREMATURE COMPLEXES CONSIDER ANTEROSEPTAL INFARCT REPOLARIZATION ABNORMALITY, PROB RATE RELATED BORDERLINE PROLONGED QT INTERVAL : Confirmed by: Weston Patel 22-Apr-2020 08:13:05
[2020-04-22 08:33] LABS: ALBUMIN 3.8 g/dL (3.5-5.0); ALKALINE PHOSPHATASE 93 U/L (38-126); ANION GAP 14 (5-19); ASPARTATE AMINO TRANSFERASE 47 U/L (14-36); BILIRUBIN,DIRECT 0.6 mg/dL (0.0-0.4); BILIRUBIN,TOTAL 1.4 mg/dL (0.2-1.3); BLOOD UREA NITROGEN 17 mg/dL (7-20); CALCIUM 8.7 mg/dL (8.4-10.2); CARBON DIOXIDE 22 mmol/L (22-30); CHLORIDE 101 mmol/L (98-107); GLUCOSE 173 mg/dL (75-110); POTASSIUM 4.5 mmol/L (3.6-5.0); TOTAL PROTEIN 6.5 g/dL (6.3-8.2)
[2020-04-22] MEDS ORDERED: (PENDING PHARMACY ID) (Losartan Potassium [Losartan Potassium] 100 MG Tablet) PO SCH (10:00)
[2020-04-22] MEDS ORDERED: LINAGLIPTIN 5 MG PO SCH (10:00)
[2020-04-22] MEDS ORDERED: ENOXAPARIN SODIUM INJ 40 MG/0.4 ML DISP.SYRIN SUBCUT SCH (10:00)
[2020-04-22] MEDS: SITAGLIPTIN PHOSPHATE 50 MG TABLET PO SCH (10:15)
[2020-04-22] MEDS: APIXABAN 5 MG TABLET PO SCH ×2 (10:15→17:20)
[2020-04-22] MEDS: DEXAMETHASONE SOD PHOSPHATE INJ 4 MG/1 ML VIAL IV SCH ×2 (10:15→21:02)
[2020-04-22] MEDS: LOSARTAN POTASSIUM 50 MG TABLET PO SCH (10:16)
[2020-04-22] MEDS ORDERED: REMDESIVIR 200 MG in NORMAL SALINE 250 ML IV ONE (11:00)
[2020-04-22] MEDS: DILTIAZEM HCL/D5W 125 MG/125 ML RTUINJ IV PRN ×2 (13:23→20:29)
--- NOTE | 2020-04-22 16:41 | EKG REPORT ---
SEVERITY:- ABNORMAL ECG - ATRIAL FIB/ FLUTTER ABNRM R PROG, CONSIDER ASMI OR LEAD PLACEMENT NONSPECIFIC T ABNORMALITIES, LATERAL LEADS : Confirmed by: Weston Patel 22-Apr-2020 16:41:21
[2020-04-22] MEDS ORDERED: ALBUTEROL SULFATE HFA (90 MCG/PUFF) 8 GM MDI (1 MDI/ER DISP) IH PRN (19:21)
--- NOTE | 2020-04-22 19:21 | PDOC H&P ---
History of Present Illness Admission Date/PCP: 04/21/20 22:28 ARTHUR HAYES MD History of Present Illness: LORI GROSS is a 80 year old female, She has multiple comorbid conditions including severe pulmonary hypertension, chronic obstructive lung disease, chronic systolic heart failure, history of pulmonary embolism, paroxysmal atrial fibrillation on chronic anticoagulation with Eliquis, she came to the emergency room for evaluation of shortness of breath. Based on the emergency room record, patient was progressively short of breath for the last 1 week, the symptom got worse today she called EMS, on arrival the oxygen saturation was 84% on ambient air. Patient is breathing was supported with noninvasive positive pressure ventilation, CPAP she also underwent a rapid SARS-CoV-2 test which was positive.When she arrived in the emergency room CT angiogram of the chest was obtained, there was no evidence of pulmonary embolus expected patient is on anticoagulation with Eliquis, there is small bilateral pleural effusion with adjacent bilateral lower lung atelectasis pneumonia could not be ruled out also found was bilateral groundglass opacities with septal thickening that could be related to edema but infectious etiology is also possible. Past Medical History Cardiac Medical History: Reports: Congestive Heart Failure, Coronary Artery Disease, Hyperlipidema, Hypertension - PULOMONARY HTN Pulmonary Medical History: Reports: Asthma, Bronchitis, Chronic Obstructive Pulmonary Disease (COPD) - CHF, Pneumonia Endocrine Medical History: Reports: Diabetes Mellitus Type 2 Musculoskeltal Medical History: Reports: Arthritis - OSTEO Hematology: Reports: Anemia Past Surgical History Past Surgical History: Reports: Hysterectomy, Orthopedic Surgery - Left Knee, Other - Colonoscopy Social History Smoking Status: Current Some Day Smoker Electronic Cigarette use?: No Frequency of Alcohol Use: Occasional Hx Recreational Drug Use: No Drugs: None Hx Prescription Drug Abuse: No Family History Family History: CAD, DM, Hypertension, Malignancy Parental Family History Reviewed: Yes Children Family History Reviewed: Yes Sibling(s) Family History Reviewed.: Yes Medication/Allergy Home Medications: Apixaban [Eliquis 5 mg Tablet] 5 mg PO BID 04/21/20 Diltiazem HCl [Tiadylt ER] 120 mg PO Q12 04/21/20 Duloxetine HCl 60 mg PO DAILY 04/21/20 Linagliptin [Tradjenta] 5 mg PO DAILY 04/21/20 Losartan Potassium 100 mg PO DAILY 04/21/20 Albuterol Sulfate [Proair Hfa Inhalation Aerosol 8.5 gm Mdi] 1 puff IH Q4HP PRN 04/22/20 Allergies/Adverse Reactions: No Known Allergies Allergy (Verified 10/27/18 15:40) Review of Systems Constitutional: ABSENT: chills, fever(s), headache(s), weight gain, weight loss Eyes: ABSENT: visual disturbances Ears: ABSENT: hearing changes Cardiovascular: PRESENT: dyspnea on exertion Respiratory: PRESENT: cough, dyspnea Gastrointestinal: ABSENT: abdominal pain, constipation, diarrhea, hematemesis, hematochezia, nausea, vomiting Genitourinary: ABSENT: dysuria, hematuria Musculoskeletal: ABSENT: joint swelling Integumentary: ABSENT: rash, wounds Neurological: ABSENT: abnormal gait, abnormal speech, confusion, dizziness, focal weakness, syncope Psychiatric: ABSENT: anxiety, depression, homidical ideation, suicidal ideation Endocrine: ABSENT: cold intolerance, heat intolerance, menstrual abnormalities, polydipsia, polyuria Hematologic/Lymphatic: ABSENT: easy bleeding, easy bruising, lymphadenopathy Physical Exam Vital Signs: Temp Pulse Resp BP Pulse Ox 98.3 F 104 H 28 H 119/89 H 100 04/22/20 12:00 04/22/20 18:53 04/22/20 16:33 04/22/20 16:00 04/22/20 16:33 Intake & Output 04/21/20 04/22/20 04/23/20 06:59 06:59 06:59 Intake Total 724 Output Total 250 700 Balance -250 24 Weight 102.6 kg General appearance: PRESENT: mild distress Head exam: PRESENT: atraumatic, normocephalic Eye exam: PRESENT: PERRLA Ear exam: PRESENT: normal external ear exam Mouth exam: PRESENT: moist, tongue midline Neck exam: PRESENT: full ROM Respiratory exam: PRESENT: rhonchi, wheezes Cardiovascular exam: PRESENT: RRR, +S1, +S2, tachycardia Pulses: PRESENT: normal dorsalis pedis pul, +2 pedal pulses bilateral Vascular exam: PRESENT: normal capillary refill GI/Abdominal exam: PRESENT: normal bowel sounds, soft Rectal exam: PRESENT: deferred Neurological exam: PRESENT: alert, CN II-XII grossly intact Psychiatric exam: PRESENT: appropriate affect, normal mood Skin exam: PRESENT: dry, intact, warm Results Laboratory Results: 04/22/20 05:00 04/22/20 07:42 04/21/20 04/21/20 04/21/20 19:23 19:23 21:30 WBC 8.8 RBC 4.14 Hgb 11.9 L Hct 37.1 MCV 90 MCH 28.7 MCHC 32.0 RDW 14.9 H Plt Count 117 L Seg Neutrophils % Not Reportable Sodium 137.3 Potassium 4.4 Chloride 103 Carbon Dioxide 24 Anion Gap 10 BUN 16 Creatinine 0.84 Est GFR ( Amer) > 60 Est GFR (Non-Af Amer) Glucose 123 H Calcium 8.9 Total Bilirubin 1.7 H AST 43 H Alkaline Phosphatase 110 Total Protein 7.1 Albumin 4.2 Urine Color YELLOW Urine Appearance CLEAR Urine pH 5.0 Ur Specific [place] 1.016 Urine Protein 100 H Urine Glucose (UA) NEGATIVE Urine Ketones NEGATIVE Urine Blood NEGATIVE Urine Nitrite NEGATIVE Ur Leukocyte Esterase NEGATIVE Urine WBC (Auto) 1 Urine RBC (Auto) 1 04/22/20 04/22/20 04/22/20 05:00 05:00 07:42 WBC 5.8 RBC 4.09 Hgb 11.7 L Hct 36.8 MCV 90 MCH 28.5 MCHC 31.7 L RDW 15.1 H Plt Count 111 L Seg Neutrophils % Not Reportable Sodium Cancelled 137.0 Potassium Cancelled 4.5 Chloride Cancelled 101 Carbon Dioxide Cancelled 22 Anion Gap Cancelled 14 BUN Cancelled 17 Creatinine Cancelled 0.89 Est GFR ( Amer) Cancelled > 60 Est GFR (Non-Af Amer) Cancelled Glucose Cancelled 173 H Calcium Cancelled 8.7 Total Bilirubin Cancelled 1.4 H AST Cancelled 47 H Alkaline Phosphatase Cancelled 93 Total Protein Cancelled 6.5 Albumin Cancelled 3.8 Urine Color Urine Appearance Urine pH Ur Specific [place] Urine Protein Urine Glucose (UA) Urine Ketones Urine Blood Urine Nitrite Ur Leukocyte Esterase Urine WBC (Auto) Urine RBC (Auto) 04/21/20 04/21/20 04/22/20 19:23 19:23 05:00 Creatine Kinase 169 H CK-MB (CK-2) 3.41 Troponin I 0.034 NT-Pro-B Natriuret Pep 4490 H 7260 H Impressions: Chest X-Ray 04/21/20 17:14 IMPRESSION: Multilobar pneumonia. Cardiomegaly. Chest/Abdomen CTA 04/21/20 22:06 IMPRESSION: 1. No evidence of pulmonary embolus. 2. Small bilateral pleural effusions with adjacent bilateral lower lung atelectasis although cannot exclude component of a pneumonia. 3. Bilateral groundglass opacities with septal thickening that could be related to edema but infectious etiology is also possible. Imaging features can be seen with viral or COVID 19 pneumonia, though are nonspecific and can occur with a variety of infectious and noninfectious processes. [PneInd] Assessment & Plan - Diagnosis (1) Acute hypoxemic respiratory failure Is this a current diagnosis for this admission?: Yes Plan: She has acute hypoxemic respiratory failure, presently on noninvasive positive pressure ventilation BiPAP, she will continue support with this device (2) Acute hypoxemic respiratory failure due to COVID-19 Is this a current diagnosis for this admission?: Yes Plan: She has Covid pneumonia, start dexamethasone 60 mg IV daily remdesivir, She has multiple risk factors, she is at increased risk of cytokine storm, needs to watch very closely (3) Type 2 diabetes mellitus with diabetic polyneuropathy Qualifiers: Diabetes mellitus prison insulin use: without prison use Qualified Code(s): E11.42 - Type 2 diabetes mellitus with diabetic polyneuropathy Is this a current diagnosis for this admission?: Yes (4) Paroxysmal atrial fibrillation with rapid ventricular response Is this a current diagnosis for this admission?: Yes Plan: Patient with atrial fibrillation with rapid ventricular response, start Cardizem infusion (5) Severe pulmonary arterial systolic hypertension Is this a current diagnosis for this admission?: Yes - Time Time Spent: Greater than 70 Minutes Medications reviewed and adjusted accordingly: Yes Anticipated Discharge Disposition: Home, Self Care Anticipated Discharge Timeframe: > 7 days
[2020-04-22] MEDS ORDERED: DILTIAZEM HCL 120 MG PO SCH (19:30)
[2020-04-22] MEDS ORDERED: (PENDING PHARMACY ID) (Duloxetine Hcl [Duloxetine Hcl] 60 MG Capsule.Dr) PO SCH (19:30)
[2020-04-22] MEDS ORDERED: ALBUTEROL SULFATE HFA (90 MCG/PUFF) 8 GM MDI IH PRN (21:00)
[2020-04-22] MEDS: CEFTRIAXONE 1 GM/D5W RTU 1 GM/50 ML RTUPB IV SCH (21:02)
[2020-04-22] MEDS: DILTIAZEM HCL 120 MG CAP.SR.24H PO SCH (21:02)
[2020-04-22] MEDS: AZITHROMYCIN 500 MG in DEXTROSE 5%-WATER 250 ML IV SCH (22:00)
[2020-04-22] MEDS ORDERED: FUROSEMIDE INJ/PF 40 MG/4 ML SDV ONE (23:26)
[2020-04-22] MEDS ORDERED: FUROSEMIDE INJ/PF 40 MG/4 ML SDV IV ONE (23:45)
[2020-04-23 06:35] LABS: ABSOLUTE LYMPHOCYTES (AUTO) 0.7 10^3/uL (0.5-4.7); ABSOLUTE MONOCYTES (AUTO) 1.3 10^3/uL (0.1-1.4); ABSOLUTE NEUT (AUTO) 7.2 10^3/uL (1.7-8.2); BASOPHILS % (AUTO) 0.1 % (0-2); EOSINOPHILS % (AUTO) 0.1 % (0-6); HEMOGLOBIN 12.5 g/dL (12.0-15.5); MEAN CORPUSCULAR HEMOGLOBIN 28.4 pg (27.0-33.4); MEAN CORPUSCULAR HGB CONC 31.9 g/dL (32.0-36.0); MEAN CORPUSCULAR VOLUME 89 fl (80-97); MONOCYTES % (AUTO) 13.9 % (3-13); PLATELET COUNT 110 10^3/uL (150-450); RED BLOOD COUNT 4.39 10^6/uL (3.72-5.28); RED CELL DISTRIBUTION WIDTH 15.1 % (11.5-14.0); SEGMENTED NEUTROPHILS % (AUTO) 77.9 % (42-78); TOTAL CELLS COUNTED % (AUTO) 100 %; WHITE BLOOD COUNT 9.3 10^3/uL (4.0-10.5)
[2020-04-23] MEDS: INSULIN LISPRO 100 UNIT/ML 3 ML VIAL SUBCUT SCH ×4 (08:23→23:24)
[2020-04-23] MEDS: DULOXETINE HCL 30 MG CAPSULE.DR PO SCH (10:10)
[2020-04-23] MEDS: LOSARTAN POTASSIUM 50 MG TABLET PO SCH (10:11)
[2020-04-23] MEDS: FAMOTIDINE INJ/PF 20 MG/2 ML SDV IV SCH ×2 (10:11→23:24)
[2020-04-23] MEDS: APIXABAN 5 MG TABLET PO SCH ×2 (10:11→18:12)
[2020-04-23] MEDS: DEXAMETHASONE SOD PHOSPHATE INJ 4 MG/1 ML VIAL IV SCH ×2 (10:11→23:24)
[2020-04-23] MEDS: DILTIAZEM HCL 120 MG CAP.SR.24H PO SCH ×2 (10:11→23:23)
[2020-04-23] MEDS: SITAGLIPTIN PHOSPHATE 50 MG TABLET PO SCH (10:11)
[2020-04-23] MEDS: REMDESIVIR 100 MG in NORMAL SALINE 250 ML IV SCH (10:12)
--- NOTE | 2020-04-23 10:51 | CDI QUERY ---
CDI Query CDI Review: We are seeking further clarification of documentation to reflect the severity of illness of your patient. Per ED notes: She is noted to have atrial fibrillation with a rate of 130-140 Per H&P: History of Present Illness: paroxysmal atrial fibrillation on chronic anticoagulation with Eliquis Paroxysmal atrial fibrillation with rapid ventricular response Is this a current diagnosis for this admission?: Yes Plan: Patient with atrial fibrillation with rapid ventricular response, start Cardizem infusion Based on your medical judgement, can you further clarify in the Progress Notes and the Discharge Summary if the Atrial Fibrillation can be further specified: Persistent Atrial fibrillation Chronic (Permanent) Atrial fibrillation Other Unable to determine Thank you for your consideration. CARMELA AbebeN RN Clinical Trimmer Tailer Physician Advisor
--- NOTE | 2020-04-23 18:22 | PDOC PROGRESS REPORT ---
Subjective Date:: 04/23/20 Subjective:: Patient was seen by the bedside, she had episode of acute delirium last night, s he pulled of the IV lines and also the BiPAP machine facemask, she was restrained . Today she is more alert oriented coherent, she continues to require noninvasive positive pressure ventilation, BiPAP.I also called the family members to explain to them diagnosis and plan of care, she has Covid pneu bharathiia in respiratory isolation Reason For Visit: SOB,PNEUMONIA,CHF,COVID Physical Exam Vital Signs: Temp Pulse Resp BP Pulse Ox 98.3 F 93 33 H 138/72 H 100 04/23/20 15:38 04/23/20 15:38 04/23/20 16:00 04/23/20 15:38 04/23/20 15:38 Intake & Output 04/22/20 04/23/20 04/24/20 06:59 06:59 06:59 Intake Total 1184 490 Output Total 250 1075 700 Balance -250 109 -210 Weight 102.6 kg 101.4 kg General appearance: PRESENT: no acute distress Eye exam: PRESENT: PERRLA Respiratory exam: PRESENT: rhonchi Cardiovascular exam: PRESENT: +S1, +S2 GI/Abdominal exam: PRESENT: soft Neurological exam: PRESENT: alert Results Laboratory Results: 04/23/20 06:00 04/22/20 07:42 04/23/20 06:00 WBC 9.3 RBC 4.39 Hgb 12.5 Hct 39.0 MCV 89 MCH 28.4 MCHC 31.9 L RDW 15.1 H Plt Count 110 L Seg Neutrophils % 77.9 04/21/20 21:30 Catheterized Urine Urine Culture - Final NO GROWTH 2 DAYS 04/21/20 04/21/20 04/22/20 19:23 19:23 05:00 Creatine Kinase 169 H CK-MB (CK-2) 3.41 Troponin I 0.034 NT-Pro-B Natriuret Pep 4490 H 7260 H 04/22/20 23:40 Creatine Kinase CK-MB (CK-2) Troponin I NT-Pro-B Natriuret Pep 6940 H Impressions: Chest X-Ray 04/21/20 17:14 IMPRESSION: Multilobar pneumonia. Cardiomegaly. Chest/Abdomen CTA 04/21/20 22:06 IMPRESSION: 1. No evidence of pulmonary embolus. 2. Small bilateral pleural effusions with adjacent bilateral lower lung atelectasis although cannot exclude component of a pneumonia. 3. Bilateral groundglass opacities with septal thickening that could be related to edema but infectious etiology is also possible. Imaging features can be seen with viral or COVID 19 pneumonia, though are nonspecific and can occur with a variety of infectious and noninfectious processes. [PneInd] Assessment & Plan - Diagnosis (1) Acute hypoxemic respiratory failure Is this a current diagnosis for this admission?: Yes Plan: Continue NIPPV (2) Acute hypoxemic respiratory failure due to COVID-19 Is this a current diagnosis for this admission?: Yes Plan: Patient was started on intravenous remdesivir, dexamethasone, IV antibiotic to cover potential bacterial pathogens, she will continue on this regimen (3) Type 2 diabetes mellitus with diabetic polyneuropathy Qualifiers: Diabetes mellitus shelter insulin use: without shelter use Qualified Code(s): E11.42 - Type 2 diabetes mellitus with diabetic polyneuropathy Is this a current diagnosis for this admission?: Yes (4) Paroxysmal atrial fibrillation with rapid ventricular response Is this a current diagnosis for this admission?: Yes Plan: Continue IV Cardizem infusion, she was started on her regular p.o. Cardizem yesterday hopefully we can stop the IV Cardizem (5) Severe pulmonary arterial systolic hypertension Is this a current diagnosis for this admission?: Yes - Time Time Spent with patient: 35 or more minutes Level of Care: IMCU Medications reviewed and adjusted accordingly: Yes Anticipated discharge: Home Anticipated DC Timeframe: Other
[2020-04-23] MEDS: CEFTRIAXONE 1 GM/D5W RTU 1 GM/50 ML RTUPB IV SCH (23:23)
[2020-04-23] MEDS: AZITHROMYCIN 500 MG in DEXTROSE 5%-WATER 250 ML IV SCH (23:24)
[2020-04-24 07:02] LABS: ABSOLUTE LYMPHOCYTES (AUTO) 0.7 10^3/uL (0.5-4.7); ABSOLUTE MONOCYTES (AUTO) 0.6 10^3/uL (0.1-1.4); BASOPHILS % (AUTO) 0.1 % (0-2); EOSINOPHILS % (AUTO) 0.1 % (0-6); HEMATOCRIT 39.6 % (36.0-47.0); HEMOGLOBIN 12.4 g/dL (12.0-15.5); LYMPHOCYTES % (AUTO) 9.6 % (13-45); MEAN CORPUSCULAR HGB CONC 31.4 g/dL (32.0-36.0); MEAN CORPUSCULAR VOLUME 89 fl (80-97); PLATELET COUNT 122 10^3/uL (150-450); RED BLOOD COUNT 4.43 10^6/uL (3.72-5.28); RED CELL DISTRIBUTION WIDTH 15.3 % (11.5-14.0); SEGMENTED NEUTROPHILS % (AUTO) 82.2 % (42-78); TOTAL CELLS COUNTED % (AUTO) 100 %; WHITE BLOOD COUNT 7.3 10^3/uL (4.0-10.5)
[2020-04-24] MEDS: INSULIN LISPRO 100 UNIT/ML 3 ML VIAL SUBCUT SCH ×4 (08:27→21:30)
[2020-04-24 09:01] LABS: ALBUMIN 3.4 g/dL (3.5-5.0); ALKALINE PHOSPHATASE 86 U/L (38-126); ANION GAP 9 (5-19); ASPARTATE AMINO TRANSFERASE 98 U/L (14-36); BILIRUBIN,DIRECT 0.5 mg/dL (0.0-0.4); BILIRUBIN,TOTAL 0.9 mg/dL (0.2-1.3); BLOOD UREA NITROGEN 35 mg/dL (7-20); CALCIUM 8.5 mg/dL (8.4-10.2); CARBON DIOXIDE 26 mmol/L (22-30); CHLORIDE 100 mmol/L (98-107); GLUCOSE 213 mg/dL (75-110); POTASSIUM 4.7 mmol/L (3.6-5.0); TOTAL PROTEIN 6.2 g/dL (6.3-8.2)
[2020-04-24] MEDS: SITAGLIPTIN PHOSPHATE 50 MG TABLET PO SCH (10:45)
[2020-04-24] MEDS: DILTIAZEM HCL 120 MG CAP.SR.24H PO SCH ×2 (10:45→21:30)
[2020-04-24] MEDS: LOSARTAN POTASSIUM 50 MG TABLET PO SCH (10:45)
[2020-04-24] MEDS: APIXABAN 5 MG TABLET PO SCH ×2 (10:45→17:41)
[2020-04-24] MEDS: DULOXETINE HCL 30 MG CAPSULE.DR PO SCH (10:45)
[2020-04-24] MEDS: DEXAMETHASONE SOD PHOSPHATE INJ 4 MG/1 ML VIAL IV SCH ×2 (10:45→21:30)
[2020-04-24] MEDS: FAMOTIDINE INJ/PF 20 MG/2 ML SDV IV SCH ×2 (10:46→21:30)
[2020-04-24] MEDS: REMDESIVIR 100 MG in NORMAL SALINE 250 ML IV SCH (10:46)
--- NOTE | 2020-04-24 15:57 | PDOC PROGRESS REPORT ---
Subjective Date:: 04/24/20 Subjective:: Patient seen by the bedside she had another episode of delirium last night prese ntly restrained, I wonder if the delirium she is having could be related to alcohol withdrawal because she is a closet alcohol user, She may need to use low-dose lorazepam. She was admitted for COVID-19 positive test (U07.1, COVID- 19) with Acute Pneumonia (J12.89, Other viral pneumonia) (If respiratory failure or sepsis present, add as separate assessment),She has multiple comorbid conditions that increase her risk of acute cytokine storm Reason For Visit: SOB,PNEUMONIA,CHF,COVID Physical Exam Vital Signs: Temp Pulse Resp BP Pulse Ox 98.2 F 98 19 119/77 97 04/24/20 12:05 04/24/20 14:00 04/24/20 12:05 04/24/20 12:05 04/24/20 12:05 Intake & Output 04/23/20 04/24/20 04/25/20 06:59 06:59 06:59 Intake Total 1184 640 721 Output Total 1075 1075 Balance 109 -435 721 Weight 101.4 kg 102.2 kg General appearance: PRESENT: no acute distress Head exam: PRESENT: atraumatic, normocephalic Eye exam: PRESENT: PERRLA. ABSENT: scleral icterus Ear exam: PRESENT: normal external ear exam Mouth exam: PRESENT: moist, tongue midline Neck exam: PRESENT: full ROM Respiratory exam: PRESENT: clear to auscultation dmitri Cardiovascular exam: PRESENT: RRR, +S1, +S2 Vascular exam: PRESENT: normal capillary refill GI/Abdominal exam: PRESENT: normal bowel sounds, soft Rectal exam: PRESENT: deferred Neurological exam: PRESENT: alert, CN II-XII grossly intact Psychiatric exam: PRESENT: appropriate affect, normal mood Skin exam: PRESENT: dry, intact, warm Results Laboratory Results: 04/24/20 05:31 04/24/20 05:31 04/24/20 04/24/20 05:31 05:31 WBC 7.3 RBC 4.43 Hgb 12.4 Hct 39.6 MCV 89 MCH 28.0 MCHC 31.4 L RDW 15.3 H Plt Count 122 L Seg Neutrophils % 82.2 H Sodium 134.9 L Potassium 4.7 Chloride 100 Carbon Dioxide 26 Anion Gap 9 BUN 35 H Creatinine 1.25 Est GFR ( Amer) 50 L Glucose 213 H Calcium 8.5 Total Bilirubin 0.9 AST 98 H Alkaline Phosphatase 86 Total Protein 6.2 L Albumin 3.4 L 04/21/20 04/21/20 04/22/20 19:23 19:23 05:00 Creatine Kinase 169 H CK-MB (CK-2) 3.41 Troponin I 0.034 NT-Pro-B Natriuret Pep 4490 H 7260 H 04/22/20 23:40 Creatine Kinase CK-MB (CK-2) Troponin I NT-Pro-B Natriuret Pep 6940 H Impressions: Chest X-Ray 04/21/20 17:14 IMPRESSION: Multilobar pneumonia. Cardiomegaly. Chest/Abdomen CTA 04/21/20 22:06 IMPRESSION: 1. No evidence of pulmonary embolus. 2. Small bilateral pleural effusions with adjacent bilateral lower lung atelectasis although cannot exclude component of a pneumonia. 3. Bilateral groundglass opacities with septal thickening that could be related to edema but infectious etiology is also possible. Imaging features can be seen with viral or COVID 19 pneumonia, though are nonspecific and can occur with a variety of infectious and noninfectious processes. [PneInd] Assessment & Plan - Diagnosis (1) Acute hypoxemic respiratory failure Is this a current diagnosis for this admission?: Yes Plan: Continue NIPPV (2) Acute hypoxemic respiratory failure due to COVID-19 Is this a current diagnosis for this admission?: Yes Plan: Patient was started on intravenous remdesivir, dexamethasone, IV antibiotic to cover potential bacterial pathogens, she will continue on this regimen (3) Type 2 diabetes mellitus with diabetic polyneuropathy Qualifiers: Diabetes mellitus technician terminal and repeater insulin use: without group home use Qualified Code(s): E11.42 - Type 2 diabetes mellitus with diabetic polyneuropathy Is this a current diagnosis for this admission?: Yes (4) Paroxysmal atrial fibrillation with rapid ventricular response Is this a current diagnosis for this admission?: Yes Plan: Discontinue IV Cardizem (5) Severe pulmonary arterial systolic hypertension Is this a current diagnosis for this admission?: Yes (6) Acute delirium Is this a current diagnosis for this admission?: Yes Plan: This could be related to alcohol withdrawal, start lorazepam low-dose 0.25 every 8 hours - Time Time Spent with patient: 35 or more minutes Level of Care: IMCU Medications reviewed and adjusted accordingly: Yes Anticipated discharge: Home Anticipated DC Timeframe: Other
[2020-04-24] MEDS: LORAZEPAM 0.5 MG TABLET PO SCH ×2 (16:15→21:29)
[2020-04-24] MEDS: CEFTRIAXONE 1 GM/D5W RTU 1 GM/50 ML RTUPB IV SCH (21:31)
[2020-04-24] MEDS: AZITHROMYCIN 500 MG in DEXTROSE 5%-WATER 250 ML IV SCH (22:31)
[2020-04-25] MEDS: LORAZEPAM 0.5 MG TABLET PO SCH ×3 (05:49→21:24)
[2020-04-25] MEDS: INSULIN LISPRO 100 UNIT/ML 3 ML VIAL SUBCUT SCH ×4 (08:24→23:53)
[2020-04-25] MEDS: REMDESIVIR 100 MG in NORMAL SALINE 250 ML IV SCH (10:15)
[2020-04-25] MEDS: DEXAMETHASONE SOD PHOSPHATE INJ 4 MG/1 ML VIAL IV SCH ×2 (10:20→21:23)
[2020-04-25] MEDS: DULOXETINE HCL 30 MG CAPSULE.DR PO SCH (10:20)
[2020-04-25] MEDS: DILTIAZEM HCL 120 MG CAP.SR.24H PO SCH ×2 (10:20→21:25)
[2020-04-25] MEDS: APIXABAN 5 MG TABLET PO SCH ×2 (10:21→17:05)
[2020-04-25] MEDS: LOSARTAN POTASSIUM 50 MG TABLET PO SCH (10:21)
[2020-04-25] MEDS: SITAGLIPTIN PHOSPHATE 50 MG TABLET PO SCH (10:21)
[2020-04-25] MEDS: FAMOTIDINE INJ/PF 20 MG/2 ML SDV IV SCH ×2 (12:18→21:23)
--- NOTE | 2020-04-25 19:42 | PDOC PROGRESS REPORT ---
Subjective Date:: 04/25/20 Subjective:: Patient seen by the bedside she had another episode of delirium last night prese austinly restrained, I wonder if the delirium she is having could be related to alcohol withdrawal because she is a closet alcohol user, She may need to use low-dose lorazepam. She was admitted for COVID-19 positive test (U07.1, COVID- 19) with Acute Pneumonia (J12.89, Other viral pneumonia) (If respiratory failure or sepsis present, add as separate assessment),She has multiple comorbid conditions that increase her risk of acute cytokine storm 04/25/2020 Patient seen by the bedside she continues to require supplemental oxygen via high flow oxygen, she has not used NIPPV today. She is less delirious today, she was started on Ativan yesterday for delirium that was felt to be due to alcohol withdrawal syndrome. She uses alcohol on a regular habitual basis. She will continue IV remdesivir for 5 days, IV dexamethasone for 10 days Reason For Visit: SOB,PNEUMONIA,CHF,COVID Physical Exam Vital Signs: Temp Pulse Resp BP Pulse Ox 97.6 F 91 18 127/94 H 96 04/25/20 16:31 04/25/20 16:31 04/25/20 16:31 04/25/20 16:31 04/25/20 16:31 Intake & Output 04/24/20 04/25/20 04/26/20 06:59 06:59 06:59 Intake Total 640 1021 500 Output Total 1075 700 700 Balance -435 321 -200 Weight 102.2 kg 99.1 kg General appearance: PRESENT: no acute distress Eye exam: PRESENT: PERRLA Respiratory exam: PRESENT: clear to auscultation dmitri Cardiovascular exam: PRESENT: +S1, +S2 GI/Abdominal exam: PRESENT: soft Neurological exam: PRESENT: alert Results Laboratory Results: 04/24/20 05:31 04/24/20 05:31 04/21/20 04/21/20 04/22/20 19:23 19:23 05:00 Creatine Kinase 169 H CK-MB (CK-2) 3.41 Troponin I 0.034 NT-Pro-B Natriuret Pep 4490 H 7260 H 04/22/20 23:40 Creatine Kinase CK-MB (CK-2) Troponin I NT-Pro-B Natriuret Pep 6940 H Impressions: Chest X-Ray 04/21/20 17:14 IMPRESSION: Multilobar pneumonia. Cardiomegaly. Chest/Abdomen CTA 04/21/20 22:06 IMPRESSION: 1. No evidence of pulmonary embolus. 2. Small bilateral pleural effusions with adjacent bilateral lower lung atelectasis although cannot exclude component of a pneumonia. 3. Bilateral groundglass opacities with septal thickening that could be related to edema but infectious etiology is also possible. Imaging features can be seen with viral or COVID 19 pneumonia, though are nonspecific and can occur with a variety of infectious and noninfectious processes. [PneInd] Assessment & Plan - Diagnosis (1) Acute hypoxemic respiratory failure Is this a current diagnosis for this admission?: Yes Plan: Continue Supplemental oxygen (2) Acute hypoxemic respiratory failure due to COVID-19 Is this a current diagnosis for this admission?: Yes Plan: Patient was started on intravenous remdesivir, dexamethasone, IV antibiotic to cover potential bacterial pathogens, she will continue on this regimen She received IV remdesivir for 5 days, IV dexamethasone for 10 days (3) Type 2 diabetes mellitus with diabetic polyneuropathy Qualifiers: Diabetes mellitus snf insulin use: without truck terminal manager use Qualified Code(s): E11.42 - Type 2 diabetes mellitus with diabetic polyneuropathy Is this a current diagnosis for this admission?: Yes (4) Paroxysmal atrial fibrillation with rapid ventricular response Is this a current diagnosis for this admission?: Yes Plan: Discontinue IV Cardizem and Eliquis (5) Severe pulmonary arterial systolic hypertension Is this a current diagnosis for this admission?: Yes (6) Acute delirium Is this a current diagnosis for this admission?: Yes Plan: This could be related to alcohol withdrawal, continue lorazepam low-dose 0.25 every 8 hours - Time Time Spent with patient: 35 or more minutes Level of Care: IMCU Medications reviewed and adjusted accordingly: Yes Anticipated discharge: Home Anticipated DC Timeframe: Other - 7 days
[2020-04-25] MEDS: CEFTRIAXONE 1 GM/D5W RTU 1 GM/50 ML RTUPB IV SCH (21:26)
[2020-04-26] MEDS: AZITHROMYCIN 500 MG in DEXTROSE 5%-WATER 250 ML IV SCH ×2 (00:31→22:01)
[2020-04-26] MEDS: LORAZEPAM 0.5 MG TABLET PO SCH ×3 (05:28→21:49)
[2020-04-26] MEDS ORDERED: INFLUENZA QUAD (6MOS+) 2020-21 VAC 0.5 ML SYR IM ONE (08:00)
[2020-04-26] MEDS: SITAGLIPTIN PHOSPHATE 50 MG TABLET PO SCH (10:03)
[2020-04-26] MEDS: REMDESIVIR 100 MG in NORMAL SALINE 250 ML IV SCH (10:04)
[2020-04-26] MEDS: LOSARTAN POTASSIUM 50 MG TABLET PO SCH (10:04)
[2020-04-26] MEDS: DEXAMETHASONE SOD PHOSPHATE INJ 4 MG/1 ML VIAL IV SCH ×2 (10:04→21:48)
[2020-04-26] MEDS: INSULIN LISPRO 100 UNIT/ML 3 ML VIAL SUBCUT SCH ×4 (10:04→21:49)
[2020-04-26] MEDS: APIXABAN 5 MG TABLET PO SCH ×2 (10:04→17:43)
[2020-04-26] MEDS: DULOXETINE HCL 30 MG CAPSULE.DR PO SCH (10:04)
[2020-04-26] MEDS: FAMOTIDINE INJ/PF 20 MG/2 ML SDV IV SCH ×2 (10:04→21:48)
[2020-04-26] MEDS: DILTIAZEM HCL 120 MG CAP.SR.24H PO SCH ×2 (10:04→21:49)
[2020-04-26 15:04] LABS: HEMATOCRIT 40.3 % (36.0-47.0); HEMOGLOBIN 12.8 g/dL (12.0-15.5); MEAN CORPUSCULAR HEMOGLOBIN 28.2 pg (27.0-33.4); MEAN CORPUSCULAR HGB CONC 31.8 g/dL (32.0-36.0); MEAN CORPUSCULAR VOLUME 89 fl (80-97); PLATELET COUNT 139 10^3/uL (150-450); RED BLOOD COUNT 4.54 10^6/uL (3.72-5.28); RED CELL DISTRIBUTION WIDTH 15.2 % (11.5-14.0); WHITE BLOOD COUNT 7.9 10^3/uL (4.0-10.5)
[2020-04-26 15:26] LABS: ALBUMIN 3.5 g/dL (3.5-5.0); ALKALINE PHOSPHATASE 104 U/L (38-126); ANION GAP 11 (5-19); ASPARTATE AMINO TRANSFERASE 96 U/L (14-36); BILIRUBIN,DIRECT 0.5 mg/dL (0.0-0.4); BLOOD UREA NITROGEN 42 mg/dL (7-20); CALCIUM 8.4 mg/dL (8.4-10.2); CARBON DIOXIDE 22 mmol/L (22-30); CHLORIDE 102 mmol/L (98-107); GLUCOSE 223 mg/dL (75-110); POTASSIUM 4.5 mmol/L (3.6-5.0); TOTAL PROTEIN 6.3 g/dL (6.3-8.2)
[2020-04-26 15:35] LABS: ABSOLUTE LYMPHOCYTES# (MANUAL) 1.2 10^3/uL (0.5-4.7); ABSOLUTE MONOCYTES # (MANUAL) 0.2 10^3/uL (0.1-1.4); BAND NEUTROPHILS % (MANUAL) 1 % (3-5); BASOPHILS % (MANUAL) 0 % (0-2); EOSINOPHILS % (MANUAL) 0 % (0-6); LYMPHOCYTES % (MANUAL) 15 % (13-45); MONOCYTES % (MANUAL) 3 % (3-13); NUCLEATED RED BLOOD CELLS 4 /100 WBC (0); SEGMENTED NEUTROPHILS % (MAN) 81 % (42-78); TOTAL CELLS COUNTED 100
[2020-04-26 15:36] LABS: POLYCHROMASIA SLIGHT
[2020-04-26 15:37] LABS: ANISOCYTOSIS SLIGHT; OVALOCYTES SLIGHT; POIKILOCYTOSIS SLIGHT
[2020-04-26 15:38] LABS: PLATELET COMMENT DECREASED
--- NOTE | 2020-04-26 20:11 | PDOC PROGRESS REPORT ---
Subjective Date:: 04/26/20 Subjective:: Patient seen by the bedside she had another episode of delirium last night prese ntly restrained, I wonder if the delirium she is having could be related to alcohol withdrawal because she is a closet alcohol user, She may need to use low-dose lorazepam. She was admitted for COVID-19 positive test (U07.1, COVID- 19) with Acute Pneumonia (J12.89, Other viral pneumonia) (If respiratory failure or sepsis present, add as separate assessment),She has multiple comorbid conditions that increase her risk of acute cytokine storm 04/25/2020 Patient seen by the bedside she continues to require supplemental oxygen via high flow oxygen, she has not used NIPPV today. She is less delirious today, she was started on Ativan yesterday for delirium that was felt to be due to alcohol withdrawal syndrome. She uses alcohol on a regular habitual basis. She will continue IV remdesivir for 5 days, IV dexamethasone for 10 days 04/26/2020 Patient seen by the bedside, she still have some episode of confusion Reason For Visit: SOB,PNEUMONIA,CHF,COVID Physical Exam Vital Signs: Temp Pulse Resp BP Pulse Ox 97.6 F 97 20 147/98 H 95 04/26/20 19:43 04/26/20 19:00 04/26/20 15:47 04/26/20 15:47 04/26/20 15:47 Intake & Output 04/25/20 04/26/20 04/27/20 06:59 06:59 06:59 Intake Total 1021 800 370 Output Total 700 1200 700 Balance 321 -400 -330 Weight 99.1 kg 101.4 kg General appearance: PRESENT: no acute distress Eye exam: PRESENT: PERRLA Respiratory exam: PRESENT: clear to auscultation dmitri Cardiovascular exam: PRESENT: +S1, +S2 Results Laboratory Results: 04/26/20 14:47 04/26/20 14:47 04/26/20 04/26/20 14:47 14:47 WBC 7.9 RBC 4.54 Hgb 12.8 Hct 40.3 MCV 89 MCH 28.2 MCHC 31.8 L RDW 15.2 H Plt Count 139 L Seg Neutrophils % Not Reportable Sodium 134.6 L Potassium 4.5 Chloride 102 Carbon Dioxide 22 Anion Gap 11 BUN 42 H Creatinine 1.23 Est GFR ( Amer) 51 L Glucose 223 H Calcium 8.4 Total Bilirubin 1.0 AST 96 H Alkaline Phosphatase 104 Total Protein 6.3 Albumin 3.5 04/21/20 04/21/20 04/22/20 19:23 19:23 05:00 Creatine Kinase 169 H CK-MB (CK-2) 3.41 Troponin I 0.034 NT-Pro-B Natriuret Pep 4490 H 7260 H 04/22/20 23:40 Creatine Kinase CK-MB (CK-2) Troponin I NT-Pro-B Natriuret Pep 6940 H Impressions: Chest X-Ray 04/21/20 17:14 IMPRESSION: Multilobar pneumonia. Cardiomegaly. Chest/Abdomen CTA 04/21/20 22:06 IMPRESSION: 1. No evidence of pulmonary embolus. 2. Small bilateral pleural effusions with adjacent bilateral lower lung atelectasis although cannot exclude component of a pneumonia. 3. Bilateral groundglass opacities with septal thickening that could be related to edema but infectious etiology is also possible. Imaging features can be seen with viral or COVID 19 pneumonia, though are nonspecific and can occur with a variety of infectious and noninfectious processes. [PneInd] Assessment & Plan - Diagnosis (1) Acute hypoxemic respiratory failure Is this a current diagnosis for this admission?: Yes Plan: Continue Supplemental oxygen (2) Acute hypoxemic respiratory failure due to COVID-19 Is this a current diagnosis for this admission?: Yes Plan: Patient was started on intravenous remdesivir, dexamethasone, IV antibiotic to cover potential bacterial pathogens, she will continue on this regimen She received IV remdesivir for 5 days, IV dexamethasone for 10 days (3) Type 2 diabetes mellitus with diabetic polyneuropathy Qualifiers: Diabetes mellitus superintendent terminal insulin use: without shelter use Qualified Code(s): E11.42 - Type 2 diabetes mellitus with diabetic polyneuropathy Is this a current diagnosis for this admission?: Yes (4) Paroxysmal atrial fibrillation with rapid ventricular response Is this a current diagnosis for this admission?: Yes Plan: continue Eliquis (5) Severe pulmonary arterial systolic hypertension Is this a current diagnosis for this admission?: Yes (6) Acute delirium Is this a current diagnosis for this admission?: Yes Plan: This could be related to alcohol withdrawal, continue lorazepam low-dose 0.25 every 8 hours - Time Time Spent with patient: 25-34 minutes Level of Care: IMCU Medications reviewed and adjusted accordingly: Yes Anticipated discharge: Home Anticipated DC Timeframe: Other
[2020-04-26] MEDS: CEFTRIAXONE 1 GM/D5W RTU 1 GM/50 ML RTUPB IV SCH (21:49)
[2020-04-27] MEDS: LORAZEPAM 0.5 MG TABLET PO SCH ×3 (05:27→23:39)
[2020-04-27 06:05] LABS: HEMATOCRIT 42.8 % (36.0-47.0); HEMOGLOBIN 13.7 g/dL (12.0-15.5); MEAN CORPUSCULAR HEMOGLOBIN 28.4 pg (27.0-33.4); MEAN CORPUSCULAR VOLUME 89 fl (80-97); PLATELET COUNT 134 10^3/uL (150-450); RED BLOOD COUNT 4.82 10^6/uL (3.72-5.28); RED CELL DISTRIBUTION WIDTH 14.8 % (11.5-14.0); WHITE BLOOD COUNT 9.3 10^3/uL (4.0-10.5)
[2020-04-27 06:20] LABS: ALBUMIN 3.5 g/dL (3.5-5.0); ALKALINE PHOSPHATASE 107 U/L (38-126); ANION GAP 13 (5-19); ASPARTATE AMINO TRANSFERASE 78 U/L (14-36); BILIRUBIN,DIRECT 0.6 mg/dL (0.0-0.4); BLOOD UREA NITROGEN 42 mg/dL (7-20); CARBON DIOXIDE 21 mmol/L (22-30); CHLORIDE 105 mmol/L (98-107); GLUCOSE 212 mg/dL (75-110); TOTAL PROTEIN 6.3 g/dL (6.3-8.2)
[2020-04-27 06:45] LABS: ABSOLUTE LYMPHOCYTES# (MANUAL) 1.2 10^3/uL (0.5-4.7); ABSOLUTE MONOCYTES # (MANUAL) 0.9 10^3/uL (0.1-1.4); BAND NEUTROPHILS % (MANUAL) 4 % (3-5); BASOPHILS % (MANUAL) 0 % (0-2); EOSINOPHILS % (MANUAL) 0 % (0-6); LYMPHOCYTES % (MANUAL) 13 % (13-45); MONOCYTES % (MANUAL) 10 % (3-13); NUCLEATED RED BLOOD CELLS 1 /100 WBC (0); SEGMENTED NEUTROPHILS % (MAN) 73 % (42-78); TOTAL CELLS COUNTED 100
[2020-04-27 06:46] LABS: ANISOCYTOSIS 1+; PLATELET COMMENT ADEQUATE; POLYCHROMASIA 1+
[2020-04-27] MEDS: INSULIN LISPRO 100 UNIT/ML 3 ML VIAL SUBCUT SCH ×4 (08:16→23:41)
[2020-04-27] MEDS: DULOXETINE HCL 30 MG CAPSULE.DR PO SCH (09:31)
[2020-04-27] MEDS: FAMOTIDINE INJ/PF 20 MG/2 ML SDV IV SCH ×2 (09:31→23:38)
[2020-04-27] MEDS: DEXAMETHASONE SOD PHOSPHATE INJ 4 MG/1 ML VIAL IV SCH ×2 (09:31→23:38)
[2020-04-27] MEDS: LOSARTAN POTASSIUM 50 MG TABLET PO SCH (09:32)
[2020-04-27] MEDS: DILTIAZEM HCL 120 MG CAP.SR.24H PO SCH (09:32)
[2020-04-27] MEDS: SITAGLIPTIN PHOSPHATE 50 MG TABLET PO SCH (09:32)
[2020-04-27] MEDS: APIXABAN 5 MG TABLET PO SCH ×2 (09:32→17:13)
--- NOTE | 2020-04-27 15:07 | PDOC PROGRESS REPORT ---
Subjective Date:: 04/27/20 Subjective:: Patient is more somnolent today as per nursing staff report. PO intake limited d ue to this issue. No reported chest pain. Remain on supplemental oxygen with NIPPV support. Reason For Visit: SOB,PNEUMONIA,CHF,COVID Physical Exam Vital Signs: Temp Pulse Resp BP Pulse Ox 97.4 F 94 16 150/108 H 98 04/27/20 08:24 04/27/20 14:00 04/27/20 07:57 04/27/20 07:57 04/27/20 08:00 Intake & Output 04/26/20 04/27/20 04/28/20 06:59 06:59 06:59 Intake Total 800 670 Output Total 1200 700 Balance -400 -30 Weight 101.4 kg 101.9 kg 101.9 kg General appearance: PRESENT: mild distress Head exam: PRESENT: atraumatic, normocephalic Eye exam: PRESENT: conjunctiva pink. ABSENT: scleral icterus Respiratory exam: PRESENT: decreased breath sounds Cardiovascular exam: PRESENT: +S1, +S2, tachycardia Vascular exam: ABSENT: pallor GI/Abdominal exam: PRESENT: normal bowel sounds, soft. ABSENT: tenderness Neurological exam: PRESENT: alert, awake Skin exam: PRESENT: dry, warm Results Laboratory Results: 04/27/20 05:05 04/27/20 05:05 04/26/20 04/26/20 04/27/20 14:47 14:47 05:05 WBC 7.9 9.3 RBC 4.54 4.82 Hgb 12.8 13.7 Hct 40.3 42.8 MCV 89 89 MCH 28.2 28.4 MCHC 31.8 L 32.0 RDW 15.2 H 14.8 H Plt Count 139 L 134 L Seg Neutrophils % Not Reportable Not Reportable Sodium 134.6 L Potassium 4.5 Chloride 102 Carbon Dioxide 22 Anion Gap 11 BUN 42 H Creatinine 1.23 Est GFR ( Amer) 51 L Glucose 223 H Calcium 8.4 Total Bilirubin 1.0 AST 96 H Alkaline Phosphatase 104 Total Protein 6.3 Albumin 3.5 04/27/20 05:05 WBC RBC Hgb Hct MCV MCH MCHC RDW Plt Count Seg Neutrophils % Sodium 138.6 Potassium 5.0 Chloride 105 Carbon Dioxide 21 L Anion Gap 13 BUN 42 H Creatinine 1.26 H Est GFR ( Amer) 49 L Glucose 212 H Calcium 9.0 Total Bilirubin 1.0 AST 78 H Alkaline Phosphatase 107 Total Protein 6.3 Albumin 3.5 04/21/20 22:20 Blood Blood Culture - Final NO GROWTH IN 5 DAYS 04/21/20 19:23 Blood Blood Culture - Final NO GROWTH IN 5 DAYS 04/21/20 04/21/20 04/22/20 19:23 19:23 05:00 Creatine Kinase 169 H CK-MB (CK-2) 3.41 Troponin I 0.034 NT-Pro-B Natriuret Pep 4490 H 7260 H 04/22/20 23:40 Creatine Kinase CK-MB (CK-2) Troponin I NT-Pro-B Natriuret Pep 6940 H Impressions: Chest X-Ray 04/21/20 17:14 IMPRESSION: Multilobar pneumonia. Cardiomegaly. Chest/Abdomen CTA 04/21/20 22:06 IMPRESSION: 1. No evidence of pulmonary embolus. 2. Small bilateral pleural effusions with adjacent bilateral lower lung atelectasis although cannot exclude component of a pneumonia. 3. Bilateral groundglass opacities with septal thickening that could be related to edema but infectious etiology is also possible. Imaging features can be seen with viral or COVID 19 pneumonia, though are nonspecific and can occur with a variety of infectious and noninfectious processes. [PneInd] Assessment & Plan - Diagnosis (1) Acute hypoxemic respiratory failure due to COVID-19 Is this a current diagnosis for this admission?: Yes Plan: Continue current medication management. (2) Diabetes mellitus type 2 in obese Is this a current diagnosis for this admission?: Yes Plan: Continue current medication management. (3) Paroxysmal atrial fibrillation with rapid ventricular response Is this a current diagnosis for this admission?: Yes Plan: Continue current medication management with increase in Diltiazem dosage to 180 mg p.o q12 hours.. (4) Hypertension Qualifiers: Hypertension type: essential hypertension Qualified Code(s): I10 - Essential (primary) hypertension Is this a current diagnosis for this admission?: Yes Plan: Continue current medication management. - Time Time Spent with patient: 25-34 minutes Level of Care: IMCU Medications reviewed and adjusted accordingly: Yes Anticipated discharge: Home with Homehealth, SNF Anticipated DC Timeframe: within 72 hours - Inpatient Certification Based on my medical assessment, after consideration of the patient's comorbidities, presenting symptoms, or acuity I expect that the services needed warrant INPATIENT care.: Yes I certify that my determination is in accordance with my understanding of Medicare's requirements for reasonable and necessary INPATIENT services [42 CFR 412.3e].: Yes Medical Necessity: Significant Comorbidiites Make Outpatient Treatment Too Risky, Need Close Monitoring Due to Risk of Patient Decompensation, Need For Continuous Telemetry Monitoring, Need for IV Antibiotics, Risk of Complication if Not Cared For in Hospital, Risk of Diagnosis Which Will Require Inpatient Eval/Care/Monitoring Post Hospital Care: D/C Chute Puller Documentation, D/C or Transfer Summary - Plan Summary Plan Summary: See covering attending physician orders for details about care plan.
[2020-04-27] MEDS: AZITHROMYCIN 500 MG in DEXTROSE 5%-WATER 250 ML IV SCH (23:38)
[2020-04-27] MEDS: DILTIAZEM HCL 180 MG CAPSULE.CR PO SCH (23:38)
[2020-04-27] MEDS: CEFTRIAXONE 1 GM/D5W RTU 1 GM/50 ML RTUPB IV SCH (23:42)
[2020-04-28] MEDS: LORAZEPAM 0.5 MG TABLET PO SCH ×3 (06:31→22:34)
[2020-04-28] MEDS: INSULIN LISPRO 100 UNIT/ML 3 ML VIAL SUBCUT SCH ×4 (08:07→22:37)
[2020-04-28] MEDS: DILTIAZEM HCL 180 MG CAPSULE.CR PO SCH ×2 (09:51→22:33)
[2020-04-28] MEDS: APIXABAN 5 MG TABLET PO SCH ×2 (09:51→17:31)
[2020-04-28] MEDS: DEXAMETHASONE SOD PHOSPHATE INJ 4 MG/1 ML VIAL IV SCH ×2 (09:52→22:36)
[2020-04-28] MEDS: LOSARTAN POTASSIUM 50 MG TABLET PO SCH (09:52)
[2020-04-28] MEDS: FAMOTIDINE INJ/PF 20 MG/2 ML SDV IV SCH ×2 (09:52→22:36)
[2020-04-28] MEDS: SITAGLIPTIN PHOSPHATE 50 MG TABLET PO SCH (09:52)
[2020-04-28] MEDS: DULOXETINE HCL 30 MG CAPSULE.DR PO SCH (09:52)
--- NOTE | 2020-04-28 16:16 | PDOC PROGRESS REPORT ---
Subjective Date:: 04/28/20 Subjective:: Patient's family are giving conflicting information regarding alcohol consumptio n and requesting discontinuation of Lorazepam as per nursing staff report. She remain more somnolent. No reported chest pain. She remain on NIPPV support with supplemental oxygen. Reason For Visit: SOB,PNEUMONIA,CHF,COVID Physical Exam Vital Signs: Temp Pulse Resp BP Pulse Ox 97.5 F 81 18 126/42 H 96 04/28/20 10:00 04/28/20 13:25 04/28/20 03:26 04/28/20 03:26 04/28/20 08:00 Intake & Output 04/27/20 04/28/20 04/29/20 06:59 06:59 06:59 Intake Total 670 300 Output Total 700 Balance -30 300 Weight 101.9 kg 99.9 kg Physical Exam: General appearance: PRESENT: mild distress Head exam: PRESENT: atraumatic, normocephalic Eye exam: PRESENT: conjunctiva pink. ABSENT: pallor, sclera icterus Respiratory exam: PRESENT: decreased breath sounds Cardiovascular exam: PRESENT: +S1, +S2, tachycardia GI/Abdominal exam: PRESENT: normal bowel sounds, soft. ABSENT: tenderness Neurological exam: PRESENT: alert, awake Skin exam: PRESENT: dry, warm Results Laboratory Results: 04/27/20 05:05 04/27/20 05:05 04/21/20 04/21/20 04/22/20 19:23 19:23 05:00 Creatine Kinase 169 H CK-MB (CK-2) 3.41 Troponin I 0.034 NT-Pro-B Natriuret Pep 4490 H 7260 H 04/22/20 23:40 Creatine Kinase CK-MB (CK-2) Troponin I NT-Pro-B Natriuret Pep 6940 H Impressions: Chest X-Ray 04/21/20 17:14 IMPRESSION: Multilobar pneumonia. Cardiomegaly. Chest/Abdomen CTA 04/21/20 22:06 IMPRESSION: 1. No evidence of pulmonary embolus. 2. Small bilateral pleural effusions with adjacent bilateral lower lung atelectasis although cannot exclude component of a pneumonia. 3. Bilateral groundglass opacities with septal thickening that could be related to edema but infectious etiology is also possible. Imaging features can be seen with viral or COVID 19 pneumonia, though are nonspecific and can occur with a variety of infectious and noninfectious processes. [PneInd] Assessment & Plan - Diagnosis (1) Acute hypoxemic respiratory failure due to COVID-19 Is this a current diagnosis for this admission?: Yes (2) Diabetes mellitus type 2 in obese Is this a current diagnosis for this admission?: Yes (3) Paroxysmal atrial fibrillation with rapid ventricular response Is this a current diagnosis for this admission?: Yes (4) Hypertension Qualifiers: Hypertension type: essential hypertension Qualified Code(s): I10 - Essential (primary) hypertension Is this a current diagnosis for this admission?: Yes - Time Time Spent with patient: 25-34 minutes Level of Care: IMCU Medications reviewed and adjusted accordingly: Yes Anticipated discharge: Home with Homehealth, SNF Anticipated DC Timeframe: within 72 hours - Inpatient Certification Based on my medical assessment, after consideration of the patient's comorbidities, presenting symptoms, or acuity I expect that the services needed warrant INPATIENT care.: Yes I certify that my determination is in accordance with my understanding of Medicare's requirements for reasonable and necessary INPATIENT services [42 CFR 412.3e].: Yes Medical Necessity: Significant Comorbidiites Make Outpatient Treatment Too Risky, Need Close Monitoring Due to Risk of Patient Decompensation, Need For IV Fluids, Need For Continuous Telemetry Monitoring, Need for IV Antibiotics, Risk of Complication if Not Cared For in Hospital, Risk of Diagnosis Which Will Require Inpatient Eval/Care/Monitoring Post Hospital Care: D/C Spice Room Worker Documentation - Plan Summary Plan Summary: Decrease Lorazepam to 0.25 mg p.o q12 hours. Maintain on all other current medication management.
[2020-04-28] MEDS: CEFTRIAXONE 1 GM/D5W RTU 1 GM/50 ML RTUPB IV SCH (22:40)
[2020-04-28] MEDS: AZITHROMYCIN 500 MG in DEXTROSE 5%-WATER 250 ML IV SCH (23:19)
[2020-04-29] MEDS: DILTIAZEM HCL 180 MG CAPSULE.CR PO SCH ×2 (11:09→22:00)
[2020-04-29] MEDS: SITAGLIPTIN PHOSPHATE 50 MG TABLET PO SCH (11:10)
[2020-04-29] MEDS: LOSARTAN POTASSIUM 50 MG TABLET PO SCH (11:10)
[2020-04-29] MEDS: APIXABAN 5 MG TABLET PO SCH ×2 (11:10→17:08)
[2020-04-29] MEDS: DULOXETINE HCL 30 MG CAPSULE.DR PO SCH (11:10)
[2020-04-29] MEDS: FAMOTIDINE 20 MG TABLET PO SCH ×2 (11:10→22:00)
[2020-04-29] MEDS: INSULIN LISPRO 100 UNIT/ML 3 ML VIAL SUBCUT SCH ×4 (11:11→22:02)
[2020-04-29] MEDS: DEXAMETHASONE SOD PHOSPHATE INJ 4 MG/1 ML VIAL IV SCH ×2 (11:12→22:02)
[2020-04-29] MEDS: LORAZEPAM 0.5 MG TABLET PO SCH ×2 (11:12→22:02)
--- NOTE | 2020-04-29 20:23 | PDOC PROGRESS REPORT ---
Subjective Date:: 04/29/20 Subjective:: Patient seen by the bedside she had another episode of delirium last night prese austinly restrained, I wonder if the delirium she is having could be related to alcohol withdrawal because she is a closet alcohol user, She may need to use low-dose lorazepam. She was admitted for COVID-19 positive test (U07.1, COVID- 19) with Acute Pneumonia (J12.89, Other viral pneumonia) (If respiratory failure or sepsis present, add as separate assessment),She has multiple comorbid conditions that increase her risk of acute cytokine storm 04/25/2020 Patient seen by the bedside she continues to require supplemental oxygen via high flow oxygen, she has not used NIPPV today. She is less delirious today, she was started on Ativan yesterday for delirium that was felt to be due to alcohol withdrawal syndrome. She uses alcohol on a regular habitual basis. She will continue IV remdesivir for 5 days, IV dexamethasone for 10 days 04/26/2020 Patient seen by the bedside, she still have some episode of confusion 04/29/2020 Patient seen by the bedside, she remains somewhat confused Reason For Visit: SOB,PNEUMONIA,CHF,COVID Physical Exam Vital Signs: Temp Pulse Resp BP Pulse Ox 98.3 F 92 18 140/93 H 94 04/29/20 17:03 04/29/20 19:00 04/29/20 17:03 04/29/20 17:03 04/29/20 17:03 Intake & Output 04/28/20 04/29/20 04/30/20 06:59 06:59 06:59 Intake Total 300 300 240 Balance 300 300 240 Weight 99.9 kg 99.3 kg General appearance: PRESENT: no acute distress Eye exam: PRESENT: PERRLA Respiratory exam: PRESENT: clear to auscultation dmitri Cardiovascular exam: PRESENT: +S1, +S2 GI/Abdominal exam: PRESENT: soft Neurological exam: PRESENT: alert, altered Results Laboratory Results: 04/27/20 05:05 04/27/20 05:05 04/21/20 04/21/20 04/22/20 19:23 19:23 05:00 Creatine Kinase 169 H CK-MB (CK-2) 3.41 Troponin I 0.034 NT-Pro-B Natriuret Pep 4490 H 7260 H 04/22/20 23:40 Creatine Kinase CK-MB (CK-2) Troponin I NT-Pro-B Natriuret Pep 6940 H Impressions: Chest X-Ray 04/21/20 17:14 IMPRESSION: Multilobar pneumonia. Cardiomegaly. Chest/Abdomen CTA 04/21/20 22:06 IMPRESSION: 1. No evidence of pulmonary embolus. 2. Small bilateral pleural effusions with adjacent bilateral lower lung atelectasis although cannot exclude component of a pneumonia. 3. Bilateral groundglass opacities with septal thickening that could be related to edema but infectious etiology is also possible. Imaging features can be seen with viral or COVID 19 pneumonia, though are nonspecific and can occur with a variety of infectious and noninfectious processes. 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 insulin use: without long haul truck driver use Qualified Code(s): E11.42 - Type 2 diabetes mellitus with diabetic polyneuropathy Is this a current diagnosis for this admission?: Yes (4) Paroxysmal atrial fibrillation with rapid ventricular response Is this a current diagnosis for this admission?: Yes (5) Severe pulmonary arterial systolic hypertension Is this a current diagnosis for this admission?: Yes (6) Acute delirium Is this a current diagnosis for this admission?: Yes Plan: Request CAT scan of the head - Time Time Spent with patient: 35 or more minutes Level of Care: MEDICAL Medications reviewed and adjusted accordingly: Yes Anticipated discharge: Home Anticipated DC Timeframe: Other
[2020-04-30] MEDS: LORAZEPAM 0.5 MG TABLET PO SCH ×2 (10:04→21:26)
[2020-04-30] MEDS: SITAGLIPTIN PHOSPHATE 50 MG TABLET PO SCH (10:08)
[2020-04-30] MEDS: INSULIN LISPRO 100 UNIT/ML 3 ML VIAL SUBCUT SCH ×4 (10:11→21:26)
[2020-04-30] MEDS: DEXAMETHASONE SOD PHOSPHATE INJ 4 MG/1 ML VIAL IV SCH ×2 (10:11→21:25)
[2020-04-30] MEDS: DILTIAZEM HCL 180 MG CAPSULE.CR PO SCH ×2 (10:12→21:26)
[2020-04-30] MEDS: DULOXETINE HCL 30 MG CAPSULE.DR PO SCH (10:12)
[2020-04-30] MEDS: FAMOTIDINE 20 MG TABLET PO SCH ×2 (10:13→21:27)
[2020-04-30] MEDS: LOSARTAN POTASSIUM 50 MG TABLET PO SCH (10:13)
[2020-04-30] MEDS: APIXABAN 5 MG TABLET PO SCH ×2 (10:13→17:37)
--- NOTE | 2020-04-30 20:20 | PDOC PROGRESS REPORT ---
Subjective Date:: 04/30/20 Subjective:: Patient seen by the bedside she had another episode of delirium last night prese ntly restrained, I wonder if the delirium she is having could be related to alcohol withdrawal because she is a closet alcohol user, She may need to use low-dose lorazepam. She was admitted for COVID-19 positive test (U07.1, COVID- 19) with Acute Pneumonia (J12.89, Other viral pneumonia) (If respiratory failure or sepsis present, add as separate assessment),She has multiple comorbid conditions that increase her risk of acute cytokine storm 04/25/2020 Patient seen by the bedside she continues to require supplemental oxygen via high flow oxygen, she has not used NIPPV today. She is less delirious today, she was started on Ativan yesterday for delirium that was felt to be due to alcohol withdrawal syndrome. She uses alcohol on a regular habitual basis. She will continue IV remdesivir for 5 days, IV dexamethasone for 10 days 04/26/2020 Patient seen by the bedside, she still have some episode of confusion 04/29/2020 Patient seen by the bedside, she remains somewhat confused 04/30/2020 Patient very stuporous, I spoke to the daughter today about her condition, there are many potential etiology, it could be from the dexamethasone, alcohol use SARS-CoV-2 infection, CT head will be ordered to rule out any space-occupying lesion, abscess, tumor or stroke Reason For Visit: SOB,PNEUMONIA,CHF,COVID Physical Exam Vital Signs: Temp Pulse Resp BP Pulse Ox 97.7 F 82 20 148/88 H 95 04/30/20 15:53 04/30/20 15:53 04/30/20 15:53 04/30/20 15:53 04/30/20 15:53 Intake & Output 04/29/20 04/30/20 05/01/20 06:59 06:59 06:59 Intake Total 300 240 118 Output Total 300 Balance 300 -60 118 Weight 99.3 kg 98.3 kg 98.3 kg General appearance: PRESENT: no acute distress Eye exam: PRESENT: PERRLA Respiratory exam: PRESENT: clear to auscultation dmitri Cardiovascular exam: PRESENT: +S1, +S2 GI/Abdominal exam: PRESENT: soft Neurological exam: PRESENT: alert Results Laboratory Results: 04/27/20 05:05 12/12/20 05:05 04/21/20 04/21/20 04/22/20 19:23 19:23 05:00 Creatine Kinase 169 H CK-MB (CK-2) 3.41 Troponin I 0.034 NT-Pro-B Natriuret Pep 4490 H 7260 H 04/22/20 23:40 Creatine Kinase CK-MB (CK-2) Troponin I NT-Pro-B Natriuret Pep 6940 H Impressions: Chest X-Ray 04/21/20 17:14 IMPRESSION: Multilobar pneumonia. Cardiomegaly. Chest/Abdomen CTA 04/21/20 22:06 IMPRESSION: 1. No evidence of pulmonary embolus. 2. Small bilateral pleural effusions with adjacent bilateral lower lung atelectasis although cannot exclude component of a pneumonia. 3. Bilateral groundglass opacities with septal thickening that could be related to edema but infectious etiology is also possible. Imaging features can be seen with viral or COVID 19 pneumonia, though are nonspecific and can occur with a variety of infectious and noninfectious processes. 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: without fci use Qualified Code(s): E11.42 - Type 2 diabetes mellitus with diabetic polyneuropathy Is this a current diagnosis for this admission?: Yes (4) Paroxysmal atrial fibrillation with rapid ventricular response Is this a current diagnosis for this admission?: Yes Plan: Continue Eliquis (5) Severe pulmonary arterial systolic hypertension Is this a current diagnosis for this admission?: Yes (6) Acute delirium Is this a current diagnosis for this admission?: Yes Plan: Order CT head - Time Time Spent with patient: 25-34 minutes Level of Care: IMCU Medications reviewed and adjusted accordingly: Yes Anticipated discharge: Other Anticipated DC Timeframe: Other
--- NOTE | 2020-04-30 20:22 | RADIOLOGY REPORT (SQ) ---
EXAM DESCRIPTION: CT HEAD WITHOUT CLINICAL HISTORY: 80 years Female excessive somnolence TECHNIQUE: Noncontrast CT head. All CT scans at this facility use dose modulation, iterative reconstruction, and/or weight based dosing when appropriate to reduce radiation dose to as low as reasonably achievable. COMPARISON: December 27, 2015 FINDINGS: There is mild motion artifact. There is mild cerebral volume loss. Patchy periventricular and subcortical white matter hypodensities are nonspecific, but in a pattern compatible with chronic microvascular ischemic change. Severity appears slightly progressed when compared with prior remote exam dating back to 2015. No acute hemorrhage or mass effect. Visualized portions of paranasal sinuses and mastoids are clear. Visualized portions of the calvarium are within normal limits. IMPRESSION: 1. No acute intracranial hemorrhage or mass effect. Nonspecific findings compatible with chronic microvascular ischemic change are present. If there is clinical concern for acute stroke, MRI brain should be considered as a more sensitive evaluation.
[2020-05-01] MEDS: SITAGLIPTIN PHOSPHATE 50 MG TABLET PO SCH (09:29)
[2020-05-01] MEDS: INSULIN LISPRO 100 UNIT/ML 3 ML VIAL SUBCUT SCH ×4 (09:29→22:18)
[2020-05-01] MEDS: LOSARTAN POTASSIUM 50 MG TABLET PO SCH (09:30)
[2020-05-01] MEDS: APIXABAN 5 MG TABLET PO SCH ×2 (09:30→17:39)
[2020-05-01] MEDS: DULOXETINE HCL 30 MG CAPSULE.DR PO SCH (09:30)
[2020-05-01] MEDS: DILTIAZEM HCL 180 MG CAPSULE.CR PO SCH ×2 (09:30→22:18)
[2020-05-01] MEDS: FAMOTIDINE 20 MG TABLET PO SCH ×2 (09:30→22:17)
[2020-05-01] MEDS: DEXAMETHASONE SOD PHOSPHATE INJ 4 MG/1 ML VIAL IV SCH ×2 (09:30→22:18)
[2020-05-01] MEDS: LORAZEPAM 0.5 MG TABLET PO SCH ×2 (09:30→22:17)
--- NOTE | 2020-05-01 18:38 | PDOC PROGRESS REPORT ---
Subjective Date:: 05/01/20 Subjective:: Patient seen by the bedside, excessive somnolence alternating with confusion, CT head from yesterday was negative for any acute process, MRI of the brain will be ordered today to rule out stroke though unlikely, most likely the symptoms is metabolic in etiology. The combination of medication, dexamethasone, alcohol use, SARS-CoV-2 infection could be contributing directly and indirectly to the confusion. Delirium in acute setting constitute a poor prognostic sign Reason For Visit: SOB,PNEUMONIA,CHF,COVID Physical Exam Vital Signs: Temp Pulse Resp BP Pulse Ox 97.8 F 88 18 139/91 H 93 05/01/20 16:57 05/01/20 16:57 05/01/20 16:57 05/01/20 16:57 05/01/20 16:57 Intake & Output 04/30/20 05/01/20 05/02/20 06:59 06:59 06:59 Intake Total 240 118 240 Output Total 300 450 200 Balance -60 -332 40 Weight 98.3 kg 96.2 kg General appearance: PRESENT: other - Patient stuporous but arousable, confused Eye exam: PRESENT: PERRLA Respiratory exam: PRESENT: clear to auscultation dmitri Cardiovascular exam: PRESENT: +S1, +S2 Neurological exam: PRESENT: altered Results Laboratory Results: 04/27/20 05:05 04/27/20 05:05 04/21/20 04/21/20 04/22/20 19:23 19:23 05:00 Creatine Kinase 169 H CK-MB (CK-2) 3.41 Troponin I 0.034 NT-Pro-B Natriuret Pep 4490 H 7260 H 04/22/20 23:40 Creatine Kinase CK-MB (CK-2) Troponin I NT-Pro-B Natriuret Pep 6940 H Impressions: Chest X-Ray 04/21/20 17:14 IMPRESSION: Multilobar pneumonia. Cardiomegaly. Chest/Abdomen CTA 04/21/20 22:06 IMPRESSION: 1. No evidence of pulmonary embolus. 2. Small bilateral pleural effusions with adjacent bilateral lower lung atelectasis although cannot exclude component of a pneumonia. 3. Bilateral groundglass opacities with septal thickening that could be related to edema but infectious etiology is also possible. Imaging features can be seen with viral or COVID 19 pneumonia, though are nonspecific and can occur with a variety of infectious and noninfectious processes. [PneInd] Head CT 04/30/20 00:00 IMPRESSION: 1. No acute intracranial hemorrhage or mass effect. Nonspecific findings compatible with chronic microvascular ischemic change are present. If there is clinical concern for acute stroke, MRI brain should be considered as a more sensitive evaluation. Assessment & Plan - Diagnosis (1) Acute hypoxemic respiratory failure Is this a current diagnosis for this admission?: Yes Plan: Patient has not required NIPPV for a while now, on supplemental oxygen, via nasal cannula (2) Acute hypoxemic respiratory failure due to COVID-19 Is this a current diagnosis for this admission?: Yes Plan: She will be finishing 10-day course of IV dexamethasone tomorrow, she has finished IV remdesivir (3) Type 2 diabetes mellitus with diabetic polyneuropathy Qualifiers: Diabetes mellitus long-term insulin use: without keno terminal operator use Qualified C ode(s): E11.42 - Type 2 diabetes mellitus with diabetic polyneuropathy Is this a current diagnosis for this admission?: Yes (4) Paroxysmal atrial fibrillation with rapid ventricular response Is this a current diagnosis for this admission?: Yes Plan: Continue Eliquis (5) Severe pulmonary arterial systolic hypertension Is this a current diagnosis for this admission?: Yes (6) Acute delirium Is this a current diagnosis for this admission?: Yes Plan: Patient continues to have acute delirium, order MRI is most likely metabolic in etiology - Time Time Spent with patient: 35 or more minutes Level of Care: IMCU Medications reviewed and adjusted accordingly: Yes Anticipated discharge: Home Anticipated DC Timeframe: Other
[2020-05-01 20:37] LABS: HEMATOCRIT 47.9 % (36.0-47.0); HEMOGLOBIN 15.2 g/dL (12.0-15.5); MEAN CORPUSCULAR HEMOGLOBIN 28.3 pg (27.0-33.4); MEAN CORPUSCULAR HGB CONC 31.8 g/dL (32.0-36.0); MEAN CORPUSCULAR VOLUME 89 fl (80-97); PLATELET COUNT 168 10^3/uL (150-450); RED BLOOD COUNT 5.39 10^6/uL (3.72-5.28); RED CELL DISTRIBUTION WIDTH 15.3 % (11.5-14.0); WHITE BLOOD COUNT 12.5 10^3/uL (4.0-10.5)
[2020-05-01 20:54] LABS: ALBUMIN 3.7 g/dL (3.5-5.0); ALKALINE PHOSPHATASE 81 U/L (38-126); ANION GAP 9 (5-19); ASPARTATE AMINO TRANSFERASE 22 U/L (14-36); BILIRUBIN,DIRECT 0.5 mg/dL (0.0-0.4); BILIRUBIN,TOTAL 1.6 mg/dL (0.2-1.3); BLOOD UREA NITROGEN 39 mg/dL (7-20); CALCIUM 9.6 mg/dL (8.4-10.2); CARBON DIOXIDE 28 mmol/L (22-30); CHLORIDE 103 mmol/L (98-107); GLUCOSE 212 mg/dL (75-110); POTASSIUM 4.7 mmol/L (3.6-5.0); TOTAL PROTEIN 6.7 g/dL (6.3-8.2)
[2020-05-01 20:55] LABS: ABSOLUTE LYMPHOCYTES# (MANUAL) 0.9 10^3/uL (0.5-4.7); ABSOLUTE MONOCYTES # (MANUAL) 0.6 10^3/uL (0.1-1.4); BASOPHILS % (MANUAL) 0 % (0-2); EOSINOPHILS % (MANUAL) 0 % (0-6); LYMPHOCYTES % (MANUAL) 7 % (13-45); MONOCYTES % (MANUAL) 5 % (3-13); SEGMENTED NEUTROPHILS % (MAN) 88 % (42-78); TOTAL CELLS COUNTED 100
[2020-05-01 20:56] LABS: ANISOCYTOSIS 1+; PLATELET COMMENT ADEQUATE; TEAR DROP CELLS SLIGHT
[2020-05-02] MEDS ORDERED: HYDRALAZINE HCL INJ/PF 20 MG/1 ML SDV IV PRN ×2 (00:04→00:30)
[2020-05-02] MEDS ORDERED: HYDRALAZINE HCL INJ/PF 20 MG/1 ML SDV ONE (00:05)
[2020-05-02] MEDS: INSULIN LISPRO 100 UNIT/ML 3 ML VIAL SUBCUT SCH ×4 (08:58→22:29)
[2020-05-02] MEDS: DULOXETINE HCL 30 MG CAPSULE.DR PO SCH (11:26)
[2020-05-02] MEDS: SITAGLIPTIN PHOSPHATE 50 MG TABLET PO SCH (11:26)
[2020-05-02] MEDS: DILTIAZEM HCL 180 MG CAPSULE.CR PO SCH ×2 (11:27→22:28)
[2020-05-02] MEDS: LORAZEPAM 0.5 MG TABLET PO SCH ×2 (11:27→22:30)
[2020-05-02] MEDS: APIXABAN 5 MG TABLET PO SCH ×2 (11:27→18:28)
[2020-05-02] MEDS: FAMOTIDINE 20 MG TABLET PO SCH ×2 (11:27→22:28)
[2020-05-02] MEDS: LOSARTAN POTASSIUM 50 MG TABLET PO SCH (11:27)
[2020-05-02] MEDS ORDERED: HYDRALAZINE HCL 50 MG TABLET PO PRN (12:52)
--- NOTE | 2020-05-02 22:47 | PDOC PROGRESS REPORT ---
Subjective Date:: 05/02/20 Subjective:: Patient seen by the bedside she still confused, she lost IV access, she has fini shed 10-day course of IV dexamethasone, 5-day course of remdesivir, 7-day course of IV antibiotic. The main challenge now is the delirium Reason For Visit: SOB,PNEUMONIA,CHF,COVID Physical Exam Vital Signs: Temp Pulse Resp BP Pulse Ox 97.6 F 105 H 18 157/51 H 91 L 05/02/20 19:35 05/02/20 19:35 05/02/20 19:35 05/02/20 19:35 05/02/20 19:35 Intake & Output 05/01/20 05/02/20 05/03/20 06:59 06:59 06:59 Intake Total 118 415 210 Output Total 450 550 400 Balance -332 -135 -190 Weight 96.2 kg 93.4 kg General appearance: PRESENT: no acute distress Respiratory exam: PRESENT: clear to auscultation dmitri Cardiovascular exam: PRESENT: +S1, +S2 GI/Abdominal exam: PRESENT: soft Neurological exam: PRESENT: alert Results Laboratory Results: 05/01/20 19:46 05/01/20 19:46 04/21/20 04/21/20 04/22/20 19:23 19:23 05:00 Creatine Kinase 169 H CK-MB (CK-2) 3.41 Troponin I 0.034 NT-Pro-B Natriuret Pep 4490 H 7260 H 04/22/20 23:40 Creatine Kinase CK-MB (CK-2) Troponin I NT-Pro-B Natriuret Pep 6940 H Impressions: Chest X-Ray 04/21/20 17:14 IMPRESSION: Multilobar pneumonia. Cardiomegaly. Chest/Abdomen CTA 04/21/20 22:06 IMPRESSION: 1. No evidence of pulmonary embolus. 2. Small bilateral pleural effusions with adjacent bilateral lower lung atelectasis although cannot exclude component of a pneumonia. 3. Bilateral groundglass opacities with septal thickening that could be related to edema but infectious etiology is also possible. Imaging features can be seen with viral or COVID 19 pneumonia, though are nonspecific and can occur with a variety of infectious and noninfectious processes. [PneInd] Head CT 04/30/20 00:00 IMPRESSION: 1. No acute intracranial hemorrhage or mass effect. Nonspecific findings compatible with chronic microvascular ischemic change are present. If there is clinical concern for acute stroke, MRI brain should be considered as a more sensitive evaluation. Assessment & Plan - Diagnosis (1) Acute hypoxemic respiratory failure Is this a current diagnosis for this admission?: Yes Plan: Patient has not required NIPPV for a while now, on supplemental oxygen, via nasal cannula (2) Acute hypoxemic respiratory failure due to COVID-19 Is this a current diagnosis for this admission?: Yes Plan: She has finished 10-day course of IV dexamethasone, 5-day course of IV remdesivir (3) Type 2 diabetes mellitus with diabetic polyneuropathy Qualifiers: Diabetes mellitus counselor nurses' association insulin use: without counselor nurses' association use Qualified Code(s): E11.42 - Type 2 diabetes mellitus with diabetic polyneuropathy Is this a current diagnosis for this admission?: Yes (4) Paroxysmal atrial fibrillation with rapid ventricular response Is this a current diagnosis for this admission?: Yes (5) Severe pulmonary arterial systolic hypertension Is this a current diagnosis for this admission?: Yes (6) Acute delirium Is this a current diagnosis for this admission?: Yes Plan: MRI of the brain was ordered patient was noncooperative - Time Time Spent with patient: 25-34 minutes Level of Care: IMCU Medications reviewed and adjusted accordingly: Yes Anticipated discharge: Home Anticipated DC Timeframe: Other
[2020-05-03] MEDS: LORAZEPAM 0.5 MG TABLET PO SCH ×2 (10:30→21:17)
[2020-05-03] MEDS: SITAGLIPTIN PHOSPHATE 50 MG TABLET PO SCH (10:30)
[2020-05-03] MEDS: DILTIAZEM HCL 180 MG CAPSULE.CR PO SCH ×2 (10:30→21:18)
[2020-05-03] MEDS: LOSARTAN POTASSIUM 50 MG TABLET PO SCH (10:30)
[2020-05-03] MEDS: DULOXETINE HCL 30 MG CAPSULE.DR PO SCH (10:30)
[2020-05-03] MEDS: FAMOTIDINE 20 MG TABLET PO SCH ×2 (10:30→21:17)
[2020-05-03] MEDS: APIXABAN 5 MG TABLET PO SCH ×2 (10:30→17:50)
[2020-05-03] MEDS: INSULIN LISPRO 100 UNIT/ML 3 ML VIAL SUBCUT SCH ×3 (10:37→17:27)
--- NOTE | 2020-05-03 22:19 | PDOC PROGRESS REPORT ---
Subjective Date:: 05/03/20 Subjective:: Patient remained delirious Reason For Visit: SOB,PNEUMONIA,CHF,COVID Physical Exam Vital Signs: Temp Pulse Resp BP Pulse Ox 97.6 F 95 16 144/77 H 93 05/03/20 20:27 05/03/20 20:27 05/03/20 20:27 05/03/20 20:27 05/03/20 08:02 Intake & Output 05/02/20 05/03/20 05/04/20 06:59 06:59 06:59 Intake Total 415 310 150 Output Total 550 750 150 Balance -135 -440 0 Weight 93.4 kg 94.7 kg 94.7 kg General appearance: PRESENT: obese Eye exam: PRESENT: PERRLA Respiratory exam: PRESENT: clear to auscultation dmitri Cardiovascular exam: PRESENT: +S1, +S2 GI/Abdominal exam: PRESENT: soft Neurological exam: PRESENT: alert Results Laboratory Results: 05/01/20 19:46 05/01/20 19:46 04/21/20 04/21/20 04/22/20 19:23 19:23 05:00 Creatine Kinase 169 H CK-MB (CK-2) 3.41 Troponin I 0.034 NT-Pro-B Natriuret Pep 4490 H 7260 H 04/22/20 23:40 Creatine Kinase CK-MB (CK-2) Troponin I NT-Pro-B Natriuret Pep 6940 H Impressions: Chest X-Ray 04/21/20 17:14 IMPRESSION: Multilobar pneumonia. Cardiomegaly. Chest/Abdomen CTA 04/21/20 22:06 IMPRESSION: 1. No evidence of pulmonary embolus. 2. Small bilateral pleural effusions with adjacent bilateral lower lung atelectasis although cannot exclude component of a pneumonia. 3. Bilateral groundglass opacities with septal thickening that could be related to edema but infectious etiology is also possible. Imaging features can be seen with viral or COVID 19 pneumonia, though are nonspecific and can occur with a variety of infectious and noninfectious processes. [PneInd] Head CT 04/30/20 00:00 IMPRESSION: 1. No acute intracranial hemorrhage or mass effect. Nonspecific findings compatible with chronic microvascular ischemic change are present. If there is clinical concern for acute stroke, MRI brain should be considered as a more sensitive evaluation. 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: without jail use Qualified Code(s): E11.42 - Type 2 diabetes mellitus with diabetic polyneuropathy Is this a current diagnosis for this admission?: Yes (4) Paroxysmal atrial fibrillation with rapid ventricular response Is this a current diagnosis for this admission?: Yes (5) Severe pulmonary arterial systolic hypertension Is this a current diagnosis for this admission?: Yes (6) Acute delirium Is this a current diagnosis for this admission?: Yes (7) Encephalopathy due to COVID-19 virus Is this a current diagnosis for this admission?: Yes Plan: She is very confused in the setting of Covid, delirium by itself is a poor prognostic sign - Time Time Spent with patient: 25-34 minutes Level of Care: IMCU Medications reviewed and adjusted accordingly: Yes Anticipated discharge: Home Anticipated DC Timeframe: Other
[2020-05-04] MEDS: INSULIN LISPRO 100 UNIT/ML 3 ML VIAL SUBCUT SCH ×5 (00:11→23:01)
[2020-05-04] MEDS: LOSARTAN POTASSIUM 50 MG TABLET PO SCH (09:51)
[2020-05-04] MEDS: DILTIAZEM HCL 180 MG CAPSULE.CR PO SCH ×2 (09:51→22:24)
[2020-05-04] MEDS: APIXABAN 5 MG TABLET PO SCH ×2 (09:51→17:17)
[2020-05-04] MEDS: DULOXETINE HCL 30 MG CAPSULE.DR PO SCH (09:51)
[2020-05-04] MEDS: SITAGLIPTIN PHOSPHATE 50 MG TABLET PO SCH (09:51)
[2020-05-04] MEDS: LORAZEPAM 0.5 MG TABLET PO SCH (09:51)
[2020-05-04] MEDS: FAMOTIDINE 20 MG TABLET PO SCH (09:51)
[2020-05-04] MEDS ORDERED: GLUCAGON,HUMAN RECOMB 1 MG INJ IM PRN (14:39)
[2020-05-04] MEDS ORDERED: DEXTROSE 50%-WATER 25 GM/50 ML DISP.SYRIN IV PRN ×2 (14:39)
[2020-05-04] MEDS ORDERED: DEXTROSE 10%-WATER 1,000 ML IV PRN (14:39)
[2020-05-04] MEDS ORDERED: DEXTROSE 40% GEL 15 GM TUBE PO PRN ×2 (14:39)
[2020-05-04] MEDS: INSULIN REG, HUMAN 100 UNIT/ML 3 ML VIAL (PYX) SUBCUT SCH ×2 (15:10→17:57)
--- NOTE | 2020-05-04 16:20 | PDOC PROGRESS REPORT ---
Subjective Date:: 05/04/20 Subjective:: Patient seen by the bedside, she is extremely confused, does not respond to any verbal command, I had a long discussion with patient's son today, I expressed to him that it seems she has developed Covid encephalopathy. She presently pocketing food in her mouth, she would not swallow the food, nutrition is getting very challenging, may have to institute TPN.She has finished the recommended 5-day course of IV remdesivir, 10-day course of IV dexamethasone Reason For Visit: SOB,PNEUMONIA,CHF,COVID Physical Exam Vital Signs: Temp Pulse Resp BP Pulse Ox 98.2 F 99 16 156/82 H 93 05/04/20 11:43 05/04/20 14:00 05/04/20 11:43 05/04/20 11:43 05/04/20 11:43 Intake & Output 05/03/20 05/04/20 05/05/20 06:59 06:59 06:59 Intake Total 310 200 Output Total 750 150 Balance -440 50 Weight 94.7 kg 92.2 kg General appearance: PRESENT: no acute distress Eye exam: PRESENT: PERRLA Respiratory exam: PRESENT: clear to auscultation dmitri Cardiovascular exam: PRESENT: +S1, +S2 GI/Abdominal exam: PRESENT: soft Neurological exam: PRESENT: altered Results Laboratory Results: 05/01/20 19:46 05/01/20 19:46 04/21/20 04/21/20 04/22/20 19:23 19:23 05:00 Creatine Kinase 169 H CK-MB (CK-2) 3.41 Troponin I 0.034 NT-Pro-B Natriuret Pep 4490 H 7260 H 04/22/20 23:40 Creatine Kinase CK-MB (CK-2) Troponin I NT-Pro-B Natriuret Pep 6940 H Impressions: Chest X-Ray 04/21/20 17:14 IMPRESSION: Multilobar pneumonia. Cardiomegaly. Chest/Abdomen CTA 04/21/20 22:06 IMPRESSION: 1. No evidence of pulmonary embolus. 2. Small bilateral pleural effusions with adjacent bilateral lower lung atelectasis although cannot exclude component of a pneumonia. 3. Bilateral groundglass opacities with septal thickening that could be related to edema but infectious etiology is also possible. Imaging features can be seen with viral or COVID 19 pneumonia, though are nonspecific and can occur with a variety of infectious and noninfectious processes. [PneInd] Head CT 04/30/20 00:00 IMPRESSION: 1. No acute intracranial hemorrhage or mass effect. Nonspecific findings compatible with chronic microvascular ischemic change are present. If there is clinical concern for acute stroke, MRI brain should be considered as a more sensitive evaluation. Assessment & Plan - Diagnosis (1) Encephalopathy due to COVID-19 virus Is this a current diagnosis for this admission?: Yes Plan: Patient has not been eating or drinking, she has been pocketing food in her mouth, she also chews the medication/tablet, she now has greenish discoloration of her tongue from chewing the medications (2) Acute hypoxemic respiratory failure Is this a current diagnosis for this admission?: Yes Plan: This is improved patient not presently on oxygen (3) Acute hypoxemic respiratory failure due to COVID-19 Is this a current diagnosis for this admission?: Yes (4) Type 2 diabetes mellitus with diabetic polyneuropathy Qualifiers: Diabetes mellitus senior living insulin use: without buttermaker use Qualified Code(s): E11.42 - Type 2 diabetes mellitus with diabetic polyneuropathy Is this a current diagnosis for this admission?: Yes (5) Paroxysmal atrial fibrillation with rapid ventricular response Is this a current diagnosis for this admission?: Yes (6) Severe pulmonary arterial systolic hypertension Is this a current diagnosis for this admission?: Yes (7) Acute delirium Is this a current diagnosis for this admission?: Yes - Time Time Spent with patient: 25-34 minutes Level of Care: IMCU Medications reviewed and adjusted accordingly: Yes Anticipated discharge: Home Anticipated DC Timeframe: within 72 hours
[2020-05-04] MEDS ORDERED: PHARMACY COMMUNICATION ORDER MC NR (18:30)
--- NOTE | 2020-05-04 18:53 | RADIOLOGY REPORT (SQ) ---
EXAM DESCRIPTION: KUB/ABDOMEN (SINGLE VIEW) IMAGES COMPLETED DATE/TIME: 05/04/2020 6:37 pm REASON FOR STUDY: Check Placement of NG Tube COMPARISON: 02/10/2012. NUMBER OF VIEWS: One view. TECHNIQUE: Supine radiographic image of the abdomen acquired. LIMITATIONS: None. FINDINGS: BOWEL GAS PATTERN: Normal bowel gas pattern. No dilated loops. CALCIFICATIONS: No suspicious calcifications. SOFT TISSUES: No gross mass or suggestion of organomegaly. HARDWARE: Nasogastric tube, tip in the stomach. BONES: No acute fracture. No worrisome bone lesions. OTHER: No other significant finding. IMPRESSION: NASOGASTRIC TUBE, TIP IN THE STOMACH. NO RADIOGRAPHIC EVIDENCE FOR ACUTE ABDOMINAL DISE ASE. TECHNICAL DOCUMENTATION: JOB ID: [id number] [employer]- All Rights Reserved Reading location - IP/workstation name: [email or web address]
--- NOTE | 2020-05-04 21:05 | RADIOLOGY REPORT (SQ) ---
EXAM DESCRIPTION: KUB/ABDOMEN (SINGLE VIEW) 05/04/2020 12:00 AM [employer] AND [employer]IS[employer]PER[employer] CLINICAL HISTORY: 80 years Female, NG Tube advanced; verify placement; ; COMPARISON: Prior study dated 04/21/2020 FINDINGS: Single view is obtained. Enteric drainage tube tip projects over the gastric body. The bowel gas pattern is indeterminate as the lower half of the abdomen was excluded from the [id number]. Limited evaluation of the chest reveals multifocal bilateral airspace disease, partially imaged. IMPRESSION: Enteric drainage tube tip projects over the gastric body.
[2020-05-04] MEDS ORDERED: ACETAMINOPHEN 325 MG TABLET NG PRN (21:30)
[2020-05-04] MEDS ORDERED: DEXTROSE 40% GEL 15 GM TUBE NG PRN ×4 (21:30→21:31)
[2020-05-04] MEDS ORDERED: HYDRALAZINE HCL 50 MG TABLET NG PRN (21:33)
[2020-05-04] MEDS: LORAZEPAM 0.5 MG TABLET NG SCH (22:24)
[2020-05-04] MEDS: FAMOTIDINE 20 MG TABLET NG SCH (22:25)
[2020-05-05] MEDS: INSULIN REG, HUMAN 100 UNIT/ML 3 ML VIAL (PYX) SUBCUT SCH ×4 (00:12→18:28)
[2020-05-05] MEDS: INSULIN LISPRO 100 UNIT/ML 3 ML VIAL SUBCUT SCH ×2 (08:29→11:00)
[2020-05-05] MEDS: SITAGLIPTIN PHOSPHATE 50 MG TABLET NG SCH (10:59)
[2020-05-05] MEDS: FAMOTIDINE 20 MG TABLET NG SCH (10:59)
[2020-05-05] MEDS: APIXABAN 5 MG TABLET NG SCH ×2 (10:59→17:52)
[2020-05-05] MEDS: LOSARTAN POTASSIUM 50 MG TABLET NG SCH (10:59)
[2020-05-05] MEDS: LORAZEPAM 0.5 MG TABLET NG SCH (10:59)
[2020-05-05] MEDS: DILTIAZEM HCL 180 MG CAPSULE.CR PO SCH (11:00)
[2020-05-05] MEDS: DULOXETINE HCL 30 MG CAPSULE.DR PO SCH (11:00)
[2020-05-05 12:56] LABS: APPEARANCE,URINE CLEAR; BILIRUBIN,URINE NEGATIVE (NEGATIVE); COLOR,URINE AMBER; GLUCOSE, URINE 50 mg/dL (NEGATIVE); KETONES,URINE TRACE mg/dL (NEGATIVE); LEUKOCYTE ESTERASE,URINE NEGATIVE (NEGATIVE); NITRITE,URINE NEGATIVE (NEGATIVE); PROTEIN,URINE 100 mg/dL (NEGATIVE); URINE SPECIFIC GRAVITY 1.026
[2020-05-05] MEDS ORDERED: DIAZEPAM INJ 10 MG/2 ML DISP.SYRIN ONE (15:09)
[2020-05-05] MEDS ORDERED: DIAZEPAM INJ 10 MG/2 ML DISP.SYRIN IV ONE (15:30)
[2020-05-05 16:14] LABS: ARTERIAL BLOOD BASE EXCESS 0.9 mmol/L; ARTERIAL BLOOD FIO2 2L; ARTERIAL BLOOD H2CO3 1.19 mmol/L (1.05-1.35); ARTERIAL BLOOD HCO3 25.3 mmol/L (20-24); ARTERIAL BLOOD O2 SATURATION 89.6 % (94-98); ARTERIAL BLOOD PCO2 39.7 mmHg (35-45); ARTERIAL BLOOD PH 7.42 (7.35-7.45); ARTERIAL BLOOD PO2 55.5 mmHg (80-100); ARTERIAL BLOOD TOTAL CO2 26.6 mmol/L (21-25)
--- NOTE | 2020-05-05 16:36 | RADIOLOGY REPORT (SQ) ---
EXAM DESCRIPTION: MRI HEAD WITHOUT IMAGES COMPLETED DATE/TIME: 05/05/2020 4:21 pm REASON FOR STUDY: altered mental status COMPARISON: CT dated 04/30/2020. TECHNIQUE: Multiplanar imaging includes non-contrasted T1, T2, FLAIR, and diffusion with ADC map seq uences. Images stored on PACS. LIMITATIONS: None. FINDINGS: ANATOMY: No anomalies. Normal vascular flow voids. Pituitary fossa normal. CSF SPACES: Atrophy induced prominence of ventricles and CSF spaces. CEREBRUM: High signal intensity lesions scattered throughout the white matter on FLAIR imaging with d istribution suggesting micro-vascular ischemic changes. No evidence of hemorrhage, mass, or extraaxi al fluid collection. POSTERIOR FOSSA: No signal alteration. No hemorrhage. No edema, masses or mass effect. Internal giovanni tory canals, cerebello-pontine angles, mastoids normal. DIFFUSION IMAGING: Negative for acute or sub-acute infarction. ORBITS: No masses. Globes normal. PARANASAL SINUSES: No fluid levels. Mucosa normal. OTHER: No other significant finding. IMPRESSION: ATROPHY AND CHRONIC MICRO-VASCULAR ISCHEMIC CHANGES. OTHERWISE NORMAL MRI OF THE BRAIN W ITHOUT INTRAVENOUS GADOLINIUM CONTRAST. EVIDENCE OF ACUTE STROKE: NO. TECHNICAL DOCUMENTATION: JOB ID: [id number] 2010 [employer]- All Rights Reserved Reading location - IP/workstation name: [email or web address]
[2020-05-05] MEDS: DILTIAZEM HCL 60 MG TABLET PO SCH ×2 (17:35→17:52)
[2020-05-05] MEDS: SERTRALINE HCL 50 MG TABLET PO SCH (17:35)
--- NOTE | 2020-05-05 17:43 | PDOC PROGRESS REPORT ---
Subjective Date:: 05/05/20 Subjective:: Patient's condition remains precarious, she is not responding to verbal commands , I spoke to the family the daughter about her condition, NG tube was inserted yesterday we will start tube feeds today with Jevity. MRI of the brain was obtained, it demonstrated cerebral atrophy otherwise it was negative study, she has Covid encephalopathy, there is no specific treatment for this.. Encephalopathy is a risk factor for poor outcome, we will get EEG in the morning, she may need lumbar puncture Reason For Visit: SOB,PNEUMONIA,CHF,COVID Physical Exam Vital Signs: Temp Pulse Resp BP Pulse Ox 97.9 F 98 16 149/83 H 95 05/05/20 12:12 05/05/20 14:00 05/05/20 12:12 05/05/20 12:12 05/05/20 12:12 Intake & Output 05/04/20 05/05/20 05/06/20 06:59 06:59 06:59 Intake Total 200 Output Total 150 550 Balance 50 -550 Weight 92.2 kg 91.1 kg Head exam: PRESENT: other - Patient is stuporous responds to sternal pressure Respiratory exam: PRESENT: wheezes Cardiovascular exam: PRESENT: +S1, +S2 GI/Abdominal exam: PRESENT: soft Neurological exam: PRESENT: altered Results Laboratory Results: 05/01/20 19:46 05/01/20 19:46 05/05/20 05/05/20 09:15 15:30 Carbonic Acid 1.19 HCO3/H2CO3 Ratio 21:1 ABG pH 7.42 ABG pCO2 39.7 ABG pO2 55.5 L ABG HCO3 25.3 H ABG O2 Saturation 89.6 L ABG Base Excess 0.9 FiO2 2L Urine Color MARYAM Urine Appearance CLEAR Urine pH 6.0 Ur Specific [place] 1.026 Urine Protein 100 H Urine Glucose (UA) 50 H Urine Ketones TRACE H Urine Blood NEGATIVE Urine Nitrite NEGATIVE Ur Leukocyte Esterase NEGATIVE Urine WBC (Auto) 2 Urine RBC (Auto) 1 04/21/20 04/21/20 04/22/20 19:23 19:23 05:00 Creatine Kinase 169 H CK-MB (CK-2) 3.41 Troponin I 0.034 NT-Pro-B Natriuret Pep 4490 H 7260 H 04/22/20 23:40 Creatine Kinase CK-MB (CK-2) Troponin I NT-Pro-B Natriuret Pep 6940 H Impressions: Chest X-Ray 04/21/20 17:14 IMPRESSION: Multilobar pneumonia. Cardiomegaly. Chest/Abdomen CTA 04/21/20 22:06 IMPRESSION: 1. No evidence of pulmonary embolus. 2. Small bilateral pleural effusions with adjacent bilateral lower lung atelectasis although cannot exclude component of a pneumonia. 3. Bilateral groundglass opacities with septal thickening that could be related to edema but infectious etiology is also possible. Imaging features can be seen with viral or COVID 19 pneumonia, though are nonspecific and can occur with a variety of infectious and noninfectious processes. [PneInd] Head CT 04/30/20 00:00 IMPRESSION: 1. No acute intracranial hemorrhage or mass effect. Nonspecific findings compatible with chronic microvascular ischemic change are present. If there is clinical concern for acute stroke, MRI brain should be considered as a more sensitive evaluation. KUB X-Ray 05/04/20 18:19 IMPRESSION: NASOGASTRIC TUBE, TIP IN THE STOMACH. NO RADIOGRAPHIC EVIDENCE FOR ACUTE ABDOMINAL DISEASE. Head MRI 05/05/20 00:00 IMPRESSION: ATROPHY AND CHRONIC MICRO-VASCULAR ISCHEMIC CHANGES. OTHERWISE NORMAL MRI OF THE BRAIN WITHOUT INTRAVENOUS GADOLINIUM CONTRAST. EVIDENCE OF ACUTE STROKE: NO. Assessment & Plan - Diagnosis (1) Encephalopathy due to COVID-19 virus Is this a current diagnosis for this admission?: Yes Plan: Get EEG lumbar puncture (2) Acute hypoxemic respiratory failure Is this a current diagnosis for this admission?: Yes Plan: Start patient back on BiPAP, chest x-ray (3) Acute hypoxemic respiratory failure due to COVID-19 Is this a current diagnosis for this admission?: Yes (4) Type 2 diabetes mellitus with diabetic polyneuropathy Qualifiers: Diabetes mellitus terminal gauger insulin use: without terminal gauger use Qualified Code(s): E11.42 - Type 2 diabetes mellitus with diabetic polyneuropathy Is this a current diagnosis for this admission?: Yes (5) Paroxysmal atrial fibrillation with rapid ventricular response Is this a current diagnosis for this admission?: Yes (6) Severe pulmonary arterial systolic hypertension Is this a current diagnosis for this admission?: Yes (7) Acute delirium Is this a current diagnosis for this admission?: Yes - Time Time Spent with patient: 35 or more minutes Level of Care: IMCU Medications reviewed and adjusted accordingly: Yes Anticipated discharge: Home Anticipated DC Timeframe: Other
[2020-05-05] MEDS ORDERED: AMINO ACIDS 5 %/DEXTROSE 20 % 1,000 ML IV PRN (18:00)
[2020-05-05] MEDS: DEXTROSE 50%-WATER 25 GM/50 ML DISP.SYRIN IV PRN ×2 (18:18→18:51)
--- NOTE | 2020-05-05 18:49 | RADIOLOGY REPORT (SQ) ---
EXAM DESCRIPTION: CHEST SINGLE VIEW IMAGES COMPLETED DATE/TIME: 05/05/2020 3:35 pm REASON FOR STUDY: HYPOXEMIA COMPARISON: 04/21/2020 EXAM PARAMETERS: NUMBER OF VIEWS: One view. TECHNIQUE: Single frontal radiographic view of the chest acquired. RADIATION DOSE: NA LIMITATIONS: External leads partially obscure underlying structures. Chin tilt partially obscures marietta ng apices. FINDINGS: LUNGS AND PLEURA: Progression in patchy airspace opacities bilaterally with progression mo re pronounced in the upper lobes. No definite pleural effusion or pneumothorax. MEDIASTINUM AND HILAR STRUCTURES: Stable. HEART AND VASCULAR STRUCTURES: Stable. BONES: No acute findings. HARDWARE: Esophagogastric tube tip is not definitively visualized, though the side port appears to be partially visualize just distal to the GE junction. OTHER: No other significant finding. IMPRESSION: 1. Progression in bilateral opacities since prior exam, worsening in the upper lobes. TECHNICAL DOCUMENTATION: JOB ID: [id number] 2010 [employer]- All Rights Reserved Reading location - IP/workstation name: [email or web address]
[2020-05-05] MEDS: DEXTROSE 5%-WATER 1000 ML 1,000 ML IV PRN (19:00)
[2020-05-05 19:47] LABS: ANION GAP 13 (5-19); BLOOD UREA NITROGEN 17 mg/dL (7-20); CALCIUM 8.2 mg/dL (8.4-10.2); CARBON DIOXIDE 22 mmol/L (22-30); CHLORIDE 103 mmol/L (98-107); GLUCOSE 268 mg/dL (75-110); POTASSIUM 4.3 mmol/L (3.6-5.0)
[2020-05-05 20:27] LABS: INTERNATIONAL RATION (INR) 1.63; PROTHROMBIN TIME 19.4 SEC (11.4-15.4)
[2020-05-05 23:13] LABS: VENOUS BLOOD BASE EXCESS -2.8 mmol/L; VENOUS BLOOD HCO3 25.5 mmol/L (20-32); VENOUS BLOOD PCO2 62.2 mmHg (35-63); VENOUS BLOOD PH 7.23 (7.30-7.42)
[2020-05-06] MEDS: DILTIAZEM HCL 60 MG TABLET PO SCH ×4 (00:08→18:37)
[2020-05-06] MEDS: LORAZEPAM 0.5 MG TABLET NG SCH ×3 (00:08→23:16)
[2020-05-06] MEDS: INSULIN REG, HUMAN 100 UNIT/ML 3 ML VIAL (PYX) SUBCUT SCH ×4 (00:10→18:38)
[2020-05-06] MEDS ORDERED: FAT EMULSIONS 250 ML IV SCH (10:00)
[2020-05-06] MEDS: APIXABAN 5 MG TABLET NG SCH ×2 (13:03→18:37)
[2020-05-06] MEDS: SITAGLIPTIN PHOSPHATE 50 MG TABLET NG SCH (13:03)
[2020-05-06] MEDS: SERTRALINE HCL 50 MG TABLET PO SCH (13:04)
[2020-05-06] MEDS: LOSARTAN POTASSIUM 50 MG TABLET NG SCH (13:04)
[2020-05-06] MEDS: DEXTROSE 5%-WATER 1000 ML 1,000 ML IV PRN (13:05)
[2020-05-06 15:15] LABS: HEMATOCRIT 31.9 % (36.0-47.0); HEMOGLOBIN 9.9 g/dL (12.0-15.5); MEAN CORPUSCULAR HEMOGLOBIN 27.8 pg (27.0-33.4); MEAN CORPUSCULAR HGB CONC 30.9 g/dL (32.0-36.0); MEAN CORPUSCULAR VOLUME 90 fl (80-97); RED BLOOD COUNT 3.54 10^6/uL (3.72-5.28); RED CELL DISTRIBUTION WIDTH 15.4 % (11.5-14.0); WHITE BLOOD COUNT 18.1 10^3/uL (4.0-10.5)
[2020-05-06 15:52] LABS: ABSOLUTE LYMPHOCYTES# (MANUAL) 1.1 10^3/uL (0.5-4.7); ABSOLUTE MONOCYTES # (MANUAL) 1.4 10^3/uL (0.1-1.4); BAND NEUTROPHILS % (MANUAL) 3 % (3-5); BASOPHILS % (MANUAL) 0 % (0-2); EOSINOPHILS % (MANUAL) 0 % (0-6); LYMPHOCYTES % (MANUAL) 6 % (13-45); MONOCYTES % (MANUAL) 8 % (3-13); SEGMENTED NEUTROPHILS % (MAN) 83 % (42-78); TOTAL CELLS COUNTED 100
[2020-05-06 15:54] LABS: ANISOCYTOSIS SLIGHT; PLATELET COMMENT DECREASED
[2020-05-06 16:03] LABS: PLATELET COUNT 84 10^3/uL (150-450)
--- NOTE | 2020-05-06 19:11 | NEURO WORKBENCH EEG REPORT ---
EEG Report Patient: Helena Nesbitt ID: [id number] Referring Doctor: Billy Amaya MD DOS: 05/06/2020 Medications: eliquis, cardizem, pyxis, ativan, cozaar, zoloft, januvia History This is a 80 year old female with a history of pulmonary hypertension, MVP, angina, CHF, hypercholesterolemia, hypertension, asthma, bronchitis, pneumonia, arthritis, type 2 diabetes, occasional alcohol use, ovarian cancer, admitted with pneumonia, SOB, CHF, and COVID-19. This EEG was requested for COVID-19 related encephalopathy. EEG Interpretation This EEG was recorded in unknown state with the patient having eyes closed. The EEG is characterized by a disorganized background without a noted posterior dominant rhythm. The background was characterized by a combination of primarily theta frequencies with some alpha and beta. There were no noted changes with passive eye opening. Photic stimulation resulted in no significant changes. There were sharply contoured waveforms most noted in the right > left central- parietal regions but no definitive epileptiform abnormalities. There were no seizures. The EKG showed periods of an irregular rhythm. There was significant artifact throughout the recording that impaired interpretation. EEG Classification * Generalized background slowing * EKG irregular rhythm * Artifact EEG Impression This EEG is abnormal. It is consistent with diffuse cerebral dysfunction given the slowing but patient state could not be determined. There were sharply contoured waveforms but no definitive epileptiform abnormalities noted. The EKG showed an irregular rhythm that may require further investigation. INTERPRETING NEUROLOGIST: Denise Malik MD, [facility] Board Certified in Neurology, with special qualification in Child Neurology, and in Clinical Neurophysiology [facility]
[2020-05-06] MEDS ORDERED: PIPERACILLIN SODIUM/TAZOBACTAM 4.5 GM in NORMAL SALINE 100 ML IV SCH (20:30)
[2020-05-06] MEDS ORDERED: VANCOMYCIN HCL 0 MG in DEXTROSE 5%-WATER 250 ML IV NR (20:30)
--- NOTE | 2020-05-06 20:37 | PDOC PROGRESS REPORT ---
Subjective Date:: 05/06/20 Subjective:: Patient is more lucid today but her condition continues to decline, she is showi ng signs of sepsis with low platelet count, NG tube in place. Today she had persistent hypoglycemia she was started on 5% dextrose.EEG was done, it was abnormal, consistent with diffuse cerebral dysfunction is no epileptiform abnormalities noted Reason For Visit: SOB,PNEUMONIA,CHF,COVID Physical Exam Vital Signs: Temp Pulse Resp BP Pulse Ox 98.0 F 92 21 H 127/68 H 73 L 05/06/20 17:21 05/06/20 19:00 05/06/20 17:21 05/06/20 17:21 05/06/20 17:21 Intake & Output 05/05/20 05/06/20 05/07/20 06:59 06:59 06:59 Intake Total 365 2095 Output Total 550 1225 450 Balance -550 -860 1645 Weight 91.1 kg 93.3 kg 93.3 kg General appearance: PRESENT: other - Patient is arousable, NG tube in place Respiratory exam: PRESENT: rhonchi Cardiovascular exam: PRESENT: +S1, +S2 GI/Abdominal exam: PRESENT: soft Neurological exam: PRESENT: altered Results Laboratory Results: 05/06/20 15:00 05/05/20 19:10 05/05/20 05/05/20 05/06/20 20:07 22:58 15:00 WBC 18.1 H RBC 3.54 L Hgb 9.9 L Hct 31.9 L MCV 90 MCH 27.8 MCHC 30.9 L RDW 15.4 H Plt Count 84 L Seg Neutrophils % Not Reportable Not Reportable VBG pH 7.23 L VBG pCO2 62.2 VBG HCO3 25.5 VBG Base Excess -2.8 04/21/20 04/21/20 04/22/20 19:23 19:23 05:00 Creatine Kinase 169 H CK-MB (CK-2) 3.41 Troponin I 0.034 NT-Pro-B Natriuret Pep 4490 H 7260 H 04/22/20 23:40 Creatine Kinase CK-MB (CK-2) Troponin I NT-Pro-B Natriuret Pep 6940 H Impressions: Chest/Abdomen CTA 04/21/20 22:06 IMPRESSION: 1. No evidence of pulmonary embolus. 2. Small bilateral pleural effusions with adjacent bilateral lower lung atelectasis although cannot exclude component of a pneumonia. 3. Bilateral groundglass opacities with septal thickening that could be related to edema but infectious etiology is also possible. Imaging features can be seen with viral or COVID 19 pneumonia, though are nonspecific and can occur with a variety of infectious and noninfectious processes. [PneInd] Head CT 04/30/20 00:00 IMPRESSION: 1. No acute intracranial hemorrhage or mass effect. Nonspecific findings compatible with chronic microvascular ischemic change are present. If there is clinical concern for acute stroke, MRI brain should be considered as a more sensitive evaluation. KUB X-Ray 05/04/20 18:19 IMPRESSION: NASOGASTRIC TUBE, TIP IN THE STOMACH. NO RADIOGRAPHIC EVIDENCE FOR ACUTE ABDOMINAL DISEASE. Chest X-Ray 05/05/20 00:00 IMPRESSION: 1. Progression in bilateral opacities since prior exam, worsening in the upper lobes. Head MRI 05/05/20 00:00 IMPRESSION: ATROPHY AND CHRONIC MICRO-VASCULAR ISCHEMIC CHANGES. OTHERWISE NORMAL MRI OF THE BRAIN WITHOUT INTRAVENOUS GADOLINIUM CONTRAST. EVIDENCE OF ACUTE STROKE: NO. Assessment & Plan - Diagnosis (1) Encephalopathy due to COVID-19 virus Is this a current diagnosis for this admission?: Yes Plan: EEG is abnormal but no seizure activity identified on EEG (2) Acute hypoxemic respiratory failure Is this a current diagnosis for this admission?: Yes Plan: Patient requiring supplemental oxygen on nasal cannula (3) Acute hypoxemic respiratory failure due to COVID-19 Is this a current diagnosis for this admission?: Yes (4) Type 2 diabetes mellitus with diabetic polyneuropathy Qualifiers: Diabetes mellitus terminal operator insulin use: without terminal operator use Qualified Code(s): E11.42 - Type 2 diabetes mellitus with diabetic polyneuropathy Is this a current diagnosis for this admission?: Yes (5) Paroxysmal atrial fibrillation with rapid ventricular response Is this a current diagnosis for this admission?: Yes (6) Severe pulmonary arterial systolic hypertension Is this a current diagnosis for this admission?: Yes (7) Acute delirium Is this a current diagnosis for this admission?: Yes (8) Sepsis Qualifiers: Sepsis type: sepsis due to unspecified organism Sepsis acute organ dysfunction status: with acute organ dysfunction Severe sepsis acute organ dysfunction type: acute renal failure Acute renal failure type: unspecified Severe sepsis shock status: without septic shock Qualified Code(s): A41.9 - Sepsis, unspecified organism; R65.20 - Severe sepsis without septic shock; N17.9 - Acute kidney failure, unspecified Is this a current diagnosis for this admission?: Yes Plan: Patient showing signs of sepsis. Leukocytosis thrombocytopenia, start antibiotic (9) Hypoglycemia Is this a current diagnosis for this admission?: Yes - Time Time Spent with patient: 35 or more minutes Level of Care: IMCU Medications reviewed and adjusted accordingly: Yes Anticipated DC Timeframe: Other
[2020-05-06 21:38] LABS: HEMATOCRIT 33.5 % (36.0-47.0); HEMOGLOBIN 10.5 g/dL (12.0-15.5); MEAN CORPUSCULAR HEMOGLOBIN 28.1 pg (27.0-33.4); MEAN CORPUSCULAR HGB CONC 31.4 g/dL (32.0-36.0); MEAN CORPUSCULAR VOLUME 90 fl (80-97); RED BLOOD COUNT 3.74 10^6/uL (3.72-5.28); WHITE BLOOD COUNT 13.5 10^3/uL (4.0-10.5)
[2020-05-06 21:39] LABS: PROTHROMBIN TIME 22.8 SEC (11.4-15.4)
[2020-05-06 21:45] LABS: ARTERIAL BLOOD BASE EXCESS 0.1 mmol/L; ARTERIAL BLOOD FIO2 7.00L; ARTERIAL BLOOD H2CO3 1.15 mmol/L (1.05-1.35); ARTERIAL BLOOD HCO3 24.5 mmol/L (20-24); ARTERIAL BLOOD PCO2 38.3 mmHg (35-45); ARTERIAL BLOOD PH 7.42 (7.35-7.45); ARTERIAL BLOOD TOTAL CO2 25.6 mmol/L (21-25)
[2020-05-06 21:52] LABS: ALKALINE PHOSPHATASE 82 U/L (38-126); ANION GAP 9 (5-19); ASPARTATE AMINO TRANSFERASE 47 U/L (14-36); BILIRUBIN,DIRECT 0.6 mg/dL (0.0-0.4); BILIRUBIN,TOTAL 1.5 mg/dL (0.2-1.3); BLOOD UREA NITROGEN 20 mg/dL (7-20); CALCIUM 8.1 mg/dL (8.4-10.2); CARBON DIOXIDE 28 mmol/L (22-30); CHLORIDE 98 mmol/L (98-107); GLUCOSE 363 mg/dL (75-110); POTASSIUM 4.1 mmol/L (3.6-5.0)
[2020-05-06 22:02] LABS: PLATELET COUNT 85 10^3/uL (150-450)
[2020-05-06 22:04] LABS: ABSOLUTE LYMPHOCYTES# (MANUAL) 0.7 10^3/uL (0.5-4.7); ABSOLUTE MONOCYTES # (MANUAL) 0.7 10^3/uL (0.1-1.4); BASOPHILS % (MANUAL) 0 % (0-2); EOSINOPHILS % (MANUAL) 0 % (0-6); LYMPHOCYTES % (MANUAL) 5 % (13-45); MONOCYTES % (MANUAL) 5 % (3-13); SEGMENTED NEUTROPHILS % (MAN) 90 % (42-78); TOTAL CELLS COUNTED 100
[2020-05-06 22:07] LABS: ANISOCYTOSIS 1+; OVALOCYTES SLIGHT; PLATELET COMMENT DECREASED
[2020-05-06] MEDS: VANCOMYCIN HCL 1,500 MG in DEXTROSE 5%-WATER 250 ML IV SCH (23:16)
[2020-05-06] MEDS: PIPERACILLIN SODIUM/TAZOBACTAM 3.375 GM in NORMAL SALINE 100 ML IV SCH (23:17)
[2020-05-07] MEDS: NORMAL SALINE 1000 ML 1,000 ML IV PRN (00:22)
[2020-05-07] MEDS: DILTIAZEM HCL 60 MG TABLET PO SCH ×4 (00:25→19:41)
[2020-05-07] MEDS: INSULIN REG, HUMAN 100 UNIT/ML 3 ML VIAL (PYX) SUBCUT SCH ×4 (00:25→18:46)
[2020-05-07 04:45] LABS: APPEARANCE,URINE SLIGHTLY-CLOUDY; BILIRUBIN,URINE NEGATIVE (NEGATIVE); COLOR,URINE AMBER; GLUCOSE, URINE >=500 mg/dL (NEGATIVE); KETONES,URINE NEGATIVE (NEGATIVE); PROTEIN,URINE 100 mg/dL (NEGATIVE); URINE SPECIFIC GRAVITY 1.028
[2020-05-07] MEDS: PIPERACILLIN SODIUM/TAZOBACTAM 3.375 GM in NORMAL SALINE 100 ML IV SCH ×5 (05:38→21:05)
[2020-05-07] MEDS: SERTRALINE HCL 50 MG TABLET PO SCH (12:01)
[2020-05-07] MEDS: SITAGLIPTIN PHOSPHATE 50 MG TABLET NG SCH (12:02)
[2020-05-07] MEDS: LOSARTAN POTASSIUM 50 MG TABLET NG SCH (12:02)
[2020-05-07] MEDS: LORAZEPAM 0.5 MG TABLET NG SCH ×2 (12:02→23:40)
[2020-05-07] MEDS: APIXABAN 5 MG TABLET NG SCH ×2 (12:02→17:37)
[2020-05-07 17:12] LABS: HEMATOCRIT 32.4 % (36.0-47.0); MEAN CORPUSCULAR HEMOGLOBIN 27.9 pg (27.0-33.4); MEAN CORPUSCULAR HGB CONC 30.8 g/dL (32.0-36.0); MEAN CORPUSCULAR VOLUME 90 fl (80-97); RED BLOOD COUNT 3.58 10^6/uL (3.72-5.28); RED CELL DISTRIBUTION WIDTH 15.8 % (11.5-14.0); WHITE BLOOD COUNT 12.5 10^3/uL (4.0-10.5)
[2020-05-07 17:24] LABS: ALBUMIN 2.4 g/dL (3.5-5.0); ALKALINE PHOSPHATASE 68 U/L (38-126); ASPARTATE AMINO TRANSFERASE 48 U/L (14-36); BILIRUBIN,DIRECT 0.9 mg/dL (0.0-0.4); BILIRUBIN,TOTAL 1.6 mg/dL (0.2-1.3); BLOOD UREA NITROGEN 24 mg/dL (7-20); CHLORIDE 100 mmol/L (98-107); GLUCOSE 381 mg/dL (75-110); TOTAL PROTEIN 4.8 g/dL (6.3-8.2)
[2020-05-07 17:34] LABS: CARBON DIOXIDE 28 mmol/L (22-30); POTASSIUM 4.5 mmol/L (3.6-5.0)
[2020-05-07 17:42] LABS: ANION GAP 8 (5-19)
[2020-05-07 17:56] LABS: PLATELET COUNT 73 10^3/uL (150-450)
[2020-05-07 17:59] LABS: ABSOLUTE LYMPHOCYTES# (MANUAL) 1.5 10^3/uL (0.5-4.7); ABSOLUTE MONOCYTES # (MANUAL) 0.5 10^3/uL (0.1-1.4); BAND NEUTROPHILS % (MANUAL) 1 % (3-5); BASOPHILS % (MANUAL) 0 % (0-2); EOSINOPHILS % (MANUAL) 0 % (0-6); LYMPHOCYTES % (MANUAL) 12 % (13-45); MONOCYTES % (MANUAL) 4 % (3-13); SEGMENTED NEUTROPHILS % (MAN) 83 % (42-78); TOTAL CELLS COUNTED 100
[2020-05-07 18:01] LABS: ANISOCYTOSIS SLIGHT; PLATELET COMMENT DECREASED
--- NOTE | 2020-05-07 19:56 | PDOC PROGRESS REPORT ---
Subjective Date:: 05/07/20 Subjective:: Patient's condition remains poor and precarious, I spoke to the family today abo ut her condition, she has no IV access, consultation requested from surgeon for central line Reason For Visit: SOB,PNEUMONIA,CHF,COVID Physical Exam Vital Signs: Temp Pulse Resp BP Pulse Ox 98.0 F 81 24 H 113/37 L 91 L 05/07/20 12:58 05/07/20 12:58 05/07/20 12:58 05/07/20 12:58 05/07/20 03:21 Intake & Output 05/06/20 05/07/20 05/08/20 06:59 06:59 06:59 Intake Total 365 3093 Output Total 1225 975 Balance -860 2118 Weight 93.3 kg 95.3 kg 95.3 kg General appearance: PRESENT: no acute distress, obese Eye exam: PRESENT: PERRLA Respiratory exam: PRESENT: rhonchi Cardiovascular exam: PRESENT: +S1, +S2 GI/Abdominal exam: PRESENT: soft Neurological exam: PRESENT: alert Results Laboratory Results: 05/07/20 04:18 05/07/20 04:18 05/06/20 05/06/20 05/06/20 21:20 21:22 21:22 WBC 13.5 H RBC 3.74 Hgb 10.5 L Hct 33.5 L MCV 90 MCH 28.1 MCHC 31.4 L RDW 16.0 H Plt Count 85 L Seg Neutrophils % Not Reportable Carbonic Acid 1.15 HCO3/H2CO3 Ratio 21:1 ABG pH 7.42 ABG pCO2 38.3 ABG pO2 47.0 L ABG HCO3 24.5 H ABG O2 Saturation 84.0 L ABG Base Excess 0.1 FiO2 7.00L Sodium 135.3 L Potassium 4.1 Chloride 98 Carbon Dioxide 28 Anion Gap 9 BUN 20 Creatinine 0.87 Est GFR ( Amer) > 60 Glucose 363 H Lactic Acid Calcium 8.1 L Total Bilirubin 1.5 H AST 47 H Alkaline Phosphatase 82 Total Protein 6.0 L Albumin 3.0 L Urine Color Urine Appearance Urine pH Ur Specific [place] Urine Protein Urine Glucose (UA) Urine Ketones Urine Blood Urine RBC (Auto) 05/06/20 05/06/20 05/07/20 21:22 23:03 04:00 WBC RBC Hgb Hct MCV MCH MCHC RDW Plt Count Seg Neutrophils % Carbonic Acid HCO3/H2CO3 Ratio ABG pH ABG pCO2 ABG pO2 ABG HCO3 ABG O2 Saturation ABG Base Excess FiO2 Sodium Potassium Chloride Carbon Dioxide Anion Gap BUN Creatinine Est GFR ( Amer) Glucose Lactic Acid Cancelled 4.5 H Calcium Total Bilirubin AST Alkaline Phosphatase Total Protein Albumin Urine Color MARYAM Urine Appearance SLIGHTLY-CLOUDY Urine pH 5.0 Ur Specific [place] 1.028 Urine Protein 100 H Urine Glucose (UA) >=500 H Urine Ketones NEGATIVE Urine Blood MODERATE H Urine RBC (Auto) 1 05/07/20 05/07/20 05/07/20 04:18 04:18 04:18 WBC 12.5 H RBC 3.58 L Hgb 10.0 L Hct 32.4 L MCV 90 MCH 27.9 MCHC 30.8 L RDW 15.8 H Plt Count 73 L Seg Neutrophils % Not Reportable Carbonic Acid HCO3/H2CO3 Ratio ABG pH ABG pCO2 ABG pO2 ABG HCO3 ABG O2 Saturation ABG Base Excess FiO2 Sodium 136.0 L Potassium 4.5 Chloride 100 Carbon Dioxide 28 Anion Gap 8 BUN 24 H Creatinine 0.85 Est GFR ( Amer) > 60 Glucose 381 H Lactic Acid 3.7 H Calcium 8.0 L Total Bilirubin 1.6 H AST 48 H Alkaline Phosphatase 68 Total Protein 4.8 L Albumin 2.4 L Urine Color Urine Appearance Urine pH Ur Specific [place] Urine Protein Urine Glucose (UA) Urine Ketones Urine Blood Urine RBC (Auto) 05/05/20 09:15 Catheterized Urine Urine Culture - Final Mixed Urogenital Evelyn 04/21/20 04/21/20 04/22/20 19:23 19:23 05:00 Creatine Kinase 169 H CK-MB (CK-2) 3.41 Troponin I 0.034 NT-Pro-B Natriuret Pep 4490 H 7260 H 04/22/20 23:40 Creatine Kinase CK-MB (CK-2) Troponin I NT-Pro-B Natriuret Pep 6940 H Impressions: Chest/Abdomen CTA 04/21/20 22:06 IMPRESSION: 1. No evidence of pulmonary embolus. 2. Small bilateral pleural effusions with adjacent bilateral lower lung atelectasis although cannot exclude component of a pneumonia. 3. Bilateral groundglass opacities with septal thickening that could be related to edema but infectious etiology is also possible. Imaging features can be seen with viral or COVID 19 pneumonia, though are nonspecific and can occur with a variety of infectious and noninfectious processes. [PneInd] Head CT 04/30/20 00:00 IMPRESSION: 1. No acute intracranial hemorrhage or mass effect. Nonspecific findings compatible with chronic microvascular ischemic change are present. If there is clinical concern for acute stroke, MRI brain should be considered as a more sensitive evaluation. KUB X-Ray 05/04/20 18:19 IMPRESSION: NASOGASTRIC TUBE, TIP IN THE STOMACH. NO RADIOGRAPHIC EVIDENCE FOR ACUTE ABDOMINAL DISEASE. Head MRI 05/05/20 00:00 IMPRESSION: ATROPHY AND CHRONIC MICRO-VASCULAR ISCHEMIC CHANGES. OTHERWISE NORMAL MRI OF THE BRAIN WITHOUT INTRAVENOUS GADOLINIUM CONTRAST. EVIDENCE OF ACUTE STROKE: NO. Assessment & Plan - Diagnosis (1) Encephalopathy due to COVID-19 virus Is this a current diagnosis for this admission?: Yes Plan: Patient is alert (2) Acute hypoxemic respiratory failure Is this a current diagnosis for this admission?: Yes Plan: Patient requiring supplemental oxygen on nasal cannula (3) Acute hypoxemic respiratory failure due to COVID-19 Is this a current diagnosis for this admission?: Yes (4) Type 2 diabetes mellitus with diabetic polyneuropathy Qualifiers: Diabetes mellitus ferry terminal supervisor insulin use: without ferry terminal supervisor use Qualified Code(s): E11.42 - Type 2 diabetes mellitus with diabetic polyneuropathy Is this a current diagnosis for this admission?: Yes (5) Paroxysmal atrial fibrillation with rapid ventricular response Is this a current diagnosis for this admission?: Yes (6) Severe pulmonary arterial systolic hypertension Is this a current diagnosis for this admission?: Yes (7) Acute delirium Is this a current diagnosis for this admission?: Yes (8) Sepsis Qualifiers: Sepsis type: sepsis due to unspecified organism Sepsis acute organ dysfunction status: with acute organ dysfunction Severe sepsis acute organ dysfunction type: acute renal failure Acute renal failure type: unspecified Severe sepsis shock status: without septic shock Qualified Code(s): A41.9 - Sepsis, unspecified organism; R65.20 - Severe sepsis without septic shock; N17.9 - Acute kidney failure, unspecified Is this a current diagnosis for this admission?: Yes Plan: Continue IV antibiotic, IV fluid (9) Hypoglycemia Is this a current diagnosis for this admission?: Yes - Time Time Spent with patient: 25-34 minutes Level of Care: IMCU Medications reviewed and adjusted accordingly: Yes Anticipated discharge: Home Anticipated DC Timeframe: Other
--- NOTE | 2020-05-07 20:25 | RADIOLOGY REPORT (SQ) ---
EXAM DESCRIPTION: XR CHEST 1 VIEW COMPLETED DATE/TME: 05/07/2020 19:58 CLINICAL HISTORY: 80 years, Female, central line placement COMPARISON: Chest x-ray 05/05/2020. CT chest 04/22/2020. TECHNIQUE: Technically limited overpenetrated study. FINDINGS: Moderate to prominent cardiomegaly. Patchy infiltrates bilaterally grossly unchanged. Enteric tube in the abdomen tip not clearly identified. New left subclavian central line with the tip in the superior vena cava. No pneumothorax is seen.
--- NOTE | 2020-05-07 20:27 | Operative Report ---
Nonrecallable Operative Report DATE OF SURGERY: 05/07/20 PREOPERATIVE DIAGNOSIS: Hypoxemic respiratory failure POSTOPERATIVE DIAGNOSIS: Same OPERATION: Left subclavian central line placement SURGEON: JAMIE VILLALOBOS ANESTHESIA: Local TISSUE REMOVED OR ALTERED: None COMPLICATIONS: None ESTIMATED BLOOD LOSS: 10 cc INTRAOPERATIVE FINDINGS: See note PROCEDURE: Patient was seen in her hospital room on her bed with the oxygen mask on satting only approximately 85% O2 sat. Markedly swollen anasarca altered mental status nurses unable to place a peripheral line. After appropriate timeout and site verification the procedure commenced. The right groin was prepped and draped in usual sterile fashion. After multiple attempts at accessing the right femoral vein we were unable to do so. Therefore the left neck was prepped and draped and a new sterile central line kit was obtained. After anesthetizing the skin over the left clavicle. A subclavian stick was made with a 16-gauge needle and subclavian vein was accessed with the needle. Through the needle a wire was placed into the superior vena cava and the needle was removed. The tract was dilated and then a triple-lumen 16-gauge catheter was placed over the wire using Seldinger technique into the superior vena cava through the subclavian vein on the left side. The catheter was fixed to the skin with 2-0 silk. A sterile dressing was applied. Chest x-ray confirmed good placement. Patient tolerated the procedure well. Estimated blood loss was 10 cc.
[2020-05-07] MEDS: VANCOMYCIN HCL 1,500 MG in DEXTROSE 5%-WATER 250 ML IV SCH (22:52)
[2020-05-08] MEDS: INSULIN REG, HUMAN 100 UNIT/ML 3 ML VIAL (PYX) SUBCUT SCH ×4 (00:11→20:10)
[2020-05-08] MEDS: DILTIAZEM HCL 60 MG TABLET PO SCH ×5 (00:12→23:46)
[2020-05-08 00:24] LABS: ARTERIAL BLOOD BASE EXCESS 1.1 mmol/L; ARTERIAL BLOOD H2CO3 1.41 mmol/L (1.05-1.35); ARTERIAL BLOOD HCO3 26.7 mmol/L (20-24); ARTERIAL BLOOD O2 SATURATION 86.3 % (94-98); ARTERIAL BLOOD PCO2 46.8 mmHg (35-45); ARTERIAL BLOOD PH 7.37 (7.35-7.45); ARTERIAL BLOOD PO2 52.9 mmHg (80-100); ARTERIAL BLOOD TOTAL CO2 28.1 mmol/L (21-25)
[2020-05-08 00:25] LABS: ARTERIAL BLOOD FIO2 100%
[2020-05-08] MEDS: PIPERACILLIN SODIUM/TAZOBACTAM 3.375 GM in NORMAL SALINE 100 ML IV SCH ×5 (01:50→22:00)
[2020-05-08] MEDS: LOSARTAN POTASSIUM 50 MG TABLET NG SCH (09:46)
[2020-05-08] MEDS: SITAGLIPTIN PHOSPHATE 50 MG TABLET NG SCH (09:46)
[2020-05-08] MEDS: LORAZEPAM 0.5 MG TABLET NG SCH ×2 (09:47→22:00)
[2020-05-08] MEDS: SERTRALINE HCL 50 MG TABLET PO SCH (09:47)
[2020-05-08] MEDS: APIXABAN 5 MG TABLET NG SCH ×2 (09:47→18:40)
[2020-05-08 14:59] LABS: HEMATOCRIT 23.8 % (36.0-47.0); MEAN CORPUSCULAR HEMOGLOBIN 28.1 pg (27.0-33.4); MEAN CORPUSCULAR HGB CONC 31.8 g/dL (32.0-36.0); MEAN CORPUSCULAR VOLUME 89 fl (80-97); RED BLOOD COUNT 2.69 10^6/uL (3.72-5.28); RED CELL DISTRIBUTION WIDTH 15.4 % (11.5-14.0); WHITE BLOOD COUNT 13.5 10^3/uL (4.0-10.5)
[2020-05-08 15:24] LABS: ABSOLUTE LYMPHOCYTES# (MANUAL) 1.5 10^3/uL (0.5-4.7); ABSOLUTE MONOCYTES # (MANUAL) 0.4 10^3/uL (0.1-1.4); BASOPHILS % (MANUAL) 0 % (0-2); EOSINOPHILS % (MANUAL) 0 % (0-6); LYMPHOCYTES % (MANUAL) 11 % (13-45); MONOCYTES % (MANUAL) 3 % (3-13); SEGMENTED NEUTROPHILS % (MAN) 86 % (42-78); TOTAL CELLS COUNTED 100
[2020-05-08 15:25] LABS: ANISOCYTOSIS SLIGHT; POLYCHROMASIA 1+
[2020-05-08 15:26] LABS: ALBUMIN 1.9 g/dL (3.5-5.0); ALKALINE PHOSPHATASE 74 U/L (38-126); ANION GAP 6 (5-19); ASPARTATE AMINO TRANSFERASE 43 U/L (14-36); BILIRUBIN,DIRECT 0.8 mg/dL (0.0-0.4); BILIRUBIN,TOTAL 1.4 mg/dL (0.2-1.3); BLOOD UREA NITROGEN 35 mg/dL (7-20); CALCIUM 7.6 mg/dL (8.4-10.2); CARBON DIOXIDE 29 mmol/L (22-30); CHLORIDE 102 mmol/L (98-107); GLUCOSE 342 mg/dL (75-110); POIKILOCYTOSIS 1+; POTASSIUM 3.9 mmol/L (3.6-5.0); TEAR DROP CELLS 1+; TOTAL PROTEIN 4.1 g/dL (6.3-8.2)
[2020-05-08 15:28] LABS: PLATELET COMMENT DECREASED
[2020-05-08 15:29] LABS: PLATELET COUNT 44 10^3/uL (150-450)
[2020-05-08 16:20] LABS: HEMOGLOBIN 7.6 g/dL (12.0-15.5)
--- NOTE | 2020-05-08 17:05 | PDOC PROGRESS REPORT ---
Subjective Date:: 05/08/20 Subjective:: Patient excessively somnolent does not respond to verbal stimulus, grimaces on s ternal pressure, continues to require NIPPV continuously. Conditions remains precarious with guarded prognosis Reason For Visit: SOB,PNEUMONIA,CHF,COVID Physical Exam Vital Signs: Temp Pulse Resp BP Pulse Ox 97.7 F 83 30 H 115/48 L 95 05/08/20 03:37 05/08/20 07:00 05/08/20 14:43 05/08/20 04:03 05/08/20 10:11 Intake & Output 05/07/20 05/08/20 05/09/20 06:59 06:59 06:59 Intake Total 3093 1022 295 Output Total 975 300 Balance 2118 722 295 Weight 95.3 kg 95.8 kg General appearance: PRESENT: other - Patient is stupurous respond only to s ternal pressure Eye exam: PRESENT: PERRLA Respiratory exam: PRESENT: rhonchi Cardiovascular exam: PRESENT: +S1, +S2 GI/Abdominal exam: PRESENT: soft Neurological exam: PRESENT: altered Results Laboratory Results: 05/08/20 14:35 05/08/20 14:35 05/07/20 05/07/20 05/07/20 04:18 04:18 23:55 WBC 12.5 H RBC 3.58 L Hgb 10.0 L Hct 32.4 L MCV 90 MCH 27.9 MCHC 30.8 L RDW 15.8 H Plt Count 73 L Seg Neutrophils % Not Reportable Carbonic Acid 1.41 H HCO3/H2CO3 Ratio 18:1 ABG pH 7.37 ABG pCO2 46.8 H ABG pO2 52.9 L ABG HCO3 26.7 H ABG O2 Saturation 86.3 L ABG Base Excess 1.1 FiO2 100% Sodium 136.0 L Potassium 4.5 Chloride 100 Carbon Dioxide 28 Anion Gap 8 BUN 24 H Creatinine 0.85 Est GFR ( Amer) > 60 Glucose 381 H Calcium 8.0 L Total Bilirubin 1.6 H AST 48 H Alkaline Phosphatase 68 Total Protein 4.8 L Albumin 2.4 L 05/08/20 05/08/20 14:35 14:35 WBC 13.5 H RBC 2.69 L Hgb 7.6 L D Hct 23.8 L MCV 89 MCH 28.1 MCHC 31.8 L RDW 15.4 H Plt Count 44 L Seg Neutrophils % Not Reportable Carbonic Acid HCO3/H2CO3 Ratio ABG pH ABG pCO2 ABG pO2 ABG HCO3 ABG O2 Saturation ABG Base Excess FiO2 Sodium 136.8 L Potassium 3.9 Chloride 102 Carbon Dioxide 29 Anion Gap 6 BUN 35 H Creatinine 1.05 Est GFR ( Amer) > 60 Glucose 342 H Calcium 7.6 L Total Bilirubin 1.4 H AST 43 H Alkaline Phosphatase 74 Total Protein 4.1 L Albumin 1.9 L 04/21/20 04/21/20 04/22/20 19:23 19:23 05:00 Creatine Kinase 169 H CK-MB (CK-2) 3.41 Troponin I 0.034 NT-Pro-B Natriuret Pep 4490 H 7260 H 04/22/20 23:40 Creatine Kinase CK-MB (CK-2) Troponin I NT-Pro-B Natriuret Pep 6940 H Impressions: Chest/Abdomen CTA 04/21/20 22:06 IMPRESSION: 1. No evidence of pulmonary embolus. 2. Small bilateral pleural effusions with adjacent bilateral lower lung atelectasis although cannot exclude component of a pneumonia. 3. Bilateral groundglass opacities with septal thickening that could be related to edema but infectious etiology is also possible. Imaging features can be seen with viral or COVID 19 pneumonia, though are nonspecific and can occur with a variety of infectious and noninfectious processes. [PneInd] Head CT 04/30/20 00:00 IMPRESSION: 1. No acute intracranial hemorrhage or mass effect. Nonspecific findings compatible with chronic microvascular ischemic change are present. If there is clinical concern for acute stroke, MRI brain should be considered as a more sensitive evaluation. KUB X-Ray 05/04/20 18:19 IMPRESSION: NASOGASTRIC TUBE, TIP IN THE STOMACH. NO RADIOGRAPHIC EVIDENCE FOR ACUTE ABDOMINAL DISEASE. Head MRI 05/05/20 00:00 IMPRESSION: ATROPHY AND CHRONIC MICRO-VASCULAR ISCHEMIC CHANGES. OTHERWISE NORMAL MRI OF THE BRAIN WITHOUT INTRAVENOUS GADOLINIUM CONTRAST. EVIDENCE OF ACUTE STROKE: NO. Assessment & Plan - Diagnosis (1) Acute hypoxemic respiratory failure due to COVID-19 Is this a current diagnosis for this admission?: Yes Plan: Patient presently requiring noninvasive positive pressure ventilation, BiPAP presently maintaining adequate oxygen saturation (2) Encephalopathy due to COVID-19 virus Is this a current diagnosis for this admission?: Yes (3) Acute hypoxemic respiratory failure Is this a current diagnosis for this admission?: Yes (4) Type 2 diabetes mellitus with diabetic polyneuropathy Qualifiers: Diabetes mellitus correction insulin use: without buttermaker use Qualified Code(s): E11.42 - Type 2 diabetes mellitus with diabetic polyneuropathy Is this a current diagnosis for this admission?: Yes (5) Paroxysmal atrial fibrillation with rapid ventricular response Is this a current diagnosis for this admission?: Yes (6) Severe pulmonary arterial systolic hypertension Is this a current diagnosis for this admission?: Yes (7) Acute delirium Is this a current diagnosis for this admission?: Yes (8) Sepsis Qualifiers: Sepsis type: sepsis due to unspecified organism Sepsis acute organ dysfunction status: with acute organ dysfunction Severe sepsis acute organ dysfunction type: acute renal failure Acute renal failure type: unspecified Severe sepsis shock status: without septic shock Qualified Code(s): A41.9 - Sepsis, unspecified organism; R65.20 - Severe sepsis without septic shock; N17.9 - Acute kidney failure, unspecified Is this a current diagnosis for this admission?: Yes Plan: She will continue present IV antibiotic coverage (9) Hypoglycemia Is this a current diagnosis for this admission?: Yes - Time Time Spent with patient: 35 or more minutes Level of Care: IMCU Medications reviewed and adjusted accordingly: Yes Anticipated discharge: Other Anticipated DC Timeframe: Other
[2020-05-08 21:35] LABS: INTERNATIONAL RATION (INR) 1.81; PROTHROMBIN TIME 21.1 SEC (11.4-15.4)
[2020-05-08 21:36] LABS: FIBRINOGEN 603 mg/dL (209-497); PARTIAL THROMBOPLASTIN TIME 38.3 SEC (23.5-35.8)
[2020-05-08 21:39] LABS: D-DIMER 2.94 ug/mL (0.00-0.50)
[2020-05-08] MEDS: VANCOMYCIN HCL 1,500 MG in DEXTROSE 5%-WATER 250 ML IV SCH (22:00)
[2020-05-09] MEDS: INSULIN REG, HUMAN 100 UNIT/ML 3 ML VIAL (PYX) SUBCUT SCH ×5 (00:08→23:46)
[2020-05-09] MEDS: PIPERACILLIN SODIUM/TAZOBACTAM 3.375 GM in NORMAL SALINE 100 ML IV SCH ×4 (03:56→21:39)
[2020-05-09] MEDS: DILTIAZEM HCL 60 MG TABLET PO SCH ×4 (06:22→23:26)
[2020-05-09] MEDS: SITAGLIPTIN PHOSPHATE 50 MG TABLET NG SCH (11:52)
[2020-05-09] MEDS: SERTRALINE HCL 50 MG TABLET PO SCH (11:52)
[2020-05-09] MEDS: LORAZEPAM 0.5 MG TABLET NG SCH ×2 (11:53→21:39)
[2020-05-09] MEDS: APIXABAN 5 MG TABLET NG SCH ×2 (11:53→19:04)
[2020-05-09] MEDS: LOSARTAN POTASSIUM 50 MG TABLET NG SCH (11:53)
--- NOTE | 2020-05-09 15:08 | PDOC PROGRESS REPORT ---
Subjective Date:: 05/09/20 Subjective:: Patient condition about the same, she continues to require NIPPV She does not re spond to verbal stimulus, she respond to tactile stimulus. Reason For Visit: SOB,PNEUMONIA,CHF,COVID Physical Exam Vital Signs: Temp Pulse Resp BP Pulse Ox 97.4 F 97 30 H 154/82 H 97 05/09/20 11:41 05/09/20 12:15 05/09/20 12:15 05/09/20 11:41 05/09/20 12:15 Intake & Output 05/08/20 05/09/20 05/10/20 06:59 06:59 06:59 Intake Total 1022 1365 300 Output Total 300 975 Balance 722 390 300 Weight 95.8 kg 96.2 kg 96.2 kg General appearance: PRESENT: no acute distress Eye exam: PRESENT: PERRLA Respiratory exam: PRESENT: clear to auscultation dmitri Cardiovascular exam: PRESENT: +S1, +S2 GI/Abdominal exam: PRESENT: soft Neurological exam: PRESENT: alert Results Laboratory Results: 05/08/20 14:35 05/08/20 14:35 05/08/20 05/08/20 05/08/20 14:35 14:35 17:14 WBC 13.5 H RBC 2.69 L Hgb 7.6 L D Hct 23.8 L MCV 89 MCH 28.1 MCHC 31.8 L RDW 15.4 H Plt Count 44 L Seg Neutrophils % Not Reportable Sodium 136.8 L Potassium 3.9 Chloride 102 Carbon Dioxide 29 Anion Gap 6 BUN 35 H Creatinine 1.05 Est GFR ( Amer) > 60 Glucose 342 H Calcium 7.6 L Total Bilirubin 1.4 H AST 43 H Alkaline Phosphatase 74 Total Protein 4.1 L Albumin 1.9 L Blood Type A POSITIVE Antibody Screen NEGATIVE 04/21/20 04/21/20 04/22/20 19:23 19:23 05:00 Creatine Kinase 169 H CK-MB (CK-2) 3.41 Troponin I 0.034 NT-Pro-B Natriuret Pep 4490 H 7260 H 04/22/20 23:40 Creatine Kinase CK-MB (CK-2) Troponin I NT-Pro-B Natriuret Pep 6940 H Impressions: Chest/Abdomen CTA 04/21/20 22:06 IMPRESSION: 1. No evidence of pulmonary embolus. 2. Small bilateral pleural effusions with adjacent bilateral lower lung atelectasis although cannot exclude component of a pneumonia. 3. Bilateral groundglass opacities with septal thickening that could be related to edema but infectious etiology is also possible. Imaging features can be seen with viral or COVID 19 pneumonia, though are nonspecific and can occur with a variety of infectious and noninfectious processes. [PneInd] Head CT 04/30/20 00:00 IMPRESSION: 1. No acute intracranial hemorrhage or mass effect. Nonspecific findings compatible with chronic microvascular ischemic change are present. If there is clinical concern for acute stroke, MRI brain should be considered as a more sensitive evaluation. KUB X-Ray 05/04/20 18:19 IMPRESSION: NASOGASTRIC TUBE, TIP IN THE STOMACH. NO RADIOGRAPHIC EVIDENCE FOR ACUTE ABDOMINAL DISEASE. Head MRI 05/05/20 00:00 IMPRESSION: ATROPHY AND CHRONIC MICRO-VASCULAR ISCHEMIC CHANGES. OTHERWISE NORMAL MRI OF THE BRAIN WITHOUT INTRAVENOUS GADOLINIUM CONTRAST. EVIDENCE OF ACUTE STROKE: NO. Assessment & Plan - Diagnosis (1) Acute hypoxemic respiratory failure due to COVID-19 Is this a current diagnosis for this admission?: Yes Plan: Patient presently requiring noninvasive positive pressure ventilation, BiPAP presently maintaining adequate oxygen saturation (2) Encephalopathy due to COVID-19 virus Is this a current diagnosis for this admission?: Yes (3) Acute hypoxemic respiratory failure Is this a current diagnosis for this admission?: Yes (4) Type 2 diabetes mellitus with diabetic polyneuropathy Qualifiers: Diabetes mellitus manager terminal insulin use: without fci use Qualified Code(s): E11.42 - Type 2 diabetes mellitus with diabetic polyneuropathy Is this a current diagnosis for this admission?: Yes (5) Paroxysmal atrial fibrillation with rapid ventricular response Is this a current diagnosis for this admission?: Yes (6) Severe pulmonary arterial systolic hypertension Is this a current diagnosis for this admission?: Yes (7) Acute delirium Is this a current diagnosis for this admission?: Yes (8) Sepsis Qualifiers: Sepsis type: sepsis due to unspecified organism Sepsis acute organ d ysfunction status: with acute organ dysfunction Severe sepsis acute organ dysfunction type: acute renal failure Acute renal failure type: unspecified Severe sepsis shock status: without septic shock Qualified Code(s): A41.9 - Sepsis, unspecified organism; R65.20 - Severe sepsis without septic shock; N17.9 - Acute kidney failure, unspecified Is this a current diagnosis for this admission?: Yes Plan: She will continue present IV antibiotic coverage (9) Hypoglycemia Is this a current diagnosis for this admission?: Yes - Time Time Spent with patient: 35 or more minutes Level of Care: IMCU Medications reviewed and adjusted accordingly: Yes Anticipated discharge: Other Anticipated DC Timeframe: Other - Inpatient Certification Based on my medical assessment, after consideration of the patient's comorbidities, presenting symptoms, or acuity I expect that the services needed warrant INPATIENT care.: Yes I certify that my determination is in accordance with my understanding of Medicare's requirements for reasonable and necessary INPATIENT services [42 CFR 412.3e].: Yes
[2020-05-09 18:34] LABS: HEMATOCRIT 33.7 % (36.0-47.0); MEAN CORPUSCULAR HEMOGLOBIN 28.5 pg (27.0-33.4); MEAN CORPUSCULAR HGB CONC 32.6 g/dL (32.0-36.0); MEAN CORPUSCULAR VOLUME 87 fl (80-97); RED BLOOD COUNT 3.86 10^6/uL (3.72-5.28); RED CELL DISTRIBUTION WIDTH 15.4 % (11.5-14.0); WHITE BLOOD COUNT 23.4 10^3/uL (4.0-10.5)
[2020-05-09 18:36] LABS: ALBUMIN 2.3 g/dL (3.5-5.0); ALKALINE PHOSPHATASE 109 U/L (38-126); ANION GAP 5 (5-19); ASPARTATE AMINO TRANSFERASE 60 U/L (14-36); BILIRUBIN,DIRECT 1.7 mg/dL (0.0-0.4); BLOOD UREA NITROGEN 30 mg/dL (7-20); CALCIUM 8.3 mg/dL (8.4-10.2); CARBON DIOXIDE 31 mmol/L (22-30); CHLORIDE 107 mmol/L (98-107); GLUCOSE 311 mg/dL (75-110); POTASSIUM 4.5 mmol/L (3.6-5.0); TOTAL PROTEIN 4.8 g/dL (6.3-8.2)
[2020-05-09 18:56] LABS: ABSOLUTE LYMPHOCYTES# (MANUAL) 1.9 10^3/uL (0.5-4.7); ABSOLUTE MONOCYTES # (MANUAL) 0.2 10^3/uL (0.1-1.4); BAND NEUTROPHILS % (MANUAL) 2 % (3-5); BASOPHILS % (MANUAL) 0 % (0-2); EOSINOPHILS % (MANUAL) 0 % (0-6); LYMPHOCYTES % (MANUAL) 8 % (13-45); MONOCYTES % (MANUAL) 1 % (3-13); NUCLEATED RED BLOOD CELLS 1 /100 WBC (0); PLATELET COMMENT DECREASED; SEGMENTED NEUTROPHILS % (MAN) 89 % (42-78); TOTAL CELLS COUNTED 100
[2020-05-09 18:59] LABS: ANISOCYTOSIS SLIGHT; BURR CELLS SLIGHT; OVALOCYTES SLIGHT; POIKILOCYTOSIS SLIGHT; TEAR DROP CELLS SLIGHT
[2020-05-09 19:01] LABS: PLATELET COUNT 21 10^3/uL (150-450)
[2020-05-09 19:02] LABS: POLYCHROMASIA SLIGHT
[2020-05-09 21:43] LABS: ARTERIAL BLOOD BASE EXCESS 1.7 mmol/L; ARTERIAL BLOOD FIO2 100%; ARTERIAL BLOOD H2CO3 1.48 mmol/L (1.05-1.35); ARTERIAL BLOOD HCO3 27.6 mmol/L (20-24); ARTERIAL BLOOD O2 SATURATION 86.3 % (94-98); ARTERIAL BLOOD PCO2 49.1 mmHg (35-45); ARTERIAL BLOOD PH 7.37 (7.35-7.45); ARTERIAL BLOOD PO2 53.3 mmHg (80-100); ARTERIAL BLOOD TOTAL CO2 29.1 mmol/L (21-25)
[2020-05-09] MEDS: VANCOMYCIN HCL 1,500 MG in DEXTROSE 5%-WATER 250 ML IV SCH (22:30)
[2020-05-09 23:34] LABS: VANCOMYCIN,TROUGH 13.5 ug/mL (5.0-20.0)
[2020-05-10] MEDS: PIPERACILLIN SODIUM/TAZOBACTAM 3.375 GM in NORMAL SALINE 100 ML IV SCH ×3 (04:00→14:32)
[2020-05-10] MEDS: INSULIN REG, HUMAN 100 UNIT/ML 3 ML VIAL (PYX) SUBCUT SCH ×4 (05:26→23:12)
[2020-05-10] MEDS: DILTIAZEM HCL 60 MG TABLET PO SCH ×4 (05:26→23:15)
[2020-05-10] MEDS: NORMAL SALINE 1000 ML 1,000 ML IV PRN (08:10)
[2020-05-10] MEDS: APIXABAN 5 MG TABLET NG SCH ×2 (09:31→17:55)
[2020-05-10] MEDS: SITAGLIPTIN PHOSPHATE 50 MG TABLET NG SCH (09:31)
[2020-05-10] MEDS: LORAZEPAM 0.5 MG TABLET NG SCH ×2 (09:31→21:43)
[2020-05-10] MEDS: SERTRALINE HCL 50 MG TABLET PO SCH (09:31)
[2020-05-10] MEDS: LOSARTAN POTASSIUM 50 MG TABLET NG SCH (09:31)
--- NOTE | 2020-05-10 18:08 | PDOC PROGRESS REPORT ---
Subjective Date:: 05/10/20 Subjective:: Patient remain on NIPPV BiPAP support. She remain more somnolent and mainly resp ond to tactile stimuli. No reported fever. Reason For Visit: SOB,PNEUMONIA,CHF,COVID Physical Exam Vital Signs: Temp Pulse Resp BP Pulse Ox 98.2 F 100 39 H 151/91 H 98 05/10/20 15:32 05/10/20 15:32 05/10/20 15:32 05/10/20 15:32 05/10/20 15:32 Intake & Output 05/09/20 05/10/20 05/11/20 06:59 06:59 06:59 Intake Total 1365 1510 2147 Output Total 975 1175 Balance 331 281 7250 Weight 96.2 kg 98.2 kg Physical Exam: General appearance: PRESENT: mild distress with BiPOAP mask in place. Head exam: PRESENT: atraumatic, normocephalic Eye exam: PRESENT: conjunctiva pink. ABSENT: pallor, sclera icterus Respiratory exam: PRESENT: decreased breath sounds Cardiovascular exam: PRESENT: RRR, +S1, +S2 GI/Abdominal exam: PRESENT: normal bowel sounds, soft. ABSENT: tenderness Neurological exam: PRESENT: alert, awake Skin exam: PRESENT: dry, warm Results Laboratory Results: 05/09/20 18:12 05/09/20 18:12 05/09/20 05/09/20 05/09/20 18:12 18:12 18:25 WBC 23.4 H RBC 3.86 Hgb 11.0 L D Hct 33.7 L MCV 87 MCH 28.5 MCHC 32.6 RDW 15.4 H Plt Count 21 L* Seg Neutrophils % Not Reportable Carbonic Acid 1.48 H HCO3/H2CO3 Ratio 18:1 ABG pH 7.37 ABG pCO2 49.1 H ABG pO2 53.3 L ABG HCO3 27.6 H ABG O2 Saturation 86.3 L ABG Base Excess 1.7 FiO2 100% Sodium 143.2 Potassium 4.5 Chloride 107 Carbon Dioxide 31 H Anion Gap 5 BUN 30 H Creatinine 0.82 Est GFR ( Amer) > 60 Glucose 311 H Calcium 8.3 L Total Bilirubin 3.0 H AST 60 H Alkaline Phosphatase 109 Total Protein 4.8 L Albumin 2.3 L 04/21/20 04/21/20 04/22/20 19:23 19:23 05:00 Creatine Kinase 169 H CK-MB (CK-2) 3.41 Troponin I 0.034 NT-Pro-B Natriuret Pep 4490 H 7260 H 04/22/20 23:40 Creatine Kinase CK-MB (CK-2) Troponin I NT-Pro-B Natriuret Pep 6940 H Impressions: Chest/Abdomen CTA 04/21/20 22:06 IMPRESSION: 1. No evidence of pulmonary embolus. 2. Small bilateral pleural effusions with adjacent bilateral lower lung atelectasis although cannot exclude component of a pneumonia. 3. Bilateral groundglass opacities with septal thickening that could be related to edema but infectious etiology is also possible. Imaging features can be seen with viral or COVID 19 pneumonia, though are nonspecific and can occur with a variety of infectious and noninfectious processes. [PneInd] Head CT 04/30/20 00:00 IMPRESSION: 1. No acute intracranial hemorrhage or mass effect. Nonspecific findings compatible with chronic microvascular ischemic change are present. If there is clinical concern for acute stroke, MRI brain should be considered as a more sensitive evaluation. KUB X-Ray 05/04/20 18:19 IMPRESSION: NASOGASTRIC TUBE, TIP IN THE STOMACH. NO RADIOGRAPHIC EVIDENCE FOR ACUTE ABDOMINAL DISEASE. Head MRI 05/05/20 00:00 IMPRESSION: ATROPHY AND CHRONIC MICRO-VASCULAR ISCHEMIC CHANGES. OTHERWISE NORMAL MRI OF THE BRAIN WITHOUT INTRAVENOUS GADOLINIUM CONTRAST. EVIDENCE OF ACUTE STROKE: NO. Assessment & Plan - Diagnosis (1) Acute hypoxemic respiratory failure due to COVID-19 Is this a current diagnosis for this admission?: Yes Plan: Continue current medication and supportive care. (2) Encephalopathy due to COVID-19 virus Is this a current diagnosis for this admission?: Yes Plan: Continue current medication management. (3) Diabetes mellitus type 2 in obese Is this a current diagnosis for this admission?: Yes Plan: Continue current medication and dietary management. (4) Paroxysmal atrial fibrillation with rapid ventricular response Is this a current diagnosis for this admission?: Yes Plan: Continue current medication management. (5) Hypertension Qualifiers: Hypertension type: essential hypertension Qualified Code(s): I10 - Essential (primary) hypertension Is this a current diagnosis for this admission?: Yes Plan: Continue current medication and dietary management. (6) COPD (chronic obstructive pulmonary disease) Qualifiers: COPD type: unspecified COPD Qualified Code(s): J44.9 - Chronic obstructive pulmonary disease, unspecified Is this a current diagnosis for this admission?: Yes Plan: Continue current medication management. (7) Thrombocytopenia Is this a current diagnosis for this admission?: Yes Plan: D/C Zosyn due to worsening thrombocytopenia and negative culture so far. - Time Time Spent with patient: 25-34 minutes Level of Care: IMCU Medications reviewed and adjusted accordingly: Yes Anticipated discharge: SNF, Hospice Anticipated DC Timeframe: within 72 hours - Inpatient Certification Based on my medical assessment, after consideration of the patient's comorbidities, presenting symptoms, or acuity I expect that the services needed warrant INPATIENT care.: Yes I certify that my determination is in accordance with my understanding of Medicare's requirements for reasonable and necessary INPATIENT services [42 CFR 412.3e].: Yes Medical Necessity: Significant Comorbidiites Make Outpatient Treatment Too Risky, Need Close Monitoring Due to Risk of Patient Decompensation, Need For IV Fluids, Need For Continuous Telemetry Monitoring, Need for IV Antibiotics, Risk of Complication if Not Cared For in Hospital, Risk of Diagnosis Which Will Require Inpatient Eval/Care/Monitoring Post Hospital Care: D/C Health Occupations Teacher Documentation, D/C or Transfer Summary - Plan Summary Plan Summary: Continue current medication and supportive management. Overall prognosis remain very poor.
[2020-05-10] MEDS: VANCOMYCIN HCL 1,500 MG in DEXTROSE 5%-WATER 250 ML IV SCH (21:43)
[2020-05-11 04:32] VITALS: BP 117/51
[2020-05-11] MEDS: NORMAL SALINE 1000 ML 1,000 ML IV PRN (04:43)
[2020-05-11] MEDS: DILTIAZEM HCL 60 MG TABLET PO SCH (05:37)
[2020-05-11] MEDS: INSULIN REG, HUMAN 100 UNIT/ML 3 ML VIAL (PYX) SUBCUT SCH (06:03)
--- NOTE | 2020-05-11 08:28 | PDOC PROGRESS REPORT ---
Subjective Date:: 05/11/20 Subjective:: Second cardiac arrest after ROSC with normal sinus rhythm for 18 minutes Reason For Visit: SOB,PNEUMONIA,CHF,COVID Physical Exam Vital Signs: Temp Pulse Resp BP Pulse Ox 97.5 F 102 H 17 117/51 L 90 L 05/11/20 03:56 05/11/20 03:56 05/11/20 03:56 05/11/20 03:56 05/11/20 03:56 Intake & Output 05/10/20 05/11/20 05/12/20 06:59 06:59 06:59 Intake Total 1510 4615 Output Total 1175 750 Balance 335 3865 Weight 98.2 kg 95.3 kg General appearance: PRESENT: obese, well-developed, other - Somnolent Head exam: PRESENT: atraumatic, normocephalic Throat exam: PRESENT: other - Blood-tinged mucus from the endotracheal tube Respiratory exam: PRESENT: rhonchi, other - Subsequent lack of spontaneous breath sounds Cardiovascular exam: PRESENT: other - Asystole at the time of this encounter GI/Abdominal exam: PRESENT: other - Unable to assess due to CPR Rectal exam: PRESENT: deferred Gentrourinary exam: PRESENT: indwelling catheter Neurological exam: PRESENT: altered - Obtunded Results Laboratory Results: 05/09/20 18:12 05/09/20 18:12 04/21/20 04/21/20 04/22/20 19:23 19:23 05:00 Creatine Kinase 169 H CK-MB (CK-2) 3.41 Troponin I 0.034 NT-Pro-B Natriuret Pep 4490 H 7260 H 04/22/20 23:40 Creatine Kinase CK-MB (CK-2) Troponin I NT-Pro-B Natriuret Pep 6940 H Impressions: Chest/Abdomen CTA 04/21/20 22:06 IMPRESSION: 1. No evidence of pulmonary embolus. 2. Small bilateral pleural effusions with adjacent bilateral lower lung atelectasis although cannot exclude component of a pneumonia. 3. Bilateral groundglass opacities with septal thickening that could be related to edema but infectious etiology is also possible. Imaging features can be seen with viral or COVID 19 pneumonia, though are nonspecific and can occur with a variety of infectious and noninfectious processes. [PneInd] Head CT 04/30/20 00:00 IMPRESSION: 1. No acute intracranial hemorrhage or mass effect. Nonspecific findings compatible with chronic microvascular ischemic change are present. If there is clinical concern for acute stroke, MRI brain should be considered as a more sensitive evaluation. KUB X-Ray 05/04/20 18:19 IMPRESSION: NASOGASTRIC TUBE, TIP IN THE STOMACH. NO RADIOGRAPHIC EVIDENCE FOR ACUTE ABDOMINAL DISEASE. Head MRI 05/05/20 00:00 IMPRESSION: ATROPHY AND CHRONIC MICRO-VASCULAR ISCHEMIC CHANGES. OTHERWISE NORMAL MRI OF THE BRAIN WITHOUT INTRAVENOUS GADOLINIUM CONTRAST. EVIDENCE OF ACUTE STROKE: NO. Assessment and Plan - Diagnosis (1) Cardiac arrest Is this a current diagnosis for this admission?: Yes (2) Acute hypoxemic respiratory failure due to COVID-19 Is this a current diagnosis for this admission?: Yes (3) Type 2 diabetes mellitus with hyperglycemia Qualifiers: Diabetes mellitus intermediate teacher insulin use: unspecified intermediate teacher insulin use status Qualified Code(s): E11.65 - Type 2 diabetes mellitus with hyperglycemia Is this a current diagnosis for this admission?: Yes (4) Thrombocytopenia Is this a current diagnosis for this admission?: Yes (5) Atrial fibrillation with rapid ventricular response Is this a current diagnosis for this admission?: Yes (6) COPD (chronic obstructive pulmonary disease) Qualifiers: COPD type: unspecified COPD Qualified Code(s): J44.9 - Chronic obstructive pulmonary disease, unspecified Is this a current diagnosis for this admission?: Yes (7) Hypertension Qualifiers: Hypertension type: essential hypertension Qualified Code(s): I10 - Essential (primary) hypertension Is this a current diagnosis for this admission?: Yes - Plan Summary Summary: The patient had just undergone CPR for asystolic cardiac arrest. She was successfully intubated and return of spontaneous circulation was obtained. Unfortunately 18 minutes later she exhibited asystole again. [id number] was continued for oxygenation. CPR was reinitiated. Multiple rounds of epinephrine were given. Despite all efforts the patient was unable to be successfully resuscitated from this second arrest. The attending physician for the weekend, Dr. Henriquez covering for Dr. Amaya, was notified and responded on scene. He was able to speak with the patient's son and daughter. - Time Total Critical Time (Minutes): 35 Anticipated Discharge Disposition: Anticipated Discharge Timeframe:
--- NOTE | 2020-05-11 08:30 | Progress Note ---
Provider Note Provider Note: Patient went into cardiopulmonary arrest twice this morning. Despite CPR efforts, she was pronounced at 0805hour this morning. i discussed case with her daughter Aaliyah and son Gagan Nesbitt. The CPR effprts was under directive of hospitalist Dr. Brower.
--- NOTE | 2020-05-11 08:51 | Death Summary ---
Summary Date : 05/11/20 Time of :: 08:05 Autopsy: No Resuscitation Status: Full Code Primary Care Provider: Monique Donahue - Final Diagnosis (1) Acute hypoxemic respiratory failure due to COVID-19 Is this a current diagnosis for this admission?: Yes (2) Pneumonia due to severe acute respiratory syndrome coronavirus 2 (SARS-CoV-2) Is this a current diagnosis for this admission?: Yes (3) Severe pulmonary arterial systolic hypertension Is this a current diagnosis for this admission?: Yes (4) Obesity (BMI 30-39.9) Is this a current diagnosis for this admission?: Yes (5) Chronic diastolic heart failure Is this a current diagnosis for this admission?: Yes (6) Diabetes mellitus type 2 in obese Is this a current diagnosis for this admission?: Yes (7) Thrombocytopenia Is this a current diagnosis for this admission?: Yes Hospital Course:: The patient was on the service of Dr. Amaya. Based on review of her chart it appears that the patient presented with severe sepsis and Covid pneumonia. She had significant underlying risk factors including history of congestive heart failure, coronary artery disease, atrial fibrillation, pulmonary embolus, diabetes mellitus, severe pulmonary hypertension, obesity and diabetes mellitus. It appears that she had a chronic and progressive decline. She initially started with nasal cannula for her hypoxic respiratory failure and then required increased ventilatory support. She went from nasal cannula to nonrebreather and subsequently required BiPAP/CPAP. She had episodes of delirium and over the last several days was poorly responsive. Even an EEG was obtained which showed diffuse slowing. This morning the patient was found in respiratory distress. Initially a rapid response team was called. That quickly turned into a code 99 for cardiac resuscitation. The patient was intubated. [id number] was used for ventilatory support. After several minutes and multiple doses of epinephrine and chest compressions the patient had ROSC. Unfortunately within 18 minutes the patient arrested again and again and exhibited asystole. A second attempt at cardiac resuscitation including CPR, 3 doses of epinephrine and bag mask ventilation was unsuccessful. It was noted that there was now bright red blood in the ET tube suctioning. The patient was on Eliquis for history of pulmonary embolus and atrial fibrillation. With a complete lack of response to the second episode of asystole resuscitation was discontinued. Time of was 8:05 AM on 05/11/2020 Cause of complications from SARS-CoV-2 pneumonia Acute hypoxic respiratory failure Severe pulmonary hypertension Coronary artery disease Congestive heart failure Obesity Diabetes mellitus type 2 Dr. Henriquez, covering for Dr. Amaya, was made aware. He was onsite just after the second cardiac arrest with patient expiration. He then called the patient's son and daughter.
[2020-05-11] MEDS ORDERED: EPINEPHRINE INJ 1 MG/10 ML DISP.SYRIN ONE (15:11)
[2020-05-11] MEDS ORDERED: SODIUM BICARBONATE 8.4% INJ 50 MEQ/50 ML DISP.SYRIN ONE (15:11)
[2020-05-13 16:11] LABS: PATH REVIEW PATHOLOGIST REVIEWED
== END 2020-05-11 09:30 | DRG 177 ==
LOC: ER 16:37 → EH 22:28 → 3W 04-22 01:40 → 3N 04-26 19:14
PROVIDERS: ADMIT Internal Medicine; ATTEND Internal Medicine
PROC: 5A09557 Assistance with Respiratory Ventilation, Greater than 96 Consecutive Hours, Continuous Positive Airway Pressure (ICD-10-PCS; 2020-04-21)
PROC: XW033E5 Introduction of Remdesivir Anti-infective into Peripheral Vein, Percutaneous Approach, New Technology Group 5 (ICD-10-PCS; 2020-04-22)
PROC: 02HV33Z Insertion of Infusion Device into Superior Vena Cava, Percutaneous Approach (ICD-10-PCS; principal; 2020-05-07)
PROC: 30233N1 Transfusion of Nonautologous Red Blood Cells into Peripheral Vein, Percutaneous Approach (ICD-10-PCS; 2020-05-09)
PROC: 0BH17EZ Insertion of Endotracheal Airway into Trachea, Via Natural or Artificial Opening (ICD-10-PCS; 2020-05-11)
PROC: 5A12012 Performance of Cardiac Output, Single, Manual (ICD-10-PCS; 2020-05-11)
DX: U07.1 COVID-19 (principal); J12.89 Other viral pneumonia; J96.01 Acute respiratory failure with hypoxia; A41.9 Sepsis, unspecified organism; R65.20 Severe sepsis without septic shock; I50.32 Chronic diastolic (congestive) heart failure; F10.931 Alcohol use, unspecified with withdrawal delirium; G93.40 Encephalopathy, unspecified; N17.9 Acute kidney failure, unspecified; I11.0 Hypertensive heart disease with heart failure; E11.42 Type 2 diabetes mellitus with diabetic polyneuropathy; E11.649 Type 2 diabetes mellitus with hypoglycemia without coma; I50.9 Heart failure, unspecified; I27.21 Secondary pulmonary arterial hypertension; D69.59 Other secondary thrombocytopenia; E66.9 Obesity, unspecified; J44.9 Chronic obstructive pulmonary disease, unspecified; I48.0 Paroxysmal atrial fibrillation; Z79.01 Long term (current) use of anticoagulants; Z82.49 Family history of ischemic heart disease and other diseases of the circulatory system; Z82.3 Family history of stroke; Z78.1 Physical restraint status
CPT/HCPCS: 36415; 36430; 36600; 70450; 70551; 71045; 71275; 74018; 80048; 80053; 80202; 81001; 82550; 82553; 82803; 82962; 83605; 83880; 84484; 85025; 85379; 85384; 85610; 85730; 86850; 86900; 86901; 86920; 87040; 87086; 93005; 93010; 94660; 95819; 96365; 99285; 0241U; C9803; J0171; J0360; J0456; J0696; J1100; J1815; J1940; J2543; J3360; J3370; J3490; J7030; J7050; J7060; P9016; S0028